=== PATIENT | female | born 1935 | race Caucasian/White ===

== ENCOUNTER → 2016-05-24 | Outpatient (CLI) | payer OTHER ==
[2016-05-24 13:09] LABS: BASO % 0.3 %; BASO ABS # 0.02 K/uL (0-0.2); COMPLETE YES; EOS % 2.8 %; HEMATOCRIT 43.6 % (37-47); IG% 0.1 %; LYMPH % 24.6 %; LYMPH ABS # 1.77 K/uL (1.2-3.4); MEAN CELL VOLUME 89.5 fL (80-100); MEAN CORPUSCULAR HEMOGLOBIN 30.8 pg (25-34); MEAN CORPUSCULAR HGB CONC 34.4 g/dl (32-36); MEAN PLATELET VOLUME 11.6 fL (7.4-10.4); MONO % 8.6 %; NEUT % 63.6 %; PLATELET COUNT 201 K/uL (130-400); RED BLOOD COUNT 4.87 M/uL (4.2-5.4)
[2016-05-24 13:30] LABS: ESTIMATED AVERAGE GLUCOSE 120 mg/dl; HA1C FLAG Normal (Normal)
[2016-05-24 13:46] LABS: ALT/SGPT 21 U/L (12-78); BLOOD UREA NITROGEN 22 mg/dl (7-18); BUN/CREATININE RATIO 18.1 (10-20); CALCIUM 9.8 mg/dl (8.5-10.1); CARBON DIOXIDE 30 mmol/L (21-32); CHLORIDE 102 mmol/L (98-107); CHOLESTEROL 158 mg/dl (0-200); GLUCOSE 117 mg/dl (70-99); POTASSIUM 3.9 mmol/L (3.5-5.1); SODIUM 140 mmol/L (136-145)
[2016-05-24 13:55] LABS: ALKALINE PHOSPHATASE 64 U/L (45-117); AST/SGOT 18 U/L (15-37); HDL CHOLESTEROL 53 mg/dl; LDL CHOLESTEROL CALCULATED 81 mg/dl; TRIGLYCERIDES 119 mg/dl (0-150); VERY LOW DENSITY LIPOPROT CALC 24 mg/dl
--- NOTE | 2016-05-31 08:25 | CODING QUERY MEDICAL NECESSITY ---
SUPPORTING DIAGNOSIS NEEDED A supporting diagnosis is required for the test/procedure performed on this patient in order for us to be reimbursed by the patient's insurance. Please provide a supporting diagnosis for the following test/procedure listed below next to the test name along with your signature. *If there is no additional diagnosis for this patient that would support the following test/procedure please document that below next to the test/procedure. Test(s)/Procedure(s) that require a supporting diagnosis: * VITAMIN B-12 LEVEL DIAGNOSIS: * DOS: 05/24/16 Provider Signature: Date: Thank you Arin Britton Health Information Management Once completed, please kindly fax back to [phone] For questions please call [phone]
== END | disposition home or self-care (01) ==
LOC: C.LAB1850 11:54
PROVIDERS: ATTEND Internal Medicine
DX: I10 Essential (primary) hypertension (principal); R73.9 Hyperglycemia, unspecified; R94.6 Abnormal results of thyroid function studies; E55.9 Vitamin D deficiency, unspecified

== ENCOUNTER → 2017-02-15 | Outpatient (CLI) | payer OTHER ==
--- NOTE | 2017-02-15 14:11 | MAMMOGRAPHY REPORT ---
BILATERAL DIGITAL SCREENING MAMMOGRAM TOMOSYNTHESIS WITH CAD: 02/15/2017 CLINICAL HISTORY: Routine screening. Patient has no complaints. TECHNIQUE: Breast tomosynthesis in addition to standard 2D mammography was performed. Current study was also evaluated with a Computer Aided Detection (CAD) system. COMPARISON: Comparison is made to exams dated: 02/15/2016 mammogram, 02/10/2015 mammogram, 4 mammogram, 01/02/2012 mammogram, 12/31/2010 ultrasound, and 01/02/2013 mammogram - [facility]. BREAST COMPOSITION: The tissue of both breasts is heterogeneously dense, which may obscure small mas ses. FINDINGS: There is a stable benign circumscribed mass in the anterior and medial left breast. Stable punctate microcalcifications in the right lateral breast. No new suspicious mass, architectural dis tortion or cluster of microcalcifications is seen. IMPRESSION: ACR BI-RADS CATEGORY 1: NEGATIVE There is no mammographic evidence of malignancy. A 1 year screening mammogram is recommended. The pa tient will receive written notification of the results. Approximately 10% of breast cancers are not detected with mammography. A negative mammographic report should not delay biopsy if a clinically suggestive mass is present. Margarita Tucker M.D. ay/:02/15/2017 12:35:26 [employer] Tuber Machine Operator: Luz Dee, M, [facility] letter sent: Normal 1/2 BI-RADS Code: ACR BI-RADS Category 1: Negative
== END | disposition home or self-care (01) ==
LOC: C.MAMM 10:20
PROVIDERS: ATTEND Internal Medicine
DX: Z12.31 Encounter for screening mammogram for malignant neoplasm of breast (principal)

== ENCOUNTER 2018-04-05 10:00 | Inpatient (IN) ==
--- NOTE | 2018-03-21 09:14 | Anesthesiology Consultation ---
Date of Service March 21, 2018 Assessment & Plan Chart Review Chart Review: Acceptable Risk for Surgery and Patient NOT seen in Pre Admission Testing Consults Requested none ASA ASA4 Proposed Anesthesia Anesthesia Type: General Anesthesia Line Insertion: Arterial line History Surgery Operation Date: 04/05/18 09:35 Proposed Procedures p Laparoscopic Sigmoidectomy - Josiah Black, Height/Weight Height: 5 ft 4 in Weight: 74.8 kg Allergies Allergy/AdvReac Type Severity Reaction Status Date / Time No Known Allergies Allergy Verified 03/20/18 11:34 Medications Home Medications Medication Instructions Recorded Confirmed Last Taken aspirin [Aspir-81] 81 mg PO HS 02/19/18 03/20/18 03/05/18 atorvastatin 40 mg PO HS 02/19/18 03/20/18 03/05/18 calcium carbonate-vitamin D3 1 tab PO BID 02/19/18 03/20/18 03/05/18 cholecalciferol (vitamin D3) 2,000 unit PO QDL 02/19/18 03/20/18 03/05/18 [Vitamin D3] clonidine HCl 0.1 mg PO DAILY PRN 02/19/18 03/20/18 03/05/18 clonidine HCl 0.1 mg PO HS 02/19/18 03/20/18 03/05/18 diphenhydramine HCl [Benadryl] 25 mg PO HS 02/19/18 03/20/18 03/05/18 lorazepam 2 mg PO HS PRN 02/19/18 03/20/18 03/05/18 metoprolol succinate 50 mg PO QPM 02/19/18 03/20/18 03/05/18 valsartan-hydrochlorothiazide 1 tab PO QAM 02/19/18 03/20/18 03/05/18 Past Medical History Medical History Blood in stool Hyperlipidemia Hypertension Past Surgical History Surgical History History of colonoscopy 03/08/18 [facility] History of bilateral cataract extraction History of myomectomy History of tooth extraction under local Past Anesthesia History No Hx of Anesthesia Complications and No Family Hx of Anesthesia Complications History of PONV No Motion Sickness Screening History of Motion Sickness: No Social History Smoking Status: Never smoker Do You Dip or Chew Tobacco: No Hx Alcohol Use: No Alcohol Intake Frequency Comment: 0 Hx Substance Use: No substance use type: does not use Exercise / Class Metabolic Activity III < 4 Walking/Shop/Light housework Testing Electrocardiogram Date: 05/30/17 sr at 96, ns st t wave abnl anterolateral leads Echocardiogram Date: 08/04/17 EF: 55 LV Function: normal RWMA: + none Other Findings: + atrial enlargement (LA mildly dilated) and + diastolic dysfunction (grade 2) Valvular Disease: + MR (mild - moderate) mild dynamic LVOT obstruction w/o ;mild HOCM?
[~2018-04-05 10:00] MED LIST: CEFAZOLIN 2000MG 2,000 MG/15 ML SYR IV SCH; HEPARIN SOD 5,000 UNIT/0.5 ML VIAL SQ SCH; LR 15ML/HR IV SCH
[2018-04-05] MEDS ORDERED: HYDROmorphone INJ 2 MG/ML SYR/VIAL ONE (12:09)
[2018-04-05] MEDS ORDERED: LIDOCAINE HCL 2% 2 ML VIAL/AMP(20MG/ML) INFIL ONE (12:11)
[2018-04-05] MEDS ORDERED: GLYCOPYRROLATE 0.2 MG/ML VIAL ONE (12:11)
[2018-04-05] MEDS ORDERED: DEXAMETHASONE SOD INJ 4 MG/ML VIAL ONE (12:11)
[2018-04-05] MEDS ORDERED: ROCURONIUM BROMIDE 10 MG/ML 5 ML VIAL ONE (12:11)
[2018-04-05] MEDS ORDERED: ONDANSETRON INJ 2 MG/ML 2 ML VIAL ONE (12:11)
[2018-04-05] MEDS ORDERED: PROPOFOL IV EMULSION 10 MG/ML 20 ML VIAL IV ONE ×3 (12:11→15:18)
[2018-04-05] MEDS ORDERED: NEOSTIGMINE METHYLSULFATE 5 MG/5 ML SYR ONE (12:11)
[2018-04-05] MEDS ORDERED: fentaNYL citrate 100 MCG/2 ML VIAL ONE ×5 (12:12→14:24)
--- NOTE | 2018-04-05 12:14 | History & Physical Bridge Note ---
Date of Service April 05, 2018 History & Physical Bridge Note I have examined the patient, reviewed the History & Physical and in the interval since the performance of the History & Physical I have noted the following changes of clinical significance: no changes noted
[2018-04-05] MEDS ORDERED: ePHEDrine sulfate 50 MG/ML AMP IV PRN (12:28)
[2018-04-05] MEDS ORDERED: fentaNYL citrate 100 MCG/2 ML VIAL IV PRN (12:28)
[2018-04-05] MEDS ORDERED: ATROPINE SULFATE 0.1 MG/ML 10ML SYR IV PRN (12:28)
[2018-04-05] MEDS ORDERED: ONDANSETRON INJ 2 MG/ML 2 ML VIAL IV PRN ×2 (12:28→17:09)
[2018-04-05] MEDS ORDERED: BUPIVACAINE/EPINEPHRINE 0.5% MPF 1:200,000 30 ML VIAL ONE (12:35)
--- NOTE | 2018-04-05 15:58 | Operative Report ---
Post Operative Report Pre & Post Diagnosis Operation Date: 04/05/18 12:15 Pre-Op Diagnosis: Adenocarcinoma, Sigmoid Colon Post-Op Diagnosis: Adenocarcinoma, recto-Sigmoid Colon Procedure Operation Date: 04/05/18 12:15 Actual Procedures p Laparoscopic Low Anterior resection - Josiah Black DO Surgeon Josiah Black DO Dock Grader yissel Magana Estimated Blood Loss 50 Findings Consistent with Post-Op Diagnosis Specimens rectosigmoid colon Description of Procedure After informed consent was obtained the patient was taken to the operating room and placed in supine position. After successful intubation a Mondragon catheter was placed. The patient then had her arms tucked and was placed in a low lithotomy position on yellowfin stirrups. The abdomen and perineum were all sterilely prepped and draped in usual fashion. I began with a periumbilical incision with a 11 blade scalpel and carried this down through the soft tissue using electrocautery. The anterior rectus fascia was opened using electrocautery and 2 #0 Vicryl stay sutures were placed. Peritoneum was entered using blunt finger penetration a finger sweep performed. A 12 mm Mccollum trocar was placed in the abdomen was insufflated to 18 mm of. Laparoscope was inserted and the abdomen was examined in 360 degrees. The tattoo ruel on the sigmoid colon was readily apparent. There was no evidence on any of the peritoneal surfaces of metastatic disease. A right lower quadrant 12 mm trocar was placed under direct vision as well as a right mid abdominal 5 mm trocar and a left lower quadrant 5 mm trocar. The patient was placed in a Trendelenburg position and slightly air planed to the right. I began by inspecting the left colon. There was not much redundancy in the colon and the mesentery was rather thickened and scarred in. This made mobilization quite difficult. I began by using the harmonic scalpel to mobilize the colon along the white line of Toldt. I took this down to the peritoneal reflection as well as up to just distal to the spleen. The lesion was an apple core type lesion and was grossly visible. This was lower than I expected and was actually just proximal to the peritoneal reflection. Because of this I had to mobilize the rectum down past the peritoneal reflection in order to get adequate margins. We did the majority of the dissection either bluntly or with the harmonic scalpel. Eventually I was able to free things up and made a small window at the rectosigmoid region. We used 2 firings of a JONAH purple cartridge stapler to transect the rectum in this region. We then found an area on the left colon as proximal as we could get and marked it for an area of resection. We took as much of the left colon as we could not only to get margins from the cancer but also because of the polyp that had been removed with some adenocarcinoma in it. We had no way of identifying where in the left colon this polyp was. Therefore we took as much of the left colon as we safely could. We took down the mesentery using the harmonic scalpel. Once we had a completely freed up the specimen we extended the left lower quadrant trocar incision site with cautery. We opened the fascia and delivered the colon and exteriorized it. We clamped it and divided it at the previously marked spot. I did eventually open this on the back table to ensure that grossly we had adequate distal margins which we did. Next we used 2-0 silk to make a pursestring stitch. The colon had a very small lumen and a 25 mm sizer was the maximum size that we could safely enter the lumen with. We placed the anvil of a 25 mm stapler into lumen and secured it with the pursestring. This was dunked back into the abdominal cavity. We then changed our gloves. We closed the fascia using 0 PDS in a running fashion. We then reinsufflated the abdomen. I irrigated the pelvis and there was adequate hemostasis. The anvil and left colon were able to come over the pelvic brim without tension. We started with sizers in the rectum followed by the EEA handle. We able to bring the spike out through the rectal stump anterior to the staple line. We secured it to the anvil and fired creating a circular anastomosis. Both donuts were intact and we sent the distal donut for distal margins. I thoroughly irrigated the entire lower part of the abdomen. Again there was adequate hemostasis. We submerged the anastomosis under water, I clamped proximal to the anastomosis and we insufflated with a rigid sigmoidoscope. There was no evidence of any anastomotic leak. We then placed a 10 flat Gonzalo-Bobo drain in the pelvis and brought out through 1 of the trocar sites. It was secured to skin using 2- 0 nylon. All the trochars were removed and the abdomen desufflated. The fascia the camera port was closed using 0 Vicryl [id number] fashion. All the wounds were irrigated. Large incision was closed with 3-0 Vicryl and 4-0 Monocryl the smaller incisions were closed with 4-0 Monocryl. Marcaine was injected around them for postoperative analgesia. Skin glue was used as a dressing. The patient was awaken extubated and transferred recovery in stable condition. My physician automobile mechanic assistant was present for the entire case. He helped prep the patient. Helped with retraction and exposure in running of the camera throughout the entire procedure as well as with the anastomosis and wound closure. I attest to the content of the Intraoperative Record and any orders documented therein. Any exceptions are noted below.
--- NOTE | 2018-04-05 16:27 | Anesthesiology Progress Note ---
Date of Service April 05, 2018 Anesthesia Post Procedure Vital Signs Vital Signs: Temp Pulse Pulse Resp BP Pulse Ox 04/05/18 16:20 69 14 148/73 H 100 04/05/18 16:10 70 14 152/80 H 100 04/05/18 16:00 71 14 149/78 H 100 04/05/18 15:54 36.2 C L 72 12 150/85 H 94 04/05/18 10:39 36.7 C 62 18 180/85 H 94 Notes Mental Status: alert / awake / arousable Patient Amnestic to Procedure: Yes Nausea / Vomiting: adequately controlled Pain: adequately controlled Airway Patency, RR, SpO2: stable & adequate BP & HR: stable & adequate Hydration State: stable & adequate Anesthetic Complications: no major complications apparent
[2018-04-05] MEDS ORDERED: MoRPHine SULFATE 4 MG/ML 1 ML CARP\\VIAL IV PRN ×2 (17:09)
[2018-04-05] MEDS ORDERED: LORazepam 2 MG TAB PO PRN (17:09)
--- NOTE | 2018-04-05 17:30 | Internal Medicine Consult Note ---
Date of Consultation April 05, 2018 Assessment & Plan (1) Hypertension: Patient typically takes outpatient clonidine 0.1 at bedtime, metoprolol 50 every afternoon, and valsartan hydrochlorothiazide daily. Because she is n.p.o. she will be placed on metoprolol IV 5 every 6 and if need be a Catapres patch be applied in the morning at 0.1 she will of backup hydralazine this evening as she is n.p.o. for blood pressure control however currently her blood pressure is in good condition postoperatively we will watch for beta-jim withdrawal and use metoprolol if needed to help with this also History of Present Illness Attending Physician: Josiah Black, OPERATION DATE/TIME 04/05/18 12:15 Anesthesia Type: General p Laparoscopic Low anterior sigmoid resection Surgeon: Josiah Black Allergies Allergy/AdvReac Type Severity Reaction Status Date / Time No Known Allergies Allergy Verified 04/05/18 10:32 Home Medications Home Medications Medication Instructions Recorded Confirmed Type aspirin [Aspir-81] 81 mg PO HS 02/19/18 04/05/18 History atorvastatin 40 mg PO HS 02/19/18 04/05/18 History calcium carbonate-vitamin D3 1 tab PO BID 02/19/18 04/05/18 History cholecalciferol (vitamin D3) 2,000 unit PO QDL 02/19/18 04/05/18 History [Vitamin D3] clonidine HCl 0.1 mg PO DAILY PRN 02/19/18 04/05/18 History clonidine HCl 0.1 mg PO HS 02/19/18 04/05/18 History diphenhydramine HCl [Benadryl] 25 mg PO HS 02/19/18 04/05/18 History lorazepam 2 mg PO HS PRN 02/19/18 04/05/18 History metoprolol succinate 50 mg PO QPM 02/19/18 04/05/18 History valsartan-hydrochlorothiazide 1 tab PO QAM 02/19/18 04/05/18 History Patient History Medical History Blood in stool Hyperlipidemia Hypertension Surgical History History of bilateral cataract extraction History of colonoscopy 03/08/18 [facility] History of myomectomy History of tooth extraction under local Social History Current Living Situation: Alone Other Information That Helps Us Care for You: No Feels Safe at Home: Yes Safety Concerns: Feels Safe At This Time Smoking Status: Never smoker Do You Dip or Chew Tobacco: No Hx Alcohol Use: No Hx Substance Use: No Beliefs That Will Affect Care: None Preferred Language: Tuvaluan Communication Ability: Effective Fly Setter Required: No Physical Exam 2 Vital Signs (Past 24 Hours): Last Vital Signs Temp 36.3 C L 04/05/18 16:40 Pulse 65 04/05/18 16:40 Resp 16 04/05/18 16:40 BP 139/70 04/05/18 16:40 Pulse Ox 94 04/05/18 16:40
--- NOTE | 2018-04-05 18:26 | Consultation ---
Date of Consultation April 05, 2018 Assessment & Plan (1) S/P colectomy: Status post colectomy on 04/05/[address] Black with colostomy formation -Postoperative care as per general surgery MICHELLE drain, Mondragon catheter in place -Pain control, IV fluids running with LR DVT prophylaxis with Lovenox -Follow postoperative CBC, CMP -N.p.o. with sips allowed with p.o. meds for now -Advance diet as tolerated as per surgery when bowel function returns (2) Hypertension: Blood pressure is elevated, she did not take her valsartan/HCT this morning as instructed and we will continue to hold this while here in the immediate postoperative period She is able to take p.o. meds with sips of water -Important to continue her Toprol-XL 50 mg p.o. nightly -Clonidine 0.1 mg p.o. 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 nightly along with Benadryl 25 mg p.o. nightly for many many years -Continue lorazepam scheduled while here -Add Benadryl 25 mg p.o. 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 Black Attending Physician: Josiah Black, DO History of Present Illness This patient is an 82-year-old female with a history of HTN, LVH with mild LVOT , HL, chronic diastolic CHF, mild to moderate MR, mild aortic stenosis, osteoporosis and vitamin D deficiency, left internal carotid artery aneurysm, prediabetes, insomnia, and a recent diagnosis of rectosigmoid invasive, well differentiated adenocarcinoma. She is here status post laparoscopic low anterior resection of the colon with colostomy formation. Currently, the patient is doing very well, has no pain in the abdomen at all. She denies chest pain or shortness of breath, no nausea. She is on the telemetry/PCU and is in a normal sinus rhythm on the monitor. She reports that she does indeed take the Lorazepam and Benadryl every night together and has a long history of insomnia. She reports that she did not take her valsartan/HCTZ this morning, but did take her metoprolol. However her blood pressure is running high and she can take her usual evening dose of metoprolol tonight. She reports she only has to take her clonidine about once per week when her systolic blood pressure is greater than 170. Allergies Allergy/AdvReac Type Severity Reaction Status Date / Time No Known Allergies Allergy Verified 04/05/18 10:32 Home Medications Home Medications Medication Instructions Recorded Confirmed Type aspirin [Aspir-81] 81 mg PO HS 02/19/18 04/05/18 History atorvastatin 40 mg PO HS 02/19/18 04/05/18 History calcium carbonate-vitamin D3 1 tab PO BID 02/19/18 04/05/18 History cholecalciferol (vitamin D3) 2,000 unit PO QDL 02/19/18 04/05/18 History [Vitamin D3] clonidine HCl 0.1 mg PO DAILY PRN 02/19/18 04/05/18 History clonidine HCl 0.1 mg PO HS 02/19/18 04/05/18 History diphenhydramine HCl [Benadryl] 25 mg PO HS 02/19/18 04/05/18 History lorazepam 2 mg PO HS PRN 02/19/18 04/05/18 History metoprolol succinate 50 mg PO QPM 02/19/18 04/05/18 History valsartan-hydrochlorothiazide 1 tab PO QAM 02/19/18 04/05/18 History Patient History Medical History Carotid artery aneurysm Chronic diastolic CHF (congestive heart failure) Colon cancer History of hysterectomy Insomnia Left ventricular outflow tract obstruction Mitral regurgitation Osteoporosis Prediabetes Vitamin D deficiency Blood in stool Hyperlipidemia Hypertension Surgical History History of bilateral cataract extraction History of colonoscopy 03/08/18 [facility] History of myomectomy History of tooth extraction under local Family History Father Stomach cancer Throat cancer Mother Kidney disease Social History Current Living Situation: Alone current occupational status: retired Other Information That Helps Us Care for You: No Feels Safe at Home: Yes Safety Concerns: Feels Safe At This Time Smoking Status: Never smoker Do You Dip or Chew Tobacco: No Hx Alcohol Use: No Hx Substance Use: No Beliefs That Will Affect Care: None Preferred Language: Trinidadian Communication Ability: Effective Roll Cleaner Required: No Review of Systems 14 point review of systems otherwise negative except as per HPI Physical Exam 2 Vital Signs (Past 24 Hours): Last Vital Signs Temp 36.3 C L 04/05/18 16:40 Pulse 65 04/05/18 16:40 Resp 16 04/05/18 16:40 BP 139/70 04/05/18 16:40 Pulse Ox 94 04/05/18 16:40 Constitutional: WD/WN, vitals as above Eyes: PERRL, conjunctivae normal, anicteric sclerae ENMT: external ear and nose normal, oropharynx normal Neck: trachea midline, no thyromegaly Respiratory: normal respiratory effort, lungs clear to auscultation Cardiovascular: RRR, no murmur, no edema Gastrointestinal (Abdomen): Inspection/Auscultation: + hypoactive bowel sounds ; + abdomen abnormal to inspection (Right lower quadrant with dressing in place with scant dried serosanguineous fluid, MICHELLE drain coming out with serosanguineous fluid; umbilical incision with Dermabond in place and no drainage) Percussion/Palpation: + abdomen tender (Minimally tender at incision sites without guarding or rebound tenderness) Musculoskeletal: Extremities: extremities normal to inspection; no cyanosis and no clubbing Skin: no rashes, warm and dry Neurologic: moves all extremities and awake; no focal motor deficits Psychiatric: A+Ox3, euthymic affect Genitourinary: Mondragon catheter in place draining clear yellow urine Results & Data Laboratory Results 04/05/18 04/05/18 Range/Units 16:07 10:38 POC Glucose 163 H (70-99) Blood Type O Positive Antibody Screen NEGATIVE _ (1) Hypertension Hypertension type: essential hypertension Qualified Code(s): I10 - Essential (primary) hypertension (2) Hyperlipidemia Hyperlipidemia type: unspecified Qualified Code(s): E78.5 - Hyperlipidemia, unspecified
[2018-04-05] MEDS ORDERED: METOPROLOL TARTRATE 1 MG/ML VIAL IV SCH (18:30)
[2018-04-05] MEDS ORDERED: cloNIDine HCl 0.1 MG TAB PO PRN (18:54)
[2018-04-05] MEDS ORDERED: GLUCOSE 40% GEL 15 GM TUBE PO PRN (19:18)
[2018-04-05] MEDS ORDERED: GLUCAGON FOR INJ 1 MG VIAL SQ PRN (19:18)
[2018-04-05] MEDS ORDERED: CARBOHYDRATES FOR HYPOGLYCEMIA PO PRN (19:18)
[2018-04-05] MEDS ORDERED: DEXTROSE 50% 50 ML SYRINGE IV PRN (19:18)
[2018-04-05] MEDS ORDERED: GLUCOSE 10 TABS/TUBE PO PRN (19:18)
[2018-04-05] MEDS: LACTATED RINGER'S 1,000 ML IV SCH ×2 (20:03→23:34)
[2018-04-05] MEDS: ACETAMINOPHEN 1,000 MG/100 ML VIAL IV SCH (20:04)
[2018-04-05] MEDS ORDERED: cloNIDine HCl 0.1 MG TAB PO SCH (21:00)
[2018-04-05] MEDS: CEFAZOLIN 1000MG 1,000 MG/7.5 ML SYR IV SCH (21:38)
[2018-04-05] MEDS: LORazepam 2 MG TAB PO SCH (21:39)
[2018-04-05] MEDS: METOPROLOL SUCC 50MG EXT REL TAB PO SCH (21:39)
[2018-04-05] MEDS: ATORVASTATIN 40 MG TAB PO SCH (21:39)
[2018-04-05] MEDS: INSULIN ASPART 100 UNITS/ML 3 ML PEN SC SCH (21:40)
[2018-04-06] MEDS ORDERED: CHECK CLONIDINE PATCH PLACEMENT SCH
[2018-04-06] MEDS: ACETAMINOPHEN 1,000 MG/100 ML VIAL IV SCH ×3 (05:38→21:03)
[2018-04-06] MEDS: CEFAZOLIN 1000MG 1,000 MG/7.5 ML SYR IV SCH ×2 (05:38→13:33)
[2018-04-06 06:42] LABS: Basophils # (auto) 0.01 K/uL (0-0.2); Basophils % (auto) 0.1 %; Hematocrit (blood only) 37.4 % (37-47); Hemoglobin 12.6 g/dL (12.0-16.0); Immature Granulocytes # (auto) 0.02 K/uL (0.00-0.02); Immature Granulocytes % (auto) 0.2 %; Lymphocytes # (auto) 1.05 K/uL (1.2-3.4); Lymphocytes % (auto) 10.3 %; Mean Corpuscular Hgb Conc 33.7 g/dL (32-36); Mean Corpuscular Volume 90.8 fL (80-100); Mean Platelet Volume 10.8 fL (7.4-10.4); Monocytes # (auto) 0.99 K/uL (0.11-0.59); Monocytes % (auto) 9.7 %; Neutrophils % (auto) 79.7 %; Platelet Count 184 K/uL (130-400); RDW Coefficient of Variation 13.7 % (11.5-14.5); RDW Standard Deviation 45.7 fL (36.4-46.3); Red Blood Count 4.12 M/uL (4.2-5.4); White Blood Count 10.17 K/uL (4.8-10.8)
[2018-04-06 07:10] LABS: Estimated Average Glucose 120 mg/dl
[2018-04-06 07:13] LABS: BUN Creatinine Ratio 15.2 (10-20); Calcium 9.5 mg/dl (8.5-10.1); Creatinine Clr Calc Pharmacy 47.2 ml/min; Est GFR (African American) 70.9; Est GFR (Non-African American) 61.2; Potassium 3.8 mmol/L (3.5-5.1)
--- NOTE | 2018-04-06 07:57 | Anesthesiology Progress Note ---
Date of Service April 06, 2018 Anesthesia Post Procedure Vital Signs Vital Signs: Temp Pulse Pulse Pulse Resp BP BP 04/06/18 04:00 36.4 C L 86 17 117/68 04/06/18 00:00 80 04/05/18 23:09 36.5 C 85 17 122/71 04/05/18 20:00 36.9 C 67 16 140/82 04/05/18 17:39 36.9 C 76 14 143/81 H 04/05/18 17:09 36.9 C 75 14 140/80 04/05/18 16:40 36.3 C L 65 16 139/70 04/05/18 16:30 36.3 C L 65 16 137/74 04/05/18 16:20 69 14 148/73 H 04/05/18 16:10 70 14 152/80 H 04/05/18 16:00 71 14 149/78 H 04/05/18 15:54 36.2 C L 72 12 150/85 H 04/05/18 10:39 36.7 C 62 18 180/85 H Pulse Ox 04/06/18 04:00 94 04/06/18 00:00 04/05/18 23:09 93 04/05/18 20:00 94 04/05/18 17:39 92 04/05/18 17:09 92 04/05/18 16:40 94 04/05/18 16:30 94 04/05/18 16:20 100 04/05/18 16:10 100 04/05/18 16:00 100 04/05/18 15:54 94 04/05/18 10:39 94 Notes Mental Status: alert / awake / arousable and participated in evaluation Patient Amnestic to Procedure: Yes Nausea / Vomiting: adequately controlled Pain: adequately controlled Airway Patency, RR, SpO2: stable & adequate BP & HR: stable & adequate Hydration State: stable & adequate Anesthetic Complications: no major complications apparent and Pt Satisfied with anesthetic care
[2018-04-06] MEDS: INSULIN ASPART 100 UNITS/ML 3 ML PEN SC SCH ×4 (08:03→20:41)
[2018-04-06] MEDS: ENOXAPARIN INJ 30 MG/0.3 ML SYR SQ SCH (08:04)
[2018-04-06] MEDS: LACTATED RINGER'S 1,000 ML IV SCH ×2 (08:04→16:52)
--- NOTE | 2018-04-06 08:21 | Surgery Progress Note ---
Date of Service April 06, 2018 Assessment & Plan (1) S/P colectomy: POD 1 lap LAR UOP adequate labs stable leave rice for today maybe clears later Subjective no nausea, minimal pain Physical Exam 2 Vital Signs (Past 24 Hours): Last Vital Signs Temp 36.4 C L 04/06/18 04:00 Pulse 86 04/06/18 04:00 Resp 17 04/06/18 04:00 BP 117/68 04/06/18 04:00 Pulse Ox 94 04/06/18 04:00 Constitutional: WD/WN, vitals as above Gastrointestinal (Abdomen): Inspection/Auscultation: abdomen not distended Percussion/Palpation: abdomen soft MICHELLE 20 cc overnight
[2018-04-06] MEDS ORDERED: cloNIDine HCL 0.1 MG/24 HR TRANSDERM SYS TD SCH (08:30)
--- NOTE | 2018-04-06 12:57 | Surgery Progress Note ---
Date of Service April 06, 2018 Assessment & Plan (1) Colon cancer: POD 1 doing well so far/no acute issues can transfer to med /surg sips clears ok will plan d/c MICHELLE tomorrow increase activity awaiting return of bowel fx Dr. Vargas covering for weekend. Subjective pt doing well. expected pain but controlled. Physical Exam 2 Vital Signs (Past 24 Hours): Last Vital Signs Temp 36.2 C L 04/06/18 12:00 Pulse 63 04/06/18 12:00 Resp 18 04/06/18 12:00 BP 131/69 04/06/18 12:00 Pulse Ox 93 04/06/18 12:00 Physical Exam: alert/oriented. nad abd: soft. expected tenderness. MICHELLE serous.
[2018-04-06] MEDS: CHOLECALCIFEROL 1,000 UNITS TAB PO SCH (13:30)
[2018-04-06] MEDS: OXYCODONE/ACETAMINOPHEN 5mg/325mg TAB PO PRN (17:45)
[2018-04-06] MEDS: LORazepam 2 MG TAB PO SCH (20:37)
[2018-04-06] MEDS: ATORVASTATIN 40 MG TAB PO SCH (20:38)
[2018-04-06] MEDS: METOPROLOL SUCC 50MG EXT REL TAB PO SCH (20:41)
--- NOTE | 2018-04-06 21:23 | Hospitalist Progress Note ---
Date of Service April 06, 2018 Assessment & Plan (1) Colon cancer: POD #1 s/p hemicolectomy by Dr. Black. Defer management to his team. (2) Essential (primary) hypertension: BPs acceptable at this time. Cont home meds. Agree w/ holding the ARB-HCTZ, however, to avoid hypotension/dehydration. (3) Insomnia: cont benadryl with ativan at HS -- she has been taking this regimen for some time at home (4) Chronic kidney disease, stage 3a: Creatinine stable today repeat BMP am (5) LVH (left ventricular hypertrophy): continue beta jim volume status acceptable today (6) Chronic diastolic CHF (congestive heart failure): compensated (7) Hyperlipidemia: cont statin (8) Prediabetes: control acceptable at this time (9) DVT prophylaxis: lovenox daily our team will cont to follow she is doing well medically thus far Subjective patient with mild abdominal pain today worse with deep breathing and movement no dyspnea no chest pain no nausea no flatus Constitutional: no fever dry mouth Respiratory: no cough and no dyspnea Cardiovascular: no chest pain Physical Exam 2 Vital Signs (Past 24 Hours): Last Vital Signs Temp 37.0 C 04/06/18 21:15 Pulse 80 04/06/18 21:15 Resp 18 04/06/18 21:15 BP 160/76 H 04/06/18 21:15 Pulse Ox 92 04/06/18 21:15 Constitutional: well developed and well nourished; no acute distress and not ill appearing ENMT: Mouth: + oropharynx abnormality (oral mucosa dry) Respiratory: normal respiratory effort, lungs clear to auscultation Auscultation: + rales (left base- dry) Cardiovascular: Rate/Rhythm: regular rate and regular rhythm Heart Sounds: normal S1, normal S2 and + murmur (2/6 LSB) Vessels: posterior tibial pulses present and dorsalis pedis pulses present; no JVD Extremities: no edema Gastrointestinal (Abdomen): Inspection/Auscultation: + abdomen distended (mild ) Percussion/Palpation: + abdomen tender (incisional); no guarding, abdomen not rigid and no hepatosplenomegaly MICHELLE drain in place with dressings intact Psychiatric: A+Ox3, euthymic affect Results & Data Laboratory Results Laboratory Results - last 24 hr 04/06/18 04/06/18 04/06/18 00:40 06:04 06:04 WBC 10.17 RBC 4.12 L Hgb 12.6 Hct 37.4 MCV 90.8 MCH 30.6 MCHC 33.7 RDW Std Deviation 45.7 RDW Coeff of Aimee 13.7 Plt Count 184 MPV 10.8 H Immature Gran % (Auto) 0.2 Neut % (Auto) 79.7 Lymph % (Auto) 10.3 [place] % (Auto) 9.7 Eos % (Auto) 0.0 Baso % (Auto) 0.1 Immature Gran # (Auto) 0.02 Neut # (Auto) 8.10 H Lymph # (Auto) 1.05 L [place]ole # (Auto) 0.99 H Eos # (Auto) 0.00 Baso # (Auto) 0.01 Sodium 138 Potassium 3.8 Chloride 105 Carbon Dioxide 27 Anion Gap 6.0 BUN 13 Creatinine 0.87 Est Cr Clr Drug Dosing 47.2 Est GFR ( Amer) 70.9 Est GFR (Non-Af Amer) 61.2 BUN/Creatinine Ratio 15.2 Glucose 120 H POC Glucose 136 H Estimat Average Glucose Hemoglobin A1c Calcium 9.5 04/06/18 04/06/18 04/06/18 06:04 06:17 13:29 WBC RBC Hgb Hct MCV MCH MCHC RDW Std Deviation RDW Coeff of Aimee Plt Count MPV Immature Gran % (Auto) Neut % (Auto) Lymph % (Auto) [place] % (Auto) Eos % (Auto) Baso % (Auto) Immature Gran # (Auto) Neut # (Auto) Lymph # (Auto) [place] # (Auto) Eos # (Auto) Baso # (Auto) Sodium Potassium Chloride Carbon Dioxide Anion Gap BUN Creatinine Est Cr Clr Drug Dosing Est GFR ( Amer) Est GFR (Non-Af Amer) BUN/Creatinine Ratio Glucose POC Glucose 119 H 91 Estimat Average Glucose 120 Hemoglobin A1c 5.8 H Calcium 04/06/18 04/06/18 17:04 20:24 WBC RBC Hgb Hct MCV MCH MCHC RDW Std Deviation RDW Coeff of Aimee Plt Count MPV Immature Gran % (Auto) Neut % (Auto) Lymph % (Auto) [place] % (Auto) Eos % (Auto) Baso % (Auto) Immature Gran # (Auto) Neut # (Auto) Lymph # (Auto) [place] # (Auto) Eos # (Auto) Baso # (Auto) Sodium Potassium Chloride Carbon Dioxide Anion Gap BUN Creatinine Est Cr Clr Drug Dosing Est GFR ( Amer) Est GFR (Non-Af Amer) BUN/Creatinine Ratio Glucose POC Glucose 95 100 H Estimat Average Glucose Hemoglobin A1c Calcium _ (1) Colon cancer Colon location: unspecified part of colon Qualified Code(s): C18.9 - Malignant neoplasm of colon, unspecified (2) Hyperlipidemia Hyperlipidemia type: mixed hyperlipidemia Qualified Code(s): E78.2 - Mixed hyperlipidemia (3) Insomnia Insomnia type: unspecified Qualified Code(s): G47.00 - Insomnia, unspecified
[2018-04-07] MEDS: LACTATED RINGER'S 1,000 ML IV SCH ×2 (01:54→13:09)
[2018-04-07] MEDS: ACETAMINOPHEN 1,000 MG/100 ML VIAL IV SCH (05:21)
[2018-04-07 08:37] LABS: Basophils # (auto) 0.01 K/uL (0-0.2); Basophils % (auto) 0.1 %; Eosinophils # (auto) 0.41 K/uL (0-0.5); Eosinophils % (auto) 3.3 %; Hematocrit (blood only) 42.4 % (37-47); Hemoglobin 14.2 g/dL (12.0-16.0); Immature Granulocytes # (auto) 0.03 K/uL (0.00-0.02); Immature Granulocytes % (auto) 0.2 %; Lymphocytes # (auto) 1.55 K/uL (1.2-3.4); Lymphocytes % (auto) 12.5 %; Mean Corpuscular Hgb Conc 33.5 g/dL (32-36); Mean Corpuscular Volume 92.8 fL (80-100); Mean Platelet Volume 11.2 fL (7.4-10.4); Monocytes # (auto) 0.91 K/uL (0.11-0.59); Monocytes % (auto) 7.4 %; Neutrophils # (auto) 9.45 K/uL (1.4-6.5); Neutrophils % (auto) 76.5 %; Platelet Count 204 K/uL (130-400); RDW Coefficient of Variation 13.8 % (11.5-14.5); RDW Standard Deviation 46.5 fL (36.4-46.3); Red Blood Count 4.57 M/uL (4.2-5.4); White Blood Count 12.36 K/uL (4.8-10.8)
[2018-04-07] MEDS: ENOXAPARIN INJ 30 MG/0.3 ML SYR SQ SCH (08:37)
[2018-04-07] MEDS: HydrALAZINE HCL 20 MG/ML VIAL IV PRN ×2 (08:38→23:08)
[2018-04-07] MEDS: INSULIN ASPART 100 UNITS/ML 3 ML PEN SC SCH ×4 (08:39→21:28)
[2018-04-07 09:07] LABS: BUN Creatinine Ratio 11.3 (10-20); Creatinine Clr Calc Pharmacy 48.8 ml/min; Est GFR (Non-African American) 63.8; Potassium 3.4 mmol/L (3.5-5.1)
[2018-04-07] MEDS: OXYCODONE/ACETAMINOPHEN 5mg/325mg TAB PO PRN (09:24)
[2018-04-07] MEDS ORDERED: ACETAMINOPHEN 1,000 MG/100 ML VIAL IV PRN (12:08)
[2018-04-07] MEDS: CHOLECALCIFEROL 1,000 UNITS TAB PO SCH (12:21)
--- NOTE | 2018-04-07 13:06 | Hospitalist Progress Note ---
Date of Service April 07, 2018 Assessment & Plan (1) Colon cancer: POD #2 s/p hemicolectomy by Dr. Black. Defer management to his team. MICHELLE drain still in place Afebrile Diet at clears and tolerating No ileostomy bag in place yet (2) Essential (primary) hypertension: BPs elevated this AM Cont home med of metoprolol, clonidine prn Agree w/ holding the ARB-HCTZ, however, to avoid hypotension/dehydration. -give IV hydralazine prn-gave a dos this AM decrease IVFs down to 70 mls/hr as is tolerating po liquids (3) Insomnia: cont benadryl with ativan at HS -- she has been taking this regimen for some time at home (4) Chronic kidney disease, stage 3a: Creatinine stable Follow BMP in AM (5) LVH (left ventricular hypertrophy): continue beta jim, BP control volume status acceptable today (6) Chronic diastolic CHF (congestive heart failure): compensated With mild LVOT, followed by Cardiology as outpt -follow daily weights, I/Os (7) Hyperlipidemia: cont statin (8) Prediabetes: control acceptable at this time -continue SSI as needed (9) Renal mass: 8 mm left renal mass noted on CT acns from prior to admission= indeterminate -follow with imaging as outpt (10) DVT prophylaxis: lovenox daily Dispo-remain hospitalized, Hospitalist service will continue to follow Subjective Feeling well, pain is present but controlled with pain meds. Denies any chest pain, no SOB No nausea, is tolerating small amounts of clear liquids BPs quite high this AM Review of Systems All systems reviewed & are unremarkable except as noted in HPI & below Physical Exam 2 Vital Signs (Past 24 Hours): Last Vital Signs Temp 36.7 C 04/07/18 11:38 Pulse 74 04/07/18 11:38 Resp 20 04/07/18 11:38 BP 158/92 H 04/07/18 11:38 Pulse Ox 94 04/07/18 11:38 Constitutional: WD/WN, vitals as above Eyes: PERRL, conjunctivae normal, anicteric sclerae Neck: trachea midline, no thyromegaly Respiratory: normal respiratory effort, lungs clear to auscultation Cardiovascular: RRR, no murmur, no edema Gastrointestinal (Abdomen): Inspection/Auscultation: normal bowel sounds; + abdomen abnormal to inspection (Right lower quadrant with dressing in place with scant dried serosanguineous fluid, MICHELLE drain coming out with serosanguineous fluid; umbilical incision with Dermabond in place and no drainage) Percussion/Palpation: + abdomen tender (minimal TTP over surgical site w/o guarding or rebound) and abdomen soft Musculoskeletal: Extremities: extremities normal to inspection; no cyanosis and no clubbing Skin: no rashes, warm and dry Neurologic: moves all extremities and awake; no focal motor deficits Psychiatric: A+Ox3, euthymic affect Results & Data Laboratory Results 04/07/18 04/07/18 04/07/18 Range/Units 12:15 08:11 08:11 WBC 12.36 H (4.8-10.8) K/uL RBC 4.57 (4.2-5.4) M/uL Hgb 14.2 (12.0-16.0) g/dL Hct 42.4 (37-47) % MCV 92.8 (80-100) fL MCH 31.1 (25-34) pg MCHC 33.5 (32-36) g/dL RDW Std Deviation 46.5 H (36.4-46.3) fL RDW Coeff of Aimee 13.8 (11.5-14.5) % Plt Count 204 (130-400) K/uL MPV 11.2 H (7.4-10.4) fL Immature Gran % (Auto) 0.2 % Neut % (Auto) 76.5 % Lymph % (Auto) 12.5 % [place] % (Auto) 7.4 % Eos % (Auto) 3.3 % Baso % (Auto) 0.1 % Immature Gran # (Auto) 0.03 H (0.00-0.02) K/uL Neut # (Auto) 9.45 H (1.4-6.5) K/uL Lymph # (Auto) 1.55 (1.2-3.4) K/uL [place] # (Auto) 0.91 H (0.11-0.59) K/uL Eos # (Auto) 0.41 (0-0.5) K/uL Baso # (Auto) 0.01 (0-0.2) K/uL Sodium 140 (136-145) mmol/L Potassium 3.4 L (3.5-5.1) mmol/L Chloride 104 (98-107) mmol/L Carbon Dioxide 33 H (21-32) mmol/L Anion Gap 3.0 (3-11) BUN 10 (7-18) mg/dl Creatinine 0.84 (0.6-1.2) mg/dl Est Cr Clr Drug Dosing 48.8 ml/min Est GFR ( Amer) 74.0 Est GFR (Non-Af Amer) 63.8 BUN/Creatinine Ratio 11.3 (10-20) Glucose 99 (70-99) mg/dl POC Glucose 116 H (70-99) Calcium 10.0 (8.5-10.1) mg/dl 04/07/18 04/06/18 04/06/18 Range/Units 08:10 20:24 17:04 WBC (4.8-10.8) K/uL RBC (4.2-5.4) M/uL Hgb (12.0-16.0) g/dL Hct (37-47) % MCV (80-100) fL MCH (25-34) pg MCHC (32-36) g/dL RDW Std Deviation (36.4-46.3) fL RDW Coeff of Aimee (11.5-14.5) % Plt Count (130-400) K/uL MPV (7.4-10.4) fL Immature Gran % (Auto) % Neut % (Auto) % Lymph % (Auto) % [place] % (Auto) % Eos % (Auto) % Baso % (Auto) % Immature Gran # (Auto) (0.00-0.02) K/uL Neut # (Auto) (1.4-6.5) K/uL Lymph # (Auto) (1.2-3.4) K/uL [place] # (Auto) (0.11-0.59) K/uL Eos # (Auto) (0-0.5) K/uL Baso # (Auto) (0-0.2) K/uL Sodium (136-145) mmol/L Potassium (3.5-5.1) mmol/L Chloride (98-107) mmol/L Carbon Dioxide (21-32) mmol/L Anion Gap (3-11) BUN (7-18) mg/dl Creatinine (0.6-1.2) mg/dl Est Cr Clr Drug Dosing ml/min Est GFR ( Amer) Est GFR (Non-Af Amer) BUN/Creatinine Ratio (10-20) Glucose (70-99) mg/dl POC Glucose 87 100 H 95 (70-99) Calcium (8.5-10.1) mg/dl 04/06/18 Range/Units 13:29 WBC (4.8-10.8) K/uL RBC (4.2-5.4) M/uL Hgb (12.0-16.0) g/dL Hct (37-47) % MCV (80-100) fL MCH (25-34) pg MCHC (32-36) g/dL RDW Std Deviation (36.4-46.3) fL RDW Coeff of Aimee (11.5-14.5) % Plt Count (130-400) K/uL MPV (7.4-10.4) fL Immature Gran % (Auto) % Neut % (Auto) % Lymph % (Auto) % [place] % (Auto) % Eos % (Auto) % Baso % (Auto) % Immature Gran # (Auto) (0.00-0.02) K/uL Neut # (Auto) (1.4-6.5) K/uL Lymph # (Auto) (1.2-3.4) K/uL [place] # (Auto) (0.11-0.59) K/uL Eos # (Auto) (0-0.5) K/uL Baso # (Auto) (0-0.2) K/uL Sodium (136-145) mmol/L Potassium (3.5-5.1) mmol/L Chloride (98-107) mmol/L Carbon Dioxide (21-32) mmol/L Anion Gap (3-11) BUN (7-18) mg/dl Creatinine (0.6-1.2) mg/dl Est Cr Clr Drug Dosing ml/min Est GFR ( Amer) Est GFR (Non-Af Amer) BUN/Creatinine Ratio (10-20) Glucose (70-99) mg/dl POC Glucose 91 (70-99) Calcium (8.5-10.1) mg/dl _ (1) Insomnia Insomnia type: unspecified Qualified Code(s): G47.00 - Insomnia, unspecified (2) Colon cancer Colon location: unspecified part of colon Qualified Code(s): C18.9 - Malignant neoplasm of colon, unspecified (3) Hyperlipidemia Hyperlipidemia type: mixed hyperlipidemia Qualified Code(s): E78.2 - Mixed hyperlipidemia
--- NOTE | 2018-04-07 13:44 | Surgery Progress Note ---
Date of Service April 07, 2018 Assessment & Plan (1) Colon cancer: POD # 2 s/p laparoscopic Low anterior resection with primary anastomosis -vitals stable other than some HTN, afebrile - mild leukocytosis of 12.36K (10.7K yesterday) - Abdomen soft, tender at incisions, nondistended + bowel sounds - no return of bowel function yet Plan: Continue clear liquids Continue IV Tylenol and PO Percocet prn pain Continue IV fluids at 70 cc/hr repeat am labs OOB to chair as tolerated Continue Lovenox and SCDs for DVT prophylaxis Dr. Vargas has seen and examined pt, agrees with above Subjective feeling well today able to get up and sit in chair tolerated clear liquids okay, no nausea, vomiting no flatus or bowel movement yet but feels things "moving around in there" Physical Exam 2 Vital Signs (Past 24 Hours): Last Vital Signs Temp 36.7 C 04/07/18 11:38 Pulse 74 04/07/18 11:38 Resp 20 04/07/18 11:38 BP 158/92 H 04/07/18 11:38 Pulse Ox 94 04/07/18 11:38 Constitutional: WD/WN, vitals as above no acute distress Respiratory: normal respiratory effort, lungs clear to auscultation Cardiovascular: RRR, no murmur, no edema Gastrointestinal (Abdomen): Inspection/Auscultation: abdomen normal to inspection and normal bowel sounds; abdomen not distended Percussion/ Palpation: + abdomen tender (at incision sites) and abdomen soft; no guarding and abdomen not rigid Skin: no rashes, warm and dry + incision (clean,dry, intact) Psychiatric: A+Ox3, euthymic affect Results & Data Laboratory Results 04/07/18 04/07/18 04/07/18 Range/Units 12:15 08:11 08:11 WBC 12.36 H (4.8-10.8) K/uL RBC 4.57 (4.2-5.4) M/uL Hgb 14.2 (12.0-16.0) g/dL Hct 42.4 (37-47) % MCV 92.8 (80-100) fL MCH 31.1 (25-34) pg MCHC 33.5 (32-36) g/dL RDW Std Deviation 46.5 H (36.4-46.3) fL RDW Coeff of Aimee 13.8 (11.5-14.5) % Plt Count 204 (130-400) K/uL MPV 11.2 H (7.4-10.4) fL Immature Gran % (Auto) 0.2 % Neut % (Auto) 76.5 % Lymph % (Auto) 12.5 % [place] % (Auto) 7.4 % Eos % (Auto) 3.3 % Baso % (Auto) 0.1 % Immature Gran # (Auto) 0.03 H (0.00-0.02) K/uL Neut # (Auto) 9.45 H (1.4-6.5) K/uL Lymph # (Auto) 1.55 (1.2-3.4) K/uL [place] # (Auto) 0.91 H (0.11-0.59) K/uL Eos # (Auto) 0.41 (0-0.5) K/uL Baso # (Auto) 0.01 (0-0.2) K/uL Sodium 140 (136-145) mmol/L Potassium 3.4 L (3.5-5.1) mmol/L Chloride 104 (98-107) mmol/L Carbon Dioxide 33 H (21-32) mmol/L Anion Gap 3.0 (3-11) BUN 10 (7-18) mg/dl Creatinine 0.84 (0.6-1.2) mg/dl Est Cr Clr Drug Dosing 48.8 ml/min Est GFR ( Amer) 74.0 Est GFR (Non-Af Amer) 63.8 BUN/Creatinine Ratio 11.3 (10-20) Glucose 99 (70-99) mg/dl POC Glucose 116 H (70-99) Calcium 10.0 (8.5-10.1) mg/dl 04/07/18 04/06/18 04/06/18 Range/Units 08:10 20:24 17:04 WBC (4.8-10.8) K/uL RBC (4.2-5.4) M/uL Hgb (12.0-16.0) g/dL Hct (37-47) % MCV (80-100) fL MCH (25-34) pg MCHC (32-36) g/dL RDW Std Deviation (36.4-46.3) fL RDW Coeff of Aimee (11.5-14.5) % Plt Count (130-400) K/uL MPV (7.4-10.4) fL Immature Gran % (Auto) % Neut % (Auto) % Lymph % (Auto) % [place] % (Auto) % Eos % (Auto) % Baso % (Auto) % Immature Gran # (Auto) (0.00-0.02) K/uL Neut # (Auto) (1.4-6.5) K/uL Lymph # (Auto) (1.2-3.4) K/uL [place] # (Auto) (0.11-0.59) K/uL Eos # (Auto) (0-0.5) K/uL Baso # (Auto) (0-0.2) K/uL Sodium (136-145) mmol/L Potassium (3.5-5.1) mmol/L Chloride (98-107) mmol/L Carbon Dioxide (21-32) mmol/L Anion Gap (3-11) BUN (7-18) mg/dl Creatinine (0.6-1.2) mg/dl Est Cr Clr Drug Dosing ml/min Est GFR ( Amer) Est GFR (Non-Af Amer) BUN/Creatinine Ratio (10-20) Glucose (70-99) mg/dl POC Glucose 87 100 H 95 (70-99) Calcium (8.5-10.1) mg/dl _ (1) Colon cancer Colon location: unspecified part of colon Qualified Code(s): C18.9 - Malignant neoplasm of colon, unspecified
[2018-04-07] MEDS: LORazepam 2 MG TAB PO SCH (21:30)
[2018-04-07] MEDS: ATORVASTATIN 40 MG TAB PO SCH (21:30)
[2018-04-07] MEDS: METOPROLOL SUCC 50MG EXT REL TAB PO SCH (21:30)
[2018-04-08] MEDS: LACTATED RINGER'S 1,000 ML IV SCH ×2 (01:37→13:41)
[2018-04-08 06:27] LABS: Basophils # (auto) 0.01 K/uL (0-0.2); Basophils % (auto) 0.1 %; Eosinophils # (auto) 0.28 K/uL (0-0.5); Hematocrit (blood only) 40.5 % (37-47); Hemoglobin 13.7 g/dL (12.0-16.0); Immature Granulocytes # (auto) 0.02 K/uL (0.00-0.02); Immature Granulocytes % (auto) 0.2 %; Lymphocytes # (auto) 1.26 K/uL (1.2-3.4); Lymphocytes % (auto) 13.6 %; Mean Corpuscular Hgb Conc 33.8 g/dL (32-36); Mean Corpuscular Volume 90.8 fL (80-100); Mean Platelet Volume 10.6 fL (7.4-10.4); Monocytes % (auto) 8.6 %; Neutrophils # (auto) 6.88 K/uL (1.4-6.5); Neutrophils % (auto) 74.5 %; Platelet Count 193 K/uL (130-400); RDW Coefficient of Variation 13.7 % (11.5-14.5); RDW Standard Deviation 45.6 fL (36.4-46.3); Red Blood Count 4.46 M/uL (4.2-5.4); White Blood Count 9.25 K/uL (4.8-10.8)
[2018-04-08 06:57] LABS: BUN Creatinine Ratio 10.4 (10-20); Creatinine Clr Calc Pharmacy 54.7 ml/min; Est GFR (African American) 84.8; Est GFR (Non-African American) 73.2; Potassium 3.2 mmol/L (3.5-5.1)
[2018-04-08] MEDS ORDERED: POTASSIUM CHLORIDE 20 MEQ TABCR PO STA (08:31)
[2018-04-08] MEDS: INSULIN ASPART 100 UNITS/ML 3 ML PEN SC SCH ×4 (08:53→20:56)
[2018-04-08] MEDS: ENOXAPARIN INJ 30 MG/0.3 ML SYR SQ SCH (08:54)
[2018-04-08] MEDS: VALSARTAN 80 MG TAB PO SCH (08:55)
--- NOTE | 2018-04-08 09:44 | Surgery Progress Note ---
Date of Service April 08, 2018 Assessment & Plan (1) S/P colectomy: Subjectively improved Peristalsis has returned Tolerating clear liquid diet so we will advance to full liquid diet Explained to her about maintaining her IV fluid at that minimal rate to prevent dehydration WBC is now normal Present on Admission?: Yes Subjective Postoperative day #3 Tolerating clear liquids without nausea or vomiting Passing flatus although in small amounts Was concerned about receiving IV fluids and that she is urinating frequently but the IV rate is only at 70 cc/h Pain has decreased in intensity Left MICHELLE was 95 cc and right MICHELLE with 130 cc all serosanguineous Physical Exam 2 Vital Signs (Past 24 Hours): Last Vital Signs Temp 36.9 C 04/08/18 07:45 Pulse 71 04/08/18 07:45 Resp 18 04/08/18 07:45 BP 150/82 H 04/08/18 07:45 Pulse Ox 95 04/08/18 07:45 Gastrointestinal (Abdomen): Inspection/Auscultation: normal bowel sounds; abdomen not distended Percussion/Palpation: + abdomen tender (Mild incisional only) and abdomen soft
--- NOTE | 2018-04-08 11:53 | Hospitalist Progress Note ---
Date of Service April 08, 2018 Assessment & Plan (1) Colon cancer: POD #3 s/p left hemicolectomy by Dr. Black. Defer management to his team. MICHELLE drain still in place Afebrile Passing flatus, pain controlled, tolerating clears Hgb excellent at 13.7 Adv diet to fulls today -dc IVFs this evening if tolerating fulls -replace lytes as needed (2) Essential (primary) hypertension: BPs severely elevated last night to 200 systolic and given IV hydralazine. Cont home med of metoprolol, clonidine prn -restart home valsartan 160mg po qAM -continue to hold HCTZ until ensure taking in enough by mouth with liquids diet today- and can stop IVFs later -follow BPs -continue prn IV hydralazine or po clonidine (3) Insomnia: cont benadryl with ativan at HS -- she has been taking this regimen for some time at home (4) Chronic kidney disease, stage 3a: Creatinine stable Follow BMP in AM (5) LVH (left ventricular hypertrophy): continue beta jim, BP control volume status acceptable today (6) Chronic diastolic CHF (congestive heart failure): compensated With mild LVOT, followed by Cardiology as outpt -follow daily weights, I/Os (7) Hyperlipidemia: cont statin (8) Prediabetes: control acceptable at this time, glucose no higher than 120s typically HgbA1C here 5.8% -continue SSI as needed (9) Renal mass: 8 mm left renal mass noted on CT acns from prior to admission= indeterminate -follow with imaging as outpt (10) Hypokalemia: replace with KCl 40 meq x 1 today, restarting Diovan -follow BMP in AM (11) DVT prophylaxis: lovenox daily Dispo-remain hospitalized, Hospitalist service will continue to follow Subjective Pt feeling very well today. Has minimal abd pain, is osvaldo clears and has been advanced to fulls for the next meal by Surgery. She is passing a small amount of flatus. No nausea. No CP or SOB. BPs were quite high last night and she received IV hydralazine She requests her IVFs be stopped as she did not get much sleep due to frequent urination through the night I discussed her case with General Surgery Dr. Vargas Review of Systems All systems reviewed & are unremarkable except as noted in HPI & below Physical Exam 2 Vital Signs (Past 24 Hours): Last Vital Signs Temp 36.9 C 04/08/18 07:45 Pulse 71 04/08/18 07:45 Resp 18 04/08/18 07:45 BP 150/82 H 04/08/18 07:45 Pulse Ox 95 04/08/18 07:45 Constitutional: WD/WN, vitals as above Eyes: PERRL, conjunctivae normal, anicteric sclerae ENMT: external ear and nose normal, oropharynx normal Neck: trachea midline, no thyromegaly Respiratory: normal respiratory effort, lungs clear to auscultation Cardiovascular: RRR, no murmur, no edema Gastrointestinal (Abdomen): Inspection/Auscultation: normal bowel sounds; + abdomen abnormal to inspection (Right lower quadrant with dressing in place, MICHELLE drain coming out with serosanguineous fluid; umbilical incision with Dermabond in place and no drainage) Percussion/Palpation: + abdomen tender (minimal TTP over surgical site and in LLQ w/o guarding or rebound) and abdomen soft Musculoskeletal: Extremities: extremities normal to inspection; no cyanosis and no clubbing Skin: no rashes, warm and dry Neurologic: moves all extremities and awake; no focal motor deficits Psychiatric: A+Ox3, euthymic affect Results & Data Laboratory Results 04/08/18 04/08/18 04/08/18 Range/Units 07:58 06:04 06:04 WBC 9.25 (4.8-10.8) K/uL RBC 4.46 (4.2-5.4) M/uL Hgb 13.7 (12.0-16.0) g/dL Hct 40.5 (37-47) % MCV 90.8 (80-100) fL MCH 30.7 (25-34) pg MCHC 33.8 (32-36) g/dL RDW Std Deviation 45.6 (36.4-46.3) fL RDW Coeff of Aimee 13.7 (11.5-14.5) % Plt Count 193 (130-400) K/uL MPV 10.6 H (7.4-10.4) fL Immature Gran % (Auto) 0.2 % Neut % (Auto) 74.5 % Lymph % (Auto) 13.6 % [place] % (Auto) 8.6 % Eos % (Auto) 3.0 % Baso % (Auto) 0.1 % Immature Gran # (Auto) 0.02 (0.00-0.02) K/uL Neut # (Auto) 6.88 H (1.4-6.5) K/uL Lymph # (Auto) 1.26 (1.2-3.4) K/uL [place] # (Auto) 0.80 H (0.11-0.59) K/uL Eos # (Auto) 0.28 (0-0.5) K/uL Baso # (Auto) 0.01 (0-0.2) K/uL Sodium 138 (136-145) mmol/L Potassium 3.2 L (3.5-5.1) mmol/L Chloride 105 (98-107) mmol/L Carbon Dioxide 28 (21-32) mmol/L Anion Gap 5.0 (3-11) BUN 8 (7-18) mg/dl Creatinine 0.75 (0.6-1.2) mg/dl Est Cr Clr Drug Dosing 54.7 ml/min Est GFR ( Amer) 84.8 Est GFR (Non-Af Amer) 73.2 BUN/Creatinine Ratio 10.4 (10-20) Glucose 138 H (70-99) mg/dl POC Glucose 124 H (70-99) Calcium 10.0 (8.5-10.1) mg/dl 04/07/18 04/07/18 04/07/18 Range/Units 20:26 17:04 12:15 WBC (4.8-10.8) K/uL RBC (4.2-5.4) M/uL Hgb (12.0-16.0) g/dL Hct (37-47) % MCV (80-100) fL MCH (25-34) pg MCHC (32-36) g/dL RDW Std Deviation (36.4-46.3) fL RDW Coeff of Aimee (11.5-14.5) % Plt Count (130-400) K/uL MPV (7.4-10.4) fL Immature Gran % (Auto) % Neut % (Auto) % Lymph % (Auto) % [place] % (Auto) % Eos % (Auto) % Baso % (Auto) % Immature Gran # (Auto) (0.00-0.02) K/uL Neut # (Auto) (1.4-6.5) K/uL Lymph # (Auto) (1.2-3.4) K/uL [place] # (Auto) (0.11-0.59) K/uL Eos # (Auto) (0-0.5) K/uL Baso # (Auto) (0-0.2) K/uL Sodium (136-145) mmol/L Potassium (3.5-5.1) mmol/L Chloride (98-107) mmol/L Carbon Dioxide (21-32) mmol/L Anion Gap (3-11) BUN (7-18) mg/dl Creatinine (0.6-1.2) mg/dl Est Cr Clr Drug Dosing ml/min Est GFR ( Amer) Est GFR (Non-Af Amer) BUN/Creatinine Ratio (10-20) Glucose (70-99) mg/dl POC Glucose 125 H 90 116 H (70-99) Calcium (8.5-10.1) mg/dl _ (1) Colon cancer Colon location: unspecified part of colon Qualified Code(s): C18.9 - Malignant neoplasm of colon, unspecified (2) Insomnia Insomnia type: unspecified Qualified Code(s): G47.00 - Insomnia, unspecified (3) Hyperlipidemia Hyperlipidemia type: mixed hyperlipidemia Qualified Code(s): E78.2 - Mixed hyperlipidemia
[2018-04-08] MEDS: CHOLECALCIFEROL 1,000 UNITS TAB PO SCH (12:37)
[2018-04-08] MEDS: HydrALAZINE HCL 20 MG/ML VIAL IV PRN (15:32)
[2018-04-08] MEDS ORDERED: Nursing to Pharmacy Communication ONE (17:37)
[2018-04-08] MEDS: ATORVASTATIN 40 MG TAB PO SCH (20:24)
[2018-04-08] MEDS: METOPROLOL SUCC 50MG EXT REL TAB PO SCH (20:25)
[2018-04-08] MEDS: LORazepam 2 MG TAB PO SCH (22:08)
[2018-04-08] MEDS: cloNIDine HCl 0.1 MG TAB PO PRN (22:09)
[2018-04-09 06:58] LABS: BUN Creatinine Ratio 12.8 (10-20); Calcium 9.9 mg/dl (8.5-10.1); Creatinine Clr Calc Pharmacy 58.6 ml/min; Est GFR (African American) 92.2; Est GFR (Non-African American) 79.6; Magnesium 1.5 mg/dl (1.8-2.4); Phosphorus 1.8 mg/dl (2.5-4.9); Potassium 3.4 mmol/L (3.5-5.1)
[2018-04-09] MEDS: ENOXAPARIN INJ 30 MG/0.3 ML SYR SQ SCH (08:26)
[2018-04-09] MEDS: VALSARTAN 80 MG TAB PO SCH (08:27)
[2018-04-09] MEDS: INSULIN ASPART 100 UNITS/ML 3 ML PEN SC SCH ×4 (08:33→21:26)
[2018-04-09] MEDS ORDERED: POTASSIUM CHLORIDE 10 MEQ TABCR PO STA (08:39)
[2018-04-09] MEDS: MAGNESIUM SULFATE / D5W 1 GM/100 ML BAG IV SCH ×2 (09:43→10:44)
--- NOTE | 2018-04-09 10:02 | Surgery Progress Note ---
Date of Service April 09, 2018 Assessment & Plan (1) Colon cancer: POD 4 lap LAR keep on full liquids until bowels moving 20 meq K+ given this AM BP improved Subjective passing flatus, no BM, tolerating full liquids, minimal pain Physical Exam 2 Vital Signs (Past 24 Hours): Last Vital Signs Temp 36.8 C 04/09/18 07:56 Pulse 80 04/09/18 07:56 Resp 12 04/09/18 07:56 BP 126/84 04/09/18 07:56 Pulse Ox 94 04/09/18 07:56 Gastrointestinal (Abdomen): Inspection/Auscultation: abdomen not distended Percussion/Palpation: abdomen soft _ (1) Colon cancer Colon location: unspecified part of colon Qualified Code(s): C18.9 - Malignant neoplasm of colon, unspecified
--- NOTE | 2018-04-09 12:33 | Surgery Progress Note ---
Date of Service April 09, 2018 Assessment & Plan (1) Colon cancer: POD 4 doing well awaiting bowel fx path pending. increase activity Subjective doing well. pain control adequate. +flatus. no bm. denies n/v. Physical Exam 2 Vital Signs (Past 24 Hours): Last Vital Signs Temp 37.1 C 04/09/18 11:45 Pulse 58 L 04/09/18 11:45 Resp 12 04/09/18 11:45 BP 128/78 04/09/18 11:45 Pulse Ox 94 04/09/18 11:45 Physical Exam: alert. nad abd: soft. wounds look good. MICHELLE serous. _ (1) Colon cancer Colon location: unspecified part of colon Qualified Code(s): C18.9 - Malignant neoplasm of colon, unspecified
[2018-04-09] MEDS: CHOLECALCIFEROL 1,000 UNITS TAB PO SCH (12:38)
[2018-04-09] MEDS: CLOTRIMAZOLE 10 MG TROCHE BUCCAL SCH ×4 (12:38→22:02)
[2018-04-09] MEDS: LORazepam 2 MG TAB PO SCH (21:21)
[2018-04-09] MEDS: METOPROLOL SUCC 50MG EXT REL TAB PO SCH (21:22)
[2018-04-09] MEDS: ATORVASTATIN 40 MG TAB PO SCH (21:22)
[2018-04-09] MEDS: cloNIDine HCl 0.1 MG TAB PO PRN (22:01)
--- NOTE | 2018-04-10 04:57 | Hospitalist Progress Note ---
Date of Service April 09, 2018 Assessment & Plan (1) Colon cancer: POD #4 s/p left hemicolectomy by Dr. Black. Defer management to his team. Passing flatus, on full liquids and tolerating. Replace low K and mag; repeat levels in am. Present on Admission?: Yes (2) Essential (primary) hypertension: Labile, possibly due to pain and/or anxiety. Remains on valsartan and metoprolol xl. Would restart HCTZ tomorrow if lytes are stable and BPs continue to be consistently high. Try to avoid PRNs to avoid large swings and/or hypotension. (3) Insomnia: cont benadryl with ativan at HS. takes this chronically at home. (4) Chronic kidney disease, stage 3a: Creatinine stable BMP am (5) LVH (left ventricular hypertrophy): continue beta jim (6) Chronic diastolic CHF (congestive heart failure): compensated cont BB, ARB (7) Hyperlipidemia: cont statin (8) Prediabetes: control acceptable (9) Renal mass: 8 mm left renal mass noted on CT scans from prior to admission needs outpatient f/u with urology for such (10) Hypokalemia: replace low K and low mag repeat levels am (11) DVT prophylaxis: lovenox daily (12) Hypomagnesemia: replace w/ 2 grams mag sulfate repeat level AM Subjective pt "feeling good" today but yesterday "was not a good day" she attributes yesterday's "poor day" to her labile BP she is passing flatus but no stool tolerating diet walking in the hallway just incisional pain today Constitutional: no fever Respiratory: no dyspnea and no dyspnea on exertion Cardiovascular: no chest pain Gastrointestinal: no nausea and no vomiting Physical Exam 2 Vital Signs (Past 24 Hours): Last Vital Signs Temp 36.4 C L 04/09/18 23:32 Pulse 56 L 04/09/18 23:32 Resp 17 04/09/18 23:32 BP 116/75 04/09/18 23:32 Pulse Ox 94 04/09/18 23:32 Constitutional: WD/WN, vitals as above ENMT: mild thrush - tongue; MMM otherwise Respiratory: normal respiratory effort, lungs clear to auscultation Cardiovascular: Rate/Rhythm: regular rate and regular rhythm Heart Sounds: normal S1 and normal S2; no murmur Vessels: posterior tibial pulses present and dorsalis pedis pulses present Extremities: + edema (1+ b/l) Gastrointestinal (Abdomen): Inspection/Auscultation: + abdomen distended ( modest) and normal bowel sounds Percussion/Palpation: + abdomen tender ( incisions only) and abdomen soft; no guarding, abdomen not rigid and no hepatosplenomegaly Psychiatric: A+Ox3, euthymic affect Results & Data Laboratory Results Laboratory Results - last 24 hr 04/09/18 04/09/18 04/09/18 06:10 07:56 12:33 Sodium 140 Potassium 3.4 L Chloride 108 H Carbon Dioxide 30 Anion Gap 2.0 L BUN 9 Creatinine 0.70 Est Cr Clr Drug Dosing 58.6 Est GFR ( Amer) 92.2 Est GFR (Non-Af Amer) 79.6 BUN/Creatinine Ratio 12.8 Glucose 123 H POC Glucose 117 H 113 H Calcium 9.9 Phosphorus 1.8 L Magnesium 1.5 L 04/09/18 04/09/18 16:59 20:43 Sodium Potassium Chloride Carbon Dioxide Anion Gap BUN Creatinine Est Cr Clr Drug Dosing Est GFR ( Amer) Est GFR (Non-Af Amer) BUN/Creatinine Ratio Glucose POC Glucose 86 106 H Calcium Phosphorus Magnesium _ (1) Colon cancer Colon location: unspecified part of colon Qualified Code(s): C18.9 - Malignant neoplasm of colon, unspecified (2) Insomnia Insomnia type: unspecified Qualified Code(s): G47.00 - Insomnia, unspecified (3) Hyperlipidemia Hyperlipidemia type: mixed hyperlipidemia Qualified Code(s): E78.2 - Mixed hyperlipidemia
[2018-04-10] MEDS: CLOTRIMAZOLE 10 MG TROCHE BUCCAL SCH ×5 (05:59→22:34)
[2018-04-10 07:10] LABS: BUN Creatinine Ratio 12.4 (10-20); Calcium 9.7 mg/dl (8.5-10.1); Creatinine Clr Calc Pharmacy 54.7 ml/min; Est GFR (African American) 84.8; Est GFR (Non-African American) 73.2; Magnesium 1.9 mg/dl (1.8-2.4); Potassium 3.5 mmol/L (3.5-5.1)
[2018-04-10] MEDS: INSULIN ASPART 100 UNITS/ML 3 ML PEN SC SCH ×4 (08:00→21:29)
--- NOTE | 2018-04-10 09:47 | Surgery Progress Note ---
Date of Service April 10, 2018 Assessment & Plan (1) Colon cancer: POD 5 awaiting bowel fx path pending seen with Dr. Black as above. doing well/awaiting bowel fx. drain serous. +flatus Subjective ambulating, tolerating full liquids, no BM Physical Exam 2 Vital Signs (Past 24 Hours): Last Vital Signs Temp 36.5 C 04/10/18 07:11 Pulse 59 L 04/10/18 07:11 Resp 18 04/10/18 07:11 BP 163/86 H 04/10/18 07:11 Pulse Ox 94 04/10/18 07:11 Gastrointestinal (Abdomen): Inspection/Auscultation: abdomen not distended Percussion/Palpation: abdomen soft _ (1) Colon cancer Colon location: unspecified part of colon Qualified Code(s): C18.9 - Malignant neoplasm of colon, unspecified
[2018-04-10] MEDS: VALSARTAN 80 MG TAB PO SCH (10:01)
[2018-04-10] MEDS: MAGNESIUM OXIDE 400 MG TAB PO SCH (10:04)
[2018-04-10] MEDS: ENOXAPARIN INJ 30 MG/0.3 ML SYR SQ SCH (10:04)
[2018-04-10] MEDS: POTASSIUM CHLORIDE 10 MEQ TABCR PO SCH (10:04)
[2018-04-10] MEDS: hydroCHLOROthiazide 25 MG TAB PO SCH (10:05)
[2018-04-10] MEDS: CHOLECALCIFEROL 1,000 UNITS TAB PO SCH (12:26)
--- NOTE | 2018-04-10 20:35 | Hospitalist Progress Note ---
Date of Service April 10, 2018 Assessment & Plan (1) Colon cancer: POD #5 s/p left hemicolectomy by Dr. Black. Defer management to his team. Passing flatus, on full liquids and tolerating. Awaiting return of bowel function and bowel movement. Overall doing well from surgical standpoint. (2) Essential (primary) hypertension: Continue valsartan and metoprolol xl. Restart HCTZ today. Follow. (3) Insomnia: cont benadryl with ativan at HS. takes this chronically at home. (4) Chronic kidney disease, stage 3a: Creatinine stable BMP today stable (5) LVH (left ventricular hypertrophy): continue beta jim (6) Chronic diastolic CHF (congestive heart failure): compensated cont BB, ARB (7) Hyperlipidemia: cont statin (8) Prediabetes: control acceptable (9) Renal mass: 8 mm left renal mass noted on CT scans from prior to admission needs outpatient f/u with urology for such (10) Hypokalemia: repleted and resolved (11) Hypomagnesemia: repleted and resolved (12) DVT prophylaxis: lovenox daily from medical standpoint is doing well awaiting bowel movement once bowel movement occurs can likely d/c home son updated at bedside Subjective no complaints today passing flatus but no stool yet no dyspnea no cp walking w/o difficulty eating/drinking w/o difficulty Constitutional: no fever Respiratory: no cough and no dyspnea Cardiovascular: no chest pain Physical Exam 2 Vital Signs (Past 24 Hours): Last Vital Signs Temp 36.5 C 04/10/18 16:03 Pulse 58 L 04/10/18 16:03 Resp 18 04/10/18 16:03 BP 146/87 H 04/10/18 16:03 Pulse Ox 95 04/10/18 16:03 Constitutional: WD/WN, vitals as above well developed and well nourished; no acute distress and not ill appearing ENMT: resolving thrush Respiratory: normal respiratory effort, lungs clear to auscultation Cardiovascular: Rate/Rhythm: regular rate and regular rhythm Heart Sounds: normal S1 and normal S2; no murmur Vessels: posterior tibial pulses present and dorsalis pedis pulses present; no JVD Extremities: + edema (trace b/l) Gastrointestinal (Abdomen): Inspection/Auscultation: + abdomen distended ( minimal ) and normal bowel sounds Percussion/Palpation: abdomen soft; abdomen nontender, no guarding, abdomen not rigid and no hepatosplenomegaly Psychiatric: A+Ox3, euthymic affect Results & Data Laboratory Results Laboratory Results - last 24 hr 04/10/18 04/10/18 04/10/18 06:24 07:59 12:11 Sodium 141 Potassium 3.5 Chloride 108 H Carbon Dioxide 30 Anion Gap 3.0 BUN 9 Creatinine 0.75 Est Cr Clr Drug Dosing 54.7 Est GFR ( Amer) 84.8 Est GFR (Non-Af Amer) 73.2 BUN/Creatinine Ratio 12.4 Glucose 101 H POC Glucose 95 97 Calcium 9.7 Magnesium 1.9 04/10/18 04/10/18 17:30 20:38 Sodium Potassium Chloride Carbon Dioxide Anion Gap BUN Creatinine Est Cr Clr Drug Dosing Est GFR ( Amer) Est GFR (Non-Af Amer) BUN/Creatinine Ratio Glucose POC Glucose 91 110 H Calcium Magnesium _ (1) Insomnia Insomnia type: unspecified Qualified Code(s): G47.00 - Insomnia, unspecified (2) Colon cancer Colon location: unspecified part of colon Qualified Code(s): C18.9 - Malignant neoplasm of colon, unspecified (3) Hyperlipidemia Hyperlipidemia type: mixed hyperlipidemia Qualified Code(s): E78.2 - Mixed hyperlipidemia
[2018-04-10] MEDS: METOPROLOL SUCC 50MG EXT REL TAB PO SCH (21:12)
[2018-04-10] MEDS: ATORVASTATIN 40 MG TAB PO SCH (21:12)
[2018-04-10] MEDS: LORazepam 2 MG TAB PO SCH (21:12)
[2018-04-11] MEDS: CLOTRIMAZOLE 10 MG TROCHE BUCCAL SCH ×5 (06:08→22:04)
[2018-04-11] MEDS: INSULIN ASPART 100 UNITS/ML 3 ML PEN SC SCH ×4 (08:43→22:15)
[2018-04-11] MEDS: POTASSIUM CHLORIDE 10 MEQ TABCR PO SCH (08:48)
[2018-04-11] MEDS: VALSARTAN 80 MG TAB PO SCH (08:48)
[2018-04-11] MEDS: hydroCHLOROthiazide 25 MG TAB PO SCH (08:48)
[2018-04-11] MEDS: MAGNESIUM OXIDE 400 MG TAB PO SCH (08:49)
[2018-04-11] MEDS: ENOXAPARIN INJ 30 MG/0.3 ML SYR SQ SCH (08:49)
--- NOTE | 2018-04-11 10:05 | Surgery Progress Note ---
Date of Service April 11, 2018 Assessment & Plan (1) Colon cancer: doing well. still awaiting bowel fx will let her try light diet increase activity. d/c planning as soon as bowel fx returns. Subjective pt doing well. no bm yet but increased flatus. no complaints. Physical Exam 2 Vital Signs (Past 24 Hours): Last Vital Signs Temp 36.9 C 04/11/18 07:28 Pulse 65 04/11/18 08:44 Resp 19 04/11/18 07:28 BP 100/66 04/11/18 08:44 Pulse Ox 92 04/11/18 07:28 Physical Exam: alert. NAD abdomen: soft. wounds look good. Ivan serous. _ (1) Colon cancer Colon location: unspecified part of colon Qualified Code(s): C18.9 - Malignant neoplasm of colon, unspecified
[2018-04-11] MEDS: CHOLECALCIFEROL 1,000 UNITS TAB PO SCH (11:54)
--- NOTE | 2018-04-11 14:16 | Hospitalist Progress Note ---
Date of Service April 11, 2018 Assessment & Plan (1) Colon cancer: POD #6 s/p left hemicolectomy by Dr. Black. Defer management to his team. Passing flatus,adv to regular diet and tolerating. Still awaiting return of bowel function and bowel movement. Overall doing well from surgical standpoint. MICHELLE drain remains in place (2) Essential (primary) hypertension: BPs with excellent control now Continue valsartan, HCTZ, and metoprolol xl. (3) Insomnia: cont benadryl with ativan at HS. takes this chronically at home. (4) Chronic kidney disease, stage 3a: Creatinine stable -avoid nephrotoxins -renally dose meds as needed (5) LVH (left ventricular hypertrophy): continue beta jim (6) Chronic diastolic CHF (congestive heart failure): compensated cont BB, ARB (7) Hyperlipidemia: cont statin (8) Prediabetes: control acceptable (9) Renal mass: 8 mm left renal mass noted on CT scans from prior to admission needs outpatient f/u with urology for such (10) Hypokalemia: repleted and resolved (11) Hypomagnesemia: repleted and resolved (12) Oral candidiasis: continue Clotrimazole trouches-ordered for on discharge (13) DVT prophylaxis: lovenox daily from medical standpoint is doing well awaiting bowel movement once bowel movement occurs can likely d/c home Hospitalist Service will sign off today-please call or re-consult if questions or acute issues arise Subjective Pt feeling well, has minimal pain. No nausea, is passing flatus but no BM yet. She denies headache, chest pain, SOB, lightheadedness. SHe has been ambulating without difficulty. Review of Systems All systems reviewed & are unremarkable except as noted in HPI & below Physical Exam 2 Vital Signs (Past 24 Hours): Last Vital Signs Temp 36.9 C 04/11/18 07:28 Pulse 65 04/11/18 08:44 Resp 19 04/11/18 07:28 BP 100/66 04/11/18 08:44 Pulse Ox 92 04/11/18 07:28 Constitutional: WD/WN, vitals as above Eyes: PERRL, conjunctivae normal, anicteric sclerae ENMT: external ear and nose normal, oropharynx normal Neck: trachea midline, no thyromegaly Respiratory: normal respiratory effort, lungs clear to auscultation Cardiovascular: RRR, no murmur, no edema Gastrointestinal (Abdomen): Inspection/Auscultation: normal bowel sounds; + abdomen abnormal to inspection (Right lower quadrant with dressing in place, MICHELLE drain coming out with serosanguineous fluid; umbilical incision with Dermabond in place and no drainage) Percussion/Palpation: + abdomen tender (minimal TTP over surgical site and in LLQ w/o guarding or rebound) and abdomen soft Musculoskeletal: Extremities: extremities normal to inspection; no cyanosis and no clubbing Skin: no rashes, warm and dry Neurologic: moves all extremities and awake; no focal motor deficits Psychiatric: A+Ox3, euthymic affect Results & Data Laboratory Results 04/11/18 04/11/18 04/10/18 Range/Units 11:45 07:46 20:38 POC Glucose 115 H 108 H 110 H (70-99) 04/10/18 Range/Units 17:30 POC Glucose 91 (70-99) _ (1) Colon cancer Colon location: unspecified part of colon Qualified Code(s): C18.9 - Malignant neoplasm of colon, unspecified (2) Insomnia Insomnia type: unspecified Qualified Code(s): G47.00 - Insomnia, unspecified (3) Hyperlipidemia Hyperlipidemia type: mixed hyperlipidemia Qualified Code(s): E78.2 - Mixed hyperlipidemia
[2018-04-11] MEDS: LORazepam 2 MG TAB PO SCH (22:02)
[2018-04-11] MEDS: METOPROLOL SUCC 50MG EXT REL TAB PO SCH (22:03)
[2018-04-11] MEDS: ATORVASTATIN 40 MG TAB PO SCH (22:03)
[2018-04-11] MEDS: ACETAMINOPHEN 325 MG TAB PO PRN (22:09)
[2018-04-12] MEDS: CLOTRIMAZOLE 10 MG TROCHE BUCCAL SCH ×5 (05:57→22:33)
--- NOTE | 2018-04-12 08:17 | Surgery Progress Note ---
Date of Service April 12, 2018 Assessment & Plan (1) Colon cancer: d/c planning as soon as bowel fx returns. as above. doing well. will give mild laxative. d/c after bm Subjective tolerating diet, no BM Physical Exam 2 Vital Signs (Past 24 Hours): Last Vital Signs Temp 36.6 C 04/12/18 07:05 Pulse 56 L 04/12/18 07:05 Resp 18 04/12/18 07:05 BP 160/84 H 04/12/18 07:05 Pulse Ox 94 04/12/18 07:05 Gastrointestinal (Abdomen): Inspection/Auscultation: abdomen not distended Percussion/Palpation: abdomen soft _ (1) Colon cancer Colon location: unspecified part of colon Qualified Code(s): C18.9 - Malignant neoplasm of colon, unspecified
[2018-04-12] MEDS: INSULIN ASPART 100 UNITS/ML 3 ML PEN SC SCH ×4 (08:55→22:01)
[2018-04-12] MEDS: MAGNESIUM OXIDE 400 MG TAB PO SCH (08:57)
[2018-04-12] MEDS: ENOXAPARIN INJ 30 MG/0.3 ML SYR SQ SCH (08:57)
[2018-04-12] MEDS: POTASSIUM CHLORIDE 10 MEQ TABCR PO SCH (08:58)
[2018-04-12] MEDS: hydroCHLOROthiazide 25 MG TAB PO SCH (08:58)
[2018-04-12] MEDS: VALSARTAN 80 MG TAB PO SCH (08:58)
[2018-04-12] MEDS: DOCUSATE SODIUM 100 MG CAP PO SCH ×2 (11:04→21:30)
[2018-04-12] MEDS: CHOLECALCIFEROL 1,000 UNITS TAB PO SCH (11:05)
[2018-04-12] MEDS: METOPROLOL SUCC 50MG EXT REL TAB PO SCH (21:29)
[2018-04-12] MEDS: ATORVASTATIN 40 MG TAB PO SCH (21:29)
[2018-04-12] MEDS: LORazepam 2 MG TAB PO SCH (21:29)
[2018-04-13] MEDS: CLOTRIMAZOLE 10 MG TROCHE BUCCAL SCH ×4 (06:25→21:54)
[2018-04-13] MEDS: MAGNESIUM OXIDE 400 MG TAB PO SCH (08:06)
[2018-04-13] MEDS: hydroCHLOROthiazide 25 MG TAB PO SCH (08:06)
[2018-04-13] MEDS: VALSARTAN 80 MG TAB PO SCH (08:06)
[2018-04-13] MEDS: DOCUSATE SODIUM 100 MG CAP PO SCH ×2 (08:07→21:55)
[2018-04-13] MEDS: POTASSIUM CHLORIDE 10 MEQ TABCR PO SCH (08:07)
[2018-04-13] MEDS: ENOXAPARIN INJ 30 MG/0.3 ML SYR SQ SCH (08:08)
--- NOTE | 2018-04-13 08:57 | Surgery Progress Note ---
Date of Service April 13, 2018 Assessment & Plan (1) Colon cancer: started colace yesterday awaiting BM before d/c as above. feeling well. states she needs magnesium laxatives at home to move bowels. will replace colace with mag laxative Dr. Catalan covering for weekend but can d/c home after bowel movement. Subjective no BM, tolerating diet Physical Exam 2 Vital Signs (Past 24 Hours): Last Vital Signs Temp 37.0 C 04/13/18 07:05 Pulse 70 04/13/18 07:05 Resp 16 04/13/18 07:05 BP 138/82 04/13/18 07:05 Pulse Ox 91 04/13/18 07:05 Gastrointestinal (Abdomen): Inspection/Auscultation: + abdominal surgical incision (mild tenderness); abdomen not distended Percussion/Palpation: abdomen soft _ (1) Colon cancer Colon location: unspecified part of colon Qualified Code(s): C18.9 - Malignant neoplasm of colon, unspecified
[2018-04-13] MEDS: INSULIN ASPART 100 UNITS/ML 3 ML PEN SC SCH ×4 (09:20→22:41)
[2018-04-13] MEDS: ACETAMINOPHEN 325 MG TAB PO PRN ×2 (10:28→22:06)
[2018-04-13] MEDS: CHOLECALCIFEROL 1,000 UNITS TAB PO SCH (12:37)
[2018-04-13] MEDS: MAGNESIUM HYDROXIDE SUSP 30 ML UDC PO SCH ×2 (14:29→21:54)
[2018-04-13] MEDS: ATORVASTATIN 40 MG TAB PO SCH (21:55)
[2018-04-13] MEDS: METOPROLOL SUCC 50MG EXT REL TAB PO SCH (21:56)
[2018-04-13] MEDS: LORazepam 2 MG TAB PO SCH (21:58)
[2018-04-14] MEDS: CLOTRIMAZOLE 10 MG TROCHE BUCCAL SCH ×6 (00:32→22:37)
[2018-04-14] MEDS: MAGNESIUM HYDROXIDE SUSP 30 ML UDC PO SCH ×3 (06:26→22:11)
[2018-04-14] MEDS: DOCUSATE SODIUM 100 MG CAP PO SCH ×2 (08:34→22:11)
[2018-04-14] MEDS: POTASSIUM CHLORIDE 10 MEQ TABCR PO SCH (08:34)
[2018-04-14] MEDS: ENOXAPARIN INJ 30 MG/0.3 ML SYR SQ SCH (08:34)
[2018-04-14] MEDS: VALSARTAN 80 MG TAB PO SCH (08:34)
[2018-04-14] MEDS: hydroCHLOROthiazide 25 MG TAB PO SCH (08:34)
[2018-04-14] MEDS: MAGNESIUM OXIDE 400 MG TAB PO SCH (08:35)
[2018-04-14] MEDS: INSULIN ASPART 100 UNITS/ML 3 ML PEN SC SCH ×4 (09:21→21:01)
--- NOTE | 2018-04-14 10:15 | Surgery Progress Note ---
Date of Service April 14, 2018 Assessment & Plan (1) Colon cancer: 04/14/2018 Patient seen and examined with Dr. Catalan Patient doing well- has started moving her bowels. Tolerating diet. Surgical dressing removed from LLQ and drainage noted- incision expressed and wound culture completed. 1/4 inch packing placed with safety pin tagged on the end. Clean gauze dressing placed. Dressing changes as needed. Unasyn started. Possible D/C tomorow. Please call with questions or concerns. 04/13/2018 started colace yesterday awaiting BM before d/c as above. feeling well. states she needs magnesium laxatives at home to move bowels. will replace colace with mag laxative Dr. Catalan covering for weekend but can d/c home after bowel movement. Subjective Patient doing well- +BM early this AM Pain controlled Reports that LLQ abdominal incision has starting draining and nursing has had to change the dressing x 2. Physical Exam 2 Vital Signs (Past 24 Hours): Last Vital Signs Temp 36.5 C 04/14/18 07:25 Pulse 61 04/14/18 07:25 Resp 14 04/14/18 07:25 BP 131/78 04/14/18 07:25 Pulse Ox 92 04/14/18 07:25 Gastrointestinal (Abdomen): Inspection/Auscultation: + abdominal surgical incision (LLQ abdominal incision- dressing removed and purulent drainage noted. ) Percussion/Palpation: + abdomen tender (with palpation) and abdomen soft; no guarding and abdomen not rigid _ (1) Colon cancer Colon location: unspecified part of colon Qualified Code(s): C18.9 - Malignant neoplasm of colon, unspecified
[2018-04-14] MEDS: CHOLECALCIFEROL 1,000 UNITS TAB PO SCH (12:16)
[2018-04-14] MEDS: AMPICILLIN/SULBACTAM SOD 1,500 MG in 0.9 % SODIUM CHLORIDE 100 ML IV SCH ×3 (12:16→22:37)
[2018-04-14 12:39] LABS: Basophils # (auto) 0.01 K/uL (0-0.2); Basophils % (auto) 0.1 %; Eosinophils # (auto) 0.14 K/uL (0-0.5); Eosinophils % (auto) 1.2 %; Hematocrit (blood only) 38.7 % (37-47); Immature Granulocytes # (auto) 0.03 K/uL (0.00-0.02); Immature Granulocytes % (auto) 0.3 %; Lymphocytes # (auto) 1.31 K/uL (1.2-3.4); Lymphocytes % (auto) 11.6 %; Mean Corpuscular Hgb Conc 33.6 g/dL (32-36); Mean Corpuscular Volume 92.1 fL (80-100); Mean Platelet Volume 10.8 fL (7.4-10.4); Monocytes # (auto) 1.41 K/uL (0.11-0.59); Monocytes % (auto) 12.5 %; Neutrophils # (auto) 8.42 K/uL (1.4-6.5); Neutrophils % (auto) 74.3 %; Platelet Count 244 K/uL (130-400); RDW Standard Deviation 46.5 fL (36.4-46.3); White Blood Count 11.32 K/uL (4.8-10.8)
[2018-04-14 13:10] LABS: BUN Creatinine Ratio 30.8 (10-20); Calcium 10.3 mg/dl (8.5-10.1); Creatinine Clr Calc Pharmacy 44.6 ml/min; Est GFR (African American) 66.3; Est GFR (Non-African American) 57.2; Potassium 4.5 mmol/L (3.5-5.1)
[2018-04-14] MEDS: METOPROLOL SUCC 50MG EXT REL TAB PO SCH (22:11)
[2018-04-14] MEDS: LORazepam 2 MG TAB PO SCH (22:12)
[2018-04-14] MEDS: ATORVASTATIN 40 MG TAB PO SCH (22:12)
[2018-04-14] MEDS: ACETAMINOPHEN 325 MG TAB PO PRN (22:12)
[2018-04-15] MEDS: AMPICILLIN/SULBACTAM SOD 1,500 MG in 0.9 % SODIUM CHLORIDE 100 ML IV SCH ×4 (06:04→22:40)
[2018-04-15] MEDS: MAGNESIUM HYDROXIDE SUSP 30 ML UDC PO SCH ×2 (06:04→12:53)
[2018-04-15] MEDS: CLOTRIMAZOLE 10 MG TROCHE BUCCAL SCH ×5 (06:08→22:40)
[2018-04-15] MEDS: MAGNESIUM OXIDE 400 MG TAB PO SCH (09:49)
[2018-04-15] MEDS: POTASSIUM CHLORIDE 10 MEQ TABCR PO SCH (09:50)
[2018-04-15] MEDS: hydroCHLOROthiazide 25 MG TAB PO SCH (09:50)
[2018-04-15] MEDS: VALSARTAN 80 MG TAB PO SCH (09:51)
[2018-04-15] MEDS: ENOXAPARIN INJ 30 MG/0.3 ML SYR SQ SCH (09:52)
[2018-04-15] MEDS: INSULIN ASPART 100 UNITS/ML 3 ML PEN SC SCH ×4 (09:54→20:34)
[2018-04-15] MEDS: DOCUSATE SODIUM 100 MG CAP PO SCH ×2 (09:56→20:33)
--- NOTE | 2018-04-15 09:58 | Surgery Progress Note ---
Date of Service April 15, 2018 Assessment & Plan (1) Colon cancer: 04/15/2018 Patient seen and examined with Dr. Catalan Pain controlled, tolerating regular diet. Wants to go home. Surgical dressing removed from LLQ- packing removed, moderate amount of drainage expressed. New 1/4 inch packing placed, safety pin tagged on end and clean gauze dressing applied. Continue IV Unasyn- wound culture results pending. Patient not ready for discharge today. Will wait for Dr. Black to see patient tomorrow and may remove drain prior to discharge. Please call with questions or concerns. 04/14/2018 Patient seen and examined with Dr. Catalan Patient doing well- has started moving her bowels. Tolerating diet. Surgical dressing removed from LLQ and drainage noted- incision expressed and wound culture completed. 1/4 inch packing placed with safety pin tagged on the end. Clean gauze dressing placed. Dressing changes as needed. Unasyn started. Possible D/C tomorow. Please call with questions or concerns. 04/13/2018 started colace yesterday awaiting BM before d/c as above. feeling well. states she needs magnesium laxatives at home to move bowels. will replace colace with mag laxative Dr. Catalan covering for weekend but can d/c home after bowel movement. Subjective Patient resting in bed- family member at bedside. Patient reports pain is controlled. +passing flatus, had BM early yesterday morning. Tolerating regular diet. Physical Exam 2 Vital Signs (Past 24 Hours): Last Vital Signs Temp 36.7 C 04/15/18 07:20 Pulse 61 04/15/18 07:20 Resp 16 04/15/18 07:20 BP 129/78 04/15/18 07:20 Pulse Ox 93 04/15/18 07:20 Gastrointestinal (Abdomen): Inspection/Auscultation: + abdominal surgical incision (LLQ abdominal incision- dressing removed, packing removed, moderate amount of drainage expressed. New packing placed, clean dressing applied. ) and + abdominal surgical drain present (drain present in right abdomen. ) Percussion/Palpation: + abdomen tender (with palpation) and abdomen soft; no guarding and abdomen not rigid _ (1) Colon cancer Colon location: unspecified part of colon Qualified Code(s): C18.9 - Malignant neoplasm of colon, unspecified
[2018-04-15] MEDS: CHOLECALCIFEROL 1,000 UNITS TAB PO SCH (12:55)
[2018-04-15] MEDS: LORazepam 2 MG TAB PO SCH (20:33)
[2018-04-15] MEDS: ATORVASTATIN 40 MG TAB PO SCH (20:33)
[2018-04-15] MEDS: METOPROLOL SUCC 50MG EXT REL TAB PO SCH (20:33)
[2018-04-15] MEDS: ACETAMINOPHEN 325 MG TAB PO PRN (20:38)
[2018-04-16] MEDS: AMPICILLIN/SULBACTAM SOD 1,500 MG in 0.9 % SODIUM CHLORIDE 100 ML IV SCH ×2 (05:48→11:21)
[2018-04-16] MEDS: CLOTRIMAZOLE 10 MG TROCHE BUCCAL SCH ×2 (05:48→12:31)
[2018-04-16] MEDS: ENOXAPARIN INJ 30 MG/0.3 ML SYR SQ SCH (09:10)
[2018-04-16] MEDS: POTASSIUM CHLORIDE 10 MEQ TABCR PO SCH (09:11)
[2018-04-16] MEDS: MAGNESIUM OXIDE 400 MG TAB PO SCH (09:11)
[2018-04-16] MEDS: VALSARTAN 80 MG TAB PO SCH (09:11)
[2018-04-16] MEDS: hydroCHLOROthiazide 25 MG TAB PO SCH (09:11)
[2018-04-16] MEDS: DOCUSATE SODIUM 100 MG CAP PO SCH (09:12)
[2018-04-16] MEDS: INSULIN ASPART 100 UNITS/ML 3 ML PEN SC SCH (09:27)
--- NOTE | 2018-04-16 09:33 | Surgery Progress Note ---
Date of Service April 16, 2018 Assessment & Plan (1) Colon cancer: ok for d/c. instructions given will d/c [facility]. pull packing. taught son home wound care. home with antibiotics f/u with me in 1 week. Subjective feeling well. wants to go home. +BM monday Physical Exam 2 Vital Signs (Past 24 Hours): Last Vital Signs Temp 37.0 C 04/16/18 08:05 Pulse 58 L 04/16/18 08:05 Resp 18 04/16/18 08:05 BP 130/80 04/16/18 08:05 Pulse Ox 94 04/16/18 08:05 Physical Exam: alert. nad wounds look good. LLQ wound without erythema/warmth. no drainage. _ (1) Colon cancer Colon location: unspecified part of colon Qualified Code(s): C18.9 - Malignant neoplasm of colon, unspecified
[2018-04-16 09:52] LABS: BUN Creatinine Ratio 42.2 (10-20); Calcium 10.2 mg/dl (8.5-10.1); Creatinine Clr Calc Pharmacy 47.1 ml/min; Est GFR (African American) 70.9; Est GFR (Non-African American) 61.2; Magnesium 2.2 mg/dl (1.8-2.4); Potassium 3.9 mmol/L (3.5-5.1)
[2018-04-16] MEDS: CHOLECALCIFEROL 1,000 UNITS TAB PO SCH (12:31)
--- NOTE | 2018-04-16 17:33 | Hospitalist Progress Note ---
Date of Service April 16, 2018 Assessment & Plan (1) Colon cancer: s/p hemicolectomy. doing well from surgical standpoint. d/c home today. defer d/c management to surgery. (2) Hyperlipidemia: statin at d/c. (3) Essential (primary) hypertension: controlled with current meds. continue same meds at d/c. (4) Chronic kidney disease, stage 3a: creatinine stable on BMP today. (5) Chronic diastolic CHF (congestive heart failure): compensated on examination today. (6) Prediabetes: controlled. (7) Hypokalemia: send home with K supplementation (10meq/day) given the chronic HCTZ use. (8) Hypomagnesemia: resolved. (9) Oral candidiasis: resolved. (10) Renal mass: will need dedicated outpatient renal u/s or renal CT. (11) Hypercalcemia: very mild. likely due to HCTZ. simply repeat BMP in 1 week to ensure stability. ok from medical standpoint to d/c home. Subjective Patient feeling well; d/c to home today. Eating w/o difficulty. Denies abd pain, nausea, emesis. No dyspnea. Constitutional: no fever Respiratory: no chest congestion and no dyspnea on exertion Cardiovascular: no chest pain Gastrointestinal: no abdominal pain and no constipation Physical Exam 2 Vital Signs (Past 24 Hours): Last Vital Signs Temp 37.0 C 04/16/18 11:28 Pulse 59 L 04/16/18 11:28 Resp 18 04/16/18 11:28 BP 130/80 04/16/18 11:28 Pulse Ox 94 04/16/18 11:28 Constitutional: well developed and well nourished; no acute distress ENMT: external ear and nose normal, oropharynx normal Respiratory: normal respiratory effort, lungs clear to auscultation Cardiovascular: Rate/Rhythm: regular rate and regular rhythm Heart Sounds: normal S1, normal S2 and + murmur (1/6 SOC[place] LSB) Vessels: posterior tibial pulses present and dorsalis pedis pulses present; no JVD Gastrointestinal (Abdomen): normal bowel sounds, soft, nontender, no hepatosplenomegaly Psychiatric: A+Ox3, euthymic affect Results & Data Laboratory Results Laboratory Results - last 24 hr 04/15/18 04/16/18 04/16/18 20:22 08:00 08:54 Sodium 139 Potassium 3.9 Chloride 105 Carbon Dioxide 30 Anion Gap 5.0 BUN 37 H Creatinine 0.87 Est Cr Clr Drug Dosing 47.1 Est GFR ( Amer) 70.9 Est GFR (Non-Af Amer) 61.2 BUN/Creatinine Ratio 42.2 H Glucose 174 H POC Glucose 185 H 101 H Calcium 10.2 H Magnesium 2.2 04/16/18 12:05 Sodium Potassium Chloride Carbon Dioxide Anion Gap BUN Creatinine Est Cr Clr Drug Dosing Est GFR ( Amer) Est GFR (Non-Af Amer) BUN/Creatinine Ratio Glucose POC Glucose 109 H Calcium Magnesium _ (1) Colon cancer Colon location: unspecified part of colon Qualified Code(s): C18.9 - Malignant neoplasm of colon, unspecified (2) Hyperlipidemia Hyperlipidemia type: mixed hyperlipidemia Qualified Code(s): E78.2 - Mixed hyperlipidemia
--- NOTE | 2018-04-20 16:01 | Discharge Summary ---
PRIMARY DISCHARGE DIAGNOSIS: Rectosigmoid carcinoma. SECONDARY DISCHARGE DIAGNOSES: 1. Hypertension. 2. Prediabetes. 3. Chronic CHF. PROCEDURE PERFORMED: Laparoscopic low anterior resection with primary anastomosis. CONSULTATIONS: [facility] Clark hospitalist to assist with medical management. HOSPITAL COURSE: The patient is an 82-year-old female with recent colonoscopy and sigmoid colon mass. Intraoperatively identified this actually in the rectosigmoid colon. Low anterior was carried out. The procedure was well tolerated. She was transferred to PCU routinely given her age and medical problems. The hospitalist was consulted routinely. Perioperative antibiotics were continued for 24 hours. Lovenox was used for DVT prophylaxis. She was transferred to the regular surgical floor on postoperative day 1. She was started on clear liquid diet. By day 3 she was passing flatus, was able to advance to full liquids. She continued to do well over the next few days, but was several days before bowels began moving. She was tolerating full liquids during that time. She was increasing activity, was ambulating in the hallways. On day 6 she was started on a soft diet. She began moving her bowels on postoperative day 8. She had some redness at the incision in the left lower quadrant. This was opened, cultured and packed. Cultures grew an E. coli. She had been started on IV Unasyn. There was decreasing drainage over the next 2 days. On postoperative day 10, she was tolerating a diet, was having multiple bowel movements, and was stable for discharge. DISCHARGE INSTRUCTIONS: Discharge home. She will have family assistance. Follow up with Dr. Black in 1 week. Continue daily dressing changes left lower quadrant wound. No further packing is needed. DISCHARGE MEDICATIONS: Augmentin 1 tablet p.o. b.i.d., Percocet 1 tablet every 4 hours as needed, potassium chloride 10 mEq daily. Continue home medications: Aspirin 81 mg daily, atorvastatin 40 mg daily, vitamin D3 supplement, clonidine 0.1 mg at bedtime, clonidine 0.1 mg daily, Benadryl 25 mg as needed, lorazepam 2 mg at bedtime, metoprolol 50 mg daily, valsartan hydrochlorothiazide 1 tablet daily. Hold her home calcium carbonate supplement. She is to follow up with Dr. Mcdaniel to recheck her calcium in 1 week. PATHOLOGY: Rectosigmoid colon showed a 4.5 x 3.5 x 2 moderately differentiated adenocarcinoma. The tumor invades through the bowel wall and focally involves the visceral peritoneum. 11 pericolic lymph nodes were negative for carcinoma. Distal margin was negative at 2.5 cm.
== END 2018-04-16 13:47 | disposition home or self-care (01) | DRG 330 ==
LOC: ASU 10:00 → 2S 16:00 → 3W 04-06 13:03

== ENCOUNTER 2022-04-28 14:06 | Inpatient (IN) ==
--- NOTE | 2022-04-28 14:58 | Emergency Department Note ---
History of Present Illness General Chief complaint: Confusion Time Seen by Provider: 04/28/22 14:21 History of Present Illness Provider complaint: Weakness 86-year-old female with history of colon cancer presents to the emergency department for weakness. Patient reports that she has been feeling weak for the last 2 days. She denies any falls. No chest pain. Home Medications Medication Instructions Recorded Confirmed Type aspirin 81 mg tablet,delayed 81 mg PO DAILY #30 tabs 11/13/18 04/28/22 History release metoprolol succinate 25 mg 25 mg PO DAILY #90 tabs 07/19/21 04/28/22 Rx tablet,extended release 24 hr atorvastatin 40 mg tablet 40 mg PO QPM #90 tabs 02/02/22 04/28/22 Rx valsartan 160 1 tab PO DAILY 03/03/22 04/28/22 History mg-hydrochlorothiazide 25 mg tablet (Diovan HCT) clonidine HCl 0.1 mg tablet 0.1 mg PO BID PRN Hypertension 04/05/22 04/28/22 Rx #180 tabs cholecalciferol (vitamin D3) 50 50 mcg PO DAILY #90 caps 04/19/22 04/28/22 Rx mcg (2,000 unit) capsule ondansetron HCl 8 mg tablet 8 mg PO Q8H PRN nausea and 04/22/22 04/28/22 Rx vomiting #30 tabs Allergies Allergy/AdvReac Type Severity Reaction Status Date / Time cinacalcet AdvReac Intermediate SE- Verified 04/28/22 16:00 Urinary frequency, Chills Past Med/Surg History Medical History 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 - conservative mgmt, plan to re-evaluate if double vision recurs per records- follows with cardio Carotid atherosclerosis Chronic diastolic CHF (congestive heart failure) Chronic diastolic CHF (congestive heart failure) Colon cancer Diagnosed 02/2018--s/p colectomy 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 Contact with and (suspected) exposure to other viral communicable diseases COVID-19 Dermatitis History of hyperparathyroidism Sx 10/2019 Hyperlipidemia Hypertension Hypokalemia Insomnia Left ventricular outflow obstruction Mild per 2018 ECHO (peak velocity 1.5m/s)- no evidence of aortic stenosis Mild mitral regurgitation Mild to moderate per 2018 ECHO Pleural effusion, right Surgical History History of bilateral cataract extraction History of colonoscopy (02/2018) History of hysterectomy History of tooth extraction under local S/P parathyroidectomy 10/30/2019 Status post laparoscopic colectomy (10/2018) lap lower anterior resection: 04/05/18: Grade view 1 with Glidescope#3, ETT [address] [facility] Family History Father Throat cancer Stomach cancer Myocardial infarction Mother Kidney disease Other No family history of adverse response to anesthesia Social History Smoking Status: Never smoker Second Hand Exposure: No; Hx Alcohol Use: No Hx Substance Use: No Preferred Language: Arabic Communication Ability: Effective Visual Impairment: No Limitations Permastone Mechanic Required: No Beliefs That Will Affect Care: None Current Living Situation: Alone current occupational status: retired Feels Safe at Home: Yes Safety Concerns: Feels Safe At This Time Seatbelt Use: always Assistive Devices: Glasses Physical Exam Vital Signs Vital Signs - 24 hr 04/28/22 14:15 04/28/22 14:22 04/28/22 14:18 Temperature 36.5 C Temperature Source Oral Pulse Rate 63 64 Pulse Rate [Right Finger] Pulse Rhythm Regular Pulse Strength Normal Respiratory Rate 16 14 Respiratory Effort / Characteristics Non-Labored Non-Labored Respiratory Depth Normal Normal Respiratory Pattern Regular Regular Blood Pressure 95/62 L Blood Pressure [Right Arm] 95/62 L Blood Pressure Mean 73 Blood Pressure Mean [Right Arm] 73 Pulse Oximetry 94 94 Oxygen Delivery Method Room Air Room Air Sepsis Recent Fever Within 48 Hours No Sepsis New/Unexplained Change in Mental Status Yes Sepsis Action Taken by Nursing No Action Required 04/28/22 16:13 04/28/22 16:15 04/28/22 17:17 Temperature Temperature Source Pulse Rate Pulse Rate [Right Finger] 76 Pulse Rhythm Pulse Strength Respiratory Rate 20 16 Respiratory Effort / Characteristics Non-Labored Non-Labored Non-Labored Respiratory Depth Normal Normal Normal Respiratory Pattern Regular Regular Blood Pressure Blood Pressure [Right Arm] 110/66 Blood Pressure Mean Blood Pressure Mean [Right Arm] 80 Pulse Oximetry 94 95 Oxygen Delivery Method Room Air Room Air Sepsis Recent Fever Within 48 Hours Sepsis New/Unexplained Change in Mental Status Sepsis Action Taken by Nursing 04/28/22 18:14 Temperature Temperature Source Pulse Rate 72 Pulse Rate [Right Finger] Pulse Rhythm Pulse Strength Respiratory Rate Respiratory Effort / Characteristics Respiratory Depth Respiratory Pattern Blood Pressure Blood Pressure [Right Arm] Blood Pressure Mean Blood Pressure Mean [Right Arm] Pulse Oximetry Oxygen Delivery Method Sepsis Recent Fever Within 48 Hours Sepsis New/Unexplained Change in Mental Status Sepsis Action Taken by Nursing Physical Exam GENERAL: Ill-appearing frail female HENT: Exam performed. -Head: Normocephalic and atraumatic. NECK: Normal range of motion. Neck supple. No JVD present. CV: Normal rate, regular rhythm, normal heart sounds and intact distal pulses. There is no peripheral edema. Palpable radial pulses bue. PULM/CHEST: Effort normal and breath sounds normal. No respiratory distress. No stridor. She has no wheezes. She has no rales. -Chest Wall: Right-sided chest port present. ABD: The abdomen is soft. She has no distension. There is no tenderness. There is no rebound, no guarding, NEURO: She has normal strength. No cranial nerve deficit or sensory deficit. Coordination normal. Patient does have some dysarthria however it does not seem to bother the patient and she has no aphasia. Course Course 1421: The patient was evaluated in room B11A. A complete history and physical exam was performed Administered Medications Atorvastatin Calcium (Atorvastatin 40 Mg Tab) 40 mg PO QPM SALVADOR Stop: 05/28/22 20:59 Last Admin: 04/28/22 21:33 Dose: 40 mg Documented By: KVNG Enoxaparin Sodium (Enoxaparin Inj 30 Mg/0.3 Ml Syr) 30 mg SQ Q24H SALVADOR Stop: 05/28/22 20:59 Last Admin: 04/28/22 21:32 Dose: 30 mg Documented By: KVNG Potassium Chloride (Potassium Chloride Crtab 20 Meq Tabcr) 20 meq PO TID [place]VADOR Stop: 04/29/22 14:01 Last Admin: 04/28/22 21:32 Dose: 20 meq Documented By: KVNG Discontinued Medications Sodium Chloride (Nss 1000ml) 1,000 mls @ 125 mls/hr IV .Q8H SALVADOR Stop: 05/28/22 17:44 Last Infusion: 04/28/22 20:46 Dose: 0 mls/hr Documented By: Admin: 04/28/22 18:07 Dose: 125 mls/hr Documented By: CGK Potassium Chloride (K Servando / Wtr) 10 meq in 100 mls @ 100 mls/hr IV ONE ONE Stop: 04/28/22 21:37 Last Admin: 04/28/22 21:31 Dose: 100 mls/hr Documented By: KVNG Miscellaneous (Patient's Height &/Or Weight Needed) 1 each N/A Q2H SALV[place] Stop: 05/28/22 20:44 Last Admin: 04/28/22 21:59 Dose: 1 each Documented By: KVNG Medical Decision Making Laboratory Data Attestation: I reviewed the patient's lab results. 04/28/22 14:30 04/28/22 14:30 Lab Results 04/28/22 04/28/22 04/28/22 Range/Units 14:30 14:30 14:30 WBC 2.65 L (4.8-10.8) K/ul RBC 3.80 L (4.20-5.40) M/uL Hgb 12.5 (12.0-16.0) g/dl Hct 34.9 L (37.0-47.0) % MCV 91.8 (80.0-100.0) fL MCH 32.9 (25.0-34.0) pg MCHC 35.8 (32.0-36.0) g/dL RDW Std Deviation 43.8 (36.4-46.3) fL RDW Coeff of Aimee 13.4 (11.5-14.5) % Plt Count 180 (130-400) K/uL MPV 10.1 (9.4-12.4) fL Immature Gran % (Auto) 0.4 % Neut % (Auto) 56.5 % Lymph % (Auto) 21.1 % Forest % (Auto) 20.8 % Eos % (Auto) 0.8 % Baso % (Auto) 0.4 % Neut # (Auto) 1.50 (1.40-6.50) K/uL Lymph # (Auto) 0.56 L (1.2-3.4) K/uL Forest # (Auto) 0.55 (0.11-0.59) K/uL Eos # (Auto) 0.02 (0-0.50) K/uL Baso # (Auto) 0.01 (0-0.2) K/uL Immature Gran # (Auto) 0.01 (0.01-0.20) K/uL Sodium 138 (136-145) mmol/L Potassium 2.8 L (3.5-5.1) mmol/L Chloride 105 (98-107) mmol/L Carbon Dioxide 30 (21-32) mmol/L Anion Gap 3 (3-11) BUN 31 H (6-23) mg/dl Creatinine 0.93 D (0.6-1.2) mg/dl Est Cr Clr Drug Dosing Not Reportable Est GFR ( Amer) 63.6 ml/min Est GFR (Non-Af Amer) 54.9 ml/min BUN/Creatinine Ratio 33.3 H (10-20) Glucose 103 H (70-99(Fasting)) mg/dl Lactate 0.9 (0.4-2.0) mmol/L Calcium 8.2 L (8.5-10.1) mg/dl Magnesium 1.7 (1.7-2.4) mg/dl Total Bilirubin 0.6 (0.2-1.0) mg/dl Direct Bilirubin 0.2 (0-0.2) mg/dl AST 23 (13-39) U/L ALT 12 (7-52) U/L Alkaline Phosphatase 51 (34-104) U/L Troponin I High Sens 99.9 H* (0-14) pg/ml Total Protein 4.7 L (6.0-8.3) gm/dl Albumin 2.7 L (3.4-5.0) gm/dl Procalcitonin (0-0.5) ng/ml Urine Color Urine Appearance (Clear) Urine pH (4.5-7.5) Ur Specific [place] (1.000-1.030) Urine Protein (Negative) Urine Glucose (UA) (Negative) Urine Ketones (Negative) Urine Blood (Negative) Urine Nitrite (Negative) Urine Bilirubin (Negative) Urine Urobilinogen (Negative) Ur Leukocyte Esterase (Negative) Urine WBC (Auto) (0-5) /hpf Urine RBC (Auto) (0-4) /hpf U Hyaline Cast (Auto) (0-5) /lpf U Epithel Cells (Auto) (0-5) /lpf Urine Bacteria (Auto) (Negative) SARS-CoV-2 (PCR) (Negative) Influenza Type A (PCR) (Neg) Influenza Type B (PCR) (Neg) RSV (RT-PCR) (Neg) 04/28/22 04/28/22 04/28/22 Range/Units 14:30 16:12 16:30 WBC (4.8-10.8) K/ul RBC (4.20-5.40) M/uL Hgb (12.0-16.0) g/dl Hct (37.0-47.0) % MCV (80.0-100.0) fL MCH (25.0-34.0) pg MCHC (32.0-36.0) g/dL RDW Std Deviation (36.4-46.3) fL RDW Coeff of Aimee (11.5-14.5) % Plt Count (130-400) K/uL MPV (9.4-12.4) fL Immature Gran % (Auto) % Neut % (Auto) % Lymph % (Auto) % [place] % (Auto) % Eos % (Auto) % Baso % (Auto) % Neut # (Auto) (1.40-6.50) K/uL Lymph # (Auto) (1.2-3.4) K/uL [place] # (Auto) (0.11-0.59) K/uL Eos # (Auto) (0-0.50) K/uL Baso # (Auto) (0-0.2) K/uL Immature Gran # (Auto) (0.01-0.20) K/uL Sodium (136-145) mmol/L Potassium (3.5-5.1) mmol/L Chloride (98-107) mmol/L Carbon Dioxide (21-32) mmol/L Anion Gap (3-11) BUN (6-23) mg/dl Creatinine (0.6-1.2) mg/dl Est Cr Clr Drug Dosing Est GFR ( Amer) ml/min Est GFR (Non-Af Amer) ml/min BUN/Creatinine Ratio (10-20) Glucose (70-99(Fasting)) mg/dl Lactate (0.4-2.0) mmol/L Calcium (8.5-10.1) mg/dl Magnesium (1.7-2.4) mg/dl Total Bilirubin (0.2-1.0) mg/dl Direct Bilirubin (0-0.2) mg/dl AST (13-39) U/L ALT (7-52) U/L Alkaline Phosphatase (34-104) U/L Troponin I High Sens (0-14) pg/ml Total Protein (6.0-8.3) gm/dl Albumin (3.4-5.0) gm/dl Procalcitonin 0.05 (0-0.5) ng/ml Urine Color Yellow Urine Appearance Clear (Clear) Urine pH 5.0 (4.5-7.5) Ur Specific [place] 1.024 (1.000-1.030) Urine Protein Trace H (Negative) Urine Glucose (UA) Negative (Negative) Urine Ketones Trace H (Negative) Urine Blood Negative (Negative) Urine Nitrite Negative (Negative) Urine Bilirubin Negative (Negative) Urine Urobilinogen Negative (Negative) Ur Leukocyte Esterase Negative (Negative) Urine WBC (Auto) 1-5 (0-5) /hpf Urine RBC (Auto) 0-4 (0-4) /hpf U Hyaline Cast (Auto) 5-10 H (0-5) /lpf U Epithel Cells (Auto) 10-20 H (0-5) /lpf Urine Bacteria (Auto) Negative (Negative) SARS-CoV-2 (PCR) NEGATIVE (Negative) Influenza Type A (PCR) Negative (Neg) Influenza Type B (PCR) Negative (Neg) RSV (RT-PCR) Negative (Neg) Imaging Data Attestation: I personally reviewed and interpreted this imaging study as foll ows: My Impression: Chest x-ray negative. Airway clear. No pneumothorax. No consolidation. No cardiomegaly or cephalization.. No free air under the diaphragm. No fractures of the skeletal structures. Radiologist's Impression: Chest X-Ray 04/28/22 14:28 XR chest 1V portable CLINICAL HISTORY: Sepsis TECHNIQUE: Single frontal radiograph of the chest was obtained. Comparison: Comparison is made to chest radiograph 02/01/2022 FINDINGS: A port catheter is seen. Cardiomegaly is noted. Prominence and cephalization of the vasculature is seen. Small bilateral pleural effusions. IMPRESSION: Cardiomegaly and mild pulmonary edema. Small bilateral pleural effusions are seen. No definite pneumonia. ACT 112: Negative or not required by law. Electronically signed by: Ramón Ortez M.D. 04/28/2022 3:[address] 04/28/22 14:28 CT head/brain wo con CLINICAL HISTORY: 86 years-old Female with weakness dysarthria. Acute strokelike symptoms TECHNIQUE: Multiple axial CT images of the head were obtained without contrast. A dose lowering technique was utilized adhering to the principles of ALARA. CT DOSE: 614.27 mGy.cm COMPARISON: Brain MRI 04/20/2022 and also 10/27/2014 FINDINGS: No acute intracranial hemorrhage, midline shift, intra-axial mass, hydrocephalus, territorial ischemia or abnormal extra-axial collection. 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 A subcentimeter probable meningioma adjacent to the superior right frontal lobe is better seen on the comparison brain MRI. Involutional changes with chronic microvascular ischemic disease. The calvarium is intact. Hyperostosis frontalis interna. Mild polypoid mucosal thickening of the right maxillary sinus. Mastoid air cells are clear. Prior bilateral lens repair. IMPRESSION: 1. No acute intracranial abnormality. 2. 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 3. Unchanged meningioma of the right middle cranial fossa. ACT 112: Negative or not required by law. The above report was generated using voice recognition software. It may contain grammatical, syntax or spelling errors. Electronically signed by: Jaspal Victor M.D. 04/28/2022 3:21 PM ECG Data Attestation: I personally reviewed and interpreted this ECG as follows: Indication: + weakness Rate (beats per minute): 63 Rhythm: + normal sinus ECG Intervals/blocks: + Normal QRS, + Normal AK and + Normal QT-c ECG ST segments: + Normal ST segments ECG Findings: + LVH MDM Narrative Cardiac monitoring: An order was placed for continuous cardiac monitoring. The monitor shows a rate of 60 with sinus rhythm interpreted by me External medical records were reviewed. The patient was seen in the emergency department yesterday for weakness and hypotension. Patient was found to have a low potassium and had her potassium replaced. She was given IV fluids which improved her blood pressure. The patient was offered inpatient stay in the hospital but declined. Patient has some dysarthria and there was concern that the patient might be having a cerebral ischemic events. I did discuss with the provider who took the patient in the emergency department yesterday and he states that the patient's dysarthria is at her baseline and that it is most likely due to her Eastern accent. He states that the patient is able to have a full conversation in her [place] tongue and has no expressive aphasia or dysarthria when she was speaking with members of her family yesterday via telephone. Vital signs stable. White blood cell count 2.65. Hemoglobin 12.5. Potassium is again 2.8 despite repletion in the emergency department yesterday. Patient's troponin 99.9. Procalcitonin negative. CT head shows no acute intracranial abnormality. Chest x-ray reviewed by me negative. [facility]. I did call the patient's son Lake [phone] and he asked that he be called to make any decisions regarding the patient's health care. The patient's PCP Dr. Mcdaniel and I informed her that the patient will be admitted and she agrees with the plan also. Impression & Plan Weakness, Elevated troponin Discharge Plan Visit Data Chief Complaint: Confusion ED Provider: Gus Garsia Discharge Problem: Weakness, Elevated troponin Patient Disposition: Admitted As Inpatient Discharge Instructions Interventions: ED Discharge Assessment Last Done: 04/28/22 19:53
--- NOTE | 2022-04-28 15:20 | XRay Report ---
XR chest 1V portable CLINICAL HISTORY: Sepsis TECHNIQUE: Single frontal radiograph of the chest was obtained. Comparison: Comparison is made to chest radiograph 02/01/2022 FINDINGS: A port catheter is seen. Cardiomegaly is noted. Prominence and cephalization of the vasculature is se en. Small bilateral pleural effusions. IMPRESSION: Cardiomegaly and mild pulmonary edema. Small bilateral pleural effusions are seen. No definite pneumo david. ACT 112: Negative or not required by law. Electronically signed by: Ramón Ortez M.D. 04/28/2022 3:19 PM
--- NOTE | 2022-04-28 15:22 | CT Scan Report ---
CT head/brain wo con CLINICAL HISTORY: 86 years-old Female with weakness dysarthria. Acute strokelike symptoms TECHNIQUE: Multiple axial CT images of the head were obtained without contrast. A dose lowering tech nique was utilized adhering to the principles of ALARA. CT DOSE: 614.27 mGy.cm COMPARISON: Brain MRI 04/20/2022 and also 10/27/2014 FINDINGS: No acute intracranial hemorrhage, midline shift, intra-axial mass, hydrocephalus, territorial ischemi a or abnormal extra-axial collection. 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 A subcentimete r probable meningioma adjacent to the superior right frontal lobe is better seen on the comparison br ain MRI. Involutional changes with chronic microvascular ischemic disease. The calvarium is intact. Hyperostosis frontalis interna. Mild polypoid mucosal thickening of the righ t maxillary sinus. Mastoid air cells are clear. Prior bilateral lens repair. IMPRESSION: 1. No acute intracranial abnormality. 2. 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 3. Unchanged meningioma of the right middle cranial fossa. ACT 112: Negative or not required by law. The above report was generated using voice recognition software. It may contain grammatical, syntax o r spelling errors. Electronically signed by: Jaspal Victor M.D. 04/28/2022 3:21 PM
[2022-04-28 16:43] LABS: Appearance Urine Clear (Clear); Bacteria Urine Automated Negative (Negative); Bilirubin Urine Negative (Negative); Blood Urine Negative (Negative); Color Urine Yellow; Glucose Urine UA Negative (Negative); Ketones Urine Trace (Negative); Leukocyte Esterase Urine Negative (Negative); Nitrite Urine Negative (Negative); Protein Urine Trace (Negative); RBC Urine Automated 0-4 /hpf (0-4); Specific Gravity Urine 1.024 (1.000-1.030); Urobilinogen Urine Negative (Negative)
[2022-04-28 16:57] LABS: Basophils # (auto) 0.01 K/uL (0-0.2); Basophils % (auto) 0.4 %; Eosinophils # (auto) 0.02 K/uL (0-0.50); Eosinophils % (auto) 0.8 %; Hematocrit (blood only) 34.9 % (37.0-47.0); Hemoglobin 12.5 g/dl (12.0-16.0); Immature Granulocytes # (auto) 0.01 K/uL (0.01-0.20); Immature Granulocytes % (auto) 0.4 %; Lymphocytes # (auto) 0.56 K/uL (1.2-3.4); Lymphocytes % (auto) 21.1 %; Mean Corpuscular Hemoglobin 32.9 pg (25.0-34.0); Mean Corpuscular Hgb Conc 35.8 g/dL (32.0-36.0); Mean Corpuscular Volume 91.8 fL (80.0-100.0); Mean Platelet Volume 10.1 fL (9.4-12.4); Monocytes # (auto) 0.55 K/uL (0.11-0.59); Monocytes % (auto) 20.8 %; Neutrophils % (auto) 56.5 %; Platelet Count 180 K/uL (130-400); RDW Coefficient of Variation 13.4 % (11.5-14.5); RDW Standard Deviation 43.8 fL (36.4-46.3); White Blood Count 2.65 K/ul (4.8-10.8)
[2022-04-28 17:22] LABS: Influenza A virus by PCR Negative (Neg); Influenza B virus by PCR Negative (Neg); RSV by PCR Negative (Neg); SARS CoV2 RNA(COVID-19) Ceph NEGATIVE (Negative)
[2022-04-28 17:27] LABS: Alanine Aminotransferase 12 U/L (7-52); Albumin Level 2.7 gm/dl (3.4-5.0); Alkaline Phosphatase 51 U/L (34-104); Anion Gap 3 (3-11); Aspartate Aminotransferase 23 U/L (13-39); BUN Creatinine Ratio 33.3 (10-20); Bilirubin Direct 0.2 mg/dl (0-0.2); Bilirubin,Total 0.6 mg/dl (0.2-1.0); Blood Urea Nitrogen 31 mg/dl (6-23); Calcium 8.2 mg/dl (8.5-10.1); Carbon Dioxide 30 mmol/L (21-32); Chloride 105 mmol/L (98-107); Est GFR (African American) 63.6 ml/min; Est GFR (Non-African American) 54.9 ml/min; Glucose 103 mg/dl (70-99(Fasting)); Magnesium 1.7 mg/dl (1.7-2.4); Potassium 2.8 mmol/L (3.5-5.1); Sodium 138 mmol/L (136-145); Total Protein 4.7 gm/dl (6.0-8.3); Troponin I High Sensitivity 99.9 pg/ml (0-14)
[2022-04-28] MEDS ORDERED: SODIUM CHLORIDE 0.9% 1000ML 1,000 ML IV SCH (17:45)
--- NOTE | 2022-04-28 18:36 | History & Physical Report ---
Date of Service April 28, 2022 Assessment & Plan (1) Weakness: Plan: 86-year-old female with diffuse global weakness without focal weakness and hypokalemia. Somewhat restricted p.o. intake, no diarrhea. Elevated troponin without territorial ST elevation/depression, no clinical chest pain or evidence of heart failure on exam. Global weakness With clinical volume depletion and hypokalemia Potassium repleted IV FM at maintenance Cardiac eval as noted PT/OT Hypokalemia 2.8 on admission, repleted and trended. Magnesium within normal limits Elevated troponin No clinical chest pain, no territorial ST segment changes on EKG ? In the setting of volume depletion/hypokalemia reflective of demand Fluids/potassium relation as above Trended Echo pending Hypertension Borderline hypertension admission Resume clonidine/Diovan tomorrow if normotensive or high otherwise may hold for 1 day Continue metoprolol Hyperlipidemia Continue atorvastatin DVT prophylaxis: Lovenox Diet: Heart healthy Disposition: Med telemetry while on cardiac eval and for hypokalemia CODE STATUS: Full code, patient reports she will talk about this further with her friend/family and if she would like to update the status will discuss with nurse or provider (2) Hypotension: (3) Acute hypokalemia: (4) Generalized weakness: (5) Hyperlipidemia: (6) LVH (left ventricular hypertrophy): History of Present Illness Primary Care Provider: Cassi Zavala MD Patient is an 86-year-old female primarily Guyanese-speaking but who is fluent in Tristanian who presents for weakness and fatigue. She is find to have hypokalemia on admission. High sensitive troponin is elevated at 99. She denies any chest pain or shortness of breath. Reports she has felt weak all over, but has no focal weakness. Past concern was expressed for possible dysarthria, patient has a heavy Eastern accent and is primarily fluent in Guyanese however is speaking fluently with no speech change per patient and family. No extremity weakness, and CThead does not show any stroke pathology. Patient denies any nausea/vomiting, reports that she does not eat very much. No fever, chills, sweats, lightheadedness, dizziness. Does not drink alcohol or use tobacco products. Medical history, medications, allergies reviewed. Will admit for treatment of hypokalemia, cardiac eval, and PT/OT. Allergies Allergy/AdvReac Type Severity Reaction Status Date / Time cinacalcet AdvReac Intermediate SE- Verified 04/28/22 16:00 Urinary frequency, Chills Home Medications Medication Instructions Recorded Confirmed Type aspirin 81 mg tablet,delayed 81 mg PO DAILY #30 tabs 11/13/18 04/28/22 History release metoprolol succinate 25 mg 25 mg PO DAILY #90 tabs 07/19/21 04/28/22 Rx tablet,extended release 24 hr atorvastatin 40 mg tablet 40 mg PO QPM #90 tabs 02/02/22 04/28/22 Rx valsartan 160 1 tab PO DAILY 03/03/22 04/28/22 History mg-hydrochlorothiazide 25 mg tablet (Diovan HCT) clonidine HCl 0.1 mg tablet 0.1 mg PO BID PRN Hypertension 04/05/22 04/28/22 Rx #180 tabs cholecalciferol (vitamin D3) 50 50 mcg PO DAILY #90 caps 04/19/22 04/28/22 Rx mcg (2,000 unit) capsule ondansetron HCl 8 mg tablet 8 mg PO Q8H PRN nausea and 04/22/22 04/28/22 Rx vomiting #30 tabs Past Med/Surg History Medical History 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 - conservative mgmt, plan to re-evaluate if double vision recurs per records- follows with cardio Carotid atherosclerosis Chronic diastolic CHF (congestive heart failure) Chronic diastolic CHF (congestive heart failure) Colon cancer Diagnosed 02/2018--s/p colectomy 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 Contact with and (suspected) exposure to other viral communicable diseases COVID-19 Dermatitis History of hyperparathyroidism Sx 10/2019 Hyperlipidemia Hypertension Hypokalemia Insomnia Left ventricular outflow obstruction Mild per 2018 ECHO (peak velocity 1.5m/s)- no evidence of aortic stenosis Mild mitral regurgitation Mild to moderate per 2018 ECHO Pleural effusion, right Surgical History History of bilateral cataract extraction History of colonoscopy (02/2018) History of hysterectomy History of tooth extraction under local S/P parathyroidectomy 10/30/2019 Status post laparoscopic colectomy (10/2018) lap lower anterior resection: 04/05/18: Grade view 1 with Glidescope#3, ETT 7.0 at [facility] Family History Father Throat cancer Stomach cancer Myocardial infarction Mother Kidney disease Other No family history of adverse response to anesthesia Social History Smoking Status: Never smoker Second Hand Exposure: No; Hx Alcohol Use: No Hx Substance Use: No Preferred Language: Tristanian Communication Ability: Effective Visual Impairment: No Limitations Security Clerk Required: No Beliefs That Will Affect Care: None Current Living Situation: Alone current occupational status: retired Feels Safe at Home: Yes Seatbelt Use: always Assistive Devices: Glasses Review of Systems Review of Systems: All systems reviewed & are unremarkable except as noted in HPI & below Physical Exam Physical Exam: General: A&Ox3. NAD. Cooperative. HEENT: Atraumatic, normocephalic. PERLAA Pulm: CTAB A&P. -wheezes, -rales, -rhonchi. Symmetrical chest rise. No increased work of breathing. No respiratory distress. Cardiac: RRR, -mrg. Radial pulses intact and symmetrical. Abdominal: Nontender, nondistended, soft. BS present. Extremities: Warm and dry. Distal extremity strength 5/5 and symmetrical. No edema Results & Data Results & Data ([facility]) Vital Signs (Past 12 Hours) Vital Signs Temp Pulse Pulse Resp BP BP Pulse Ox 04/28/22 18:14 72 04/28/22 17:17 76 16 110/66 95 04/28/22 16:13 20 94 04/28/22 14:18 64 04/28/22 14:22 14 95/62 L 94 04/28/22 14:15 36.5 C 63 16 95/62 L 94 O2 Del Method 04/28/22 18:14 04/28/22 17:17 Room Air 04/28/22 16:13 Room Air 04/28/22 14:18 04/28/22 14:22 Room Air 04/28/22 14:15 Room Air PG Care Time/CCT Total # of Minutes Spent Total Time Spent with Patient: Total time spent is greater than 50% in coordination of care (as documented) at patient's floor/unit and/or counseling patient: Coding Level of Care Code 72978 INT INP/OBS CARE MIN Diagnoses Weakness R53.1 Hypotension I95.9 Hypotension type: unspecified hypotension type Acute hypokalemia E87.6 Generalized weakness R53.1 Hyperlipidemia E78.2 Hyperlipidemia type: mixed hyperlipidemia LVH (left ventricular hypertrophy) I51.7 (2) Hypotension Hypotension type: unspecified hypotension type Qualified Code(s): I95.9 - Hypotension, unspecified (5) Hyperlipidemia Hyperlipidemia type: mixed hyperlipidemia Qualified Code(s): E78.2 - Mixed hyperlipidemia
[2022-04-28] MEDS ORDERED: ACETAMINOPHEN 325 MG TAB PO PRN (20:38)
[2022-04-28] MEDS ORDERED: POTASSIUM CHLORIDE / WTR 10 MEQ/100 ML PLCT IV ONE (20:38)
[2022-04-28] MEDS ORDERED: cloNIDine HCL 0.1 MG TAB PO PRN (20:38)
[2022-04-28] MEDS ORDERED: Patient's HEIGHT &/or WEIGHT Needed SCH (20:45)
[2022-04-28] MEDS: ENOXAPARIN INJ 30 MG/0.3 ML SYR SQ SCH (21:32)
[2022-04-28] MEDS: POTASSIUM CHLORIDE CRTAB 20 MEQ TABCR PO SCH (21:32)
[2022-04-28] MEDS: ATORVASTATIN 40 MG TAB PO SCH (21:33)
[2022-04-28 22:05] LABS: Calcium 7.8 mg/dl (8.5-10.1); Creatinine Clr Calc Pharmacy 36.4 ml/min; Est GFR (African American) 58.3 ml/min; Est GFR (Non-African American) 50.3 ml/min; Potassium 2.8 mmol/L (3.5-5.1)
[2022-04-29 02:50] LABS: Basophils # (auto) 0.01 K/uL (0-0.2); Basophils % (auto) 0.3 %; Eosinophils # (auto) 0.02 K/uL (0-0.50); Eosinophils % (auto) 0.6 %; Hematocrit (blood only) 37.9 % (37.0-47.0); Hemoglobin 13.4 g/dl (12.0-16.0); Immature Granulocytes # (auto) 0.02 K/uL (0.01-0.20); Immature Granulocytes % (auto) 0.6 %; Lymphocytes # (auto) 0.72 K/uL (1.2-3.4); Lymphocytes % (auto) 22.2 %; Mean Corpuscular Hgb Conc 35.4 g/dL (32.0-36.0); Mean Corpuscular Volume 93.3 fL (80.0-100.0); Mean Platelet Volume 10.3 fL (9.4-12.4); Monocytes # (auto) 0.72 K/uL (0.11-0.59); Monocytes % (auto) 22.2 %; Neutrophils # (auto) 1.76 K/uL (1.40-6.50); Neutrophils % (auto) 54.1 %; Platelet Count 200 K/uL (130-400); RDW Coefficient of Variation 13.5 % (11.5-14.5); RDW Standard Deviation 45.3 fL (36.4-46.3); Red Blood Count 4.06 M/uL (4.20-5.40); White Blood Count 3.25 K/ul (4.8-10.8)
[2022-04-29 03:02] LABS: Calcium 8.1 mg/dl (8.5-10.1); Est GFR (African American) 55.6 ml/min; Est GFR (Non-African American) 47.9 ml/min; Potassium 3.1 mmol/L (3.5-5.1)
--- NOTE | 2022-04-29 05:39 | Electrocardiogram Report ---
Test Reason : Blood Pressure : / mmHG Vent. Rate : 063 BPM Atrial Rate : 063 BPM P-R Int : 176 ms QRS Dur : 096 ms QT Int : 428 ms P-R-T Axes : 044 -18 169 degrees QTc Int : 437 ms Normal sinus rhythm Left ventricular hypertrophy with repolarization abnormality Possible Septal infarct , age undetermined Abnormal ECG When compared with ECG of 27-APR-2022 12:34, Minimal criteria for Septal infarct are now Present Confirmed by Rich Moore ([id number]) on 04/29/2022 5:38:47 AM Referred By: REFERRED SELF Confirmed By:Rich Moore
--- NOTE | 2022-04-29 07:37 | Hospitalist Progress Note ---
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 Family endorses poor p.o. intake. Elevated troponin without territorial ST elevation/depression, no clinical chest pain or evidence of heart failure on exam. acute Global weakness, moderate risk, CT with no acute changes, saccular aneurysm on ICA without rupture, meningioma With clinical volume depletion and hypokalemia -Certainly cannot rule out role that malignancy and treatment of malignancy may play in both situational depression and generalized weakness. Electrolytes repleted we will initiate Remeron therapy to hopefully help treat depression and improve appetite Still pending urine culture to rule out metabolic encephalopathy from urinary tract infection present on admission PT/OT/speech therapy evaluations be undertaken Elevated troponin acute self-limited moderate risk No clinical chest pain, no territorial ST segment changes on EKG In the setting of volume depletion/hypokalemia reflective of demand ischemia Echo shows preserved ejection fraction no regional wall motion abnormalities. Previous left ventricular outflow tract obstruction is not appreciated on this study Hypertension chronic and stable BP is low normal will hold antihypertensives, family states patient was not taking antihypertensives at home in the week prior to being presented the family restarted these subsequently restarting that may have initiated lower blood pressure and worsened her overall weakened state. Hyperlipidemia Continue atorvastatin DVT prophylaxis: Lovenox to prophylactic treatment Diet: Heart healthy dietary supplementation and nutritional consultation CODE STATUS: Full code, patient reports she will talk about this further with her friend/family and if she would like to update the status will discuss with nurse or provider (2) Hypotension: (3) Acute hypokalemia: (4) Generalized weakness: (5) Hyperlipidemia: (6) LVH (left ventricular hypertrophy): Admission and Anticipated Discharge Date Admission Date: April 28, 2022 Subjective Patient is an awake and alert and pleasant. She tends to minimize her symptoms that she is fine and she is optimistic. Patient is concurrently being treated for metastatic adenocarcinoma of the colon with mets to omentum and pulmonary Comes in because of increased weakness and some weight loss with decreased appetite. Initial evaluation for metabolic encephalopathy has not proven any significant substantial changes or treatable causes Physical Exam Physical Exam: Patient is very thin her BMI is 21 she appears to be underweight She is able to converse with me she is oriented x2 but does know some time questions Cardiac exam is regular without murmurs her lungs are clear abdomen NABS I feel no masses her extremities are without edema Results & Data Results & Data ([facility]) Vital Signs (Past 12 Hours) Vital Signs Temp Pulse Pulse Pulse Resp BP Pulse Ox 04/29/22 07:06 73 04/29/22 04:00 97.9 F 87 18 109/60 97 04/28/22 23:54 98.2 F 78 18 124/83 93 04/28/22 23:09 65 04/28/22 21:16 79 04/28/22 21:16 98.2 F 83 16 110/75 94 04/28/22 19:44 75 16 103/64 94 O2 Del Method 04/29/22 07:06 04/29/22 04:00 Room Air 04/28/22 23:54 Room Air 04/28/22 23:09 04/28/22 21:16 04/28/22 21:16 Room Air 04/28/22 19:44 Room Air Laboratory Results Reviewed CBC Reviewed PRP Diagnostic Findings Reviewed findings of echocardiogram PG Care Time/CCT Total # of Minutes Spent Total Time Spent with Patient: Total time spent is greater than 50% in coordination of care (as documented) at patient's floor/unit and/or counseling patient: Coding Level of Care Code 74284 SUB INP/OBS CARE 2/35MIN Diagnoses Weakness R53.1 Hypotension I95.9 Hypotension type: unspecified hypotension type Acute hypokalemia E87.6 Generalized weakness R53.1 Hyperlipidemia E78.2 Hyperlipidemia type: mixed hyperlipidemia LVH (left ventricular hypertrophy) I51.7 (2) Hypotension Hypotension type: unspecified hypotension type Qualified Code(s): I95.9 - Hypotension, unspecified (5) Hyperlipidemia Hyperlipidemia type: mixed hyperlipidemia Qualified Code(s): E78.2 - Mixed hyperlipidemia
[2022-04-29] MEDS ORDERED: PERFLUTREN LIPID MICROSPHERE (DEFINITY) IV ONE (07:41)
[2022-04-29] MEDS ORDERED: VALSARTAN 80 MG TAB PO SCH (09:00)
[2022-04-29] MEDS ORDERED: METOPROLOL SUCC 25MG EXT REL TAB PO SCH ×2 (09:00)
[2022-04-29] MEDS ORDERED: hydroCHLOROthiazide 25 MG TAB PO SCH (09:00)
[2022-04-29] MEDS: ASPIRIN 81 MG ECTAB PO SCH (09:25)
[2022-04-29] MEDS: POTASSIUM CHLORIDE CRTAB 20 MEQ TABCR PO SCH ×2 (09:25→14:47)
--- NOTE | 2022-04-29 10:34 | XCELERA ---
[id number]
[2022-04-29] MEDS ORDERED: MAGNESIUM SULFATE / D5W 1 GM/100 ML BAG IV ONE (11:08)
[2022-04-29] MEDS: ENOXAPARIN INJ 30 MG/0.3 ML SYR SQ SCH (20:06)
[2022-04-29] MEDS: ATORVASTATIN 40 MG TAB PO SCH (20:06)
[2022-04-29] MEDS: MIRTAZAPINE TAB 15 MG TAB PO SCH (20:07)
[2022-04-30 06:12] LABS: Hematocrit (blood only) 39.4 % (37.0-47.0); Hemoglobin 14.1 g/dl (12.0-16.0); Mean Corpuscular Hemoglobin 32.6 pg (25.0-34.0); Mean Corpuscular Hgb Conc 35.8 g/dL (32.0-36.0); Mean Corpuscular Volume 91.2 fL (80.0-100.0); Mean Platelet Volume 10.9 fL (9.4-12.4); Platelet Count 226 K/uL (130-400); RDW Coefficient of Variation 13.1 % (11.5-14.5); RDW Standard Deviation 42.7 fL (36.4-46.3); Red Blood Count 4.32 M/uL (4.20-5.40); White Blood Count 4.51 K/ul (4.8-10.8)
--- NOTE | 2022-04-30 07:44 | Hospitalist Progress Note ---
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 Family endorses poor p.o. intake. Elevated troponin without territorial ST elevation/depression, no clinical chest pain or evidence of heart failure on exam. 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 Electrolytes repleted we did initiate Remeron therapy to hopefully help treat depression and improve appetite Still pending urine culture to rule out metabolic encephalopathy from urinary tract infection present on admission blood cultures are negative to date Patient therapy evaluation feels patient has no loss of function pending physical therapy evaluation Elevated troponin acute self-limited moderate risk no further cardiac symptoms No clinical chest pain, no territorial ST segment changes on EKG In the setting of volume depletion/hypokalemia reflective of demand ischemia Echo shows preserved ejection fraction no regional wall motion abnormalities. Previous left ventricular outflow tract obstruction is not appreciated on this study, patient has aortic sclerosis with heard murmur on examination Hypertension chronic and unstable blood pressures have been low likely from reinstitution of antihypertensive medications BP is low hold antihypertensives, family states patient was not taking antihypertensives at home in the week prior to being presented the family restarted these subsequently restarting that may have initiated lower blood pressure and worsened her overall weakened state. Hyperlipidemia Continue atorvastatin DVT prophylaxis: Lovenox to prophylactic treatment Diet: Heart healthy dietary supplementation and nutritional consultation CODE STATUS: Full code, patient reports she will talk about this further with her friend/family and if she would like to update the status will discuss with nurse or provider Added boost and nutritional evaluation, albumin and protein are low given her moderate protein calorie malnutrition (2) Hypotension: (3) Acute hypokalemia: (4) Generalized weakness: (5) Hyperlipidemia: (6) LVH (left ventricular hypertrophy): Admission and Anticipated Discharge Date Admission Date: April 28, 2022 Subjective Patient is an awake and alert and pleasant. She tends to minimize her symptoms that she is fine and she is optimistic. Patient is concurrently being treated for metastatic adenocarcinoma of the colon with mets to omentum and pulmonary Comes in because of increased weakness and some weight loss with decreased appetite. Initial evaluation for metabolic encephalopathy has not proven any significant substantial changes or treatable causes Physical Exam Physical Exam: Patient is very thin her BMI is 21 she appears to be underweight She is able to converse with me she is oriented x2 but does know some time q uestions Cardiac exam is regular with shrill right upper border systolic murmur, her lungs are clear abdomen NABS I feel no masses her extremities are without edema Results & Data Results & Data ([facility]) Vital Signs (Past 12 Hours) Vital Signs Temp Pulse Pulse Pulse Resp BP Pulse Ox 04/30/22 06:02 79 04/30/22 04:18 94 04/30/22 03:32 97.3 F L 87 16 91/63 L 91 04/30/22 00:31 74 04/29/22 23:04 97.5 F L 82 16 94/68 L 94 04/29/22 19:44 97.9 F 73 18 130/78 92 O2 Del Method 04/30/22 06:02 04/30/22 04:18 Room Air 04/30/22 03:32 Room Air 04/30/22 00:31 04/29/22 23:04 Room Air 04/29/22 19:44 Room Air PG Care Time/CCT Total # of Minutes Spent Total Time Spent with Patient: Total time spent is greater than 50% in coordination of care (as documented) at patient's floor/unit and/or counseling patient: Coding Level of Care Code 93777 SUB INP/OBS CARE 2/35MIN Diagnoses Weakness R53.1 Hypotension I95.9 Hypotension type: unspecified hypotension type Acute hypokalemia E87.6 Generalized weakness R53.1 Hyperlipidemia E78.2 Hyperlipidemia type: mixed hyperlipidemia LVH (left ventricular hypertrophy) I51.7 (2) Hypotension Hypotension type: unspecified hypotension type Qualified Code(s): I95.9 - Hypotension, unspecified (5) Hyperlipidemia Hyperlipidemia type: mixed hyperlipidemia Qualified Code(s): E78.2 - Mixed hyperlipidemia
[2022-04-30] MEDS: ASPIRIN 81 MG ECTAB PO SCH (08:18)
[2022-04-30 08:43] LABS: BUN Creatinine Ratio 30.3 (10-20); Calcium 8.2 mg/dl (8.5-10.1); Creatinine Clr Calc Pharmacy 36.8 ml/min; Est GFR (Non-African American) 50.9 ml/min; Magnesium 1.9 mg/dl (1.7-2.4); Potassium 3.6 mmol/L (3.5-5.1)
[2022-04-30] MEDS: ENOXAPARIN INJ 30 MG/0.3 ML SYR SQ SCH (19:52)
[2022-04-30] MEDS: ATORVASTATIN 40 MG TAB PO SCH (19:52)
[2022-04-30] MEDS: ONDANSETRON INJ 2 MG/ML 2 ML VIAL IV PRN (19:52)
[2022-04-30] MEDS: MIRTAZAPINE TAB 15 MG TAB PO SCH (19:52)
[2022-04-30] MEDS: PANTOprazole 40 MG in SYRINGE 0 ML IV SCH (20:24)
[2022-04-30] MEDS ORDERED: HEPARIN 100 UNIT/ML 5ML FLUSH FLUSH PRN (21:27)
[2022-05-01 06:12] LABS: Hematocrit (blood only) 39.6 % (37.0-47.0); Mean Corpuscular Hemoglobin 32.9 pg (25.0-34.0); Mean Corpuscular Hgb Conc 35.4 g/dL (32.0-36.0); Mean Corpuscular Volume 93.2 fL (80.0-100.0); Mean Platelet Volume 10.8 fL (9.4-12.4); Platelet Count 223 K/uL (130-400); RDW Coefficient of Variation 13.8 % (11.5-14.5); RDW Standard Deviation 45.5 fL (36.4-46.3); Red Blood Count 4.25 M/uL (4.20-5.40); White Blood Count 7.33 K/ul (4.8-10.8)
[2022-05-01 06:25] LABS: BUN Creatinine Ratio 31.8 (10-20); Calcium 8.2 mg/dl (8.5-10.1); Creatinine Clr Calc Pharmacy 33.1 ml/min; Est GFR (African American) 51.9 ml/min; Est GFR (Non-African American) 44.8 ml/min; Magnesium 1.8 mg/dl (1.7-2.4); Potassium 3.7 mmol/L (3.5-5.1)
[2022-05-01] MEDS: ASPIRIN 81 MG ECTAB PO SCH (07:58)
[2022-05-01] MEDS: ONDANSETRON INJ 2 MG/ML 2 ML VIAL IV PRN (07:59)
[2022-05-01] MEDS: PANTOprazole 40 MG in SYRINGE 0 ML IV SCH ×2 (07:59→20:54)
--- NOTE | 2022-05-01 14:11 | Hospitalist Progress Note ---
Date of Service May 01, 2022 Assessment & Plan (1) Weakness: Plan: 86-year-old female with metastatic adenocarcinoma of the colon with omental possibly ovarian and pulmonary mets presents with diffuse global weakness without focal weakness and hypokalemia. Family endorses poor p.o. intake. Elevated troponin without territorial ST elevation/depression, no clinical chest pain or evidence of heart failure on exam. 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 Electrolytes repleted initiated Remeron therapy to hopefully help treat depression and improve appetite urine culture did not show infection subsequently we have ruled out metabolic encephalopathy infection present on admission as blood cultures are negative to date Nausea and vomiting with history of adenocarcinoma. Patient will have CT scan abdomen pelvis on 05/01 to evaluate for progression of disease. Patient is on proton pump inhibitor as as needed antiemetics available moderate risk the patient Elevated troponin acute self-limited moderate risk no further cardiac symptoms No clinical chest pain, no territorial ST segment changes on EKG In the setting of volume depletion/hypokalemia reflective of demand ischemia Echo shows preserved ejection fraction no regional wall motion abnormalities. Previous left ventricular outflow tract obstruction is not appreciated on this study, patient has aortic sclerosis with heard murmur on examination Hypertension chronic and unstable blood pressures have been low likely from reinstitution of antihypertensive medications BP is low hold antihypertensives, family states patient was not taking antihypertensives at home in the week prior to being presented the family restarted these subsequently restarting that may have initiated lower blood pressure and worsened her overall weakened state. Hyperlipidemia Continue atorvastatin DVT prophylaxis: Lovenox to prophylactic treatment Diet: Heart healthy dietary supplementation and nutritional consultation CODE STATUS: Full code, patient reports she will talk about this further with her friend/family and if she would like to update the status will discuss with nurse or provider Added boost and nutritional evaluation, albumin and protein are low given her moderate protein calorie malnutrition (2) Hypotension: (3) Acute hypokalemia: (4) Generalized weakness: (5) Hyperlipidemia: (6) LVH (left ventricular hypertrophy): Admission and Anticipated Discharge Date Admission Date: April 28, 2022 Subjective Patient typically is pleasant on exam as she is today. Patient had 2 episodes of vomitus notified by nursing on 04/30. Patient denies having these initially then admits to 1 episode of vomitus. The vomitus on 04/30 to nurses described as dark in color but not coffee-ground's. Patient denies this. To this end we asked the patient to drink oral contrast perform CT scan of her abdomen due to her history of metastatic adenocarcinoma initially she refused but is slowly drinking and hopefully to get a CT scan on 05/01 Physical Exam Physical Exam: Patient appears chronically ill she is underweight with a BMI of 21 she is in no distress her cardiac exam is regular with a shrill murmur at the right upper sternal border her lungs are clear her abdomen is with NABS I cannot palpate masses that were previously described on imaging Results & Data Results & Data ([facility]) Vital Signs (Past 12 Hours) Vital Signs Temp Pulse Pulse Pulse Resp BP Pulse Ox 05/01/22 12:35 98.4 F 95 H 14 100/70 91 05/01/22 07:35 99.5 F 93 H 15 100/68 91 05/01/22 07:10 05/01/22 06:00 85 05/01/22 04:26 87 103/69 93 05/01/22 03:45 97.7 F 95 H 20 96/60 L 92 O2 Del Method 05/01/22 12:35 Room Air 05/01/22 07:35 Room Air 05/01/22 07:10 Room Air 05/01/22 06:00 05/01/22 04:26 Room Air 05/01/22 03:45 Room Air PG Care Time/CCT Total # of Minutes Spent Total Time Spent with Patient: Total time spent is greater than 50% in coordination of care (as documented) at patient's floor/unit and/or counseling patient: Coding Level of Care Code 35706 SUB INP/OBS CARE 3/50MIN Diagnoses Weakness R53.1 Hypotension I95.9 Hypotension type: unspecified hypotension type Acute hypokalemia E87.6 Generalized weakness R53.1 Hyperlipidemia E78.2 Hyperlipidemia type: mixed hyperlipidemia LVH (left ventricular hypertrophy) I51.7 (2) Hypotension Hypotension type: unspecified hypotension type Qualified Code(s): I95.9 - Hyp otension, unspecified (5) Hyperlipidemia Hyperlipidemia type: mixed hyperlipidemia Qualified Code(s): E78.2 - Mixed hyperlipidemia
[2022-05-01] MEDS ORDERED: OPTIRAY 350 100ml IV ONE (15:03)
--- NOTE | 2022-05-01 17:17 | CT Scan Report ---
ABDOMEN AND PELVIS CT WITH IV AND ORAL CONTRAST CT DOSE: 312.59 mGy.cm HISTORY: Acute generalized abdominal pain in patient with history of colorectal carcinoma eval for p rogression of metastatic disease TECHNIQUE: Multiaxial CT images of the abdomen and pelvis were performed following the IV administrat ion of 86 cc of Optiray and oral contrast. A dose lowering technique was utilized adhering to the pr inciples of MALGORZATA. COMPARISON STUDY: PET CT 02/10/2022 FINDINGS: Small moderate layering pleural effusions have increased in size from the prior study. Mild dependent bibasilar atelectasis. Small pericardial effusion. Moderate generalized body wall edema wi th small volume of abdominal pelvic ascites. Unremarkable spleen, mildly atrophic pancreas and adrenal glands. Unremarkable gallbladder and liver. Patency of the hepatic and portal veins. Indeterminate ill-defined mild the hypodense 1.4 cm lesion within the superior pole left kidney. A few subcentimeter ill-defined hypodensities kidneys are too s mall to characterize. No hydronephrosis. Urinary bladder wall thickening with partial distention. Inc reased size of the complex cystic mass of the pelvis now measuring 10.1 x 11.1 cm, previously 6.9 x 6 .5 cm. Atherosclerosis of the aorta without aneurysm. Hiatal hernia. Postoperative changes of the rec tosigmoid junction again noted. Moderate colonic fecal retention. Stable indeterminate lesion within the left lower quadrant abdominal wall measuring approximately 4 cm on image 228 series 3. Degenerative changes of the shoulders and spine. Healing subacute appearing right-sided rib fractures . IMPRESSION: 1. No acute intra-abdominal or intrapelvic abnormality. 2. Volume overload with small pericardial and small to moderate pleural effusions. Body wall edema wi th small volume of abdominopelvic ascites. 3. Increased size of the septated cystic pelvic mass now measuring 11 cm, again suggestive of neoplas m. 4. 4 cm soft tissue attenuating nodule also suggestive of neoplasm within the left lower quadrant abd ominal wall is stable in size. 5. Indeterminate 1.4 cm lesion of the superior pole left kidney appears similar to prior. This lesion could be correlated with a nonemergent follow-up ultrasound. 6. Additional findings as above ACT 112: Negative or not required by law. The above report was generated using voice recognition software. It may contain grammatical, syntax o r spelling errors. Electronically signed by: Jaspal Victor M.D. 05/01/2022 5:15 PM
[2022-05-01] MEDS: ENOXAPARIN INJ 30 MG/0.3 ML SYR SQ SCH (20:54)
[2022-05-01] MEDS: MIRTAZAPINE TAB 15 MG TAB PO SCH (20:54)
[2022-05-01] MEDS: ATORVASTATIN 40 MG TAB PO SCH (20:54)
[2022-05-02 07:10] LABS: Hematocrit (blood only) 36.9 % (37.0-47.0); Hemoglobin 13.2 g/dl (12.0-16.0); Mean Corpuscular Hemoglobin 32.9 pg (25.0-34.0); Mean Corpuscular Hgb Conc 35.8 g/dL (32.0-36.0); Mean Platelet Volume 10.9 fL (9.4-12.4); Platelet Count 197 K/uL (130-400); RDW Coefficient of Variation 13.7 % (11.5-14.5); RDW Standard Deviation 45.1 fL (36.4-46.3); Red Blood Count 4.01 M/uL (4.20-5.40); White Blood Count 7.13 K/ul (4.8-10.8)
--- NOTE | 2022-05-02 07:10 | Hospitalist Progress Note ---
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 Family endorses poor p.o. intake. Elevated troponin without territorial ST elevation/depression, no clinical chest pain or evidence of heart failure on exam. 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, meningioma CT scan abdomen pelvis performed 05/01/2022 shows increase in size of septated cystic pelvic mass now measuring 11 cm suggestive of neoplasm, 4 cm soft tissue attenuating nodule suggestive of neoplasm within the left lower quadrant abdominal wall which is stable in size, indeterminate 1.4 cm lesion in the superior pole left kidney similar to previous volume overload small pericardial effusion and small to moderate pleural effusions body wall edema and small volume abdominal pelvic ascites With description of body wall edema anasarca from poor protein and oral intake is likely the culprit. Patient has mild to moderate protein malnutrition -Certainly cannot rule out role that malignancy and treatment of malignancy may play in both situational depression and generalized weakness. initiated Remeron therapy to hopefully help treat depression and improve appetite urine culture did not show infection subsequently we have ruled out metabolic encephalopathy infection present on admission as blood cultures are negative to date Nausea and vomiting with history of adenocarcinoma. Initiated on proton pump inhibitor changed tpo pepcid 05/02/22 as as needed antiemetics available no recurrence moderate risk the patient Elevated troponin acute self-limited moderate risk no further cardiac symptoms No clinical chest pain, no territorial ST segment changes on EKG In the setting of volume depletion/hypokalemia reflective of demand ischemia Echo shows preserved ejection fraction no regional wall motion abnormalities. Previous left ventricular outflow tract obstruction is not appreciated on this study, patient has aortic sclerosis with heard murmur on examination Hypertension chronic and unstable blood pressures have remained low but medications have been discontinued Hyperlipidemia given appetite reduction will reduce med passes by reducing the statin medication at this time DVT prophylaxis: Lovenox to prophylactic treatment Diet: Heart healthy dietary supplementation and nutritional consultation CODE STATUS: Full code, patient reports she will talk about this further with her friend/family and if she would like to update the status will discuss with nurse or provider Added boost and nutritional evaluation, albumin and protein are low given her moderate protein calorie malnutrition (2) Hypotension: (3) Acute hypokalemia: (4) Generalized weakness: (5) Hyperlipidemia: (6) LVH (left ventricular hypertrophy): Admission and Anticipated Discharge Date Admission Date: April 28, 2022 Subjective Patient typically is pleasant on exam as she is today. No further evidence of vomitus. CT scan abdomen pelvis shows increase in size of her pelvic mass but no direct obstruction of her viscus or impingement of her stomach by [place] metastatic disease Son and family present at the bedside they seem to be disconnected from the advancement of her disease and her advancing age. Request for psychological consultation will likely be achieved as an outpatient perhaps discussion with palliative care for goals of care could be met. I will request to fill out forms for a waiver form for home health will be undertaken by myself Physical Exam Physical Exam: Patient is pleasant she is in no distress she has minor abdominal discomfort to examination her heart is regular lungs are clear Results & Data Results & Data ([facility]) Vital Signs (Past 12 Hours) Vital Signs Temp Pulse Pulse Resp BP Pulse Ox O2 Del Method 05/02/22 07:02 86 05/02/22 05:00 97.7 F 90 18 100/70 95 Room Air 05/02/22 00:10 97.3 F L 91 H 20 92/64 L 92 Room Air 05/01/22 23:49 85 05/01/22 19:42 98.2 F 92 H 20 97/57 L 92 Room Air Laboratory Results Reviewed CBC Reviewed chemistry Reviewed magnesium Discussed results of CT scan with son and family PG Care Time/CCT Total # of Minutes Spent Total Time Spent with Patient: Total time spent is greater than 50% in coordination of care (as documented) at patient's floor/unit and/or counseling patient: Coding Level of Care Code 74258 SUB INP/OBS CARE 3/50MIN Diagnoses Weakness R53.1 Hypotension I95.9 Hypotension type: unspecified hypotension type Acute hypokalemia E87.6 Generalized weakness R53.1 Hyperlipidemia E78.2 Hyperlipidemia type: mixed hyperlipidemia LVH (left ventricular hypertrophy) I51.7 (2) Hypotension Hypotension type: unspecified hypotension type Qualified Code(s): I95.9 - Hypotension, unspecified (5) Hyperlipidemia Hyperlipidemia type: mixed hyperlipidemia Qualified Code(s): E78.2 - Mixed hyperlipidemia
[2022-05-02 07:33] LABS: BUN Creatinine Ratio 29.7 (10-20); Calcium 8.4 mg/dl (8.5-10.1); Creatinine Clr Calc Pharmacy 34.3 ml/min; Est GFR (African American) 43.2 ml/min; Est GFR (Non-African American) 37.3 ml/min; Magnesium 1.8 mg/dl (1.7-2.4); Potassium 3.8 mmol/L (3.5-5.1)
[2022-05-02] MEDS: ASPIRIN 81 MG ECTAB PO SCH ×2 (08:20→14:35)
[2022-05-02] MEDS: ONDANSETRON INJ 2 MG/ML 2 ML VIAL IV PRN ×2 (08:21→19:06)
[2022-05-02] MEDS: PANTOprazole 40 MG in SYRINGE 0 ML IV SCH (08:21)
[2022-05-02] MEDS: FAMOTIDINE 20 MG TAB PO SCH (19:06)
[2022-05-02] MEDS: MIRTAZAPINE TAB 15 MG TAB PO SCH (19:06)
[2022-05-02] MEDS: ENOXAPARIN INJ 30 MG/0.3 ML SYR SQ SCH (19:06)
[2022-05-03 07:03] LABS: Hematocrit (blood only) 39.3 % (37.0-47.0); Hemoglobin 13.8 g/dl (12.0-16.0); Mean Corpuscular Hemoglobin 32.9 pg (25.0-34.0); Mean Corpuscular Hgb Conc 35.1 g/dL (32.0-36.0); Mean Corpuscular Volume 93.6 fL (80.0-100.0); Platelet Count 199 K/uL (130-400); RDW Coefficient of Variation 13.9 % (11.5-14.5); RDW Standard Deviation 46.5 fL (36.4-46.3); White Blood Count 7.11 K/ul (4.8-10.8)
[2022-05-03 07:16] LABS: BUN Creatinine Ratio 30.5 (10-20); Calcium 8.4 mg/dl (8.5-10.1); Creatinine Clr Calc Pharmacy 34.3 ml/min; Est GFR (African American) 43.2 ml/min; Est GFR (Non-African American) 37.3 ml/min; Potassium 3.7 mmol/L (3.5-5.1)
[2022-05-03] MEDS: ASPIRIN 81 MG ECTAB PO SCH (08:33)
[2022-05-03] MEDS: FAMOTIDINE 20 MG TAB PO SCH ×2 (08:33→19:08)
--- NOTE | 2022-05-03 17:44 | Hospitalist Progress Note ---
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 Family endorses poor p.o. intake. Elevated troponin without territorial ST elevation/depression, no clinical chest pain or evidence of heart failure on exam. 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, meningioma CT scan abdomen pelvis performed 05/01/2022 shows increase in size of septated cystic pelvic mass now measuring 11 cm suggestive of neoplasm, 4 cm soft tissue attenuating nodule suggestive of neoplasm within the left lower quadrant abdominal wall which is stable in size, indeterminate 1.4 cm lesion in the superior pole left kidney similar to previous volume overload small pericardial effusion and small to moderate pleural effusions body wall edema and small volume abdominal pelvic ascites With description of body wall edema anasarca from poor protein and oral intake is likely the culprit. Patient has mild to moderate protein malnutrition patient was eating better nutrition prior to going home -Certainly cannot rule out role that malignancy and treatment of malignancy may play in both situational depression and generalized weakness. initiated Remeron therapy to hopefully help treat depression and improve appetite urine culture did not show infection subsequently we have ruled out metabolic encephalopathy infection present on admission as blood cultures are negative to date Nausea and vomiting with history of adenocarcinoma. Initiated on proton pump inhibitor changed tpo pepcid 05/02/22 as as needed antiemetics available no recurrence moderate risk the patient Elevated troponin acute self-limited moderate risk no further cardiac symptoms No clinical chest pain, no territorial ST segment changes on EKG In the setting of volume depletion/hypokalemia reflective of demand ischemia Echo shows preserved ejection fraction no regional wall motion abnormalities. Previous left ventricular outflow tract obstruction is not appreciated on this study, patient has aortic sclerosis with heard murmur on examination Hypertension chronic and unstable blood pressures have remained low but medications have been discontinued Hyperlipidemia given appetite reduction will reduce med passes by reducing the statin medication at this time DVT prophylaxis: Lovenox to prophylactic treatment Diet: Heart healthy dietary supplementation and nutritional consultation CODE STATUS: Full code, patient reports she will talk about this further with her friend/family and if she would like to update the status will discuss with nurse or provider Added boost and nutritional evaluation, albumin and protein are low given her moderate protein calorie malnutrition (2) Hypotension: (3) Acute hypokalemia: (4) Generalized weakness: (5) Hyperlipidemia: (6) LVH (left ventricular hypertrophy): Admission and Anticipated Discharge Date Admission Date: April 28, 2022 Subjective Patient typically is pleasant on exam as she is today. No further evidence of vomitus. Seen in the presence of her stone and extended family CT scan abdomen pelvis shows increase in size of her pelvic mass but no direct obstruction of her viscus or impingement of her stomach by [place] metastatic disease Patient endorses ongoing about her willing to take laxative Physical Exam Physical Exam: Patient is pleasant she is in no distress she has minor abdominal discomfort to examination her heart is regular lungs are clear Results & Data Results & Data ([facility]) Vital Signs (Past 12 Hours) Vital Signs Temp Pulse Pulse Pulse Resp BP Pulse Ox 05/03/22 16:00 100 H 05/03/22 15:20 97.9 F 97 H 97 H 16 101/71 91 05/03/22 10:50 98.1 F 109 H 16 108/73 91 05/03/22 06:00 97.5 F L 105 H 16 105/57 L 91 05/03/22 07:29 100 H O2 Del Method 05/03/22 16:00 05/03/22 15:20 Room Air 05/03/22 10:50 Room Air 05/03/22 06:00 Room Air 05/03/22 07:29 PG Care Time/CCT Total # of Minutes Spent Total Time Spent with Patient: Total time spent is greater than 50% in coordination of care (as documented) at patient's floor/unit and/or counseling patient: Coding Level of Care Code 20844 SUB INP/OBS CARE 2/35MIN Diagnoses Weakness R53.1 Hypotension I95.9 Hypotension type: unspecified hypotension type Acute hypokalemia E87.6 Generalized weakness R53.1 Hyperlipidemia E78.2 Hyperlipidemia type: mixed hyperlipidemia LVH (left ventricular hypertrophy) I51.7 (2) Hypotension Hypotension type: unspecified hypotension type Qualified Code(s): I95.9 - Hypotension, unspecified (5) Hyperlipidemia Hyperlipidemia type: mixed hyperlipidemia Qualified Code(s): E78.2 - Mixed hyperlipidemia
[2022-05-03] MEDS ORDERED: SENNA 8.6 MG TAB PO ONE (17:45)
[2022-05-03] MEDS: ENOXAPARIN INJ 30 MG/0.3 ML SYR SQ SCH (19:08)
[2022-05-03] MEDS: MIRTAZAPINE TAB 15 MG TAB PO SCH (19:08)
[2022-05-04] MEDS: ASPIRIN 81 MG ECTAB PO SCH (08:19)
[2022-05-04] MEDS: FAMOTIDINE 20 MG TAB PO SCH (08:19)
--- NOTE | 2022-05-04 16:41 | Discharge Summary ---
Date of Service May 04, 2022 Admission HPI Per Admitting Provider Patient is an 86-year-old female primarily Estonian-speaking but who is fluent in [place] who presents for weakness and fatigue. She is find to have hypokalemia on admission. High sensitive troponin is elevated at 99. She denies any chest pain or shortness of breath. Reports she has felt weak all over, but has no focal weakness. Past concern was expressed for possible dysarthria, patient has a heavy Eastern accent and is primarily fluent in [place]ian however is speaking fluently with no speech change per patient and family. No extremity weakness, and CThead does not show any stroke pathology. Patient denies any nausea/vomiting, reports that she does not eat very much. No fever, chills, sweats, lightheadedness, dizziness. Does not drink alcohol or use tobacco products. Medical history, medications, allergies reviewed. Will admit for treatment of hypokalemia, cardiac eval, and PT/OT. 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 Family endorses poor p.o. intake. Elevated troponin without territorial ST elevation/depression, no clinical chest pain or evidence of heart failure on exam. 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, meningioma CT scan abdomen pelvis performed 05/01/2022 shows increase in size of septated cystic pelvic mass now measuring 11 cm suggestive of neoplasm, 4 cm soft tissue attenuating nodule suggestive of neoplasm within the left lower quadrant abdominal wall which is stable in size, indeterminate 1.4 cm lesion in the superior pole left kidney similar to previous volume overload small pericardial effusion and small to moderate pleural effusions body wall edema and small volume abdominal pelvic ascites With description of body wall edema anasarca from poor protein and oral intake is likely the culprit. Patient has mild to moderate protein malnutrition patient was eating better nutrition prior to going home -Certainly cannot rule out role that malignancy and treatment of malignancy may play in both situational depression and generalized weakness. initiated Remeron therapy to hopefully help treat depression and improve appetite urine culture did not show infection subsequently we have ruled out metabolic encephalopathy infection present on admission as blood cultures are negative to date Nausea and vomiting with history of adenocarcinoma. Initiated on proton pump inhibitor changed to pepcid 05/02/22 as as needed antiemetics available no recurrence moderate risk the patient Elevated troponin acute self-limited moderate risk no further cardiac symptoms No clinical chest pain, no territorial ST segment changes on EKG In the setting of volume depletion/hypokalemia reflective of demand ischemia Echo shows preserved ejection fraction no regional wall motion abnormalities. Previous left ventricular outflow tract obstruction is not appreciated on this study, patient has aortic sclerosis with heard murmur on examination Hypertension chronic and unstable blood pressures have remained low but medications have been discontinued Hyperlipidemia given appetite reduction will reduce med passes discontinue statin at time of discharge CODE STATUS: Full code, patient reports she will talk about this further with her friend/family and if she would like to update the status will discuss with nurse or provider Added boost and nutritional evaluation, albumin and protein are low given her moderate protein calorie malnutrition (2) Hypotension: (3) Acute hypokalemia: (4) Generalized weakness: (5) Hyperlipidemia: (6) LVH (left ventricular hypertrophy): Total Time Total Time Spent Total Time Spent (In Minutes): It required less than 30 minutes to prepare this patient for discharge Discharge Plan Discharge Items Patient Disposition: Home - Home Health Services Reason For Visit: WEAKNESS Discharge Diagnosis: Encephalopathy from metastatic adenocarcinoma Constipation Moderate protein calorie malnutrition Activity: Resume your previous activity Activity Comment: Continue to encourage activity Non-emergency contact: Primary Care Provider Call non-emergency contact if: your symptoms worsen Follow-up/Referrals: Cassi Zavala MD [Primary Care Provider] - 05/12/22 10:30 am Diet: Regular Addtl Attending Provider Instructions: Is important you continue intake of food and nutritional supplementation. Continue to assure daily bowel movements with the need of laxatives such as clear laxative Metamucil or even senna products Continue to follow-up with your oncological services treatment Do not take any of your blood pressure medications as your blood pressures remain low during your entire hospital stay Pending Studies at Discharge: No Stand-Alone Forms: [facility], Smoking Cessation Medications and DC Order Prescriptions: New mirtazapine 15 mg Tablet 15 mg PO HS Qty: 30 2RF famotidine 20 mg Tablet 20 mg PO BID Qty: 60 2RF Continued ondansetron HCl 8 mg tablet 8 mg PO Q8H PRN (Reason: nausea and vomiting) Qty: 30 0RF cholecalciferol (vitamin D3) 50 mcg (2,000 unit) capsule 50 mcg PO DAILY Qty: 90 3RF Rx Instructions: with heaviest meal of the day aspirin 81 mg tablet,delayed release (DR/EC) 81 mg PO DAILY Qty: 30 Discontinued metoprolol succinate 25 mg tablet extended release 24 hr 25 mg PO DAILY Qty: 90 3RF atorvastatin 40 mg tablet 40 mg PO QPM Qty: 90 1RF clonidine HCl 0.1 mg tablet 0.1 mg PO BID PRN (Reason: Hypertension) Qty: 180 3RF valsartan-hydrochlorothiazide [Diovan HCT] 160-25 mg tablet 1 tab PO DAILY Discharge Orders: Discharge Order (Routine); Ordered 05/04/22 Ordered By: Fasial Rai Admission Data Admit Date/Time: 04/28/22 18:40 Attending Provider: Faisal Rai Admit Provider: Hiren Billings Primary Care Provider: Cassi Zavala V. Other Providers: Gianni Johnson,Home Health Other Interventions: Discharge Summary Assessment (RN) Last Done: 05/04/22 08:50 Coding Level of Care Code 19557 IN/OBS DISCH 30 MIN/LESS Diagnoses Weakness R53.1 Hypotension I95.9 Hypotension type: unspecified hypotension type Acute hypokalemia E87.6 Generalized weakness R53.1 Hyperlipidemia E78.2 Hyperlipidemia type: mixed hyperlipidemia LVH (left ventricular hypertrophy) I51.7
== END 2022-05-04 09:30 | disposition home health service (06) | DRG 641 ==
LOC: ED 14:06 → SUATTDRO 18:40 → 2N 18:40

== ENCOUNTER 2022-06-07 12:22 | Inpatient (IN) ==
[2022-06-07] MEDS ORDERED: CEFEPIME 2,000 MG/20 ML VIAL IV STA (13:12)
[2022-06-07] MEDS ORDERED: SODIUM CHLORIDE 0.9% 1000ML 500 ML IV SCH (13:15)
[2022-06-07 13:26] LABS: Base Excess VBG 0.8 mEq/L; HCO3 VBG 26 mmol/L; Oxygen Saturation VBG < 60.0 %; PCO2 VBG 43 mmHg (38-50); PO2 VBG 23 mmHg; pH VBG 7.39 (7.36-7.41)
[2022-06-07 13:35] LABS: iSTAT Creatinine 1.3 mg/dl (0.6-1.3); iSTAT Hemoglobin 13.3 g/dl (12.0-16.0); iSTAT Ionized Calcium 1.07 mmol/l (1.12-1.32)
[2022-06-07] MEDS ORDERED: OPTIRAY 320 500ml IV ONE (14:06)
--- NOTE | 2022-06-07 14:24 | CT Scan Report ---
CT SCAN OF THE ABDOMEN AND PELVIS WITH IV CONTRAST CLINICAL HISTORY: Lower extremity edema. Metastatic disease. COMPARISON STUDY: Abdominal CT dated 05/01/2022. TECHNIQUE: Following the IV administration of 115 cc of Optiray 320, CT scan of the abdomen and pelv is is performed from the lung bases to the proximal femora. Images are reviewed in the axial, sagitta l, and coronal planes. IV contrast was administered without complication. A dose lowering technique w as utilized adhering to the principles of ALARA. The examination is compromised by motion artifact, a s well as by streak artifact from the arms which could not be elevated above the abdomen. CT DOSE: 858.75 mGy.cm FINDINGS: Lung bases: The heart is normal in size noting a small pericardial effusion. There are moderate pleur al effusions with dependent consolidation. A 3 mm right middle lobe pulmonary nodule on image #22 is unchanged. There is a moderate hiatal hernia. Esophageal varices are noted. Liver: The contrast-enhanced liver is normal in size, contour, and attenuation. There is no intrahepa tic biliary ductal dilatation. The hepatic veins and portal veins are patent. Gallbladder: Gallbladder wall thickening is nonspecific and likely are due to adjacent ascites. There is no CT evidence of acute cholecystitis. Spleen: Normal in size and attenuation. Pancreas: Moderately atrophic and grossly unremarkable. Adrenal glands: Thickening of the adrenal glands is unchanged. Kidneys: The contrast enhanced kidneys demonstrate cortical atrophy and are without hydronephrosis. T he kidneys enhance symmetrically. A 1.3 cm indeterminate left upper pole renal lesion seen on image # 107 is unchanged. Additional scattered subcentimeter cortical hypodensities likely represent cysts bu t are too small for definitive characterization. Abdominal vasculature: The abdominal aorta is normal in course and caliber noting moderate atheroscle rotic calcification. Bowel: There is postoperative change from sigmoid colon resection with colocolonic anastomosis. No byron wel obstruction is seen. The appendix is not visualized. Peritoneum: There is a moderate to large volume of abdominopelvic ascites. No intraperitoneal free ai r is seen. An approximately 4 cm soft tissue lesion in the left lower quadrant abdominal wall on imag e #21 has not significant changed. Lymphadenopathy: None. Pelvic viscera: The bladder is decompressed and not well evaluated. The uterus is surgically absent. A large solid and cystic mass lesion in the pelvis is similar to previous. This measures approximatel y 12 x 10 cm in dimension. Skeletal structures: The skeletal structures are osteopenic. There is moderate lumbosacral spondylosi s. No lytic or blastic lesions are seen. There are subacute appearing bilateral anterior rib fracture s. There is a mild chronic superior end plate compression deformity of L2. Soft tissues: There is body wall edema. IMPRESSION: 1. A large solid and cystic mass lesion in the pelvis is similar in appearance to the 05/01/2022 examin ation. 2. There is evidence of volume overload, with moderate pleural effusions, body wall edema, and a mode rate to large volume of abdominopelvic ascites. This has increased as compared to 05/01/2022. 3. An approximately 4 cm soft tissue lesion within the left lower quadrant abdominal wall is also unc hanged and suspicious for neoplasm. 4. A 1.3 cm indeterminate left upper pole renal lesion is also unchanged. 5. Additional findings as above. ACT 112: Negative or not required by law. Electronically signed by: Zeeshan Reid M.D. 06/07/2022 2:22 PM
--- NOTE | 2022-06-07 14:26 | CT Scan Report ---
CT angio chest PE protocol CLINICAL HISTORY: tachycardia, metastatic cancer, r/o PE TECHNIQUE: Multidetector row helical CT of the chest was performed with angiographic protocol. Gill l and sagittal reformations were obtained. Coronal and sagittal MIPS were obtained from the axial chapito a set and were submitted for review. Automated dose lowering techniques and/or adjustment according to patient size were utilized for this exam. Comparison: Comparison is made to CT chest 01/28/2022 FINDINGS: Lungs and pleura: Large bilateral pleural effusions are seen. Heart and pericardium: There is cardiomegaly without evidence of pericardial effusion. Vessels: Nonocclusive subsegmental emboli are seen bilaterally. Mediastinum and drew: Unremarkable. Chest wall and lower neck: Unremarkable. Abdomen: Unremarkable. Bones: Degenerative changes of the thoracic spine. Old healed rib fractures are seen. IMPRESSION: 1. Subsegmental pulmonary emboli are seen bilaterally. 2. Large bilateral pleural effusions with associated atelectasis. These are significantly enlarged f rom prior exam. Previously noted pulmonary nodules cannot be correlated. ACT 112: Negative or not required by law. Electronically signed by: Ramón Ortez M.D. 06/07/2022 2:25 PM
[2022-06-07] MEDS ORDERED: Heparin IV Adult Wt-Based Standard WITH Bolus Protocol IV STA (14:49)
[2022-06-07] MEDS ORDERED: cefTRIAXone SODIUM 2,000 MG/70 ML BAG IV STA (14:54)
[2022-06-07] MEDS ORDERED: HEPARIN SOD (PORCINE) 1000 UNIT/ML IV ONE (15:08)
[2022-06-07 15:09] LABS: Appearance Urine Clear (Clear); Bacteria Urine Automated Negative (Negative); Bilirubin Urine Negative (Negative); Blood Urine Negative (Negative); Color Urine Dark Yellow; Epithelial Cell Urine Auto 20-30 /lpf (0-5); Glucose Urine UA Trace (Negative); Ketones Urine Negative (Negative); Leukocyte Esterase Urine Negative (Negative); Nitrite Urine Negative (Negative); Protein Urine 1+ (Negative); Specific Gravity Urine 1.034 (1.000-1.030); Urobilinogen Urine Negative (Negative); pH Urine 5.5 (4.5-7.5)
--- NOTE | 2022-06-07 15:10 | XRay Report ---
SINGLE VIEW CHEST CLINICAL HISTORY: Sepsis. FINDINGS: An AP, portable, upright chest radiograph is compared to study dated 04/28/2022 and correlate d with chest CT performed the same day 06/07/2022. The heart is enlarged. There is pulmonary vascular congestion. There are layering pleural effusions with dependent consolidation. No pneumothorax is see n. The skeletal structures are osteopenic. There is deformity in the right-sided ribs. IMPRESSION: 1. Cardiomegaly with pulmonary vascular congestion. 2. Layering pleural effusions with dependent consolidation. ACT 112: Negative or not required by law. Electronically signed by: Zeeshan Reid M.D. 06/07/2022 3:09 PM
[2022-06-07 15:20] LABS: Hematocrit (blood only) 39.3 % (37.0-47.0); Mean Corpuscular Hemoglobin 33.1 pg (25.0-34.0); Mean Corpuscular Hgb Conc 33.1 g/dL (32.0-36.0); Mean Platelet Volume 11.4 fL (9.4-12.4); Nucleated RBC # (auto) 0.03 K/uL (0-0.12); Nucleated RBC % (auto) 0.9 %; Platelet Count 250 K/uL (130-400); RDW Standard Deviation 58.9 fL (36.4-46.3); Red Blood Count 3.93 M/uL (4.20-5.40); White Blood Count 3.19 K/ul (4.8-10.8)
[2022-06-07 15:32] LABS: Albumin Level 2.9 gm/dl (3.4-5.0); Bilirubin Direct 0.1 mg/dl (0-0.2); Bilirubin,Total 0.8 mg/dl (0.2-1.0); Calcium 8.1 mg/dl (8.6-10.3); Creatinine Clr Calc Pharmacy 23.5 ml/min; Est GFR (African American) 40.5 ml/min; Magnesium 1.7 mg/dl (1.7-2.4); Potassium 3.5 mmol/L (3.5-5.1); Total Protein 5.1 gm/dl (6.0-8.3)
[2022-06-07] MEDS: HEPARIN SODIUM/DEXTROSE 25,000 UNITS/500 ML BAG IV SCH (15:42)
[2022-06-07 15:50] LABS: Troponin I High Sensitivity 272.3 pg/ml (0-14)
[2022-06-07 16:06] LABS: Basophils # (auto) 0.02 K/uL (0-0.2); Basophils % (auto) 0.6 %; Immature Granulocytes # (auto) 0.03 K/uL (0.01-0.20); Immature Granulocytes % (auto) 0.9 %; Lymphocytes # (auto) 0.53 K/uL (1.2-3.4); Lymphocytes % (auto) 16.6 %; Monocytes # (auto) 0.29 K/uL (0.11-0.59); Monocytes % (auto) 9.1 %; Neutrophils # (auto) 2.32 K/uL (1.40-6.50); Neutrophils % (auto) 72.8 %
[2022-06-07 16:22] LABS: INR 1.2 (0.9-1.1); Partial Thromboplastin Time 26.7 Seconds (21.0-31.0); Prothrombin Time 12.8 Seconds (9.0-12.0)
--- NOTE | 2022-06-07 17:08 | History & Physical Report ---
Date of Service June 07, 2022 Assessment & Plan (1) Goals of care, counseling/discussion: Plan: Patient unable to participate in goals of care discussion, as unable to come to a decision, just asking me for water. Presumed full resuscitation from discussion with ER provider and prior admission. Unfortunately I have been unable to get a hold of her son at this time. As such discussed with Dr Frias and will admitted to the ICU for ongoing care as likely to need phenylephrine with the need for diuresis. (2) STEMI (ST elevation myocardial infarction): Plan: Wall motion abnormality of apex on bedside echo. Worsening ST elevation in anteroseptal leads on repeat echo despite improved tachycardia. 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 At that time she also had an echocardiogram on 04/29 with no regional wall motion abnormalities She received 1L NSS that admission but not excessive fluids. Suspect a component of cardiogenic edema but entire fluid status is not suspected to be cardiogenic Will need diuresis but will need to go to the ICU as likely will need phenylephrine with this (4) Cardiogenic shock: Plan: Discussed with ICU CONCRETER and attending physician and will defer management of this to them once she is in the ICU. (5) Bilateral pleural effusion: Plan: Presumably malignant vs. third spacing +/- cardiogenic - surprisingly currently maintaining saturation on room air (6) Pulmonary embolism: Plan: Heparin IV drip and bolus Suspect not contributing as much as pathology above given size (7) Cellulitis: Plan: RLE. Possible diagnosis - monitor erythema. Continue cefepime. Follow up blood cultures. MRSA nasal swab to determine need to cover for this - no known prior history. (8) Colon cancer metastasized to multiple sites: Plan: Discussed with Dr Carvalho. Chemotherapy regimen dictated by [facility] out of [place]. Currently on FOLFORI chemotherapy regimen shich she last had on May 25. CEA repeated to aid in decision making. (9) Generalized weakness: (10) Osteoporosis: Plan VTE Prophyalxis - IV heparin Diet - NPO except ice chips and sips Disposition - admit to ICU (initial order placed to PCU prior to assessment of EKG and bedside echo and subseuqnetly transferred) Admission and Anticipated Discharge Date Admission Date: June 07, 2022 History of Present Illness Chief Complaint: Increased leg swelling Primary Care Provider: Cassi Zavala MD Hayley Valdes is an 86 year old female with metastatic colorectal cancer who presents to the ER with increased leg swelling, generalized weakness and concern for cellulitis from home physical therapy. She has a significant history of metastatic colorectal cancer diagnosis since January 2020 currently on chemotherapy (FOLFORI last received on May 25). She reports she feels similar to her presentation on April 28 with generalized weakness. No one sided weakness, change in speech, vision or hearing. She is mainly concerned about getting some water. EKG concerning for ST elevation myocardial infarction however she denies any chest pain or shortness of breath. Despite large bilateral pleural effusions she surprisingly reports no shortness of breath or orthopnea. No cough, fever, chills, nasal congestion or sinus pain. She cannot tell me anything about the erythema on her leg but per hand over this is new and one of the things her physical therapist was concerned about. Tried calling son at time of admission but goes through to [employer] multiple times. Reportedly he is on his way from [place]. In the ER she was tachycardic and hypotensive therefore given a 500ml NSS bolus which improved her lactate, heart rate and blood pressure. Allergies Allergy/AdvReac Type Severity Reaction Status Date / Time cinacalcet AdvReac Intermediate SE- Verified 06/07/22 13:17 Urinary frequency, Chills Home Medications Medication Instructions Recorded Confirmed Type aspirin 81 mg tablet,delayed 81 mg PO DAILY #30 tabs 11/13/18 06/07/22 History release cholecalciferol (vitamin D3) 50 50 mcg PO DAILY #90 caps 04/19/22 06/07/22 Rx mcg (2,000 unit) capsule ondansetron HCl 8 mg tablet 8 mg PO Q8H PRN nausea and 04/22/22 06/07/22 Rx vomiting #30 tabs famotidine 20 mg tablet 20 mg PO BID #60 tabs 05/03/22 06/07/22 Rx mirtazapine 15 mg tablet 15 mg PO HS #30 tabs 05/03/22 06/07/22 Rx omeprazole 20 mg capsule,delayed 20 mg PO DAILY #90 caps 05/27/22 06/07/22 Rx release acetaminophen 325 mg tablet 325 mg PO TID PRN pain or fever 06/07/22 06/07/22 Rx (Tylenol) #30 tabs latanoprost 0.005 % eye drops 1 drp OPL HS 06/07/22 06/07/22 History valsartan 160 1 tab PO DAILY 06/07/22 06/07/22 History mg-hydrochlorothiazide 25 mg tablet Past Med/Surg History Medical History 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 - conservative mgmt, plan to re-evaluate if double vision recurs per records- follows with cardio Carotid atherosclerosis Chronic diastolic CHF (congestive heart failure) Chronic diastolic CHF (congestive heart failure) Colon cancer Diagnosed 02/2018--s/p colectomy 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 Contact with and (suspected) exposure to other viral communicable diseases COVID-19 Dermatitis Elevated troponin History of hyperparathyroidism Sx 10/2019 Hyperlipidemia Hypertension Hypokalemia Insomnia Left ventricular outflow obstruction Mild per 2018 ECHO (peak velocity 1.5m/s)- no evidence of aortic stenosis Mild mitral regurgitation Mild to moderate per 2018 ECHO Pleural effusion, right Vision problems Weakness Surgical History History of bilateral cataract extraction History of colonoscopy (02/2018) History of hysterectomy History of tooth extraction under local S/P parathyroidectomy 10/30/2019 Status post laparoscopic colectomy (10/2018) lap lower anterior resection: 04/05/18: Grade view 1 with Glidescope#3, ETT 7.0 at [facility] Family History Father Throat cancer Stomach cancer Myocardial infarction Mother Kidney disease Other No family history of adverse response to anesthesia Social History Smoking Status: Never smoker Second Hand Exposure: No; Hx Alcohol Use: No Hx Substance Use: No Preferred Language: Wallisian Communication Ability: Effective Visual Impairment: No Limitations Inhalation Therapy Teacher Required: No Beliefs That Will Affect Care: None Current Living Situation: Alone current occupational status: retired Feels Safe at Home: Yes Safety Concerns: Feels Safe At This Time Seatbelt Use: always Assistive Devices: None Review of Systems Review of Systems: All systems reviewed & are unremarkable except as noted in HPI & below Physical Exam Constitutional: well developed and + frail appearing; + not well nourished and no acute distress Eyes: PERRL, conjunctivae normal, anicteric sclerae ENMT: Mouth: + dry oral mucous membranes Respiratory: normal respiratory effort; no respiratory distress Auscultation: + breath sounds absent (bibasal); no crackles and no wheezes Cardiovascular: Rate/Rhythm: regular rhythm and + tachycardic Heart Sounds: no murmur Extremities: normal capillary refill and + pedal edema (2+ b/l equal); no calf tenderness Gastrointestinal (Abdomen): normal bowel sounds, soft, nontender, no hepatosplenomegaly Musculoskeletal: no cyanosis or clubbing, extremities motor strength 5/5 Skin: erythema, swelling and warmth from mid melgar to foot on right lower extremity surrounding contusion area Neurologic: moves all extremities and awake; no focal motor deficits and not confused Motor/Sensory: no tremor and no pronator drift Cranial Nerves: PERRL, EOM intact bilaterally, able to elevate shoulders bilaterally and symmetric palate elevation; + abnormal facial strength Coordination: normal [id number] test Psychiatric: Orientation: alert, oriented to person and oriented to place; + not oriented to time Results & Data Results & Data Vital Signs (Past 12 Hours) Vital Signs Temp Pulse Pulse Resp BP BP Pulse Ox 06/07/22 16:30 114 H 16 97 06/07/22 16:21 98/31 L 06/07/22 16:21 112 H 18 95 06/07/22 16:15 114 H 20 95 06/07/22 16:00 112 H 18 97 06/07/22 16:00 93/62 L 06/07/22 15:45 114 H 18 96 06/07/22 15:33 118 H 19 97 06/07/22 15:33 86/64 L 06/07/22 15:32 80/58 L 06/07/22 15:32 115 H 22 95 06/07/22 15:30 114 H 17 91 06/07/22 15:30 79/53 L 06/07/22 15:15 117 H 21 95 06/07/22 15:01 125 H 16 96 06/07/22 15:01 89/63 L 06/07/22 15:00 127 H 16 96 06/07/22 15:00 16 79/59 L 06/07/22 14:45 122 H 16 06/07/22 14:33 102/70 06/07/22 14:33 121 H 15 06/07/22 14:30 121 H 15 06/07/22 14:17 117 H 06/07/22 14:06 115 H 14 06/07/22 14:06 125/64 06/07/22 13:30 123 H 18 90 06/07/22 13:30 116/97 06/07/22 13:16 123 H 16 88 L 06/07/22 13:16 114/85 06/07/22 13:15 125 H 15 87 L 06/07/22 13:01 15 125/98 06/07/22 13:01 128 H 15 06/07/22 13:00 127 H 15 06/07/22 14:35 15 06/07/22 13:18 130 H 16 114/85 92 06/07/22 13:16 124 H 91 06/07/22 13:01 127 H 06/07/22 12:55 126 H 18 106/75 96 06/07/22 12:32 36.8 C 180 H 20 94/67 L O2 Del Method 06/07/22 16:30 06/07/22 16:21 06/07/22 16:21 06/07/22 16:15 06/07/22 16:00 06/07/22 16:00 06/07/22 15:45 06/07/22 15:33 06/07/22 15:33 06/07/22 15:32 06/07/22 15:32 06/07/22 15:30 06/07/22 15:30 06/07/22 15:15 06/07/22 15:01 06/07/22 15:01 06/07/22 15:00 06/07/22 15:00 06/07/22 14:45 06/07/22 14:33 06/07/22 14:33 06/07/22 14:30 06/07/22 14:17 06/07/22 14:06 06/07/22 14:06 06/07/22 13:30 06/07/22 13:30 06/07/22 13:16 06/07/22 13:16 06/07/22 13:15 06/07/22 13:01 06/07/22 13:01 06/07/22 13:00 06/07/22 14:35 06/07/22 13:18 Room Air 06/07/22 13:16 Room Air 06/07/22 13:01 06/07/22 12:55 Room Air 06/07/22 12:32 Room Air Diagnostic Findings SINGLE VIEW CHEST CLINICAL HISTORY: Sepsis. FINDINGS: An AP, portable, upright chest radiograph is compared to study dated 04/28/2022 and correlated with chest CT performed the same day 06/07/2022. The heart is enlarged. There is pulmonary vascular congestion. There are layering pleural effusions with dependent consolidation. No pneumothorax is seen. The skeletal structures are osteopenic. There is deformity in the right-sided ribs. IMPRESSION: 1. Cardiomegaly with pulmonary vascular congestion. 2. Layering pleural effusions with dependent consolidation. CT angio chest PE protocol CLINICAL HISTORY: tachycardia, metastatic cancer, r/o PE TECHNIQUE: Multidetector row helical CT of the chest was performed with angiographic protocol. Coronal and sagittal reformations were obtained. Coronal and sagittal MIPS were obtained from the axial data set and were submitted for review. Automated dose lowering techniques and/or adjustment according to patient size were utilized for this exam. Comparison: Comparison is made to CT chest 01/28/2022 FINDINGS: Lungs and pleura: Large bilateral pleural effusions are seen. Heart and pericardium: There is cardiomegaly without evidence of pericardial effusion. Vessels: Nonocclusive subsegmental emboli are seen bilaterally. Mediastinum and drew: Unremarkable. Chest wall and lower neck: Unremarkable. Abdomen: Unremarkable. Bones: Degenerative changes of the thoracic spine. Old healed rib fractures are seen. IMPRESSION: 1. Subsegmental pulmonary emboli are seen bilaterally. 2. Large bilateral pleural effusions with associated atelectasis. These are significantly enlarged from prior exam. Previously noted pulmonary nodules cannot be correlated. CT SCAN OF THE ABDOMEN AND PELVIS WITH IV CONTRAST CLINICAL HISTORY: Lower extremity edema. Metastatic disease. COMPARISON STUDY: Abdominal CT dated 05/01/2022. TECHNIQUE: Following the IV administration of 115 cc of Optiray 320, CT scan of the abdomen and pelvis is performed from the lung bases to the proximal femora. Images are reviewed in the axial, sagittal, and coronal planes. IV contrast was administered without complication. A dose lowering technique was utilized adhering to the principles of ALARA. The examination is compromised by motion artifact, as well as by streak artifact from the arms which could not be elevated above the abdomen. CT DOSE: 858.75 mGy.cm FINDINGS: Lung bases: The heart is normal in size noting a small pericardial effusion. There are moderate pleural effusions with dependent consolidation. A 3 mm right middle lobe pulmonary nodule on image #22 is unchanged. There is a moderate hiatal hernia. Esophageal varices are noted. Liver: The contrast-enhanced liver is normal in size, contour, and attenuation. There is no intrahepatic biliary ductal dilatation. The hepatic veins and portal veins are patent. Gallbladder: Gallbladder wall thickening is nonspecific and likely are due to adjacent ascites. There is no CT evidence of acute cholecystitis. Spleen: Normal in size and attenuation. Pancreas: Moderately atrophic and grossly unremarkable. Adrenal glands: Thickening of the adrenal glands is unchanged. Kidneys: The contrast enhanced kidneys demonstrate cortical atrophy and are without hydronephrosis. The kidneys enhance symmetrically. A 1.3 cm indeterminate left upper pole renal lesion seen on image #107 is unchanged. Additional scattered subcentimeter cortical hypodensities likely represent cysts but are too small for definitive characterization. Abdominal vasculature: The abdominal aorta is normal in course and caliber noting moderate atherosclerotic calcification. Bowel: There is postoperative change from sigmoid colon resection with colocolonic anastomosis. No bowel obstruction is seen. The appendix is not visualized. Peritoneum: There is a moderate to large volume of abdominopelvic ascites. No intraperitoneal free air is seen. An approximately 4 cm soft tissue lesion in the left lower quadrant abdominal wall on image #21 has not significant changed. Lymphadenopathy: None. Pelvic viscera: The bladder is decompressed and not well evaluated. The uterus is surgically absent. A large solid and cystic mass lesion in the pelvis is sim ilar to previous. This measures approximately 12 x 10 cm in dimension. Skeletal structures: The skeletal structures are osteopenic. There is moderate lumbosacral spondylosis. No lytic or blastic lesions are seen. There are subacute appearing bilateral anterior rib fractures. There is a mild chronic superior end plate compression deformity of L2. Soft tissues: There is body wall edema. IMPRESSION: 1. A large solid and cystic mass lesion in the pelvis is similar in appearance to the 05/01/2022 examination. 2. There is evidence of volume overload, with moderate pleural effusions, body wall edema, and a moderate to large volume of abdominopelvic ascites. This has increased as compared to 05/01/2022. 3. An approximately 4 cm soft tissue lesion within the left lower quadrant abdominal wall is also unchanged and suspicious for neoplasm. 4. A 1.3 cm indeterminate left upper pole renal lesion is also unchanged. 5. Additional findings as above. Medications Administered ER Medications Given: NSS 500ml bolus Cefepime 2g IV Heparin standard with bolus Ceftriaxone 2g IV ECG Rate (beats per minute): 126 Rhythm: sinus tachycardia Findings: + ST elevation (Anterior) Comparison ECG Date: from (April 28, 2022) Change: the following changes noted (ST elevation is new) Code Status & VTE Plan Code Status Full VTE Prophylaxis Plan VTE Prophylaxis will be ordered: Yes Critical Care Time Critical Care Time: Yes Total Critical Care Time: 50 PG Care Time/CCT Total # of Minutes Spent Total Time Spent with Patient: Total time spent is greater than 50% in coordination of care (as documented) at patient's floor/unit and/or counseling patient: Critical Care Time: Yes Total Critical Care Time: 50 Coding Level of Care Code 80279 INT INP/OBS CARE 3/75MIN Diagnoses Goals of care, counseling/discussion Z71.89 STEMI (ST elevation myocardial infarction) I21.3 Hypervolemia E87.70 Cardiogenic shock R57.0 Bilateral pleural effusion J90 Pulmonary embolism I26.99 Cellulitis L03.90 Colon cancer metastasized to multiple sites C18.9 Generalized weakness R53.1 Osteoporosis M81.0 Additional Codes Critical Care Time - Critical Care Time: Yes ([id number])
[2022-06-07] MEDS ORDERED: ASPIRIN 81 MG CHEW PO STA (17:16)
--- NOTE | 2022-06-07 17:43 | Cardiology Consultation ---
Date of Consultation June 07, 2022 Assessment & Plan (1) ST elevation on ECG: Plan 2. New LV dysfunction 3. Metastatic cancer with large pelvic mass 4. Anasarca/moderate pleural effusions 5. Subsegmental PEs 6. WILMER 7. 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 She has remained completely chest pain-free. She is currently hemodynamically and electrically stable. She is grossly edematous but intravascularly appears dry. Timing of cardiac event unclear and with patient's comorbidities feel that it is unlikely that cardiac catheterization/PCI would significantly change prognosis. Recommend supportive care from a cardiac standpoint. Trend troponins, formal echo in the a.m. Continue heparin infusion, aspirin. Gentle IV fluids as needed. If refractory hypotension suggest starting with norepinephrine. Per review of bedside echo images some question of dynamic LVOT. If does not respond to norepinephrine would consider transition to phenylephrine. Discussed cardiac situation with patient's son. Further discussion regarding goals of care when he arrives. We will follow History of Present Illness Attending Physician: Gianni Bartlett MD History of Present Illness Ms. Valdes is an 86-year-old woman with metastatic colon cancer and large adnexal mass (metastases versus ovarian origin) seen urgently in the setting of new anterior ST elevations and elevated HS TropI. Patient hospitalized 1 month ago in the setting of weakness and fatigue thought in part secondary to poor oral intake/nutrition in the setting of malignancy and ongoing therapy. During hospitalization HS TropI elevated and flat around 100. ECG showed LVH with repolarization abnormality. Echo showed hyperdynamic function with moderate LVH and no wall motion abnormalities. During hospitalization CT of abdomen pelvis noted 11 cm complex cystic mass of pelvis (previously 6.9 01/2022). Gross volume overload also noted with small pericardial effusion small to moderate pleural effusions, small ascites and body wall edema. Patient transferred back to ED today after home PT noted increased bilateral lower extremity swelling, right lower extremity redness and worsening shortness of breath. On presentation hypoxic, reportedly tachycardic to the 180s. Received IV fluids, broad-spectrum antibiotics for possible cellulitis. Chest CTA showed subsegmental PE and increased moderate pleural effusions. CT of abdomen pelvis showed stable pelvic mass again with body wall edema/ascites. Initial ECG at 12: 57 showed sinus tachycardia with new Q waves in V1 through V3 and anterior ST elevations. HS TropI 270, now up to 500. Repeat ECG 16:29 again showed anterior Q waves/ST elevations in V1 through V3. Bedside echo showed new LAD distribution wall motion abnormality with moderate to severe LV dysfunction. IVC normal. Patient denies any chest pain. Unsure why she was sent to hospital. Allergies Allergy/AdvReac Type Severity Reaction Status Date / Time cinacalcet AdvReac Intermediate SE- Verified 06/07/22 13:17 Urinary frequency, Chills Home Medications Medication Instructions Recorded Confirmed Type aspirin 81 mg tablet,delayed 81 mg PO DAILY #30 tabs 11/13/18 06/07/22 History release cholecalciferol (vitamin D3) 50 50 mcg PO DAILY #90 caps 04/19/22 06/07/22 Rx mcg (2,000 unit) capsule ondansetron HCl 8 mg tablet 8 mg PO Q8H PRN nausea and 04/22/22 06/07/22 Rx vomiting #30 tabs famotidine 20 mg tablet 20 mg PO BID #60 tabs 05/03/22 06/07/22 Rx mirtazapine 15 mg tablet 15 mg PO HS #30 tabs 05/03/22 06/07/22 Rx omeprazole 20 mg capsule,delayed 20 mg PO DAILY #90 caps 05/27/22 06/07/22 Rx release acetaminophen 325 mg tablet 325 mg PO TID PRN pain or fever 06/07/22 06/07/22 Rx (Tylenol) #30 tabs latanoprost 0.005 % eye drops 1 drp OPL HS 06/07/22 06/07/22 History valsartan 160 1 tab PO DAILY 06/07/22 06/07/22 History mg-hydrochlorothiazide 25 mg tablet Patient History Medical History (Updated 06/07/22 @ 19:06 by Kody Ferraro MD) 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 - conservative mgmt, plan to re-evaluate if double vision recurs per records- follows with cardio Carotid atherosclerosis Chronic diastolic CHF (congestive heart failure) Chronic diastolic CHF (congestive heart failure) Colon cancer Diagnosed 02/2018--s/p colectomy 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 Contact with and (suspected) exposure to other viral communicable diseases COVID-19 Dermatitis Elevated troponin History of hyperparathyroidism Sx 10/2019 Hyperlipidemia Hypertension Hypokalemia Insomnia Left ventricular outflow obstruction Mild per 2018 ECHO (peak velocity 1.5m/s)- no evidence of aortic stenosis Mild mitral regurgitation Mild to moderate per 2018 ECHO Pleural effusion, right Vision problems Weakness Surgical History History of bilateral cataract extraction History of colonoscopy (02/2018) History of hysterectomy History of tooth extraction under local S/P parathyroidectomy 10/30/2019 Status post laparoscopic colectomy (10/2018) lap lower anterior resection: 04/05/18: Grade view 1 with Glidescope#3, ETT 7.0 at [facility] Family History Father Throat cancer Stomach cancer Myocardial infarction Mother Kidney disease Other No family history of adverse response to anesthesia Social History Smoking Status: Never smoker Second Hand Exposure: No; Hx Alcohol Use: No Hx Substance Use: No Preferred Language: Niuean Communication Ability: Effective Visual Impairment: No Limitations [employer] Safety Professor Required: No Beliefs That Will Affect Care: None Current Living Situation: Alone current occupational status: retired Feels Safe at Home: Yes Safety Concerns: Feels Safe At This Time Seatbelt Use: always Assistive Devices: None Review of Systems Review of Systems: All systems reviewed & are unremarkable except as noted in HPI & below Physical Exam Physical Exam: General: Comfortable HEENT: Sclerae anicteric Lungs: Decreased breath sounds at bases bilaterally, clear anteriorly Cardiac: Tachycardic, regular, no murmurs Abdomen: Soft, nontender Extremities: Distal extremities warm, legs mottled, 3+ edema extending to thighs Psych: Alert oriented, pleasant Results & Data Vital Signs (Past 12 Hours) Vital Signs Temp Pulse Pulse Resp BP BP Pulse Ox 06/07/22 17:29 97 06/07/22 17:21 97.9 F 120 H 20 95/67 L 06/07/22 16:30 114 H 16 97 06/07/22 16:21 98/31 L 06/07/22 16:21 112 H 18 95 06/07/22 16:15 114 H 20 95 06/07/22 16:00 112 H 18 97 06/07/22 16:00 93/62 L 06/07/22 15:45 114 H 18 96 06/07/22 15:33 118 H 19 97 06/07/22 15:33 86/64 L 06/07/22 15:32 80/58 L 06/07/22 15:32 115 H 22 95 06/07/22 15:30 114 H 17 91 06/07/22 15:30 79/53 L 06/07/22 15:15 117 H 21 95 06/07/22 15:01 125 H 16 96 06/07/22 15:01 89/63 L 06/07/22 15:00 127 H 16 96 06/07/22 15:00 16 79/59 L 06/07/22 14:45 122 H 16 06/07/22 14:33 102/70 06/07/22 14:33 121 H 15 06/07/22 14:30 121 H 15 06/07/22 14:17 117 H 06/07/22 14:06 115 H 14 06/07/22 14:06 125/64 06/07/22 13:30 123 H 18 90 06/07/22 13:30 116/97 06/07/22 13:16 123 H 16 88 L 06/07/22 13:16 114/85 06/07/22 13:15 125 H 15 87 L 06/07/22 13:01 15 125/98 06/07/22 13:01 128 H 15 06/07/22 13:00 127 H 15 06/07/22 14:35 15 06/07/22 13:18 130 H 16 114/85 92 06/07/22 13:16 124 H 91 06/07/22 13:01 127 H 06/07/22 12:55 126 H 18 106/75 96 06/07/22 12:32 98.2 F 180 H 20 94/67 L O2 Del Method 06/07/22 17:29 Room Air 06/07/22 17:21 Room Air 06/07/22 16:30 06/07/22 16:21 06/07/22 16:21 06/07/22 16:15 06/07/22 16:00 06/07/22 16:00 06/07/22 15:45 06/07/22 15:33 06/07/22 15:33 06/07/22 15:32 06/07/22 15:32 06/07/22 15:30 06/07/22 15:30 06/07/22 15:15 06/07/22 15:01 06/07/22 15:01 06/07/22 15:00 06/07/22 15:00 06/07/22 14:45 06/07/22 14:33 06/07/22 14:33 06/07/22 14:30 06/07/22 14:17 06/07/22 14:06 06/07/22 14:06 06/07/22 13:30 06/07/22 13:30 06/07/22 13:16 06/07/22 13:16 06/07/22 13:15 06/07/22 13:01 06/07/22 13:01 06/07/22 13:00 06/07/22 14:35 06/07/22 13:18 Room Air 06/07/22 13:16 Room Air 06/07/22 13:01 06/07/22 12:55 Room Air 06/07/22 12:32 Room Air PG Care Time/CCT Total # of Minutes Spent Total Time Spent with Patient: Total time spent is greater than 50% in coordination of care (as documented) at patient's floor/unit and/or counseling patient: Coding Level of Care Code 64832 INT INP/OBS CARE 3/75MIN Diagnoses ST elevation on ECG R94.31
[2022-06-07] MEDS ORDERED: MAGNESIUM SULFATE / D5W 1 GM/100 ML BAG IV ONE (18:15)
[2022-06-07] MEDS ORDERED: POTASSIUM CHLORIDE CRTAB 20 MEQ TABCR PO STA (18:18)
--- NOTE | 2022-06-07 18:48 | Emergency Department Note ---
Impression & Plan Pulmonary embolism, Cellulitis, LV dysfunction, Metastatic cancer, Elevated troponin, ST elevation on ECG ED Provider Note NAME: DANA SALAZAR AGE: 86 SEX: F ARRIVES VIA: Ambulance INFORMANT: Patient ED PROVIDER(S): Kody Ferraro MD CHIEF COMPLAINT: Weakness, Cellulitis. PLAN: Disposition: Admit MEDICAL DECISION MAKING: The patient is a pleasant 86-year-old woman with a past medical history of metastatic colon cancer undergoing chemotherapy, history of rheumatic heart disease, diastolic heart failure, history of dynamic LV outflow obstruction, hypertension, hyperlipidemia, hypercalcemia who presents to emergency department via EMS after home physical therapy was concerned due to the patient's generalized weakness with increased edema of her lower extremities with concern for cellulitis and noting her heart rate to be fast. The patient is a poor historian and denies any particular complaints and reports that she was surprised that she was referred to the emergency department. The patient was recently admitted to this facility from 04/28-05/04 for generalized weakness. Echocardiogram at that time demonstrated hyperdynamic LV with no regional wall motion abnormalities moderate concentric LVH is seen. EF was > 70%. On arrival to the emergency department the patient is fatigued appearing but no acute distress, afebrile with heart rate initially in the 180s in triage but subsequently down to the 130s upon arrival to the critical care bay. Blood pressure initially soft in the 90s/60s. She has diminished breath sounds of the posterior lower lung mckee. She has 3+ bilateral lower extremity edema with mild erythema warmth and tenderness of a 15 cm region of the medial aspect of the right lower leg. Otherwise she does exhibit mottling of her extremities. She exhibits dry mucous membranes. Given the patient's presentation sepsis protocols were initiated. She was treated with IV fluid hydration cautiously given her history of CHF and was given 500 cc of normal saline x2 with improvement in her heart rate to the 110s. EKG demonstrates sinus tachycardia with anterior ST elevations however with deep preceding Q waves, new from prior. Chest x-ray demonstrates vascular congestion with bilateral pleural effusions and dependent atelectasis. Patient upon repeat evaluation denies chest pain or complaints otherwise. I-STAT creatinine was at baseline. No acute abnormalities on her i-STAT BMP. However her lactic acid did initially result at 4. Unfortunately while the patient's initial blood work was obtained on arrival there was delay in processing but eventually did result. WBC 3.1K similar to prior values. H/H and platelets within normal limits. VBG unremarkable with pH of 7.39. Serum chemistry with creatinine of 1.35 similar to recent values though increased from prior baseline. Electrolytes without significant abnormality. Albumin continues to be low at 2.9. LFTs unremarkable. Procalcitonin was not elevated. Repeat lactic acid following IV fluid hydration improved to 2.9. High-sensitivity troponin 270 up from 90-100 on last admission. UA with contamination and no convincing evidence of infection. COVID-19 RNA, PAMELLA test was negative. CTA of the chest and abdomen pelvis were performed. Findings demonstrate subsegmental bilateral pulmonary embolism and large bilateral pleural effusions increased from last month. Patient was treated empirically for cellulitis with IV ceftriaxone. I did review the patient's presentation with her son over the phone who lives in [place] and was in route to the hospital. He did confirm that on the patient's recent hospitalization she had been full code. However he does acknowledge that they need to address/discuss her CODE STATUS/goals of care specifically and alludes to the idea that this may change however for now the patient will remain full code. IV heparin ordered for treatment of pulmonary embolism. Case was d/w Dr. Bartlett, [facility] hospitalist who will evaluate the patient for admission. I was then notified by nursing that the patient's blood pressure was declining down to 70s/50s though no change in the patient's mentation. She was subsequently provided with thigh-high compression stockings and third 500 cc normal saline bolus which did result in improvement in her blood pressure to the 90s/60s. I did subsequently perform a limited bedside echo which demonstrated what appeared to be new apical wall motion abnormality when compared to previous echo which had no wall motion abnormality. Repeat EKG with improved heart rate to the 110s and with persistence of previous ST elevation and deep Q waves. Thus, concern for ACS versus possible Takotsubo's cardiomyopathy in the context of the patient's presentation. Case was discussed with Dr. Gomez, [place] interventional cardiology appreciate consultation and recommendations following evaluation at the bedside. We agree that given the patient's numerous comorbidities it is reasonable to defer acute intervention at this time as unlikely to improve prognosis. Plan to continue supportive care. Further management per admitting team who is aware. Triage Nursing notes reviewed and agree them. Prior/outside medical records reviewed Vital Signs: reviewed Differential diagnosis: Cardiac ischemia, aortic dissection, pulmonary embolism, pneumothorax, pneumonia, pericarditis, myocarditis, esophageal rupture, GERD, cholecystitis, pancreatitis, musculoskeletal, as well as other pathologies. ER treatment provided: See below. Diagnostics interpreted by me: ECG 1257: Sinus tachycardia, 126 bpm, no ectopy, anterior ST elevations with deep preceding Q wave, ST changes new from 04/28/2022. ECG 1629: Sinus tachycardia, 114 bpm, no ectopy, anterior ST elevations with deep preceding Q wave. Cardiac Monitoring: An order for continuous cardiac monitoring was placed and demonstrated sinus tachycardia, 126 bpm, no ectopy. Laboratory studies: See below Imaging studies: See below Consultation(s): Dr. Bartlett, [facility] hospitalist. Dr. Gomez, [place] interventional cardiology. HPI: The patient is a pleasant 86-year-old woman with a past medical history of metastatic colon cancer undergoing chemotherapy, history of rheumatic heart disease, diastolic heart failure, history of dynamic LV outflow obstruction, hypertension, hyperlipidemia, hypercalcemia who presents to emergency department via EMS after home physical therapy was concerned due to the patient's generalized weakness with increased edema of her lower extremities with concern for cellulitis and noting her heart rate to be fast. The patient is a poor historian and denies any particular complaints and reports that she was surprised that she was referred to the emergency department. The patient was recently admitted to this facility from 04/28-05/04 for generalized weakness. Echocardiogram at that time demonstrated hyperdynamic LV with no regional wall motion abnormalities moderate concentric LVH is seen. EF was > 70%. ROS: See above HPI for pertinent positives & negatives. A total of 10 systems reviewed and were otherwise negative. VITALS:See Below PHYSICAL EXAMINATION: GENERAL: Awake, alert, fatigued-appearing, in no distress HENT: Normocephalic, atraumatic. Oropharynx with dry mucous membranes and otherwise unremarkable. EYES: Normal conjunctiva. Sclera non-icteric. NECK: Supple. No nuchal rigidity. FROM. No JVD. RESPIRATORY: Diminished breath sounds of the posterior lower lung mckee. CARDIAC: Tachycawrdic rate, normal rhythm. Extremities warm and well perfused. Pulses equal. ABDOMEN: Soft, non-distended. No tenderness to palpation. No rebound or guarding. No masses. RECTAL: Deferred. MUSCULOSKELETAL: Chest examination reveals no tenderness. The back is symmetrical on inspection without obvious abnormality. There is no CVA tenderness to palpation. No joint edema. LOWER EXTREMITIES: 3+ bilateral lower extremity edema with mild erythema warmth and tenderness of a 15 cm region of the medial aspect of the right lower leg. NEURO: Normal sensorium. No sensory or motor deficits noted. SKIN: Mottling of extremities. No rash or jaundice noted. ED COURSE: Critical Care: I have personally spent greater than 125 minutes of critical care time in the direct management of this patient. This includes bedside care, interpretation of diagnostic studies, and testing, discussion with consultants, patient, and family members, and other required patient management activities. This 125 minutes is in excess of all separately billable procedures. 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 - conservative mgmt, plan to re-evaluate if double vision recurs per records- follows with cardio Carotid atherosclerosis Chronic diastolic CHF (congestive heart failure) Chronic diastolic CHF (congestive heart failure) Colon cancer Diagnosed 02/2018--s/p colectomy 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 Contact with and (suspected) exposure to other viral communicable diseases COVID-19 Dermatitis Elevated troponin History of hyperparathyroidism Sx 10/2019 Hyperlipidemia Hypertension Hypokalemia Insomnia Left ventricular outflow obstruction Mild per 2018 ECHO (peak velocity 1.5m/s)- no evidence of aortic stenosis Mild mitral regurgitation Mild to moderate per 2018 ECHO Pleural effusion, right Vision problems Weakness Surgical History History of bilateral cataract extraction History of colonoscopy (02/2018) History of hysterectomy History of tooth extraction under local S/P parathyroidectomy 10/30/2019 Status post laparoscopic colectomy (10/2018) lap lower anterior resection: 04/05/18: Grade view 1 with Glidescope#3, ETT 7.0 at [facility] Family History Father Throat cancer Stomach cancer Myocardial infarction Mother Kidney disease Other No family history of adverse response to anesthesia Social History Smoking Status: Never smoker Second Hand Exposure: No; Hx Alcohol Use: No Hx Substance Use: No Preferred Language: Yemeni Communication Ability: Effective Visual Impairment: No Limitations Court Crier Required: No Beliefs That Will Affect Care: None Current Living Situation: Alone current occupational status: retired Feels Safe at Home: Yes Safety Concerns: Feels Safe At This Time Seatbelt Use: always Assistive Devices: None Allergies Allergies Allergy/AdvReac Type Severity Reaction Status Date / Time cinacalcet AdvReac Intermediate SE- Verified 06/07/22 13:17 Urinary frequency, Chills Home Meds Home Medications Medication Instructions Recorded Confirmed aspirin 81 mg tablet,delayed 81 mg PO DAILY #30 tabs 11/13/18 06/07/22 release latanoprost 0.005 % eye drops 1 drp OPL HS 06/07/22 06/07/22 valsartan 160 1 tab PO DAILY 06/07/22 06/07/22 mg-hydrochlorothiazide 25 mg tablet Previous Rx's Medication Instructions Recorded cholecalciferol (vitamin D3) 50 50 mcg PO DAILY #90 caps 04/19/22 mcg (2,000 unit) capsule ondansetron HCl 8 mg tablet 8 mg PO Q8H PRN nausea and 04/22/22 vomiting #30 tabs famotidine 20 mg tablet 20 mg PO BID #60 tabs 05/03/22 mirtazapine 15 mg tablet 15 mg PO HS #30 tabs 05/03/22 omeprazole 20 mg capsule,delayed 20 mg PO DAILY #90 caps 05/27/22 release acetaminophen 325 mg tablet 325 mg PO TID PRN pain or fever 06/07/22 (Tylenol) #30 tabs Results & Data (ED) Vital Signs Vital Signs - 24 hr 06/07/22 12:32 06/07/22 12:55 06/07/22 13:01 Temperature 36.8 C Temperature Source Temporal Artery Scan Pulse Rate 180 H 127 H Pulse Rate [Apical] 126 H Pulse Rate from SpO2 Sensor Respiratory Rate 20 18 Respiratory Depth Normal Blood Pressure 94/67 L Blood Pressure [Left Arm] 106/75 Blood Pressure Mean 76 Blood Pressure Mean [Left Arm] 85 Pulse Oximetry 96 Oxygen Delivery Method Room Air Room Air Sepsis Recent Fever Within 48 Hours No Sepsis New/Unexplained Change in Mental Status No Sepsis Action Taken by Nursing No Action Required 06/07/22 13:16 06/07/22 13:18 06/07/22 14:35 Temperature Temperature Source Pulse Rate 124 H Pulse Rate [Apical] 130 H Pulse Rate from SpO2 Sensor Respiratory Rate 16 15 Respiratory Depth Blood Pressure Blood Pressure [Left Arm] 114/85 Blood Pressure Mean Blood Pressure Mean [Left Arm] 94 Pulse Oximetry 91 92 Oxygen Delivery Method Room Air Room Air Sepsis Recent Fever Within 48 Hours Sepsis New/Unexplained Change in Mental Status Sepsis Action Taken by Nursing 06/07/22 13:00 06/07/22 13:01 06/07/22 13:01 Temperature Temperature Source Pulse Rate 127 H 128 H Pulse Rate [Apical] Pulse Rate from SpO2 Sensor Respiratory Rate 15 15 15 Respiratory Depth Blood Pressure 125/98 Blood Pressure [Left Arm] Blood Pressure Mean 107 Blood Pressure Mean [Left Arm] Pulse Oximetry Oxygen Delivery Method Sepsis Recent Fever Within 48 Hours Sepsis New/Unexplained Change in Mental Status Sepsis Action Taken by Nursing 06/07/22 13:15 06/07/22 13:16 06/07/22 13:16 Temperature Temperature Source Pulse Rate 125 H 123 H Pulse Rate [Apical] Pulse Rate from SpO2 Sensor 165 H 121 H Respiratory Rate 15 16 Respiratory Depth Blood Pressure 114/85 Blood Pressure [Left Arm] Blood Pressure Mean 94 Blood Pressure Mean [Left Arm] Pulse Oximetry 87 L 88 L Oxygen Delivery Method Sepsis Recent Fever Within 48 Hours Sepsis New/Unexplained Change in Mental Status Sepsis Action Taken by Nursing 06/07/22 13:30 06/07/22 13:30 06/07/22 14:06 Temperature Temperature Source Pulse Rate 123 H Pulse Rate [Apical] Pulse Rate from SpO2 Sensor 139 H Respiratory Rate 18 Respiratory Depth Blood Pressure 116/97 125/64 Blood Pressure [Left Arm] Blood Pressure Mean 103 84 Blood Pressure Mean [Left Arm] Pulse Oximetry 90 Oxygen Delivery Method Sepsis Recent Fever Within 48 Hours Sepsis New/Unexplained Change in Mental Status Sepsis Action Taken by Nursing 06/07/22 14:06 06/07/22 14:17 06/07/22 14:30 Temperature Temperature Source Pulse Rate 115 H 117 H 121 H Pulse Rate [Apical] Pulse Rate from SpO2 Sensor Respiratory Rate 14 15 Respiratory Depth Blood Pressure Blood Pressure [Left Arm] Blood Pressure Mean Blood Pressure Mean [Left Arm] Pulse Oximetry Oxygen Delivery Method Sepsis Recent Fever Within 48 Hours Sepsis New/Unexplained Change in Mental Status Sepsis Action Taken by Nursing 06/07/22 14:33 06/07/22 14:33 06/07/22 14:45 Temperature Temperature Source Pulse Rate 121 H 122 H Pulse Rate [Apical] Pulse Rate from SpO2 Sensor Respiratory Rate 15 16 Respiratory Depth Blood Pressure 102/70 Blood Pressure [Left Arm] Blood Pressure Mean 80 Blood Pressure Mean [Left Arm] Pulse Oximetry Oxygen Delivery Method Sepsis Recent Fever Within 48 Hours Sepsis New/Unexplained Change in Mental Status Sepsis Action Taken by Nursing 06/07/22 15:00 06/07/22 15:00 06/07/22 15:01 Temperature Temperature Source Pulse Rate 127 H Pulse Rate [Apical] Pulse Rate from SpO2 Sensor 126 H Respiratory Rate 16 16 Respiratory Depth Blood Pressure 79/59 L 89/63 L Blood Pressure [Left Arm] Blood Pressure Mean 65 71 Blood Pressure Mean [Left Arm] Pulse Oximetry 96 Oxygen Delivery Method Sepsis Recent Fever Within 48 Hours Sepsis New/Unexplained Change in Mental Status Sepsis Action Taken by Nursing 06/07/22 15:01 06/07/22 15:15 06/07/22 15:30 Temperature Temperature Source Pulse Rate 125 H 117 H Pulse Rate [Apical] Pulse Rate from SpO2 Sensor 123 H 118 H Respiratory Rate 16 21 Respiratory Depth Blood Pressure 79/53 L Blood Pressure [Left Arm] Blood Pressure Mean 61 Blood Pressure Mean [Left Arm] Pulse Oximetry 96 95 Oxygen Delivery Method Sepsis Recent Fever Within 48 Hours Sepsis New/Unexplained Change in Mental Status Sepsis Action Taken by Nursing 06/07/22 15:30 06/07/22 15:32 06/07/22 15:32 Temperature Temperature Source Pulse Rate 114 H 115 H Pulse Rate [Apical] Pulse Rate from SpO2 Sensor 115 H 116 H Respiratory Rate 17 22 Respiratory Depth Blood Pressure 80/58 L Blood Pressure [Left Arm] Blood Pressure Mean 65 Blood Pressure Mean [Left Arm] Pulse Oximetry 91 95 Oxygen Delivery Method Sepsis Recent Fever Within 48 Hours Sepsis New/Unexplained Change in Mental Status Sepsis Action Taken by Nursing 06/07/22 15:33 06/07/22 15:33 06/07/22 15:45 Temperature Temperature Source Pulse Rate 118 H 114 H Pulse Rate [Apical] Pulse Rate from SpO2 Sensor 118 H 114 H Respiratory Rate 19 18 Respiratory Depth Blood Pressure 86/64 L Blood Pressure [Left Arm] Blood Pressure Mean 71 Blood Pressure Mean [Left Arm] Pulse Oximetry 97 96 Oxygen Delivery Method Sepsis Recent Fever Within 48 Hours Sepsis New/Unexplained Change in Mental Status Sepsis Action Taken by Nursing Laboratory Data 06/07/22 12:55 06/07/22 12:55 Lab Results 06/07/22 06/07/22 06/07/22 Range/Units 12:55 12:55 12:55 WBC 3.19 L (4.8-10.8) K/ul RBC 3.93 L (4.20-5.40) M/uL Hgb 13.0 (12.0-16.0) g/dl POC Hgb (12.0-16.0) g/dl Hct 39.3 (37.0-47.0) % POC Hct (37-47) % MCV 100.0 (80.0-100.0) fL MCH 33.1 (25.0-34.0) pg MCHC 33.1 (32.0-36.0) g/dL RDW Std Deviation 58.9 H (36.4-46.3) fL RDW Coeff of Aimee 16.0 H (11.5-14.5) % Plt Count 250 (130-400) K/uL MPV 11.4 (9.4-12.4) fL Immature Gran % (Auto) 0.9 % Neut % (Auto) 72.8 % Lymph % (Auto) 16.6 % Edgar % (Auto) 9.1 % Eos % (Auto) 0.0 % Baso % (Auto) 0.6 % Neut # (Auto) 2.32 (1.40-6.50) K/uL Lymph # (Auto) 0.53 L (1.2-3.4) K/uL Edgar # (Auto) 0.29 (0.11-0.59) K/uL Eos # (Auto) 0.00 (0-0.50) K/uL Baso # (Auto) 0.02 (0-0.2) K/uL Immature Gran # (Auto) 0.03 (0.01-0.20) K/uL Absolute Nucleated RBC 0.03 (0-0.12) K/uL Nucleated RBC % (auto) 0.9 % PT 12.8 H (9.0-12.0) Seconds INR 1.2 H (0.9-1.1) APTT 26.7 (21.0-31.0) Seconds PTT Ratio 1.0 VBG pH (7.36-7.41) VBG pCO2 (38-50) mmHg VBG pO2 mmHg VBG HCO3 mmol/L VBG O2 Saturation % VBG Base Excess mEq/L POC Sodium (135-144) mmol/L Sodium 139 (136-145) mmol/L POC Potassium (3.3-5.0) mmol/L Potassium 3.5 (3.5-5.1) mmol/L POC Chloride (101-112) mmol/L Chloride 104 (98-107) mmol/L Carbon Dioxide 27 (21-32) mmol/L POC Total CO2 (24-31) mmol/L Anion Gap 8 (3-11) POC Anion Gap (16-25) mmol/L POC BUN (7-18) mg/dl BUN 27 H (6-23) mg/dl Creatinine 1.35 H (0.6-1.2) mg/dl POC Creatinine (0.6-1.3) mg/dl Est Cr Clr Drug Dosing 23.5 ml/min Est GFR ( Amer) 40.5 ml/min Est GFR (Non-Af Amer) 35.0 ml/min BUN/Creatinine Ratio 20.0 (10-20) Glucose 174 H (70-99(Fasting)) mg/dl POC Glucose (other) (70-99) mg/dl Lactate (0.4-2.0) mmol/L Calcium 8.1 L (8.6-10.3) mg/dl POC Ioniz Calcium Amador (1.12-1.32) mmol/l Magnesium 1.7 (1.7-2.4) mg/dl Total Bilirubin 0.8 (0.2-1.0) mg/dl Direct Bilirubin 0.1 (0-0.2) mg/dl AST 19 (13-39) U/L ALT 13 (7-52) U/L Alkaline Phosphatase 70 (34-104) U/L Troponin I High Sens 272.3 H* (0-14) pg/ml Total Protein 5.1 L (6.0-8.3) gm/dl Albumin 2.9 L (3.4-5.0) gm/dl Procalcitonin (0-0.5) ng/ml SARS-CoV-2, RNA, NAAT (NEGATIVE) 06/07/22 06/07/22 06/07/22 Range/Units 12:55 12:55 12:55 WBC (4.8-10.8) K/ul RBC (4.20-5.40) M/uL Hgb (12.0-16.0) g/dl POC Hgb (12.0-16.0) g/dl Hct (37.0-47.0) % POC Hct (37-47) % MCV (80.0-100.0) fL MCH (25.0-34.0) pg MCHC (32.0-36.0) g/dL RDW Std Deviation (36.4-46.3) fL RDW Coeff of Aimee (11.5-14.5) % Plt Count (130-400) K/uL MPV (9.4-12.4) fL Immature Gran % (Auto) % Neut % (Auto) % Lymph % (Auto) % Edgar % (Auto) % Eos % (Auto) % Baso % (Auto) % Neut # (Auto) (1.40-6.50) K/uL Lymph # (Auto) (1.2-3.4) K/uL Edgar # (Auto) (0.11-0.59) K/uL Eos # (Auto) (0-0.50) K/uL Baso # (Auto) (0-0.2) K/uL Immature Gran # (Auto) (0.01-0.20) K/uL Absolute Nucleated RBC (0-0.12) K/uL Nucleated RBC % (auto) % PT (9.0-12.0) Seconds INR (0.9-1.1) APTT Cancelled (21.0-31.0) Seconds PTT Ratio Cancelled VBG pH (7.36-7.41) VBG pCO2 (38-50) mmHg VBG pO2 mmHg VBG HCO3 mmol/L VBG O2 Saturation % VBG Base Excess mEq/L POC Sodium (135-144) mmol/L Sodium (136-145) mmol/L POC Potassium (3.3-5.0) mmol/L Potassium (3.5-5.1) mmol/L POC Chloride (101-112) mmol/L Chloride (98-107) mmol/L Carbon Dioxide (21-32) mmol/L POC Total CO2 (24-31) mmol/L Anion Gap (3-11) POC Anion Gap (16-25) mmol/L POC BUN (7-18) mg/dl BUN (6-23) mg/dl Creatinine (0.6-1.2) mg/dl POC Creatinine (0.6-1.3) mg/dl Est Cr Clr Drug Dosing ml/min Est GFR ( Amer) ml/min Est GFR (Non-Af Amer) ml/min BUN/Creatinine Ratio (10-20) Glucose (70-99(Fasting)) mg/dl POC Glucose (other) (70-99) mg/dl Lactate 4.0 H* (0.4-2.0) mmol/L Calcium (8.6-10.3) mg/dl POC Ioniz Calcium Amador (1.12-1.32) mmol/l Magnesium (1.7-2.4) mg/dl Total Bilirubin (0.2-1.0) mg/dl Direct Bilirubin (0-0.2) mg/dl AST (13-39) U/L ALT (7-52) U/L Alkaline Phosphatase (34-104) U/L Troponin I High Sens (0-14) pg/ml Total Protein (6.0-8.3) gm/dl Albumin (3.4-5.0) gm/dl Procalcitonin 0.35 (0-0.5) ng/ml SARS-CoV-2, RNA, NAAT (NEGATIVE) 06/07/22 06/07/22 06/07/22 Range/Units 13:14 13:24 14:25 WBC (4.8-10.8) K/ul RBC (4.20-5.40) M/uL Hgb (12.0-16.0) g/dl POC Hgb 13.3 (12.0-16.0) g/dl Hct (37.0-47.0) % POC Hct 39 (37-47) % MCV (80.0-100.0) fL MCH (25.0-34.0) pg MCHC (32.0-36.0) g/dL RDW Std Deviation (36.4-46.3) fL RDW Coeff of Aimee (11.5-14.5) % Plt Count (130-400) K/uL MPV (9.4-12.4) fL Immature Gran % (Auto) % Neut % (Auto) % Lymph % (Auto) % Edgar % (Auto) % Eos % (Auto) % Baso % (Auto) % Neut # (Auto) (1.40-6.50) K/uL Lymph # (Auto) (1.2-3.4) K/uL Edgar # (Auto) (0.11-0.59) K/uL Eos # (Auto) (0-0.50) K/uL Baso # (Auto) (0-0.2) K/uL Immature Gran # (Auto) (0.01-0.20) K/uL Absolute Nucleated RBC (0-0.12) K/uL Nucleated RBC % (auto) % PT (9.0-12.0) Seconds INR (0.9-1.1) APTT (21.0-31.0) Seconds PTT Ratio VBG pH 7.39 (7.36-7.41) VBG pCO2 43 (38-50) mmHg VBG pO2 23 mmHg VBG HCO3 26 mmol/L VBG O2 Saturation < 60.0 % VBG Base Excess 0.8 mEq/L POC Sodium 136 (135-144) mmol/L Sodium (136-145) mmol/L POC Potassium 5.0 (3.3-5.0) mmol/L Potassium (3.5-5.1) mmol/L POC Chloride 102 (101-112) mmol/L Chloride (98-107) mmol/L Carbon Dioxide (21-32) mmol/L POC Total CO2 25 (24-31) mmol/L Anion Gap (3-11) POC Anion Gap 15.0 L (16-25) mmol/L POC BUN 39 H (7-18) mg/dl BUN (6-23) mg/dl Creatinine (0.6-1.2) mg/dl POC Creatinine 1.3 (0.6-1.3) mg/dl Est Cr Clr Drug Dosing ml/min Est GFR ( Amer) ml/min Est GFR (Non-Af Amer) ml/min BUN/Creatinine Ratio (10-20) Glucose (70-99(Fasting)) mg/dl POC Glucose (other) 170 H (70-99) mg/dl Lactate (0.4-2.0) mmol/L Calcium (8.6-10.3) mg/dl POC Ioniz Calcium Amador 1.07 L (1.12-1.32) mmol/l Magnesium (1.7-2.4) mg/dl Total Bilirubin (0.2-1.0) mg/dl Direct Bilirubin (0-0.2) mg/dl AST (13-39) U/L ALT (7-52) U/L Alkaline Phosphatase (34-104) U/L Troponin I High Sens (0-14) pg/ml Total Protein (6.0-8.3) gm/dl Albumin (3.4-5.0) gm/dl Procalcitonin (0-0.5) ng/ml SARS-CoV-2, RNA, NAAT NEGATIVE (NEGATIVE) 06/07/22 Range/Units 15:48 WBC (4.8-10.8) K/ul RBC (4.20-5.40) M/uL Hgb (12.0-16.0) g/dl POC Hgb (12.0-16.0) g/dl Hct (37.0-47.0) % POC Hct (37-47) % MCV (80.0-100.0) fL MCH (25.0-34.0) pg MCHC (32.0-36.0) g/dL RDW Std Deviation (36.4-46.3) fL RDW Coeff of Aimee (11.5-14.5) % Plt Count (130-400) K/uL MPV (9.4-12.4) fL Immature Gran % (Auto) % Neut % (Auto) % Lymph % (Auto) % Edgar % (Auto) % Eos % (Auto) % Baso % (Auto) % Neut # (Auto) (1.40-6.50) K/uL Lymph # (Auto) (1.2-3.4) K/uL Edgar # (Auto) (0.11-0.59) K/uL Eos # (Auto) (0-0.50) K/uL Baso # (Auto) (0-0.2) K/uL Immature Gran # (Auto) (0.01-0.20) K/uL Absolute Nucleated RBC (0-0.12) K/uL Nucleated RBC % (auto) % PT (9.0-12.0) Seconds INR (0.9-1.1) APTT (21.0-31.0) Seconds PTT Ratio VBG pH (7.36-7.41) VBG pCO2 (38-50) mmHg VBG pO2 mmHg VBG HCO3 mmol/L VBG O2 Saturation % VBG Base Excess mEq/L POC Sodium (135-144) mmol/L Sodium (136-145) mmol/L POC Potassium (3.3-5.0) mmol/L Potassium (3.5-5.1) mmol/L POC Chloride (101-112) mmol/L Chloride (98-107) mmol/L Carbon Dioxide (21-32) mmol/L POC Total CO2 (24-31) mmol/L Anion Gap (3-11) POC Anion Gap (16-25) mmol/L POC BUN (7-18) mg/dl BUN (6-23) mg/dl Creatinine (0.6-1.2) mg/dl POC Creatinine (0.6-1.3) mg/dl Est Cr Clr Drug Dosing ml/min Est GFR ( Amer) ml/min Est GFR (Non-Af Amer) ml/min BUN/Creatinine Ratio (10-20) Glucose (70-99(Fasting)) mg/dl POC Glucose (other) (70-99) mg/dl Lactate 2.9 H* (0.4-2.0) mmol/L Calcium (8.6-10.3) mg/dl POC Ioniz Calcium Amador (1.12-1.32) mmol/l Magnesium (1.7-2.4) mg/dl Total Bilirubin (0.2-1.0) mg/dl Direct Bilirubin (0-0.2) mg/dl AST (13-39) U/L ALT (7-52) U/L Alkaline Phosphatase (34-104) U/L Troponin I High Sens (0-14) pg/ml Total Protein (6.0-8.3) gm/dl Albumin (3.4-5.0) gm/dl Procalcitonin (0-0.5) ng/ml SARS-CoV-2, RNA, NAAT (NEGATIVE) Administered Medications Heparin Sodium/Dextrose (Heparin Sodium/Dextrose) 25,000 units in 500 mls @ 19 mls/hr IV .Q24H [facility]; Protocol Stop: 07/07/22 15:14 Last Admin: 06/07/22 15:42 Dose: 950 units/hr, 19 mls/hr Documented By: DANIELLE Co-signed By: ROSANNE Magnesium Sulfate/Dextrose (Magnesium Sulfate / D5w) 1 gm in 100 mls @ 50 mls/hr IV ONE ONE Stop: 06/07/22 20:14 Last Admin: 06/07/22 18:06 Dose: 50 mls/hr Documented By: JOEY Discontinued Medications Aspirin (Aspirin 81 Mg Chew) 324 mg PO ONE STA Stop: 06/07/22 17:17 Last Admin: 06/07/22 17:55 Dose: 324 mg Documented By: JOEY Heparin Sodium (Porcine) (Heparin Sod (Porcine) 1000 Unit/Ml) 1 units IV NOW ONE Stop: 06/07/22 15:09 Last Admin: 06/07/22 15:35 Dose: 4,000 units Documented By: DANIELLE Co-signed By: MYRIAM Heparin Sodium/Dextrose (Heparin Iv Adult Wt-Based Standard With Bolus Protocol) 1 each IV NOW STA; Protocol Stop: 06/07/22 14:50 Last Admin: 06/07/22 15:54 Dose: Not Given Documented By: DANIELLE Sodium Chloride (Nss 1000ml) 500 mls @ 999 mls/hr IV .Q31M [facility] Stop: 06/07/22 13:45 Last Infusion: 06/07/22 14:34 Dose: 0 mls/hr Documented By: Admin: 06/07/22 13:34 Dose: 999 mls/hr Documented By: KORY Cefepime HCl (Maxipime) 2,000 mg in 20 mls @ 5 mls/min IV NOW STA; Protocol Stop: 06/07/22 13:15 Last Admin: 06/07/22 13:34 Dose: 5 mls/min Documented By: KORY Ceftriaxone Sodium (Rocephin) 2,000 mg in 70 mls @ 140 mls/hr IV NOW STA Stop: 06/07/22 15:23 Last Infusion: 06/07/22 15:41 Dose: 0 mls/hr Documented By: Admin: 06/07/22 15:04 Dose: 140 mls/hr Documented By: DANIELLE Ioversol (Optiray 320 500ml) 115 ml IV ONCE ONE Stop: 06/07/22 14:07 Last Admin: 06/07/22 14:07 Dose: 115 ml Documented By: IRINEO Imaging Data Radiologist's Impression: Chest X-Ray 06/07/22 13:03 SINGLE VIEW CHEST CLINICAL HISTORY: Sepsis. FINDINGS: An AP, portable, upright chest radiograph is compared to study dated 04/28/2022 and correlated with chest CT performed the same day 06/07/2022. The heart is enlarged. There is pulmonary vascular congestion. There are layering pleural effusions with dependent consolidation. No pneumothorax is seen. The skeletal structures are osteopenic. There is deformity in the right-sided ribs. IMPRESSION: 1. Cardiomegaly with pulmonary vascular congestion. 2. Layering pleural effusions with dependent consolidation. ACT 112: Negative or not required by law. Electronically signed by: Zeeshan Reid M.D. 06/07/2022 3:09 PM Abdomen/Pelvis CT 06/07/22 13:10 CT SCAN OF THE ABDOMEN AND PELVIS WITH IV CONTRAST CLINICAL HISTORY: Lower extremity edema. Metastatic disease. COMPARISON STUDY: Abdominal CT dated 05/01/2022. TECHNIQUE: Following the IV administration of 115 cc of Optiray 320, CT scan of the abdomen and pelvis is performed from the lung bases to the proximal femora. Images are reviewed in the axial, sagittal, and coronal planes. IV contrast was administered without complication. A dose lowering technique was utilized adhering to the principles of ALARA. The examination is compromised by motion artifact, as well as by streak artifact from the arms which could not be elevated above the abdomen. CT DOSE: 858.75 mGy.cm FINDINGS: Lung bases: The heart is normal in size noting a small pericardial effusion. There are moderate pleural effusions with dependent consolidation. A 3 mm right middle lobe pulmonary nodule on image #22 is unchanged. There is a moderate hiatal hernia. Esophageal varices are noted. Liver: The contrast-enhanced liver is normal in size, contour, and attenuation. There is no intrahepatic biliary ductal dilatation. The hepatic veins and portal veins are patent. Gallbladder: Gallbladder wall thickening is nonspecific and likely are due to adjacent ascites. There is no CT evidence of acute cholecystitis. Spleen: Normal in size and attenuation. Pancreas: Moderately atrophic and grossly unremarkable. Adrenal glands: Thickening of the adrenal glands is unchanged. Kidneys: The contrast enhanced kidneys demonstrate cortical atrophy and are without hydronephrosis. The kidneys enhance symmetrically. A 1.3 cm indeterminate left upper pole renal lesion seen on image #107 is unchanged. Additional scattered subcentimeter cortical hypodensities likely represent cysts but are too small for definitive characterization. Abdominal vasculature: The abdominal aorta is normal in course and caliber noting moderate atherosclerotic calcification. Bowel: There is postoperative change from sigmoid colon resection with colocolonic anastomosis. No bowel obstruction is seen. The appendix is not visualized. Peritoneum: There is a moderate to large volume of abdominopelvic ascites. No intraperitoneal free air is seen. An approximately 4 cm soft tissue lesion in the left lower quadrant abdominal wall on image #21 has not significant changed. Lymphadenopathy: None. Pelvic viscera: The bladder is decompressed and not well evaluated. The uterus is surgically absent. A large solid and cystic mass lesion in the pelvis is similar to previous. This measures approximately 12 x 10 cm in dimension. Skeletal structures: The skeletal structures are osteopenic. There is moderate lumbosacral spondylosis. No lytic or blastic lesions are seen. There are subacute appearing bilateral anterior rib fractures. There is a mild chronic superior end plate compression deformity of L2. Soft tissues: There is body wall edema. IMPRESSION: 1. A large solid and cystic mass lesion in the pelvis is similar in appearance to the 05/01/2022 examination. 2. There is evidence of volume overload, with moderate pleural effusions, body wall edema, and a moderate to large volume of abdominopelvic ascites. This has increased as compared to 05/01/2022. 3. An approximately 4 cm soft tissue lesion within the left lower quadrant abdominal wall is also unchanged and suspicious for neoplasm. 4. A 1.3 cm indeterminate left upper pole renal lesion is also unchanged. 5. Additional findings as above. ACT 112: Negative or not required by law. Electronically signed by: Zeeshan Reid M.D. 06/07/2022 2:22 PM Chest CTA 06/07/22 13:10 CT angio chest PE protocol CLINICAL HISTORY: tachycardia, metastatic cancer, r/o PE TECHNIQUE: Multidetector row helical CT of the chest was performed with angiographic protocol. Coronal and sagittal reformations were obtained. Coronal and sagittal MIPS were obtained from the axial data set and were submitted for review. Automated dose lowering techniques and/or adjustment according to pat ient size were utilized for this exam. Comparison: Comparison is made to CT chest 01/28/2022 FINDINGS: Lungs and pleura: Large bilateral pleural effusions are seen. Heart and pericardium: There is cardiomegaly without evidence of pericardial effusion. Vessels: Nonocclusive subsegmental emboli are seen bilaterally. Mediastinum and drew: Unremarkable. Chest wall and lower neck: Unremarkable. Abdomen: Unremarkable. Bones: Degenerative changes of the thoracic spine. Old healed rib fractures are seen. IMPRESSION: 1. Subsegmental pulmonary emboli are seen bilaterally. 2. Large bilateral pleural effusions with associated atelectasis. These are significantly enlarged from prior exam. Previously noted pulmonary nodules cannot be correlated. ACT 112: Negative or not required by law. Electronically signed by: Ramón Ortez M.D. 06/07/2022 2:25 PM Discharge Plan Visit Data Chief Complaint: Swelling/Edema to Extremity Stated Complaint: LEG EDEMA, CELLULITIS ED Provider: Kody Ferraro Discharge Problem: Pulmonary embolism, Cellulitis, LV dysfunction, Metastatic cancer, Elevated troponin, ST elevation on ECG Patient Disposition: Admitted As Inpatient Discharge Instructions Interventions: ED Discharge Assessment Last Done: 06/07/22 17:30
[2022-06-07] MEDS ORDERED: PHENYLEPHRINE HCL 25 MG/250 ML NSS IV ONE (19:47)
[2022-06-07] MEDS ORDERED: STAT IV Infusion **Titration per Protocol STA ×2 (19:47→21:31)
[2022-06-07] MEDS ORDERED: FUROSEMIDE 40 MG/4 ML VIAL IV ONE (19:47)
--- NOTE | 2022-06-07 19:53 | Critical Care Consultation ---
Date of Consultation June 07, 2022 Assessment & Plan (1) Cardiogenic shock: Reason Critically Ill: 86-year-old female with metastatic colon cancer (undergoing palliative chemo), presents to the ICU following STEMI and cardiogenic shock, currently undergoing medical management and starting on vasopressor support. Patient also volume overloaded with large pleural effusions bilaterally and ascites and undergoing diuresis as well. Neuro - Anxiety disordercontinue home meds Cardiac - Cardiogenic shock EKG revealing ST elevation and anterior septal leads. Bedside echo per cardiology shows new LV dysfunction and patient does have history of left ventricular obstructive flow outlet. Troponin continues to elevate and patient Has developed hypotension and now on vasopressors with phenylephrine. Per interventional cardiology evaluation, patient would be poor candidate for emergent PCI and continuing with medical management with heparin drip. - We will follow-up official echo - We will attempt to diurese as patient is significantly volume overloaded. - Central port access for administration of vasopressors. Maintain MAP greater than 65. - Trend troponin for peak. - Continuous monitoring on telemetry - Follow-up daily EKG. - Continuing management in ICU HTNhold home meds, Due to hypotension HLDcontinue statin Respiratory - Pulmonary embolismpatient currently only complains of shortness of breath and no respiratory distress. Bilateral subsegmental pulmonary embolism seen on CTA chest. No evidence of cor pulmonale. Continue with heparin drip. Continuous monitoring pulse ox. Pleural effusionslarge bilateral pleural effusions seen on CTA chest, worse since last exam.Patient not quite requiring supplemental oxygen and no respiratory distress. Only complains of mild dyspnea. We will proceed with diuresis but careful given blood pressure. GI - PPI Metastatic colorectal cancerfirst diagnosed in 2019 and undergoing treatment with single agent Xeloda. No significant change in mass size from early April. Patient goals of care with chemo appear to be palliative. RENAL/LYTES - Creatinine 1.3 currently at baseline. Currently diuresing considering volume overload. We will maintain maps greater than 65 to ensure renal perfusion. Careful with IV fluids as patient is volume overload status. Monitor routine BMPs and replete electrolytes as indicated. - Foleystrict I's and O's ENDO - No history of diabetes, ICU hyperglycemic protocol HEME - H&H stable, monitor routine CBC. Transfuse if indicated. ID - Cellulitispatient appears to have area of cellulitis at the right lower extremity which is warm to touch. Started on cefepime and blood cultures pending. Lactate elevated but unsure that the patient is septic as there is no leukocytosis, fevers, and Pro-Elijah within normal limits. - Continue empiric cefepime for now. LINES/IV ACCESS - Peripheral IVs, central port DVT PROPHYLAXIS - SCDs, heparin drip Goals of carediscussed with patient's family and they are going to discuss her CODE STATUS and wishes. Currently she is critically ill but remains a full code. She is undergoing palliative chemo for metastatic Colorectal cancer as well. I have personally spent 65 minutes of critical care time in the direct management of this patient. This is a life/limb threatening event. This includes time spent evaluating patient, direct bedside care, chart review, placing orders, interpretation of diagnostic studies, discussion with consultants, patient, and family members, as well as other required patient management activities. This time is exclusive of all separately billable procedures, and teaching time and separate from and in addition to any other critical care service time. Thank you for allowing us to participate in the care of this patient. Please refer to my attending physician's documentation for any further recommendations. (2) STEMI (ST elevation myocardial infarction): (3) Pulmonary embolism: (4) Cellulitis: (5) LV dysfunction: (6) Metastatic cancer: (7) Elevated troponin: (8) Goals of care, counseling/discussion: (9) Hypervolemia: (10) Bilateral pleural effusion: (11) Generalized weakness: (12) Hyperlipidemia: (13) Hypertension: (14) Benzodiazepine dependence: (15) Anxiety: History of Present Illness Attending Physician: Gianni Bartlett MD History of Present Illness Mrs. Valdes is an 86-year-old female with past medical history of Metastatic adenocarcinoma of the colon (Undergoing chemotherapy), Diastolic heart failure, HLD, HTN,Left ventricular outflow obstruction. He presented to the emergency department via EMS after she was noted by home PT to have generalized weakness with increased edema in the lower extremities and cellulitis of the right ankle.She was recently admitted to the hospital from 04/28 to 05/04 for generalized weakness, and echocardiogram had determined hyperdynamic LV with EF greater than 70%. She was started on broad-spectrum antibiotics and sepsis protocol was initiated in the ER and she was given IV fluids. Initial lactate was elevated at 4 and she was mildly hypotensive. Patient underwent CTA chest which revealed subsegmental pulmonary emboli bilaterally, and large bilateral pleural effusions associated with atelectasis. CT abdomen pelvis showed large solid and cystic mass lesion in the pelvis unchanged from previous exam, abdominopelvic ascites, 4 cm soft tissue lesion within the left lower quadrant abdominal wall also unchanged and suspicious for neoplasm, and 1.3 cm left upper pole renal lesion. EKG revealed anterior septal ST elevation and heart alert was initiated. Patient was evaluated by interventional cardiology and determined to be poor candidate for PCI, and medical management was recommended. Per cardiology documentation, bedside echo showed new LAD distribution wall motion abnormality with moderate to severe LV dysfunction. Patient was initially admitted to PCU, however she became hypotensive and was transferred to ICU for further management. She is now starting on vasopressors with phenylephrine considering LVOT and will proceed with diuresis. I did briefly discuss CODE STATUS with the patient's son at the bedside and the patient, and they are going to have a further discussion regarding her wishes. Of note, patient does have a port that she is using for chemotherapy and will access via IV team to run vasopressors. Further management in ICU at this time. Allergies Allergy/AdvReac Type Severity Reaction Status Date / Time cinacalcet AdvReac Intermediate SE- Verified 06/07/22 13:17 Urinary frequency, Chills Home Medications Medication Instructions Recorded Confirmed Type aspirin 81 mg tablet,delayed 81 mg PO DAILY #30 tabs 11/13/18 06/07/22 History release cholecalciferol (vitamin D3) 50 50 mcg PO DAILY #90 caps 04/19/22 06/07/22 Rx mcg (2,000 unit) capsule ondansetron HCl 8 mg tablet 8 mg PO Q8H PRN nausea and 04/22/22 06/07/22 Rx vomiting #30 tabs famotidine 20 mg tablet 20 mg PO BID #60 tabs 05/03/22 06/07/22 Rx mirtazapine 15 mg tablet 15 mg PO HS #30 tabs 05/03/22 06/07/22 Rx omeprazole 20 mg capsule,delayed 20 mg PO DAILY #90 caps 05/27/22 06/07/22 Rx release acetaminophen 325 mg tablet 325 mg PO TID PRN pain or fever 06/07/22 06/07/22 Rx (Tylenol) #30 tabs latanoprost 0.005 % eye drops 1 drp OPL HS 06/07/22 06/07/22 History valsartan 160 1 tab PO DAILY 06/07/22 06/07/22 History mg-hydrochlorothiazide 25 mg tablet Patient History Medical History 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 - conservative mgmt, plan to re-evaluate if double vision recurs per records- follows with cardio Carotid atherosclerosis Chronic diastolic CHF (congestive heart failure) Chronic diastolic CHF (congestive heart failure) Colon cancer Diagnosed 02/2018--s/p colectomy 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 Contact with and (suspected) exposure to other viral communicable diseases COVID-19 Dermatitis Elevated troponin History of hyperparathyroidism Sx 10/2019 Hyperlipidemia Hypertension Hypokalemia Insomnia Left ventricular outflow obstruction Mild per 2018 ECHO (peak velocity 1.5m/s)- no evidence of aortic stenosis Mild mitral regurgitation Mild to moderate per 2018 ECHO Pleural effusion, right Vision problems Weakness Surgical History History of bilateral cataract extraction History of colonoscopy (02/2018) History of hysterectomy History of tooth extraction under local S/P parathyroidectomy 10/30/2019 Status post laparoscopic colectomy (10/2018) lap lower anterior resection: 04/05/18: Grade view 1 with Glidescope#3, ETT 7.0 at [facility] Family History Father Throat cancer Stomach cancer Myocardial infarction Mother Kidney disease Other No family history of adverse response to anesthesia Social History Smoking Status: Never smoker Second Hand Exposure: No; Hx Alcohol Use: No Hx Substance Use: No Preferred Language: [place] Communication Ability: Effective Visual Impairment: No Limitations Phonograph Needle Tip Maker Required: No Beliefs That Will Affect Care: None Current Living Situation: Alone current occupational status: retired Feels Safe at Home: Yes Safety Concerns: Feels Safe At This Time Seatbelt Use: always Assistive Devices: None Review of Systems Review of Systems: Patient denies headache, dizziness, syncopal episodes, fevers or recent illness, sore throat, cough, congestion, wheezing, chest pain or palpitations, abdominal pain, nausea vomiting or diarrhea. Patient states that swelling in her lower extremities started about 2 days ago and she has tenderness to the right ankle at the site of erythema. She has also had shortness of breath for the past couple of days and generalized weakness. Physical Exam Constitutional: cooperative, comfortable and + malnourished; no acute distress Eyes: PERRL, conjunctivae normal, anicteric sclerae ENMT: external ear and nose normal, oropharynx normal Neck: trachea midline, no thyromegaly Respiratory: normal respiratory effort, lungs clear to auscultation Cardiovascular: Rate/Rhythm: regular rate and regular rhythm Heart Sounds: + murmur Palpation: no thrill Vessels: no JVD Extremities: + edema (Bilateral lower extremity) Gastrointestinal (Abdomen): Abdomen soft, nontender, slightly distended. Bowel sounds auscultated all 4 quadrants Musculoskeletal: no cyanosis or clubbing, extremities motor strength 5/5 Skin: Erythema to the right ankle which is warm to touch , Skin appears thin but warm and dry Neurologic: PERRL, EOMI, accommodation nl, no face palsy, no dysarthria Psychiatric: A+Ox3, euthymic affect Genitourinary: Dwelling Mondrgaon catheter present Results & Data Results & Data Vital Signs (Past 12 Hours) Vital Signs Temp Pulse Pulse Resp BP BP Pulse Ox 06/07/22 17:49 119 H 06/07/22 17:29 97 06/07/22 17:21 36.6 C 120 H 20 95/67 L 06/07/22 16:30 114 H 16 97 06/07/22 16:21 98/31 L 06/07/22 16:21 112 H 18 95 06/07/22 16:15 114 H 20 95 06/07/22 16:00 112 H 18 97 06/07/22 16:00 93/62 L 06/07/22 15:45 114 H 18 96 06/07/22 15:33 118 H 19 97 06/07/22 15:33 86/64 L 06/07/22 15:32 80/58 L 06/07/22 15:32 115 H 22 95 06/07/22 15:30 114 H 17 91 06/07/22 15:30 79/53 L 06/07/22 15:15 117 H 21 95 06/07/22 15:01 125 H 16 96 04/11/23 15:01 89/63 L 06/07/22 15:00 127 H 16 96 06/07/22 15:00 16 79/59 L 06/07/22 14:45 122 H 16 06/07/22 14:33 102/70 06/07/22 14:33 121 H 15 06/07/22 14:30 121 H 15 06/07/22 14:17 117 H 06/07/22 14:06 115 H 14 06/07/22 14:06 125/64 06/07/22 13:30 123 H 18 90 06/07/22 13:30 116/97 06/07/22 13:16 123 H 16 88 L 06/07/22 13:16 114/85 06/07/22 13:15 125 H 15 87 L 06/07/22 13:01 15 125/98 06/07/22 13:01 128 H 15 06/07/22 13:00 127 H 15 06/07/22 14:35 15 06/07/22 13:18 130 H 16 114/85 92 06/07/22 13:16 124 H 91 06/07/22 13:01 127 H 06/07/22 12:55 126 H 18 106/75 96 06/07/22 12:32 36.8 C 180 H 20 94/67 L O2 Del Method 06/07/22 17:49 06/07/22 17:29 Room Air 06/07/22 17:21 Room Air 06/07/22 16:30 06/07/22 16:21 06/07/22 16:21 06/07/22 16:15 06/07/22 16:00 06/07/22 16:00 06/07/22 15:45 06/07/22 15:33 06/07/22 15:33 06/07/22 15:32 06/07/22 15:32 06/07/22 15:30 06/07/22 15:30 06/07/22 15:15 06/07/22 15:01 06/07/22 15:01 06/07/22 15:00 06/07/22 15:00 06/07/22 14:45 06/07/22 14:33 06/07/22 14:33 06/07/22 14:30 06/07/22 14:17 06/07/22 14:06 06/07/22 14:06 06/07/22 13:30 06/07/22 13:30 06/07/22 13:16 06/07/22 13:16 06/07/22 13:15 06/07/22 13:01 06/07/22 13:01 06/07/22 13:00 06/07/22 14:35 06/07/22 13:18 Room Air 06/07/22 13:16 Room Air 06/07/22 13:01 06/07/22 12:55 Room Air 06/07/22 12:32 Room Air Diagnostic Findings CT angio chest PE protocol CLINICAL HISTORY: tachycardia, metastatic cancer, r/o PE TECHNIQUE: Multidetector row helical CT of the chest was performed with angiographic protocol. Coronal and sagittal reformations were obtained. Coronal and sagittal MIPS were obtained from the axial data set and were submitted for review. Automated dose lowering techniques and/or adjustment according to patient size were utilized for this exam. Comparison: Comparison is made to CT chest 01/28/2022 FINDINGS: Lungs and pleura: Large bilateral pleural effusions are seen. Heart and pericardium: There is cardiomegaly without evidence of pericardial effusion. Vessels: Nonocclusive subsegmental emboli are seen bilaterally. Mediastinum and drew: Unremarkable. Chest wall and lower neck: Unremarkable. Abdomen: Unremarkable. Bones: Degenerative changes of the thoracic spine. Old healed rib fractures are seen. IMPRESSION: 1. Subsegmental pulmonary emboli are seen bilaterally. 2. Large bilateral pleural effusions with associated atelectasis. These are significantly enlarged from prior exam. Previously noted pulmonary nodules cannot be correlated. CT SCAN OF THE ABDOMEN AND PELVIS WITH IV CONTRAST CLINICAL HISTORY: Lower extremity edema. Metastatic disease. COMPARISON STUDY: Abdominal CT dated 05/01/2022. TECHNIQUE: Following the IV administration of 115 cc of Optiray 320, CT scan of the abdomen and pelvis is performed from the lung bases to the proximal femora. Images are reviewed in the axial, sagittal, and coronal planes. IV contrast was administered without complication. A dose lowering technique was utilized adhering to the principles of ALARA. The examination is compromised by motion artifact, as well as by streak artifact from the arms which could not be elevated above the abdomen. CT DOSE: 858.75 mGy.cm FINDINGS: Lung bases: The heart is normal in size noting a small pericardial effusion. There are moderate pleural effusions with dependent consolidation. A 3 mm right middle lobe pulmonary nodule on image #22 is unchanged. There is a moderate hiatal hernia. Esophageal varices are noted. Liver: The contrast-enhanced liver is normal in size, contour, and attenuation. There is no intrahepatic biliary ductal dilatation. The hepatic veins and portal veins are patent. Gallbladder: Gallbladder wall thickening is nonspecific and likely are due to adjacent ascites. There is no CT evidence of acute cholecystitis. Spleen: Normal in size and attenuation. Pancreas: Moderately atrophic and grossly unremarkable. Adrenal glands: Thickening of the adrenal glands is unchanged. Kidneys: The contrast enhanced kidneys demonstrate cortical atrophy and are without hydronephrosis. The kidneys enhance symmetrically. A 1.3 cm indeterminate left upper pole renal lesion seen on image #107 is unchanged. Additional scattered subcentimeter cortical hypodensities likely represent cysts but are too small for definitive characterization. Abdominal vasculature: The abdominal aorta is normal in course and caliber noting moderate atherosclerotic calcification. Bowel: There is postoperative change from sigmoid colon resection with colocolonic anastomosis. No bowel obstruction is seen. The appendix is not visualized. Peritoneum: There is a moderate to large volume of abdominopelvic ascites. No intraperitoneal free air is seen. An approximately 4 cm soft tissue lesion in the left lower quadrant abdominal wall on image #21 has not significant changed. Lymphadenopathy: None. Pelvic viscera: The bladder is decompressed and not well evaluated. The uterus is surgically absent. A large solid and cystic mass lesion in the pelvis is similar to previous. This measures approximately 12 x 10 cm in dimension. Skeletal structures: The skeletal structures are osteopenic. There is moderate lumbosacral spondylosis. No lytic or blastic lesions are seen. There are subacute appearing bilateral anterior rib fractures. There is a mild chronic superior end plate compression deformity of L2. Soft tissues: There is body wall edema. IMPRESSION: 1. A large solid and cystic mass lesion in the pelvis is similar in appearance to the 05/01/2022 examination. 2. There is evidence of volume overload, with moderate pleural effusions, body wall edema, and a moderate to large volume of abdominopelvic ascites. This has increased as compared to 05/01/2022. 3. An approximately 4 cm soft tissue lesion within the left lower quadrant abdominal wall is also unchanged and suspicious for neoplasm. 4. A 1.3 cm indeterminate left upper pole renal lesion is also unchanged. 5. Additional findings as above. SINGLE VIEW CHEST CLINICAL HISTORY: Sepsis. FINDINGS: An AP, portable, upright chest radiograph is compared to study dated 04/28/2022 and correlated with chest CT performed the same day 06/07/2022. The heart is enlarged. There is pulmonary vascular congestion. There are layering pleural effusions with dependent consolidation. No pneumothorax is seen. The skeletal structures are osteopenic. There is deformity in the right-sided ribs. IMPRESSION: 1. Cardiomegaly with pulmonary vascular congestion. 2. Layering pleural effusions with dependent consolidation. Coding Level of Care Code 71212 CRITICAL CARE 1ST 30-74M Diagnoses Cardiogenic shock R57.0 STEMI (ST elevation myocardial infarction) I21.3 Pulmonary embolism I26.99 Cellulitis L03.90 LV dysfunction I51.9 Metastatic cancer C79.9 Elevated troponin R77.8 Goals of care, counseling/discussion Z71.89 Hypervolemia E87.70 Bilateral pleural effusion J90 Generalized weakness R53.1 Hyperlipidemia E78.2 Hyperlipidemia type: mixed hyperlipidemia Hypertension I10 Benzodiazepine dependence F13.20 Anxiety F41.9 (12) Hyperlipidemia Hyperlipidemia type: mixed hyperlipidemia Qualified Code(s): E78.2 - Mixed hyperlipidemia
[2022-06-07] MEDS ORDERED: PHENYLEPHRINE/NSS 25 MG/250 ML BAG IV SCH (20:00)
[2022-06-07 20:37] LABS: Albumin Globulin Ratio 1.2 (0.9-2); Albumin Level 2.1 gm/dl (3.4-5.0); BUN Creatinine Ratio 21.8 (10-20); Bilirubin,Total 0.6 mg/dl (0.2-1.0); Calcium 7.2 mg/dl (8.6-10.3); Creatinine Clr Calc Pharmacy 25.5 ml/min; Est GFR (African American) 44.9 ml/min; Est GFR (Non-African American) 38.8 ml/min; Globulin 1.8 gm/dl (2.5-4.0); Potassium 3.3 mmol/L (3.5-5.1); Total Protein 3.9 gm/dl (6.0-8.3)
[2022-06-07 20:44] LABS: Troponin I High Sensitivity 549.5 pg/ml (0-14)
[2022-06-07] MEDS ORDERED: FAMOTIDINE 20 MG TAB PO SCH (21:00)
[2022-06-07] MEDS ORDERED: MIRTAZAPINE TAB 15 MG TAB PO SCH (21:00)
[2022-06-07] MEDS: ICU Protocol for HYPERglycemia SCH (21:10)
[2022-06-07] MEDS: LATANOPROST 0.005% OP SOLN 2.5 ML BTL OPL SCH (21:14)
--- NOTE | 2022-06-07 21:18 | Communication Note ---
Date of Service: June 07, 2022 I spoke with the patient and son at the bedside regarding CODE STATUS. We discussed in depth her recent medical history and current clinical status. Angela fernandez's son states that she has not have much quality of life recently. They understand that the patient's metastatic cancer is being treated palliatively. He does not think that she would want aggressive measures as an CPR, however he did not seem ready to make that decision regarding changing her CODE STATUS. He would like to speak with palliative care, who is now being consulted. Patient would also like to speak with oncology regarding recommendations for future treatment, who have also been consulted. Patient will remain full code for the time being, however if her clinical status continues to decompensate, I informed him that We will need to have additional conversation. She remains on vasopressor support. She appears to be comfortable and is not in any pain. That being said, likelihood of meaningful recovery in an 86-year-old with multiple comorbidities including metastatic colonic cancer who is currently in cardiogenic shock, would be unlikely. We will need additional conversation regarding goals of care. CRITICAL CARE TIME - I have personally spent 20 minutes of critical care time in the direct management of this patient. This is a life/limb threatening event. This includes time spent evaluating patient, direct bedside care, chart review, placing orders, interpretation of diagnostic studies, discussion with consultants, patient, and family members, as well as other required patient management activities. This time is exclusive of all separately billable procedures, and teaching time and separate from and in addition to any other critical care service time. Coding Level of Care Code 72013 CRITICAL CARE EA ADD 30M
[2022-06-07] MEDS ORDERED: PLASMA-LYTE A 500 ML IV ONE (21:33)
[2022-06-07] MEDS ORDERED: ALBUMIN 25% 100 mL 25 GM/100 ML VIAL IV ONE (21:33)
[2022-06-07] MEDS ORDERED: NOREPINEPHRINE/D5W 4 MG/250 ML PLCT IV SCH (21:45)
[2022-06-07] MEDS ORDERED: STAT IV STA (22:34)
[2022-06-07] MEDS ORDERED: CALCIUM GLUCONATE 10% 1,000 MG in DEXTROSE 5% 50 ML IV ONE (22:34)
[2022-06-07] MEDS: POTASSIUM CHLORIDE / WTR 20 MEQ/100 ML PLCT IV SCH (23:16)
[2022-06-08] MEDS: POTASSIUM CHLORIDE / WTR 20 MEQ/100 ML PLCT IV SCH (00:58)
[2022-06-08 01:02] LABS: Partial Thromboplastin Ratio > 5.1
[2022-06-08 01:04] LABS: Partial Thromboplastin Time > 139.0 Seconds (21.0-31.0)
[2022-06-08] MEDS ORDERED: CEFEPIME 1,000 MG in SYRINGE 0 ML IV SCH (02:00)
[2022-06-08 04:32] LABS: Albumin Level 2.8 gm/dl (3.4-5.0); BUN Creatinine Ratio 19.1 (10-20); Bilirubin Direct 0.2 mg/dl (0-0.2); Bilirubin,Total 0.8 mg/dl (0.2-1.0); Calcium 7.5 mg/dl (8.6-10.3); Creatinine Clr Calc Pharmacy 23.3 ml/min; Est GFR (African American) 40.2 ml/min; Est GFR (Non-African American) 34.7 ml/min; Magnesium 1.8 mg/dl (1.7-2.4); Phosphorus 3.1 mg/dl (2.5-4.9); Potassium 3.9 mmol/L (3.5-5.1); Total Protein 4.3 gm/dl (6.0-8.3)
[2022-06-08 04:56] LABS: Partial Thromboplastin Ratio > 5.1
[2022-06-08 05:04] LABS: Partial Thromboplastin Time > 139.0 Seconds (21.0-31.0)
[2022-06-08 05:06] LABS: A calco-baum cmplx NotReported Not Detected (NotDetected); Bact fragilis Not Reported Not Detected (NotDetected); C auris Not Reported Not Detected (NotDetected); Calbicans Not Reported Not Detected (NotDetected); Candida glabrata Not Reported Not Detected (NotDetected); Candida krusei Not Reported Not Detected (NotDetected); Cneoformans/gatti Not Reported Not Detected (NotDetected); Cparapsilosis Not Reported Not Detected (NotDetected); Ctropicalis Not Reported Not Detected (NotDetected); E cloacae compx Not Reported Not Detected (NotDetected); Efaecalis Not Reported Not Detected (NotDetected); Efaecium Not Reported Not Detected (NotDetected); Enterobacterales Not Reported Not Detected (NotDetected); Escherichia coli Not Reported Not Detected (NotDetected); H influenzae Not Reported Not Detected (NotDetected); K aerogenes Not Reported Not Detected (NotDetected); Koxytoca Not Reported Not Detected (NotDetected); Kpneumoniae grp Not Reported Not Detected (NotDetected); Lmonocyt Not Reported Not Detected (NotDetected); N meningitidis Not Reported Not Detected (NotDetected); P aeruginosa Not Reported Not Detected (NotDetected); Proteus spp Not Reported Not Detected (NotDetected); Salmonella spp Not Reported Not Detected (NotDetected); Smarcescens Not Reported Not Detected (NotDetected); Staph lugdunensis Not Reported Not Detected (NotDetected); Staph spp. Not Reported Not Detected (NotDetected); Staphaureus Not Reported Not Detected (NotDetected); Staphepi Not Reported Not Detected (NotDetected); Stenmaltophilia Not Reported Not Detected (NotDetected); Strep agal(GrpB) Not Reported Not Detected (NotDetected); Strep pneum Not Reported Not Detected (NotDetected); Strep pyog (GrpA) Not Reported DETECTED (NotDetected); Strep spp Not Reported DETECTED (NotDetected); Streptococcus spp DETECTED (NotDetected)
[2022-06-08 05:13] LABS: Hematocrit (blood only) 30.6 % (37.0-47.0); Hemoglobin 10.3 g/dl (12.0-16.0); Mean Corpuscular Hemoglobin 32.8 pg (25.0-34.0); Mean Corpuscular Hgb Conc 33.7 g/dL (32.0-36.0); Mean Corpuscular Volume 97.5 fL (80.0-100.0); Platelet Count 182 K/uL (130-400); RDW Standard Deviation 55.9 fL (36.4-46.3); Red Blood Count 3.14 M/uL (4.20-5.40); White Blood Count 4.84 K/ul (4.8-10.8)
[2022-06-08 05:15] LABS: Acanthocytes 1+; Basophils # (auto) 0.04 K/uL (0-0.2); Basophils % (auto) 0.8 %; Echinocytes 1+; Immature Granulocytes # (auto) 0.03 K/uL (0.01-0.20); Immature Granulocytes % (auto) 0.6 %; Lymphocytes # (auto) 0.72 K/uL (1.2-3.4); Lymphocytes % (auto) 14.9 %; Monocytes # (auto) 0.46 K/uL (0.11-0.59); Monocytes % (auto) 9.5 %; Neutrophils # (auto) 3.59 K/uL (1.40-6.50); Neutrophils % (auto) 74.2 %; Polychromasia 1+
[2022-06-08 05:18] LABS: Streptococcus pyogenes (GrpA) DETECTED (NotDetected)
[2022-06-08] MEDS ORDERED: POTASSIUM CHLORIDE / WTR 10 MEQ/100 ML PLCT IV ONE (06:01)
[2022-06-08] MEDS ORDERED: STAT IV STA (06:01)
[2022-06-08] MEDS ORDERED: CALCIUM GLUCONATE 10% 1,000 MG in DEXTROSE 5% 50 ML IV ONE (06:01)
[2022-06-08] MEDS: MAGNESIUM SULFATE / D5W 1 GM/100 ML BAG IV SCH ×2 (06:13→08:21)
[2022-06-08 06:28] LABS: Partial Thromboplastin Ratio > 5.1
[2022-06-08 06:32] LABS: Partial Thromboplastin Time > 139.0 Seconds (21.0-31.0)
--- NOTE | 2022-06-08 06:52 | Critical Care Progress Note ---
Date of Service June 08, 2022 Assessment & Plan (1) Cardiogenic shock: (2) Pulmonary embolism: (3) Cellulitis: (4) LV dysfunction: (5) Metastatic cancer: (6) ST elevation on ECG: (7) STEMI (ST elevation myocardial infarction): (8) Bilateral pleural effusion: (9) Renal mass: (10) LVH (left ventricular hypertrophy): (11) Colon cancer metastasized to multiple sites: (12) Anxiety: Plan Reason Critically Ill: 86-year-old female with metastatic colon cancer (undergoing palliative chemo), presents to the ICU following STEMI and cardiogenic shock, currently undergoing medical management and starting on vasopressor support. Patient also volume overloaded with large pleural effusions bilaterally and ascites and undergoing diuresis as well. Neuro - Anxiety disordercontinue home meds Cardiac - -- Shock Multifactorial Does have right lower extremity cellulitis with bacteremia Left ventricular wall motion abnormalities along with LVOT obstruction Troponins have peaked and trending down. Per interventional cardiology, patient would be poor candidate for emergent PCI and continuing with medical management with heparin drip. --HTN hold home meds --HLD continue statin Respiratory - -- Pulmonary embolism Bilateral subsegmental pulmonary embolism seen on CTA chest. No evidence of right heart strain, Saturating 98% on room air Hypotension is likely from sepsis and cardiogenic in etiology Continue with heparin drip. -- Pleural effusions large bilateral pleural effusions seen on CTA chest GI - PPI Metastatic colorectal cancer first diagnosed in 2018 and undergoing treatment with single agent Xeloda. No significant change in mass size from early April. Patient goals of care with chemo appear to be palliative. RENAL/LYTES - -- CKD Creatinine 1.3 at baseline. Avoid nephrotoxic medication Diuresis as feasible - Foleystrict I's and O's ENDO - Continue with ICU hypoglycemia protocol HEME - H&H stable, monitor routine CBC ID - -- Cellulitis with strep pyogenous bacteremia -Procalcitonin within normal limit -Cefepime changed to Ancef on 06/08/2022 --Prophylaxis VTE: Heparin drip GI: Pepcid Lines: Left-sided port, peripheral, Mondragon Diet: Cardiac clear liquid Plan: In/out: +1 L, urine output 950 mL Patient blood cultures growing gram-positive cocci in chains in 1 out of 4 bottles, strep vaginosis as per the bio fire. Will change cefepime to Ancef. Calcium, magnesium being replaced. Doppler bilateral lower extremity was not adequate as we were not able to visualize blood vessel secondary to edema Patient hemoglobin dropped compared to before. Monitor hemoglobin. Patient PTT was since midnight. We will repeat PTT now We will plan to do paracentesis as well as thoracentesis later today. Overall prognosis of the patient is guarded. I did speak with patient as well as patient's son Lake at bedside and explained the current condition and prognosis. He would like to speak with Dr. Caballero and then decide Palliative care also has been consulted I personally spoke with Dr. Mancuso who is well regarding her elevated PTT. I have personally spent 55 minutes of critical care time in the direct management of this patient. This is a life/limb threatening event. This includes time spent evaluating patient, direct bedside care, chart review, placing orders, interpretation of diagnostic studies, discussion with consultants, patient, and family members, as well as other required patient management activities. This time is exclusive of all separately billable procedures, and teaching time and separate from and in addition to any other critical care service time. Please note the above document was generated using voice recognition software. It may contain grammatical, syntax or spelling errors. Admission and Anticipated Discharge Date Admission Date: June 07, 2022 Subjective Patient seen and examined at bedside. No acute distress, no adverse events overnight She was on 0.03 of Levophed at the time of examination with MAP in the low 70s Denies any chest pain, no headache, no nausea, no vomiting Has been afebrile. She was saturating 96-97% on room air at the time of examination. Review of Systems Review of Systems: All systems reviewed & are unremarkable except as noted in Subjective Physical Exam Physical Exam: Constitutional: No acute distress, frail-appearing HEENT: EOMI, PERRLA Respiratory system: Decreased air entry bilaterally, no wheeze, no rhonchi, po sitive crackles bilateral lower lobes CVS: S1-S2 positive, no murmurs or gallops Abdomen: Soft, nontender, nondistended, positive bowel sounds x4 Extremities: +2 pulses bilaterally radialis/ dorsalis pedis, no cyanosis, +3 pitting edema bilateral lower extremity, left medial melgar and ankle redness, positive calor Neuro: Awake alert oriented x3 Psych: Normal mood and affect G/U: Positive Mondragon Skin: no rashes, warm and dry Lymphatic: no cervical or axillary lymphadenopathy Results & Data Results & Data Vital Signs (Past 12 Hours) Vital Signs Temp Pulse Resp BP Pulse Ox O2 Del Method 06/08/22 06:30 89 13 88/51 L 98 Room Air 06/08/22 06:00 92 H 13 105/71 97 Room Air 06/08/22 05:30 93 H 21 90/54 L 97 Room Air 06/08/22 05:00 96 H 19 115/67 100 Room Air 06/08/22 04:30 96 H 19 103/59 L 95 Room Air 06/08/22 04:00 36.6 C 88 17 110/58 L 98 Room Air 06/08/22 03:30 90 19 108/70 96 06/08/22 03:00 88 13 90/64 L 96 Room Air 06/08/22 02:30 91 H 15 105/60 99 Room Air 06/08/22 02:00 88 14 89/62 L 93 Room Air 06/08/22 01:30 91 H 16 98/67 L 98 Room Air 06/08/22 01:00 95 H 18 107/62 96 Room Air 06/08/22 00:30 87 15 96/63 L 97 Room Air 06/08/22 00:00 36.4 C L 91 H 20 89/58 L 99 Room Air 06/07/22 23:30 93 H 16 111/67 97 Room Air 06/07/22 23:00 95 H 16 106/68 97 Room Air 06/07/22 22:30 97 H 17 87/56 L 100 Room Air 06/07/22 22:00 98 H 17 97/57 L 98 Room Air 06/07/22 21:30 100 H 20 97/43 L 98 Room Air 06/07/22 21:15 101 H 22 80/61 L 98 Room Air 06/07/22 21:00 102 H 18 78/52 L 98 Room Air 06/07/22 20:30 104 H 17 94/67 L 97 Room Air 06/07/22 20:17 103 H 21 91/64 L 97 Room Air 06/07/22 20:11 103 H 21 90/63 L 94 Room Air 06/07/22 20:05 103 H 18 77/55 L 97 Room Air 06/07/22 20:03 102 H 19 66/52 L 95 Room Air 06/07/22 20:00 103 H 19 61/44 L 98 Room Air 06/07/22 19:45 104 H 22 98 Room Air 06/07/22 19:36 105 H 20 68/48 L 97 Room Air 06/07/22 19:30 105 H 24 65/47 L 97 Room Air 06/07/22 19:15 36.8 C 108 H 22 83/49 L 96 Room Air 06/07/22 20:00 Room Air Laboratory Results 06/08/22 03:30 06/08/22 03:30 Coding Level of Care Code 59310 CRITICAL CARE 1ST 30-74M Diagnoses Cardiogenic shock R57.0 Pulmonary embolism I26.99 Cellulitis L03.90 LV dysfunction I51.[address] elevation on ECG R94.31 STEMI (ST elevation myocardial infarction) I21.3 Bilateral pleural effusion J90 Renal mass N28.89 LVH (left ventricular hypertrophy) I51.7 Colon cancer metastasized to multiple sites C18.9 Anxiety F41.9 Time Spent (min) 55
[2022-06-08] MEDS: ICU Protocol for HYPERglycemia SCH ×4 (08:06→20:20)
[2022-06-08] MEDS: ASPIRIN 81 MG ECTAB PO SCH (08:21)
[2022-06-08] MEDS ORDERED: CHOLECALCIFEROL 1,000 UNITS 25 MCG TAB PO SCH (09:00)
[2022-06-08] MEDS ORDERED: PANTOprazole 40 MG TAB PO SCH (09:00)
--- NOTE | 2022-06-08 09:00 | Ultrasound Report ---
US venous doppler LE BI CLINICAL HISTORY: DVT TECHNIQUE: Left lower extremity real-time compression venous ultrasound with Color Doppler imaging. U tilizing real-time ultrasonic imaging multiple real time high-resolution ultrasonic images with compr ession and noncompression maneuvers of the deep venous system in addition to color doppler imaging we re performed from the common femoral vein through the proximal calf veins. COMPARISON: None available at the time of this dictation. FINDINGS/IMPRESSION: The peroneal veins appear thrombosed, no definite blood flow is seen. Evaluation of the remaining stephen f veins is limited due to soft tissue edema. ACT 112: Negative or not required by law. Electronically signed by: Ramón Ortez M.D. 06/08/2022 8:58 AM
[2022-06-08] MEDS ORDERED: PERFLUTREN LIPID MICROSPHERE (DEFINITY) IV ONE (09:47)
[2022-06-08 10:53] LABS: Partial Thromboplastin Ratio 2.1
[2022-06-08 10:57] LABS: Partial Thromboplastin Time 56.9 Seconds (21.0-31.0)
--- NOTE | 2022-06-08 11:53 | Cardiology Progress Note ---
Date of Service June 08, 2022 Assessment & Plan (1) ST elevation on ECG: Plan 2. New LV dysfunction -- EF 45-50%. anteroseptal, apical septal wall motion. 3. Metastatic cancer with large pelvic mass 4. Hypoalbuminemia/Anasarca/moderate pleural effusions 5. Subsegmental PEs 6. WILMER 7. Cellulitis 8. Anemia Patient remains chest pain free. Electrically stable. Troponin peaked. Minimal elevation. Echo shows new wall motion abnormality but overall function only mildly reduced. Based on troponin/symptoms low suspicion trop elevation represents high risk ACS. May all be stress-induced. Limited potential benefit from cardiac cath. Patient has impressive LVOT gradient obstruction on Echo and filling pressures appear low, IVC flat. Recommend additional volume and stopping inotropes. If needs pressors would start phenylepherine. -- Continue ASA/Heparin -- Additional volume, wean norepi -- Low dose beta-jim at some point if BP allows -- No plans for cardiac catheterization. Will follow Admission and Anticipated Discharge Date Admission Date: June 07, 2022 Subjective Denies chest pain or shortness of breath this morning. Telemetry reviewed -- no events. Remains on minimal norepinephrine this AM. Trop peaked at 590. Echo this AM - EF ~50% with new mid anteroseptal, apical septal hypokinesis. Severe LVOT obstruction Peak gradient > 130. IVC flat. Review of Systems Review of Systems: All systems reviewed & are unremarkable except as noted in HPI & below Physical Exam Physical Exam: General: Comfortable HEENT: Sclerae anicteric Lungs: Decreased breath sounds at bases bilaterally, clear anteriorly Cardiac: Regular 2/6 SOCORRO Abdomen: Soft, nontender Extremities: Distal extremities warm, 3+ edema extending to thighs, erythema al kenneth posterior/medial lower leg Psych: Alert oriented, pleasant Results & Data Vital Signs (Past 12 Hours) Vital Signs Temp Pulse Resp BP Pulse Ox O2 Del Method 06/08/22 06:30 89 13 88/51 L 98 Room Air 06/08/22 06:00 92 H 13 105/71 97 Room Air 06/08/22 05:30 93 H 21 90/54 L 97 Room Air 06/08/22 05:00 96 H 19 115/67 100 Room Air 06/08/22 04:30 96 H 19 103/59 L 95 Room Air 06/08/22 04:00 97.9 F 88 17 110/58 L 98 Room Air 06/08/22 03:30 90 19 108/70 96 06/08/22 03:00 88 13 90/64 L 96 Room Air 06/08/22 02:30 91 H 15 105/60 99 Room Air 06/08/22 02:00 88 14 89/62 L 93 Room Air 06/08/22 01:30 91 H 16 98/67 L 98 Room Air 06/08/22 01:00 95 H 18 107/62 96 Room Air 06/08/22 00:30 87 15 96/63 L 97 Room Air 06/08/22 00:00 97.5 F L 91 H 20 89/58 L 99 Room Air PG Care Time/CCT Total # of Minutes Spent Total Time Spent with Patient: Total time spent is greater than 50% in coordination of care (as documented) at patient's floor/unit and/or counseling patient: Coding Level of Care Code 47558 SUB INP/OBS CARE 3/50MIN Diagnoses ST elevation on ECG R94.31
--- NOTE | 2022-06-08 13:08 | Palliative Care Consultation ---
Date of Consultation June 08, 2022 Assessment & Plan (1) Palliative care by specialist: Met with pt/family. Provided overview of Palliative Medicine, a subspecialty that provides specialized medical care for people living with a serious illness by offering a focus on quality of life. Palliative Medicine is often conflated with hospice: I advised patient/family that Palliative and hospice can be partners but we are not the same. It is important to understand the difference so that we may be informed, and not afraid. Palliative Medicine works to improve QOL through reduction of symptom burden/more control over their illness, for both the patient and family. Palliative medicine clinicians are board certified, specially-trained and another member of the patient's medical care team. We often provide an extra layer of support because our care is based on the needs of the patient, not the prognosis; as such, it's appropriate at any age/advancing stage of a serious illness and can be provided along with curative treatment. Palliative Medicine clinicians are also trained in advanced communication methodologies, to facilitate complex discussions about advanced illness planning, which are needed to help assure that the treatment choices match the patient's goals, aka delivering Goal Concordant care. Finally, we discussed that hospice is a visiting nurse service that focuses on care delivered at the very end of life for patients with terminal illness, with life expectancy less than 6 month. (2) Advanced care planning/counseling discussion: I met with pt and son [id number] at bedside for 45 minutes.. Her memory is very poor, she was not a reliable historian. Son fixated on getting fluid removed --> await cytology --> await oncology input to see if another chemo can be given etc. I attempted to discuss CODE STATUS which son fairly quickly dismissed. I reviewed CPR survival: Only about 10% of patients who have [id number] sudden cardiac arrest survive to hospital discharge, with many survivors having neurologic impairment. This rate is even lower among patients with serious coexisting conditions, ie chance of survival to hospital discharge for in- hospital CPR in older people is low to moderate (15%) and decreases with age, comorbidities, performance status and frailty: for pts > 70 yo, more than half of the patients who initially survived resuscitation in the hospital before hospital discharge. The pooled survival to discharge after in-hospital CPR was 18% for patients between 70 and 79 years old, 15% for patients between 80 and 89 years old and 11% for patients of 90 years and older. (Joe RILEYY, Pratik LJ, Lupis F, et al. Trends in short- and long-term survival among [id number]-[id number] cardiac arrest patients alive at hospital arrival. Circulation 2014;130:1883- 1890. AND Rivas Brewer, Jammie T, Alexandru Escobar, et al. Performance of clinical risk scores to predict mortality and neurological outcome in cardiac arrest patients. Resuscitation 2019;136:21-29.) Son advised me that he understands and appreciates the information provided. 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 She tells me some of her patented work included the creation of a synthetic lung. Her son is a retired physicist he was segued from there are to [employer] related work. Son shares that since patient's COVID infection last December, her memory has been failing and her recall has steadily declined. She has needed more help at home. They have been working with the [facility] to get her approved through the waiver program for additional caregiver hours. He states that he was recently told she would be approved for more hours and he is anticipating getting 24 hours of caregiver support however he has not been advised at this point the [facility] nor has he received any confirmation of same. I have asked CM to look into this for him. Son asked me what my opinion was on the current situation and I replied I feel the changes we are seeing is from worsening cancer and it may be time to shift focus to comfort and QOL with addition of hospice. I also recommended no code and advised I do not believe she would v from CPR/MV at current baseline if at all she survived the event. He expressed appreciation for the transparency of our discussion today and stated he will be speaking further with his family. (3) Cardiogenic shock: (4) Metastatic cancer: (5) Generalized weakness: (6) Pleural effusion, right: (7) Colon cancer metastasized to multiple sites: Plan Patient is awake and alert, however her recall is very poor and she is not a reliable historian. She is not able to follow a very detailed conversation and will become tangential or revert to a story of her life in [place]. At this time she is not decisional. Her son is her surrogate decision-maker. He is not ready to make a decision about changing her CODE STATUS and for now insists that she remains a full code. Patient herself did on several occasions tell me that she is 86, has had a good life, she is old, and these are things that happen as the body ages and gets weaker. She also noted "you cannot live forever." Son's expectation for 24hr ATC caregiver thru waiver may be unrealistic given the staffing issues waiver programs have had and general lack of caregiving staff. I advised him of this but he remained steadfast that he was told by waiver program they would approve her for more hours. he lives in [facility], brother lives in [place]. They have both repeatedly asked patient to relocate closer to one of their homes I have offered her significant assistance with same. They have looked into options including town homes, assisted living or personal care. Patient refused all offers of help and remained adamant on wanting to stay in her home. This has been somewhat frustrating for her son who is here today as she feels the weight of the responsibility for making sure she has the care and support she needs but knowing that it is difficult to be as watchful as perhaps he would like when he is not here all the time and she is still. Is very clear from my discussion with patient and her son today that her son is very invested in the outcome of the cytology of fluid as well as further input from oncology. He is not willing to make any changes to her CODE STATUS though it is interesting to note she herself is indicating some awareness of the limitations of time and aging. He tells me that he will try to discuss CODE STATUS with her further today in hopes that by breaking it up into smaller conversations he may be able to get a more definitive answer from her. Thank you for allowing us to participate in the ongoing care of this patient. Please don't hesitate to call or page with any additional concerns. Dr. Catherine Guillermo DNP Director, Palliative Care History of Present Illness Reason for Consultation: Metastatic colon CA, Stemi, cardiogenic shock Attending Physician: Vasquez Dyer DO History of Present Illness The patient is a pleasant 86-year-old woman with a past medical history of metastatic colon cancer undergoing chemotherapy, history of rheumatic heart disease, diastolic heart failure, history of dynamic LV outflow obstruction, hypertension, hyperlipidemia, hypercalcemia who presents to emergency department via EMS after home physical therapy was concerned due to the patient's generalized weakness with increased edema of her lower extremities with concern for cellulitis and noting her heart rate to be fast. The patient is a poor historian and denies any particular complaints and reports that she was surprised that she was referred to the emergency department. The patient was recently admitted to this facility from 04/28-05/04 for generalized weakness. Echocardiogram at that time demonstrated hyperdynamic LV with no regional wall motion abnormalities moderate concentric LVH is seen. EF was > 70%. On arrival to the emergency department the patient is fatigued appearing but no acute distress, afebrile with heart rate initially in the 180s in triage but subsequently down to the 130s upon arrival to the critical care bay. Blood pressure initially soft in the 90s/60s. She has diminished breath sounds of the posterior lower lung mckee. She has 3+ bilateral lower extremity edema with mild erythema warmth and tenderness of a 15 cm region of the medial aspect of the right lower leg. Otherwise she does exhibit mottling of her extremities. She exhibits dry mucous membranes. Given the patient's presentation sepsis protocols were initiated. She was treated with IV fluid hydration cautiously given her history of CHF and was given 500 cc of normal saline x2 with improvement in her heart rate to the 110s. EKG demonstrates sinus tachycardia with anterior ST elevations however with deep preceding Q waves, new from prior. Chest x-ray demonstrates vascular congestion with bilateral pleural effusions and dependent atelectasis. Patient upon repeat evaluation denies chest pain or complaints otherwise. I-STAT creatinine was at baseline. No acute abnormalities on her i-STAT BMP. However her lactic acid did initially result at 4. Unfortunately while the patient's initial blood work was obtained on arrival there was delay in processi ng but eventually did result. WBC 3.1K similar to prior values. H/H and platelets within normal limits. VBG unremarkable with pH of 7.39. Serum chemistry with creatinine of 1.35 similar to recent values though increased from prior baseline. Electrolytes without significant abnormality. Albumin continues to be low at 2.9. LFTs unremarkable. Procalcitonin was not elevated. Repeat lactic acid following IV fluid hydration improved to 2.9. High-sensitivity troponin 270 up from 90-100 on last admission. UA with contamination and no convincing evidence of infection. COVID-19 RNA, PAMELLA test was negative. CTA of the chest and abdomen pelvis were performed. Findings demonstrate subsegmental bilateral pulmonary embolism and large bilateral pleural effusions increased from last month. Patient was treated empirically for cellulitis with IV ceftriaxone. I did review the patient's presentation with her son over the phone who lives in [place] and was in route to the hospital. He did confirm that on the patient's recent hospitalization she had been full code. However he does acknowledge that they need to address/discuss her CODE STATUS/goals of care specifically and alludes to the idea that this may change however for now the patient will remain full code. IV heparin ordered for treatment of pulmonary embolism. Case was d/w Dr. Bartlett, [facility] hospitalist who will evaluate the patient for admission. I was then notified by nursing that the patient's blood pressure was declining down to 70s/50s though no change in the patient's mentation. She was subsequently provided with thigh-high compression stockings and third 500 cc normal saline bolus which did result in improvement in her blood pressure to the 90s/60s. I did subsequently perform a limited bedside echo which demonstrated what appeared to be new apical wall motion abnormality when compared to previous echo which had no wall motion abnormality. Repeat EKG with improved heart rate to the 110s and with persistence of previous ST elevation and deep Q waves. Thus, concern for ACS versus possible Takotsubo's cardiomyopathy in the context of the patient's presentation. Case was discussed with Dr. Gomez [place] int erventional cardiology appreciate consultation and recommendations following evaluation at the bedside. We agree that given the patient's numerous comorbidities it is reasonable to defer acute intervention at this time as unlikely to improve prognosis. Plan to continue supportive care. Further management per admitting team who is aware. Allergies Allergy/AdvReac Type Severity Reaction Status Date / Time cinacalcet AdvReac Intermediate SE- Verified 06/07/22 13:17 Urinary frequency, Chills Home Medications Medication Instructions Recorded Confirmed Type aspirin 81 mg tablet,delayed 81 mg PO DAILY #30 tabs 11/13/18 06/07/22 History release cholecalciferol (vitamin D3) 50 50 mcg PO DAILY #90 caps 04/19/22 06/07/22 Rx mcg (2,000 unit) capsule ondansetron HCl 8 mg tablet 8 mg PO Q8H PRN nausea and 04/22/22 06/07/22 Rx vomiting #30 tabs famotidine 20 mg tablet 20 mg PO BID #60 tabs 05/03/22 06/07/22 Rx mirtazapine 15 mg tablet 15 mg PO HS #30 tabs 05/03/22 06/07/22 Rx omeprazole 20 mg capsule,delayed 20 mg PO DAILY #90 caps 05/27/22 06/07/22 Rx release acetaminophen 325 mg tablet 325 mg PO TID PRN pain or fever 06/07/22 06/07/22 Rx (Tylenol) #30 tabs latanoprost 0.005 % eye drops 1 drp OPL HS 06/07/22 06/07/22 History valsartan 160 1 tab PO DAILY 06/07/22 06/07/22 History mg-hydrochlorothiazide 25 mg tablet Patient History Medical History (Updated 06/08/22 @ 16:44 by Catherine Guillermo DNP) Advanced care planning/counseling discussion 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 - conservative mgmt, plan to re-evaluate if double vision recurs per records- follows with cardio Carotid atherosclerosis Chronic diastolic CHF (congestive heart failure) Chronic diastolic CHF (congestive heart failure) Colon cancer Diagnosed 02/2018--s/p colectomy 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 Contact with and (suspected) exposure to other viral communicable diseases COVID-19 Dermatitis Elevated troponin History of hyperparathyroidism Sx 10/2019 Hyperlipidemia Hypertension Hypokalemia Insomnia Left ventricular outflow obstruction Mild per 2018 ECHO (peak velocity 1.5m/s)- no evidence of aortic stenosis Mild mitral regurgitation Mild to moderate per 2018 ECHO Palliative care by specialist Pleural effusion, right Vision problems Weakness Surgical History History of bilateral cataract extraction History of colonoscopy (02/2018) History of hysterectomy History of tooth extraction under local S/P parathyroidectomy 10/30/2019 Status post laparoscopic colectomy (10/2018) lap lower anterior resection: 04/05/18: Grade view 1 with Glidescope#3, ETT 7.0 at [facility] Family History Father Throat cancer Stomach cancer Myocardial infarction Mother Kidney disease Other No family history of adverse response to anesthesia Social History Smoking Status: Never smoker Second Hand Exposure: No; Hx Alcohol Use: No Hx Substance Use: No Preferred Language: Israeli Communication Ability: Effective Visual Impairment: No Limitations Section [employer] Required: No Beliefs That Will Affect Care: None Current Living Situation: Alone current occupational status: retired Feels Safe at Home: Yes Seatbelt Use: always Assistive Devices: None Review of Systems Review of Systems: All systems reviewed & are unremarkable except as noted in Subjective and Unobtainable due to cognitive status Physical Exam Constitutional: + frail appearing and + malnourished Eyes: PERRL, conjunctivae normal, anicteric sclerae ENMT: Mouth: + dry oral mucous membranes, + dentition abnormality and + poor dentition Neck: trachea midline, no thyromegaly Respiratory: + uses accessory muscles, + cough and symmetric chest movement Auscultation: + diminished lung sounds and + crackles Cardiovascular: Heart Sounds: + murmur (loudest at sternal border with +radiates to RUSB, III-IV/) Gastrointestinal (Abdomen): Inspection/Auscultation: + abdomen distended and + high-pitched sounds Percussion/Palpation: + guarding, + abdomen rigid, + ascites, + tympanic to percussion and + fluid wave Musculoskeletal: generalized weakness Skin: + turgor decreased, + skin atrophy, + pallor and + patchy alopecia Neurologic: awake alert to self, place, year. cannot recall details of admission, repeatedly states "I am fine, nothing is wrong me just a littlemage." Lymphatic: + lymphedema (+2-3 pitting BLE edema, +1-2 edema BUE) Results & Data Vital Signs (Past 12 Hours) Vital Signs Temp Pulse Resp BP Pulse Ox O2 Del Method 06/08/22 08:00 Room Air 06/08/22 06:30 89 13 88/51 L 98 Room Air 06/08/22 06:00 92 H 13 105/71 97 Room Air 06/08/22 05:30 93 H 21 90/54 L 97 Room Air 06/08/22 05:00 96 H 19 115/67 100 Room Air 06/08/22 04:30 96 H 19 103/59 L 95 Room Air 06/08/22 04:00 36.6 C 88 17 110/58 L 98 Room Air 06/08/22 03:30 90 19 108/70 96 04//23 03:00 88 13 90/64 L 96 Room Air 06/08/22 02:30 91 H 15 105/60 99 Room Air 06/08/22 02:00 88 14 89/62 L 93 Room Air 06/08/22 01:30 91 H 16 98/67 L 98 Room Air PG Care Time/CCT Total # of Minutes Spent Total Time Spent: 100 Total Time Spent with Patient: Total time spent is greater than 50% in coordination of care (as documented) at patient's floor/unit and/or counseling patient: I spent 100 minutes overall addressing this case: 15 in medical data review/discussion with referring provider(s) and/or preparation for the visit 20 in direct interaction with the patient 45 Advance Care Planning/Goals of Care discussions as detailed above in note (must be >16min) 10 in subsequent review and synthesis of assessment and plan 10 in communicating with other providers regarding the patient's case: nursing, care mgt, primary team Prolonged Care Time Prolonged Care Time: Yes Advanced Care Planning 58395 Advanced Care Planning 30 Min 12362 Advanced Care Planning Additional 30 [place] [address] IN/OBS CONSULT LVL 5,80M Patient Type New Medical Decision Making High Complexity Diagnoses Palliative care by specialist Z51.5 Advanced care planning/counseling discussion Z71.89 Cardiogenic shock R57.0 Metastatic cancer C79.9 Generalized weakness R53.1 Pleural effusion, right J90 Colon cancer metastasized to multiple sites C18.9 Additional Codes Prolonged Care Time - Prolonged Care Time: Yes ([id number]) Advanced Care Planning - 13136 Advanced Care Planning 30 Min: 35667 Advanced Care Planning 30 Min ([id number]) Advanced Care Planning - 70819 Advanced Care Planning Additional 30 Min: 04204 Advanced Care Planning Additional 30 Min ([id number])
[2022-06-08] MEDS: ceFAZolin 1000MG 1,000 MG/7.5 ML SYR IV SCH (13:48)
[2022-06-08] MEDS ORDERED: STAT IV Infusion **Titration per Protocol STA (14:10)
[2022-06-08 14:18] LABS: Partial Thromboplastin Ratio 1.8
[2022-06-08 14:22] LABS: Partial Thromboplastin Time 48.2 Seconds (21.0-31.0)
[2022-06-08] MEDS: FAMOTIDINE 20 MG TAB PO SCH (15:11)
--- NOTE | 2022-06-08 16:21 | Hospitalist Progress Note ---
Date of Service June 08, 2022 Assessment & Plan (1) Goals of care, counseling/discussion: Plan: Patient unable to participate in goals of care discussion, palliative has been consulted, appreciate recs Given cardiogenic shock, possible stemi, and current comorbidities, prognosis is poor. Presumed full resuscitation from discussion with ER provider and prior admission for now unless changed by palliative. As such discussed with Dr Frias and will admitted to the ICU for ongoing care as likely to need phenylephrine with the need for diuresis. (2) STEMI (ST elevation myocardial infarction): Plan: Wall motion abnormality of apex on bedside echo. Worsening ST elevation in anteroseptal leads on repeat echo despite improved tachycardia. Troponins mathew peaked and are currently downtrending, no longer trending lab TTE Stat consult Dr Gomez - discussed and not planning on laboratory analyst, continue med management per cardiology recs ASA 324mg PO now, then continue on 81mg PO daily (3) Hypervolemia: Plan: She was third spacing prior to her suspected STEMI today on last admission with small pericardial and small/moderate pleural effusions, small ascites and body wall edema on CT 05/01. At that time she also had an echocardiogram on 04/29 with no regional wall motion abnormalities She received 1L NSS that admission but not excessive fluids. Suspect a component of cardiogenic edema but entire fluid status is not suspected to be cardiogenic (4) Cardiogenic shock: Plan: Discussed with ICU SWIMMING POOL INSTALLER and attending physician and will defer management of this to them once she is in the ICU. Wean pressors as able (5) Bilateral pleural effusion: Plan: Presumably malignant vs. third spacing +/- cardiogenic - surprisingly currently maintaining saturation on room air (6) Pulmonary embolism: Plan: Heparin IV drip and bolus Suspect not contributing as much as pathology above given size (7) Cellulitis: Plan: RLE. Possible diagnosis - monitor erythema. Continue cefepime. Follow up blood cultures. --> positive for strep pyogenes MRSA Nares negative (8) Colon cancer metastasized to multiple sites: Plan: Discussed with Dr Carvalho. Chemotherapy regimen dictated by [facility] [place]. Currently on FOLFORI chemotherapy regimen shich she last had on May 25. CEA repeated to aid in decision making. (9) Generalized weakness: (10) Osteoporosis: Plan VTE Prophyalxis - IV heparin Diet - NPO except ice chips and sips Disposition - admit to ICU (initial order placed to PCU prior to assessment of EKG and bedside echo and subseuqnetly transferred) Admission and Anticipated Discharge Date Admission Date: June 07, 2022 Supervising Physician Co-Signing Physician Notes I personally examined the patient and verified all chase points of history and exam, discussed case, and agree with decision making with Dr Carrol Freitas when I see her. Vitals noted. No distress when I see her. Shockper ICU. Appreciate palliative care input in assisting patient/family through goals of care/decision-making. Otherwise as above. Review of Systems Review of Systems: All systems reviewed & are unremarkable except as noted in HPI & below Results & Data Results & Data Vital Signs (Past 12 Hours) Vital Signs Pulse Resp BP Pulse Ox O2 Del Method 06/08/22 15:20 97 H 13 96 06/08/22 15:20 107/75 06/08/22 15:00 90 20 95 06/08/22 15:00 93/64 L 06/08/22 14:30 90 14 96 06/08/22 14:30 103/63 06/08/22 14:00 94 H 17 97 06/08/22 14:00 108/68 06/08/22 13:30 92 H 19 98 06/08/22 13:30 101/66 06/08/22 13:00 94 H 19 97 06/08/22 13:00 90/65 L 06/08/22 12:31 100 H 16 97 06/08/22 12:31 113/62 06/08/22 12:30 96 H 16 97 06/08/22 12:00 88 17 92 06/08/22 12:00 101/59 L 06/08/22 11:30 89 15 96 06/08/22 11:30 109/68 06/08/22 11:00 88 18 96 06/08/22 11:00 103/65 06/08/22 10:30 85 14 93 06/08/22 10:30 106/63 06/08/22 10:00 86 17 97 06/08/22 10:00 93/60 L 06/08/22 09:30 87 17 95 06/08/22 09:30 101/59 L 06/08/22 09:00 88 25 H 97 06/08/22 09:00 88/62 L 06/08/22 08:30 85 16 96 06/08/22 08:30 102/64 06/08/22 08:00 91 H 19 98 06/08/22 08:00 77/65 L 06/08/22 07:30 92 H 21 98 06/08/22 07:30 110/66 06/08/22 07:00 91 H 15 98 06/08/22 07:00 112/64 06/08/22 08:00 Room Air 06/08/22 06:30 89 13 88/51 L 98 Room Air 06/08/22 06:00 92 H 13 105/71 97 Room Air 06/08/22 05:30 93 H 21 90/54 L 97 Room Air 06/08/22 05:00 96 H 19 115/67 100 Room Air 06/08/22 04:30 96 H 19 103/59 L 95 Room Air
[2022-06-08 16:49] LABS: Partial Thromboplastin Ratio 1.8
[2022-06-08 16:51] LABS: Partial Thromboplastin Time 48.6 Seconds (21.0-31.0)
[2022-06-08] MEDS ORDERED: Nursing to Pharmacy Communication SCH (17:30)
--- NOTE | 2022-06-08 18:08 | XCELERA ---
[id number]
[2022-06-08] MEDS: HEPARIN SODIUM/DEXTROSE 25,000 UNITS/500 ML BAG IV SCH (18:39)
--- NOTE | 2022-06-08 18:56 | Billing Data ---
Date of Service June 08, 2022 Coding Level of Care Code 89111 SUB INP/OBS CARE
[2022-06-08] MEDS: LATANOPROST 0.005% OP SOLN 2.5 ML BTL OPL SCH (20:20)
[2022-06-09] MEDS ORDERED: ALBUMIN 25% 100 mL 25 GM/100 ML VIAL IV ONE (00:07)
[2022-06-09 00:25] LABS: Partial Thromboplastin Ratio 2.9
[2022-06-09 00:36] LABS: Partial Thromboplastin Time 80.2 Seconds (21.0-31.0)
[2022-06-09] MEDS: ceFAZolin 1000MG 1,000 MG/7.5 ML SYR IV SCH ×2 (01:55→14:47)
[2022-06-09 05:05] LABS: BUN Creatinine Ratio 20.1 (10-20); Calcium 7.9 mg/dl (8.6-10.3); Est GFR (African American) 33.3 ml/min; Est GFR (Non-African American) 28.7 ml/min; Magnesium 2.1 mg/dl (1.7-2.4); Phosphorus 3.1 mg/dl (2.5-4.9); Potassium 3.8 mmol/L (3.5-5.1)
--- NOTE | 2022-06-09 05:14 | Electrocardiogram Report ---
Test Reason : Blood Pressure : / mmHG Vent. Rate : 126 BPM Atrial Rate : 126 BPM P-R Int : 150 ms QRS Dur : 076 ms QT Int : 312 ms P-R-T Axes : 046 -13 055 degrees QTc Int : 451 ms Sinus tachycardia Anteroseptal infarct (cited on or before 28-APR-2022) ST elevation, consider anterior injury Nonspecific T wave abnormality Abnormal ECG When compared with ECG of 28-APR-2022 14:50, Vent. rate has increased BY 63 BPM Questionable change in initial forces of Anterior leads ST elevation now present in Anterior leads T wave inversion no longer evident in Anterolateral leads Confirmed by Rich Moore ([id number]) on 06/09/2022 5:14:18 AM Referred By: Confirmed By:Rich Moore
--- NOTE | 2022-06-09 05:27 | Electrocardiogram Report ---
Test Reason : Blood Pressure : / mmHG Vent. Rate : 114 BPM Atrial Rate : 114 BPM P-R Int : 160 ms QRS Dur : 078 ms QT Int : 312 ms P-R-T Axes : 076 012 031 degrees QTc Int : 430 ms Sinus tachycardia Anteroseptal infarct (cited on or before 28-APR-2022) ST elevation, consider anterior injury pattern Abnormal ECG When compared with ECG of 07-JUN-2022 12:57, No significant change was found Confirmed by Rich Moore ([id number]) on 06/09/2022 5:27:17 AM Referred By: REFERRED SELF Confirmed By:Rich Moore
[2022-06-09 05:31] LABS: Partial Thromboplastin Ratio 2.3
[2022-06-09 05:36] LABS: Partial Thromboplastin Time 64.5 Seconds (21.0-31.0)
[2022-06-09] MEDS ORDERED: PLASMA-LYTE A 500 ML IV ONE (05:47)
[2022-06-09 06:02] LABS: Basophils # (auto) 0.03 K/uL (0-0.2); Basophils % (auto) 0.6 %; Hematocrit (blood only) 28.4 % (37.0-47.0); Hemoglobin 9.5 g/dl (12.0-16.0); Immature Granulocytes # (auto) 0.02 K/uL (0.01-0.20); Immature Granulocytes % (auto) 0.4 %; Lymphocytes # (auto) 0.51 K/uL (1.2-3.4); Lymphocytes % (auto) 10.8 %; Mean Corpuscular Hemoglobin 32.3 pg (25.0-34.0); Mean Corpuscular Hgb Conc 33.5 g/dL (32.0-36.0); Mean Corpuscular Volume 96.6 fL (80.0-100.0); Mean Platelet Volume 11.4 fL (9.4-12.4); Monocytes % (auto) 8.5 %; Neutrophils # (auto) 3.76 K/uL (1.40-6.50); Neutrophils % (auto) 79.7 %; Platelet Count 154 K/uL (130-400); RDW Coefficient of Variation 15.9 % (11.5-14.5); RDW Standard Deviation 55.5 fL (36.4-46.3); Red Blood Count 2.94 M/uL (4.20-5.40); White Blood Count 4.72 K/ul (4.8-10.8)
--- NOTE | 2022-06-09 07:27 | Critical Care Progress Note ---
Date of Service June 09, 2022 Assessment & Plan (1) Cardiogenic shock: (2) Pulmonary embolism: (3) Cellulitis: (4) LV dysfunction: (5) Metastatic cancer: (6) ST elevation on ECG: (7) STEMI (ST elevation myocardial infarction): (8) Bilateral pleural effusion: (9) Renal mass: (10) LVH (left ventricular hypertrophy): (11) Colon cancer metastasized to multiple sites: (12) Anxiety: Plan Reason Critically Ill: 86-year-old female with metastatic colon cancer (undergoing palliative chemo), presents to the ICU following STEMI and cardiogenic shock, currently undergoing medical management and starting on vasopressor support. Patient also volume overloaded with large pleural effusions bilaterally and ascites and undergoing diuresis as well. Neuro - Anxiety disordercontinue home meds Cardiac - -- Shock --> resolved Multifactorial Does have right lower extremity cellulitis with bacteremia Left ventricular wall motion abnormalities along with LVOT obstruction Troponins have peaked and trending down. Per interventional cardiology, patient would be poor candidate for emergent PCI and continuing with medical management with heparin drip. --HTN hold home meds --HLD continue statin Respiratory - -- Pulmonary embolism Bilateral subsegmental pulmonary embolism seen on CTA chest. No evidence of right heart strain, Saturating 98% on room air Hypotension is likely from sepsis and cardiogenic in etiology Continue with heparin drip. -- Pleural effusions large bilateral pleural effusions seen on CTA chest GI - PPI Metastatic colorectal cancer first diagnosed in 2018 and undergoing treatment with single agent Xeloda. No significant change in mass size from early April. Patient goals of care with chemo appear to be palliative. RENAL/LYTES - -- CKD --> Worsening Creatinine 1.3 at baseline. Avoid nephrotoxic medication Diuresis as feasible - Foleystrict I's and O's ENDO - Continue with ICU hypoglycemia protocol HEME - -- Issues with anticoagulation with heparin Working with pharmacy and anticoagulation clinic H&H stable, monitor routine CBC ID - -- Cellulitis with strep pyogenous bacteremia -Procalcitonin within normal limit -Cefepime changed to Ancef on 06/08/2022 --Prophylaxis VTE: Heparin drip GI: Pepcid Lines: Left-sided port, peripheral, Mondragon Diet: Cardiac clear liquid Plan: In/out: +958, urine output 382 Continue with antibiotics. Heparin drip again has been on hold. We will repeat PTT around 11 AM and if it is less than double the normal limit we will perform a paracentesis as well as thoracentesis Given the elevated creatinine, I will give the patient albumin which will help decrease the third space and get intravascular volume up. This will also help with the paracentesis and thoracentesis that we able to perform today. Potassium being replaced Case was discussed with patient's son, [place] at bedside I have personally spent 44 minutes of critical care time in the direct management of this patient. This is a life/limb threatening event. This includes time spent evaluating patient, direct bedside care, chart review, placing orders, interpretation of diagnostic studies, discussion with consultants, patient, and family members, as well as other required patient management activities. This time is exclusive of all separately billable procedures, and teaching time and separate from and in addition to any other critical care service time. Please note the above document was generated using voice recognition software. It may contain grammatical, syntax or spelling errors. Admission and Anticipated Discharge Date Admission Date: June 07, 2022 Subjective Patient seen and examined at bedside. No acute distress, no adverse events overnight Patient was little upset today and was asking to go home She was off of vasopressors since last night. MAP is in the high 60s. Denies any nausea vomiting No shortness of breath Has been afebrile. Urine output has gone down in the last 12 hours. Review of Systems Review of Systems: All systems reviewed & are unremarkable except as noted in Subjective Physical Exam Physical Exam: Constitutional: No acute distress, frail-appearing HEENT: EOMI, PERRLA Respiratory system: Decreased air entry bilaterally, no wheeze, no rhonchi, positive crackles bilateral lower lobes CVS: S1-S2 positive, positive 3 out of 6 systolic murmur appreciated best at the apex Abdomen: Soft, nontender, distended, positive bowel sounds x4 Extremities: +2 pulses bilaterally radialis/ dorsalis pedis, no cyanosis, +3 pitting edema bilateral lower extremity, left medial melgar and ankle redness, positive calor Neuro: Awake alert oriented x3 Psych: Normal mood and affect G/U: Positive Mondragon Skin: no rashes, warm and dry Lymphatic: no cervical or axillary lymphadenopathy Results & Data Results & Data Vital Signs (Past 12 Hours) Vital Signs Temp Pulse Resp BP Pulse Ox O2 Del Method O2 Flow Rate 06/09/22 06:00 90 16 110/67 96 Nasal Cannula 2 06/09/22 05:00 87 16 99/61 L 91 Room Air 06/09/22 04:00 36.5 C 95 H 13 94/61 L 92 Room Air 06/09/22 03:00 93 H 16 86/51 L 93 Room Air 06/09/22 02:00 96 H 16 105/58 L 95 Room Air 06/09/22 01:00 98 H 20 98/65 L 96 Room Air 06/09/22 00:00 36.5 C 99 H 14 93/64 L 95 Room Air 06/08/22 23:00 100 H 16 103/66 94 Room Air 06/08/22 22:00 95 H 18 93/65 L 99 Room Air 06/08/22 21:00 104 H 15 96/67 L 97 Room Air 06/08/22 20:00 36.4 C L 99 H 16 102/73 97 Room Air 06/08/22 20:00 Room Air Laboratory Results 06/09/22 04:26 06/09/22 04:26 Coding Level of Care Code 72225 CRITICAL CARE 1ST 30-74M Diagnoses Cardiogenic shock R57.0 Pulmonary embolism I26.99 Cellulitis L03.90 LV dysfunction I51.[address] elevation on ECG R94.31 STEMI (ST elevation myocardial infarction) I21.3 Bilateral pleural effusion J90 Renal mass N28.89 LVH (left ventricular hypertrophy) I51.7 Colon cancer metastasized to multiple sites C18.9 Anxiety F41.9 Time Spent (min) 44
[2022-06-09] MEDS: ICU Protocol for HYPERglycemia SCH ×3 (08:12→16:05)
[2022-06-09] MEDS: FAMOTIDINE 20 MG TAB PO SCH (08:13)
[2022-06-09] MEDS: PHENYLEPHRINE/NSS 25 MG/250 ML BAG IV SCH ×3 (08:14→14:50)
[2022-06-09] MEDS: ALBUMIN 25% 100 mL 25 GM/100 ML VIAL IV SCH ×2 (09:15→10:44)
[2022-06-09] MEDS: ASPIRIN 81 MG ECTAB PO SCH (10:01)
[2022-06-09] MEDS ORDERED: ALBUMIN 5% 500 ML IV ONE ×2 (10:30→17:23)
[2022-06-09] MEDS: ALBUMIN 5% 250 ML IV SCH ×2 (10:45→12:27)
[2022-06-09] MEDS ORDERED: POTASSIUM CHLORIDE / WTR 20 MEQ/100 ML PLCT IV ONE (10:55)
--- NOTE | 2022-06-09 11:45 | Cardiology Progress Note ---
Date of Service June 09, 2022 Assessment & Plan (1) ST elevation on ECG: Plan 2. New LV dysfunction -- EF 45-50%. anteroseptal, apical septal wall motion. 3. Metastatic cancer with large pelvic mass 4. Hypoalbuminemia/Anasarca/large pleural effusions 5. Subsegmental PEs 6. WILMER 7. Cellulitis 8. Anemia 9. Severe LVOT obstruction Remains chest pain-free. Hemodynamically, electrically stable off pressors. Remains grossly edematous, renal function decline, limited urine output Continued supportive care from a cardiac standpoint Agree with additional albumin Low-dose beta-jim when BP allows Admission and Anticipated Discharge Date Admission Date: June 07, 2022 Subjective Patient denies pain today. She states she just does not want to be here and is begging to go home. Telemetry reviewedbrief episode of SVT otherwise no events Review of Systems Review of Systems: All systems reviewed & are unremarkable except as noted in HPI & below Physical Exam Physical Exam: General: Sleeping HEENT: Sclerae anicteric Lungs: Decreased breath sounds at bases bilaterally, clear anteriorly Cardiac: Regular distant heart sounds, 2/6 SOCORRO Abdomen: Soft, nontender Extremities: Distal extremities warm, 3+ edema extending to thighs, erythema along right posterior/medial lower leg Psych: Alert oriented Results & Data Vital Signs (Past 12 Hours) Vital Signs Temp Pulse Resp BP Pulse Ox O2 Del Method O2 Flow Rate 06/09/22 09:00 87 15 98 Nasal Cannula 06/09/22 09:00 104/66 06/09/22 08:00 93 H 24 97 Nasal Cannula 06/09/22 08:00 95/68 L 06/09/22 07:00 88 14 96 Nasal Cannula 06/09/22 07:00 96/65 L 06/09/22 06:00 90 16 110/67 96 Nasal Cannula 2 06/09/22 05:00 87 16 99/61 L 91 Room Air 06/09/22 04:00 97.7 F 95 H 13 94/61 L 92 Room Air 06/09/22 03:00 93 H 16 86/51 L 93 Room Air 06/09/22 02:00 96 H 16 105/58 L 95 Room Air 06/09/22 01:00 98 H 20 98/65 L 96 Room Air 06/09/22 00:00 97.7 F 99 H 14 93/64 L 95 Room Air PG Care Time/CCT Total # of Minutes Spent Total Time Spent with Patient: Total time spent is greater than 50% in coordination of care (as documented) at patient's floor/unit and/or counseling patient: Coding Level of Care Code 15961 SUB INP/OBS CARE 3/50MIN Diagnoses ST elevation on ECG R94.31
[2022-06-09 12:55] LABS: INR 1.4 (0.9-1.1); Prothrombin Time 14.3 Seconds (9.0-12.0)
--- NOTE | 2022-06-09 12:58 | Communication Note ---
Date of Service: June 09, 2022 Palliative Medicine Brief Note Case reviewed with med onc this morning, Dr Caballero spoke with son at length last night. Son would like to wait for results of cytology and understands that if ++ for malignancy this would be a indicator of overall of higher mortality/poor outcomes and that if further cancer directed therapy is desired then she will need to first complete rehab and optimize PS and strength before chemo would be reconsidered. Dr. Caballero notes that goals for chemo would remain palliative, not curative , and that its toxicities may hasten her mortality vs a more palliative approach which may allow a longer survival without the risks of toxicity associated complications. Patient's son does not want a Palliative medicine driven plan of care at this time nor does he wish to change code status. Patient remains without decisional capacity. For now, I will sign off and remain available for re engagement if needed. TS 22min Thank you for allowing us to participate in the ongoing care of this patient. Please don't hesitate to call or page with any additional concerns. Dr. Catherine Guillermo DNP Director, Palliative Care
[2022-06-09 13:30] LABS: Partial Thromboplastin Time 56.2 Seconds (21.0-31.0)
[2022-06-09] MEDS ORDERED: PHYTONADIONE 5 MG in DEXTROSE 5% 50 ML IV ONE (14:18)
[2022-06-09] MEDS ORDERED: ALBUMIN 5% 250 ML IV ONE ×2 (17:17→18:15)
--- NOTE | 2022-06-09 17:21 | Procedure Note ---
Procedure Note Date of Service June 09, 2022 Note Procedure: Diagnostic therapeutic ultrasound-guided catheter paracentesis Solution Consultant: Dr. Scott Frias Indication: Ascites Consent: Signed by patient and verified with timeout prior to procedure Anesthesia: 1% lidocaine without epinephrine local. Procedure: Consent was verified and timeout performed. Appropriate imaging studies were reviewed prior to the procedure. Patient was placed in a supine position and limited abdominal ultrasound was performed. See separate imaging. Appropriate site for paracentesis was selected. The skin was prepped and draped in normal sterile fashion. Lidocaine was used for local analgesia. Fluid was aspirated via the finder needle. A small skin kobe was made with the scalpel and the catheter over the needle apparatus was advanced via Z technique. Using the syringe one-way valve system, a total of 2750 mL's of serous fluid was removed. Procedure was terminated due to no fluid. The catheter was removed and observed to be intact. A sterile dressing was applied. Fluid was sent for labs, culture and cytology. The patient tolerated the procedure without obvious complication Blood loss: Less than 1 cc Coding CPT Codes Pulmonary/Thoracic - Pulmonary and Thoracic: 93502 US, Chest, real time with imaging documentation ([id number]) Abdomen - Abdominal: 45473 Abdominal Paracentesis (diagnostic or therapeutic); W/O imaging ([id number]) [facility] [place] Procedure Codes (Charges) Abdomen Abdominal: 07988 Abdominal Paracentesis (diagnostic or therapeutic); W/O imaging Pulmonary/Thoracic Procedure 1: Pulmonary and Thoracic: 57375 US, Chest, real time with imaging documentation
--- NOTE | 2022-06-09 17:22 | Procedure Note ---
Procedure Note Date of Service June 09, 2022 Note Procedure: Diagnostic therapeutic ultrasound-guided catheter thoracentesis Cyber Security Analyst: Dr. Scott Frias Indication: Left Pleural effusion Consent: Signed by patient and verified with timeout prior to procedure Anesthesia: 1% lidocaine without epinephrine local. Procedure: Consent was verified and timeout performed. Appropriate imaging studies were reviewed prior to the procedure. Patient was placed in a seated position and limited thoracic ultrasound was performed of the left chest. See separate imaging. Appropriate site above the diaphragm for thoracentesis was selected. The skin was prepped and draped in normal sterile fashion. Lidocaine was used for local analgesia. Fluid was aspirated via the finder needle. A small skin kobe was made with the scalpel and the catheter over the needle apparatus was advanced over the rib into the pleural space. Using the syringe one-way valve system, a total of 1100 mL's of serous fluid was removed. Procedure was terminated due to discomfort. The catheter was removed and observed to be intact. A sterile dressing was applied. Post procedure chest x-ray was ordered. Good lung sliding was appreciated on the ultrasound postprocedure Fluid was sent for labs, culture and cytology. Complications: None Blood loss: Less than 1 cc Coding CPT Codes Pulmonary/Thoracic - Pulmonary and Thoracic: 83826 Thoracentesis w imaging ([id number]) [facility] [place]Charges) Pulmonary/Thoracic Procedure 1: Pulmonary and Thoracic: 06768 Thoracentesis w imaging
--- NOTE | 2022-06-09 17:40 | XRay Report ---
XR chest 1V portable CLINICAL HISTORY: S/P Thoracentesis COMPARISON STUDY: Chest CT and chest radiograph June 07, 2022. FINDINGS: There is no pneumothorax following left thoracentesis. Left pleural effusion has significan tly decreased in size. Right pleural effusion is again noted with right basilar opacity. A left subcl nish Cbserq-[id number] is in place. Cardiomediastinal silhouette is stable. Mild pulmonary edema is unch anged. IMPRESSION: 1. No pneumothorax following left thoracentesis. 2. Persistent mild pulmonary edema with a right pleural effusion. ACT 112: Negative or not required by law. Electronically signed by: Darryl Villanueva M.D. 06/09/2022 5:39 PM
--- NOTE | 2022-06-09 18:08 | Hospitalist Progress Note ---
Date of Service June 09, 2022 Assessment & Plan (1) Goals of care, counseling/discussion: Plan: -After discussing with palliative care and oncology, patient to determine next course of action in regards to goals of care based off of thoracentesis results. -If thoracentesis shows pleural effusion is secondary to malignant etiology, shows poor prognosis and patient will likely go a palliative/comfort route. -If nonmalignant etiology would need rehab and reconditioning prior to receiving next round of chemotherapy per oncology. -Appreciate recommendations (2) ST elevation on ECG: Plan: -Cardiology feels ST elevation is not likely to be STEMI but could be stress- induced. -Not much benefit to going to [employer] as much better be medically managed, agree with cardiology recs (3) Cardiogenic shock: Plan: -Currently in ICU and was initially on Levophed followed by phenylephrine -Management per ICU, appreciate recommendation (4) Bilateral pleural effusion: Plan: -Presumably malignant vs. third spacing +/- cardiogenic -Thoracentesis done by pulmonology today, sending for analysis (5) Pulmonary embolism: Plan: -Heparin IV drip and bolus -Suspect not contributing as much as pathology above given size (6) Cellulitis: Plan: -RLE. Possible diagnosis - monitor erythema. Continue cefepime. Follow up blood cultures. --> positive for strep pyogenes -MRSA Nares negative (7) Colon cancer metastasized to multiple sites: Plan: -Discussed with Dr Carvalho. Chemotherapy regimen dictated by [facility] out of [place]. Currently on FOLFORI chemotherapy regimen shich she last had on May 25. -Oncology discussion as above (8) Generalized weakness: (9) Osteoporosis: Plan VTE Prophyalxis - IV heparin Diet - Heart Healthy, minced and moist Disposition - ICU, awaiting thoracentesis results Admission and Anticipated Discharge Date Admission Date: June 07, 2022 Supervising Physician Co-Signing Physician Notes Chart reviewed, case discussed with Dr. Branham. Critical care and palliative care are handling all of patient's needs, I will continue to follow peripherally, happy to assist if I can be of value. Subjective Patient seen at bedside this morning. No acute events reported overnight. Patient is resting at the time of my arrival and seems to be comfortable. No new or meaningful HPI gathered this morning. Review of Systems Review of Systems: Unobtainable due to cognitive status Physical Exam Constitutional: + cachectic, + frail appearing, comfortable and + malnourished Eyes: + anicteric sclerae Neck: normal visual inspection Respiratory: no respiratory distress Auscultation: + diminished lung sounds (at the bases b/l) Cardiovascular: Rate/Rhythm: regular rate and regular rhythm Heart Sounds: + murmur Gastrointestinal (Abdomen): Percussion/Palpation: abdomen soft Musculoskeletal: Head/Neck/Chest: normocephalic and head atraumatic Results & Data Results & Data Vital Signs (Past 12 Hours) Vital Signs Pulse Resp BP Pulse Ox O2 Del Method O2 Flow Rate 06/09/22 15:06 88 06/09/22 12:00 91 H 21 99 06/09/22 12:00 92/55 L 06/09/22 11:00 85 23 100 06/09/22 11:00 96/57 L 06/09/22 10:00 88 18 95 06/09/22 10:00 101/65 06/09/22 12:15 Nasal Cannula 2 06/09/22 12:13 96 H 06/09/22 09:00 87 15 98 Nasal Cannula 06/09/22 09:00 104/66 06/09/22 08:00 93 H 24 97 Nasal Cannula 06/09/22 08:00 95/68 L 06/09/22 07:00 88 14 96 Nasal Cannula 06/09/22 07:00 96/65 L
[2022-06-09] MEDS ORDERED: Heparin IV Adult Wt-Based Low-Dose *NO* Bolus Protocol IV STA (18:12)
[2022-06-09 18:24] LABS: Albumin Level 3.2 gm/dl (3.4-5.0); Bilirubin,Total 0.4 mg/dl (0.2-1.0)
[2022-06-09 18:30] LABS: Total Protein 4.5 gm/dl (6.0-8.3)
[2022-06-09 18:40] LABS: Amylase Pleural Fluid < 10 U/L
[2022-06-09 18:46] LABS: Glucose Pleural Fluid 150 mg/dl; LDH Pleural Fluid 143 U/L; Total Protein Pleural Fluid < 3.0 gm/dl
[2022-06-09 18:48] LABS: Albumin Peritoneal Fluid 1.6 gm/dl
[2022-06-09 18:54] LABS: Total Protein Peritoneal Fluid < 3.0 gm/dl
[2022-06-09] MEDS: HEPARIN SODIUM/DEXTROSE 25,000 UNITS/500 ML BAG IV SCH (19:36)
[2022-06-09] MEDS: LATANOPROST 0.005% OP SOLN 2.5 ML BTL OPL SCH (19:37)
[2022-06-09 19:56] LABS: Appearance Pleural Fluid Clear; Color Pleural Fluid Straw; Lymphocytes, Fluid 70 %; Mono,Macrophage,Mesothelial 9 %; Neutrophils, Fluid 21 %; RBC Pleural Fluid Auto < 2000 /uL; Source Pleural Fluid Right Lung; WBC Pleural Fluid Auto 61 /uL
[2022-06-09 19:59] LABS: Appearance Peritoneal Fluid Clear; Color Peritoneal Fluid Straw; Lymphocytes, Fluid 49 %; Mono,Macrophage,Mesothelial 23 %; Neutrophils, Fluid 28 %; RBC Peritoneal Fluid Auto < 2000 /uL; WBC Peritoneal Fluid Auto 47 /ul (0-300)
--- NOTE | 2022-06-09 23:40 | Electrocardiogram Report ---
Test Reason : Blood Pressure : / mmHG Vent. Rate : 092 BPM Atrial Rate : 092 BPM P-R Int : 156 ms QRS Dur : 086 ms QT Int : 402 ms P-R-T Axes : 044 -11 046 degrees QTc Int : 497 ms Normal sinus rhythm Anteroseptal infarct (cited on or before 28-APR-2022) ST elevation, consider anterior injury Prolonged QT Abnormal ECG When compared with ECG of 07-JUN-2022 16:29, QT has lengthened Confirmed by Rich Moore ([id number]) on 06/09/2022 11:40:32 PM Referred By: REFERRED SELF Confirmed By:Rich Moore
[2022-06-10 02:49] LABS: Partial Thromboplastin Ratio > 5.1
[2022-06-10] MEDS: ceFAZolin 1000MG 1,000 MG/7.5 ML SYR IV SCH ×2 (03:03→15:01)
[2022-06-10 03:22] LABS: Partial Thromboplastin Time > 139.0 Seconds (21.0-31.0)
[2022-06-10] MEDS: PHENYLEPHRINE/NSS 25 MG/250 ML BAG IV SCH (03:42)
[2022-06-10 05:41] LABS: Partial Thromboplastin Ratio 2.9
[2022-06-10 06:17] LABS: Partial Thromboplastin Time 79.4 Seconds (21.0-31.0)
[2022-06-10 07:28] LABS: Albumin Globulin Ratio 2.4 (0.9-2); Albumin Level 2.9 gm/dl (3.4-5.0); BUN Creatinine Ratio 22.8 (10-20); Bilirubin,Total 0.4 mg/dl (0.2-1.0); Calcium 7.7 mg/dl (8.6-10.3); Creatinine Clr Calc Pharmacy 29.9 ml/min; Est GFR (African American) 43.6 ml/min; Est GFR (Non-African American) 37.6 ml/min; Globulin 1.2 gm/dl (2.5-4.0); Magnesium 2.1 mg/dl (1.7-2.4); Phosphorus 2.1 mg/dl (2.5-4.9); Potassium 3.2 mmol/L (3.5-5.1); Total Protein 4.1 gm/dl (6.0-8.3)
[2022-06-10] MEDS ORDERED: MAGNESIUM SULFATE / D5W 1 GM/100 ML BAG IV ONE (07:29)
[2022-06-10] MEDS ORDERED: POTASSIUM PHOS 3 MMOL/1 ML INFUSION IV STA (07:29)
[2022-06-10] MEDS ORDERED: POTASSIUM PHOSPHATE 24 MMOL in SODIUM CHLORIDE 0.9% 500 ML IV ONE (07:45)
[2022-06-10 08:01] LABS: Partial Thromboplastin Ratio 2.2
[2022-06-10 08:03] LABS: Partial Thromboplastin Time 61.5 Seconds (21.0-31.0)
[2022-06-10] MEDS: POTASSIUM CHLORIDE / WTR 20 MEQ/100 ML PLCT IV SCH ×2 (08:20→10:08)
[2022-06-10] MEDS: FAMOTIDINE 20 MG TAB PO SCH (08:26)
[2022-06-10] MEDS: ASPIRIN 81 MG ECTAB PO SCH ×2 (08:26→08:36)
--- NOTE | 2022-06-10 09:32 | Critical Care Progress Note ---
Date of Service June 10, 2022 Assessment & Plan (1) Cardiogenic shock: (2) Pulmonary embolism: (3) Cellulitis: (4) LV dysfunction: (5) Metastatic cancer: (6) ST elevation on ECG: (7) STEMI (ST elevation myocardial infarction): (8) Bilateral pleural effusion: (9) Renal mass: (10) LVH (left ventricular hypertrophy): (11) Colon cancer metastasized to multiple sites: (12) Anxiety: Plan Reason Critically Ill: 86-year-old female with metastatic colon cancer (undergoing palliative chemo), presents to the ICU following STEMI and cardiogenic shock, currently undergoing medical management and starting on vasopressor support. Patient also volume overloaded with large pleural effusions bilaterally and ascites and undergoing diuresis as well. Neuro - Anxiety disordercontinue home meds Cardiac - -- Shock --> resolved Multifactorial Does have right lower extremity cellulitis with bacteremia Left ventricular wall motion abnormalities along with LVOT obstruction Troponins have peaked and trending down. Per interventional cardiology, patient would be poor candidate for emergent PCI and continuing with medical management with heparin drip. --HTN hold home meds --HLD continue statin Respiratory - -- Pulmonary embolism Bilateral subsegmental pulmonary embolism seen on CTA chest. No evidence of right heart strain, Saturating 98% on room air Hypotension is likely from sepsis and cardiogenic in etiology Continue with heparin drip. -- Pleural effusions large bilateral pleural effusions seen on CTA chest Statusleft-sided thoracentesis 06/10/2022, 1100 mL serous fluid removed, follow- up cytology GI - PPI Metastatic colorectal cancer first diagnosed in 2019 and undergoing treatment with single agent Xeloda. No significant change in mass size from early April. Patient goals of care with chemo appear to be palliative. Status post paracent status 2750 mL of serous fluid removed, follow-up cytology RENAL/LYTES - -- CKD Creatinine 1.3 at baseline. Avoid nephrotoxic medication Diuresis as feasible - Foleystrict I's and O's ENDO - Continue with ICU hypoglycemia protocol HEME - -- Issues with anticoagulation with heparin Working with pharmacy and anticoagulation clinic H&H stable, monitor routine CBC ID - -- Cellulitis with strep pyogenous bacteremia -Procalcitonin within normal limit -Cefepime changed to Ancef on 06/08/2022 -Repeat blood culture 06/09/2022 negative to date --Prophylaxis VTE: Heparin drip GI: Pepcid Lines: Left-sided port, peripheral, Mondragon Diet: Cardiac clear liquid Plan: In/out: +826, urine output 775, +3 L since coming to the hospital Continue with antibiotics Hypokalemia and hypophosphatemia being replaced We will repeat PTT later today. We will plan to do right-sided thoracentesis if there is significant fluid on the right side. We will defer further anticoagulation of the patient to hematology. Patient hemodynamically stable to be downgrade to medical floor. Case was discussed with patient's son, Lake at bedside Please note the above document was generated using voice recognition software. It may contain grammatical, syntax or spelling errors.Any formal questions or concerns about the content, text or information contained within the body of this dictation should be directly addressed to the provider for clarification. Admission and Anticipated Discharge Date Admission Date: June 07, 2022 Subjective Patient seen and examined at bedside. No acute distress, no adverse events overnight Patient's map was in the 70s at the time of examination She has been off of vasopressors for more than 24 hours Denies any chest pain, no shortness of breath Breathing has improved Appetite is poor. No headache or blurry vision Review of Systems Review of Systems: All systems reviewed & are unremarkable except as noted in Subjective Physical Exam Physical Exam: Constitutional: No acute distress, frail-appearing HEENT: EOMI, PERRLA Respiratory system: Decreased air entry bilaterally, no wheeze, no rhonchi, positive crackles bilateral lower lobes CVS: S1-S2 positive, positive 3 out of 6 systolic murmur appreciated best at the apex Abdomen: Soft, nontender, distended, positive bowel sounds x4 Extremities: +2 pulses bilaterally radialis/ dorsalis pedis, no cyanosis, +3 pitting edema bilateral lower extremity, left medial melgar and ankle redness, positive calor Neuro: Awake alert oriented x3 Psych: Normal mood and affect G/U: Positive Mondragon Skin: no rashes, warm and dry Lymphatic: no cervical or axillary lymphadenopathy Results & Data Results & Data Vital Signs (Past 12 Hours) Vital Signs Temp Pulse Resp BP Pulse Ox O2 Del Method O2 Flow Rate 06/10/22 06:00 90 22 99/72 L 94 06/10/22 00:00 36.5 C 06/10/22 05:00 80 28 H 92/57 L 94 06/10/22 04:00 88 18 119/65 95 06/10/22 05:00 36.5 C 06/10/22 00:00 Nasal Cannula 2 06/10/22 03:00 78 18 108/59 L 95 06/10/22 02:00 80 23 113/67 95 06/10/22 01:00 84 24 112/66 81 L 06/10/22 00:00 82 18 111/65 90 06/09/22 23:45 81 06/09/22 22:00 84 24 96 06/09/22 22:00 114/66 06/09/22 21:30 82 16 98 06/09/22 21:30 90/58 L Laboratory Results 06/09/22 04:26 06/10/22 06:28 Coding Level of Care Code 72628 SUB INP/OBS CARE 3/50MIN Diagnoses Cardiogenic shock R57.0 Pulmonary embolism I26.99 Cellulitis L03.90 LV dysfunction I51.9 [address]79[address]9 ST elevation on ECG R94.31 STEMI (ST elevation myocardial infarction) I21.3 Bilateral pleural effusion J90 Renal mass N28.89 LVH (left ventricular hypertrophy) I51.7 Colon cancer metastasized to multiple sites C18.9 Anxiety F41.9
--- NOTE | 2022-06-10 09:43 | Hospitalist Progress Note ---
Date of Service June 10, 2022 Assessment & Plan (1) Goals of care, counseling/discussion: Plan: After discussing with palliative care and oncology, patient will determine next course of action based on thoracentesis resultsand cytology. If malignant probably would go a palliative/comfort route, if nonmalignant, rehab and reconditioning prior to follow-up with oncology/further chemotherapy. (2) ST elevation on ECG: Plan: -Cardiology feels ST elevation is not likely to be STEMI but could be stress- induced. -Not much benefit to going to [facility] as much better be medically managed, agree with cardiology recs. Fortunately stabilizing/improving. (3) Cardiogenic shock: Plan: Off of pressors, this is effectively resolved (4) Bilateral pleural effusion: Plan: Presumably malignant vs. third spacing +/- cardiogenic - surprisingly currently maintaining saturation on room air, thoracentesis initially did not show cytology, opposite side done today (5) Pulmonary embolism: Plan: Heparin IV drip and bolus Suspect not contributing as much as pathology above given size, very sensitive to heparin drip, having to follow closelyPTTs every 6 hours for now (6) Cellulitis: Plan: RLE. Improving nicely. (7) Colon cancer metastasized to multiple sites: Plan: See above. Cytology on thoracentesis pending. (8) Generalized weakness: (9) Osteoporosis: (10) STEMI (ST elevation myocardial infarction): (11) Hypervolemia: Plan VTE Prophyalxis - IV heparin Diet - Heart Healthy, minced and moist Disposition -able to move to PCU. Admission and Anticipated Discharge Date Admission Date: June 07, 2022 Subjective Discussed with ICU, patient seen at the bedside, discussed with son. For thoracentesis again later today. ICU notes that son would like cytology to be able to know what is going on with cancer, and discuss further treatment options with Dr. Caballero. Physical Exam Physical Exam: In general she is awake and alert pleasant no distress. HEENT normocephalic atraumatic mucous membranes moist. Breathing unlabored no accessory muscle use good effort. Skin shows no rashes no pallor or icterus. Neuro without focal deficits. Results & Data Results & Data Vital Signs (Past 12 Hours) Vital Signs Temp Pulse Resp BP Pulse Ox O2 Del Method O2 Flow Rate 06/10/22 06:00 90 22 99/72 L 94 06/10/22 00:00 36.5 C 06/10/22 05:00 80 28 H 92/57 L 94 06/10/22 04:00 88 18 119/65 95 06/10/22 05:00 36.5 C 06/10/22 00:00 Nasal Cannula 2 06/10/22 03:00 78 18 108/59 L 95 06/10/22 02:00 80 23 113/67 95 06/10/22 01:00 84 24 112/66 81 L 06/10/22 00:00 82 18 111/65 90 06/09/22 23:45 81 06/09/22 22:00 84 24 96 06/09/22 22:00 114/66 Resident Activity Tracking Resident Involvement: Resident Care Provided Care Provided: Adult Hospital Medicine
[2022-06-10] MEDS: ALBUMIN 5% 250 ML IV SCH ×2 (12:14→14:02)
[2022-06-10 12:56] LABS: INR 1.1 (0.9-1.1); Partial Thromboplastin Ratio 1.8; Prothrombin Time 11.9 Seconds (9.0-12.0)
[2022-06-10 13:11] LABS: Partial Thromboplastin Time 49.2 Seconds (21.0-31.0)
--- NOTE | 2022-06-10 14:39 | Cardiology Progress Note ---
Date of Service June 10, 2022 Assessment & Plan (1) ST elevation on ECG: Plan 2. New LV dysfunction -- EF 45-50%. anteroseptal, apical septal wall motion. 3. Metastatic cancer with large pelvic mass 4. Hypoalbuminemia/Anasarca/large pleural effusions 5. Subsegmental PEs 6. WILMER 7. Cellulitis 8. Anemia 9. Severe LVOT obstruction 10. Paroxysmal SVT Hemodynamically stable off pressors. No additional chest pain. Brief runs of SVT on telemetry -- No need for additional cardiac testing currently. With LVOT obstruction agree with additional albumin Low-dose beta-jim when BP allows Admission and Anticipated Discharge Date Admission Date: June 07, 2022 Subjective Reports feeling better today. No chest pain. Breathing easier. No appetitie. Post thoracentesis/paracentesis. Tele reviewed -- brief episodes of SVT 10-15 beats. Review of Systems Review of Systems: All systems reviewed & are unremarkable except as noted in HPI & below Physical Exam Physical Exam: General: Comfortable HEENT: Sclerae anicteric Lungs: Decreased breath sounds at RT base Cardiac: Regular distant heart sounds, 2/6 [place] Abdomen: Soft, nontender Extremities: Distal extremities warm, 3+ edema extending to thighs, erythema along right posterior/medial lower leg Psych: Alert oriented Results & Data Vital Signs (Past 12 Hours) Vital Signs Temp Pulse Resp BP Pulse Ox O2 Del Method 06/10/22 07:30 Room Air 06/10/22 12:30 113/68 06/10/22 12:30 88 25 H 90 06/10/22 12:18 87 21 91 06/10/22 12:18 104/69 06/10/22 12:00 85 24 94 06/10/22 11:30 109/68 06/10/22 11:30 79 22 95 06/10/22 11:00 77 19 97 06/10/22 11:00 105/68 06/10/22 10:30 102/63 06/10/22 10:30 78 14 96 06/10/22 10:35 98.8 F 06/10/22 10:15 79 17 94 06/10/22 10:00 82 26 H 94 06/10/22 10:00 109/70 06/10/22 09:45 86 26 H 95 06/10/22 09:30 81 21 94 06/10/22 09:30 96/60 L 06/10/22 09:00 82 18 92 06/10/22 09:00 98/56 L 06/10/22 08:45 83 17 95 06/10/22 08:30 83 27 H 95 06/10/22 08:30 101/65 06/10/22 08:15 84 19 98 06/10/22 08:00 84 21 98 06/10/22 08:00 101/61 06/10/22 07:45 83 16 96 06/10/22 07:30 86 25 H 93 06/10/22 07:30 103/68 06/10/22 07:15 83 18 94 06/10/22 07:00 80 23 92 06/10/22 07:00 91/57 L 06/10/22 06:00 90 22 99/72 L 94 06/10/22 05:00 80 28 H 92/57 L 94 06/10/22 04:00 88 18 119/65 95 06/10/22 05:00 97.7 F 06/10/22 03:00 78 18 108/59 L 95 PG Care Time/CCT Total # of Minutes Spent Total Time Spent with Patient: Total time spent is greater than 50% in coordination of care (as documented) at patient's floor/unit and/or counseling patient: Coding Level of Care Code 20889 SUB INP/OBS CARE 2/35MIN Diagnoses ST elevation on ECG R94.31
[2022-06-10 15:41] LABS: BUN Creatinine Ratio 24.8 (10-20); Calcium 7.5 mg/dl (8.6-10.3); Creatinine Clr Calc Pharmacy 33.6 ml/min; Est GFR (African American) 50.3 ml/min; Est GFR (Non-African American) 43.4 ml/min; Potassium 4.1 mmol/L (3.5-5.1)
--- NOTE | 2022-06-10 16:10 | Procedure Note ---
Procedure Note Date of Service June 10, 2022 Note Procedure: Diagnostic therapeutic ultrasound-guided catheter thoracentesis Training Professional: Dr. Scott Frias Indication: Right-sided pleural effusion Consent: Signed by patient and verified with timeout prior to procedure Anesthesia: 1% lidocaine without epinephrine local. Procedure: Consent was verified and timeout performed. Appropriate imaging studies were reviewed prior to the procedure. Patient was placed in a seated position and limited thoracic ultrasound was performed of the right chest. See separate imaging. Appropriate site above the diaphragm for thoracentesis was selected. The skin was prepped and draped in normal sterile fashion. Lidocaine was used for local analgesia. Fluid was aspirated via the finder needle. A small skin kobe was made with the scalpel and the catheter over the needle apparatus was advanced over the rib into the pleural space. Using the syringe one-way valve system, a total of 700 mL's of serous fluid was removed. The catheter was removed and observed to be intact. A sterile dressing was applied. Post procedure chest x-ray was ordered. Good lung sliding was appreciated postprocedure on the ultrasound Fluid was sent for labs, culture and cytology. Complications: None Blood loss: None Coding CPT Codes Pulmonary/Thoracic - Pulmonary and Thoracic: 91269 Thoracentesis w imaging ([id number]) [facility] Procedure Codes (Charges) Pulmonary/Thoracic Procedure 1: Pulmonary and Thoracic: 08997 Thoracentesis w imaging
--- NOTE | 2022-06-10 16:30 | XRay Report ---
SINGLE VIEW CHEST CLINICAL HISTORY: Status post thoracentesis. FINDINGS: An AP, portable, upright chest radiograph is compared to study dated 06/09/2022 and correlat ed with chest CT dated 06/07/2022. The examination is degraded by portable technique and patient rotat ion. A left subclavian central medicine infusion port is unchanged in position. The heart is enlarge d. Mild pulmonary vascular congestion persists. There are trace residual pleural effusions with depen dent consolidation. No pneumothorax is seen. The skeletal structures are osteopenic. There is chronic deformity of the right-sided ribs. IMPRESSION: 1. No pneumothorax is identified post procedure. 2. Cardiomegaly with mild persistent pulmonary vascular congestion. 3. Trace residual pleural effusions with dependent consolidation. ACT 112: Negative or not required by law. Electronically signed by: Zeeshan Reid M.D. 06/10/2022 4:28 PM
[2022-06-10 16:31] LABS: Bilirubin,Total 0.3 mg/dl (0.2-1.0)
[2022-06-10 16:37] LABS: Total Protein 4.1 gm/dl (6.0-8.3)
[2022-06-10 17:46] LABS: Amylase Pleural Fluid < 10 U/L
[2022-06-10 17:52] LABS: Glucose Pleural Fluid 139 mg/dl; LDH Pleural Fluid 102 U/L; Total Protein Pleural Fluid < 3.0 gm/dl
--- NOTE | 2022-06-10 18:29 | Billing Data ---
Date of Service June 10, 2022 Coding Level of Care Code 01080 SUB INP/OBS CARE
[2022-06-10 18:57] LABS: Appearance Pleural Fluid Slightly Hazy; Color Pleural Fluid Straw; Lymphocytes, Fluid 38 %; Mono,Macrophage,Mesothelial 46 %; Neutrophils, Fluid 16 %; RBC Pleural Fluid Auto < 2000 /uL; Source Pleural Fluid Right Lung; WBC Pleural Fluid Auto 151 /uL
[2022-06-10] MEDS: MIRTAZAPINE TAB 15 MG TAB PO SCH (20:54)
[2022-06-10] MEDS: LATANOPROST 0.005% OP SOLN 2.5 ML BTL OPL SCH (21:03)
--- NOTE | 2022-06-10 21:23 | Electrocardiogram Report ---
Test Reason : Blood Pressure : / mmHG Vent. Rate : 095 BPM Atrial Rate : 095 BPM P-R Int : 156 ms QRS Dur : 094 ms QT Int : 388 ms P-R-T Axes : 037 -11 053 degrees QTc Int : 487 ms Poor data quality, interpretation may be adversely affected Normal sinus rhythm Anteroseptal infarct (cited on or before 28-APR-2022) Abnormal ECG When compared with ECG of 08-JUN-2022 05:20, T wave inversion less evident in Anterior leads Confirmed by Rich Moore ([id number]) on 06/10/2022 9:23:22 PM Referred By: REFERRED SELF Confirmed By:Rich Moore
[2022-06-10 23:51] LABS: Partial Thromboplastin Ratio 1.9
[2022-06-11] MEDS: HEPARIN SODIUM/DEXTROSE 25,000 UNITS/500 ML BAG IV SCH (00:23)
[2022-06-11] MEDS: ceFAZolin 1000MG 1,000 MG/7.5 ML SYR IV SCH (03:11)
[2022-06-11 07:09] LABS: Partial Thromboplastin Ratio 1.8
[2022-06-11 07:11] LABS: Alanine Aminotransferase < 3 U/L (7-52); Albumin Globulin Ratio 1.9 (0.9-2); Albumin Level 2.7 gm/dl (3.4-5.0); Alkaline Phosphatase 53 U/L (34-104); Anion Gap 5 (3-11); Aspartate Aminotransferase 8 U/L (13-39); BUN Creatinine Ratio 25.3 (10-20); Bilirubin,Total 0.4 mg/dl (0.2-1.0); Blood Urea Nitrogen 25 mg/dl (6-23); Calcium 7.6 mg/dl (8.6-10.3); Carbon Dioxide 26 mmol/L (21-32); Chloride 109 mmol/L (98-107); Creatinine Clr Calc Pharmacy 38.4 ml/min; Est GFR (Non-African American) 50.9 ml/min; Globulin 1.4 gm/dl (2.5-4.0); Glucose 98 mg/dl (70-99(Fasting)); Magnesium 2.1 mg/dl (1.7-2.4); Phosphorus 1.9 mg/dl (2.5-4.9); Potassium 3.7 mmol/L (3.5-5.1); Sodium 140 mmol/L (136-145); Total Protein 4.1 gm/dl (6.0-8.3)
[2022-06-11 07:18] LABS: Partial Thromboplastin Time 50.7 Seconds (21.0-31.0)
[2022-06-11] MEDS: FAMOTIDINE 20 MG TAB PO SCH ×2 (09:17→20:36)
[2022-06-11] MEDS ORDERED: CALCIUM CARBONATE 500 MG CHEWABLE TAB PO PRN (10:12)
[2022-06-11 10:54] LABS: Hematocrit (blood only) 30.6 % (37.0-47.0); Hemoglobin 10.5 g/dl (12.0-16.0); Mean Corpuscular Hemoglobin 32.7 pg (25.0-34.0); Mean Corpuscular Hgb Conc 34.3 g/dL (32.0-36.0); Mean Corpuscular Volume 95.3 fL (80.0-100.0); Mean Platelet Volume 10.8 fL (9.4-12.4); Platelet Count 169 K/uL (130-400); RDW Coefficient of Variation 15.5 % (11.5-14.5); RDW Standard Deviation 54.1 fL (36.4-46.3); Red Blood Count 3.21 M/uL (4.20-5.40); White Blood Count 6.59 K/ul (4.8-10.8)
[2022-06-11 10:55] LABS: Basophils # (auto) 0.02 K/uL (0-0.2); Basophils % (auto) 0.3 %; Eosinophils # (auto) 0.01 K/uL (0-0.50); Eosinophils % (auto) 0.2 %; Immature Granulocytes # (auto) 0.12 K/uL (0.01-0.20); Immature Granulocytes % (auto) 1.8 %; Lymphocytes # (auto) 0.47 K/uL (1.2-3.4); Lymphocytes % (auto) 7.1 %; Monocytes # (auto) 0.52 K/uL (0.11-0.59); Monocytes % (auto) 7.9 %; Neutrophils # (auto) 5.45 K/uL (1.40-6.50); Neutrophils % (auto) 82.7 %
[2022-06-11 11:05] LABS: BUN Creatinine Ratio 27.1 (10-20); Calcium 7.7 mg/dl (8.6-10.3); Creatinine Clr Calc Pharmacy 39.6 ml/min; Est GFR (African American) 61.2 ml/min; Est GFR (Non-African American) 52.8 ml/min; Potassium 3.8 mmol/L (3.5-5.1)
[2022-06-11 11:14] LABS: Partial Thromboplastin Ratio 1.5; Partial Thromboplastin Time 42.4 Seconds (21.0-31.0)
[2022-06-11] MEDS: ASPIRIN 81 MG ECTAB PO SCH (11:34)
[2022-06-11] MEDS: PHENYLEPHRINE/NSS 25 MG/250 ML BAG IV SCH (15:02)
[2022-06-11] MEDS: ceFAZolin 2000MG 2,000 MG/15 ML SYR IV SCH (15:26)
[2022-06-11 17:29] LABS: Partial Thromboplastin Ratio 1.5; Partial Thromboplastin Time 39.9 Seconds (21.0-31.0)
--- NOTE | 2022-06-11 19:45 | Hospitalist Progress Note ---
Date of Service June 11, 2022 Assessment & Plan (1) Goals of care, counseling/discussion: Plan: After discussing with palliative care and oncology, patient will determine next course of action based on thoracentesis resultsand cytology. If malignant probably would go a palliative/comfort route, if nonmalignant, rehab and reconditioning prior to follow-up with oncology/further chemotherapy. (2) ST elevation on ECG: Plan: -Cardiology feels ST elevation is not likely to be STEMI but could be stress- induced. -Not much benefit to going to [facility] as much better be medically managed, agree with cardiology recs. --- Fortunately the situation has stabilized (3) Cardiogenic shock: Plan: Off of pressors, this is effectively resolved (4) Bilateral pleural effusion: Plan: Presumably malignant vs. third spacing +/- cardiogenic - surprisingly currently maintaining saturation on room air, thoracentesis initially did not show cytology, opposite side done on 06/11cytology pending (5) Pulmonary embolism: Plan: After review, appears to be a good candidate for Eliquisswitching from heparin to this tonight (6) Cellulitis: Plan: RLE. Improving nicely. Continue Ancef (7) Colon cancer metastasized to multiple sites: Plan: See above. Cytology on thoracentesis pending. With her poor appetiteson notes that the mirtazapine was helping a good bit, we discussed adding Marinol and after discussion of risk/benefit, we both thought it was reasonable to proceed. Start at 2.5 mg twice daily. (8) Generalized weakness: Plan: PT/OT eval and treat (9) Osteoporosis: (10) STEMI (ST elevation myocardial infarction): (11) Hypervolemia: Plan VTE Prophyalxis - IV heparintransition to Eliquis Diet - Heart Healthy, minced and moist Disposition -stable in PCU, anticipate dispo to SNF next week Admission and Anticipated Discharge Date Admission Date: June 07, 2022 Subjective No specific complaints, not eating very much. Breathing feels okay. Denies abdominal pain. Ongoing swelling. Son updated at the bedside to the best my ability and his satisfaction. Review of Systems Review of Systems: All systems reviewed & are unremarkable except as noted in HPI & below Physical Exam Physical Exam: In general she is awake and alert pleasant fatigued appearing but otherwise in no distress. HEENT normocephalic atraumatic mucous membranes moist. Breathing unlabored no accessory muscle use good effort. Skin shows resolving erythema right medial lower extremity. Diffuse edema bilateral lower extremities and left upper extremity. Abdomen soft nondistended nontender no masses organomegaly. CBC, CMP, mag, Phos reviewed. CBC, basic metabolic panel set for tomorrow. Results & Data Results & Data Vital Signs (Past 12 Hours) Vital Signs Temp Pulse Pulse Resp BP Pulse Ox O2 Del Method 06/11/22 16:54 98.1 F 97 H 18 104/71 98 Room Air 06/11/22 15:50 99 H 06/11/22 11:46 97.5 F L 95 H 20 112/79 96 Room Air 06/11/22 07:58 97.7 F 93 H 18 110/74 97 Room Air PG Care Time/CCT Total # of Minutes Spent Total Time Spent with Patient: Total time spent is greater than 50% in coordination of care (as documented) at patient's floor/unit and/or counseling patient: Coding Level of Care Code 69076 SUB INP/OBS CARE 3/50MIN Diagnoses Goals of care, counseling/discussion Z71.89 ST elevation on ECG R94.31 Cardiogenic shock R57.0 Bilateral pleural effusion J90 Pulmonary embolism I26.99 Cellulitis L03.90 Colon cancer metastasized to multiple sites C18.9 Generalized weakness R53.1 Osteoporosis M81.0 STEMI (ST elevation myocardial infarction) I21.3 Hypervolemia E87.70
[2022-06-11] MEDS: droNABinol 2.5 MG CAP PO SCH (20:36)
[2022-06-11] MEDS: MIRTAZAPINE TAB 15 MG TAB PO SCH (20:36)
[2022-06-11] MEDS: APIXABAN 5 MG TABLET PO SCH (20:37)
[2022-06-11] MEDS: LATANOPROST 0.005% OP SOLN 2.5 ML BTL OPL SCH (20:38)
[2022-06-11] MEDS ORDERED: ACETAMINOPHEN 500 MG TAB PO STA (21:07)
[2022-06-12] MEDS: HEPARIN SODIUM/DEXTROSE 25,000 UNITS/500 ML BAG IV SCH (00:29)
[2022-06-12] MEDS: ceFAZolin 2000MG 2,000 MG/15 ML SYR IV SCH ×2 (03:43→17:09)
[2022-06-12 06:26] LABS: Calcium 7.6 mg/dl (8.6-10.3); Creatinine Clr Calc Pharmacy 37.9 ml/min; Est GFR (African American) 55.6 ml/min; Est GFR (Non-African American) 47.9 ml/min; Phosphorus 1.8 mg/dl (2.5-4.9)
[2022-06-12] MEDS: ASPIRIN 81 MG ECTAB PO SCH (08:39)
[2022-06-12] MEDS: APIXABAN 5 MG TABLET PO SCH ×2 (08:39→20:30)
[2022-06-12] MEDS: FAMOTIDINE 20 MG TAB PO SCH ×2 (08:39→20:31)
[2022-06-12] MEDS ORDERED: ACETAMINOPHEN 500 MG TAB PO PRN (08:42)
[2022-06-12] MEDS: droNABinol 2.5 MG CAP PO SCH ×2 (08:54→20:35)
[2022-06-12] MEDS ORDERED: ONDANSETRON INJ 2 MG/ML 2 ML VIAL IV PRN (11:16)
--- NOTE | 2022-06-12 17:42 | Hospitalist Progress Note ---
Date of Service June 12, 2022 Assessment & Plan (1) Colon cancer metastasized to multiple sites: Plan: Cytology on thoracentesis pending. With her poor appetiteson notes that the mirtazapine was helping a good bit, we discussed adding Marinol and after discussion of risk/benefit, we both thought it was reasonable to proceed. Started at 2.5 mg twice daily. Still nauseatedwe will try scheduled Zofran as they were doing at home (follow EKG to follow QTc) and given that she is not having any sedationraise the Marinol 5 mg twice daily. Urine becoming quite darkBMP showing prerenal numberswhile I will go quite low, so as to not worsen her anasarca as best as possible, will start gentle sub maintenance fluids Ongoing PT/OT eval and treat, anticipate transition to SNF once it can be set up Close outpatient follow-up with oncology (2) Bilateral pleural effusion: Plan: Presumably malignant vs. third spacing +/- cardiogenic - surprisingly currently maintaining saturation on room air, thoracentesis initially did not show cytology, opposite side done on 06/11cytology pending (3) Pulmonary embolism: Plan: Was on heparinswitched to Eliquis. I opted to go straight to 5 mg twice daily rather than 10 twice daily at first for several reasons: 1) she was quite sensitive to heparin, and had to be run at very delicate rates 2) her PEs were minimally symptomatic at worst, so moving to 5 mg rather than 10 mg seem to be safer given that the PEs themselves did not seem to require much intervention/treatment, but rather more using anticoagulation in the context of a woman at high risk for progressive VTE (4) Cellulitis: Plan: RLE. Improving nicely. Continue Ancef for now, probably can treat for about 7 days total (5) Goals of care, counseling/discussion: Plan: After discussing with palliative care and oncology, patient will determine next course of action based on thoracentesis resultsand cytology. If malignant probably would go a palliative/comfort route, if nonmalignant, rehab and reconditioning prior to follow-up with oncology/further chemotherapy. (6) ST elevation on ECG: Plan: -Cardiology feels ST elevation is not likely to be STEMI but could be stress- induced. -Not much benefit to going to [facility] as much better be medically managed, agree with cardiology recs. --- Fortunately the situation has stabilized (7) Cardiogenic shock: Plan: Off of pressors, this is effectively resolved (8) Generalized weakness: Plan: PT/OT eval and treat (9) Osteoporosis: (10) STEMI (ST elevation myocardial infarction): (11) Hypervolemia: Plan VTE Prophyalxis -Eliquis Diet - Heart Healthy, minced and moist Disposition -stable in PCU, probably can downgrade to med/surge soon anticipate dispo to SNF next week Admission and Anticipated Discharge Date Admission Date: June 07, 2022 Subjective Notes to me that she is feeling okay. No abdominal pain did have some vomiting earlier. No shortness of breath. Son notes that her nausea and abdominal pain are probably worse than she is letting onand she has had very poor p.o. intake. Later nursing informs me that her urine output has been low. Review of Systems Review of Systems: All systems reviewed & are unremarkable except as noted in HPI & below Physical Exam Physical Exam: In general she is awake and alert pleasant no distress. HEENT normocephalic atraumatic mucous membranes moist. Cardio is distant, lungs are clear but diminished bibasilar no rales rhonchi or wheezes. Abdomen is soft mild distention at worst, nontender no masses or organomegaly. Diffuse edema bilateral lower extremities and left upper extremity as before. Patchy area of erythema right medial ankle skin is now fading to scattered patch of petechiae, far less tender. Results & Data Results & Data Vital Signs (Past 12 Hours) Vital Signs Temp Pulse Pulse Resp BP Pulse Ox Pulse Ox 06/12/22 17:32 109 H 06/12/22 15:44 98.2 F 103 H 20 133/85 95 06/12/22 13:54 96 H 06/12/22 12:42 94 06/12/22 11:48 97.7 F 111 H 19 116/85 96 06/12/22 07:47 97.5 F L 98 H 16 118/80 92 Pulse Ox O2 Del Method 06/12/22 17:32 06/12/22 15:44 Room Air 06/12/22 13:54 06/12/22 12:42 95 06/12/22 11:48 Room Air 06/12/22 07:47 Room Air PG Care Time/CCT Total # of Minutes Spent Total Time Spent with Patient: Total time spent is greater than 50% in coordination of care (as documented) at patient's floor/unit and/or counseling patient: Coding Level of Care Code 49809 SUB INP/OBS CARE 3/50MIN Diagnoses Colon cancer metastasized to multiple sites C18.9 Bilateral pleural effusion J90 Pulmonary embolism I26.99 Cellulitis L03.90 Goals of care, counseling/discussion Z71.89 ST elevation on ECG R94.31 Cardiogenic shock R57.0 Generalized weakness R53.1 Osteoporosis M81.0 STEMI (ST elevation myocardial infarction) I21.3 Hypervolemia E87.70
[2022-06-12] MEDS: LACTATED RINGER'S 1,000 ML IV SCH (18:04)
[2022-06-12] MEDS: ONDANSETRON INJ 2 MG/ML 2 ML VIAL IV SCH (20:28)
[2022-06-12] MEDS: LATANOPROST 0.005% OP SOLN 2.5 ML BTL OPL SCH (20:30)
[2022-06-12] MEDS: MIRTAZAPINE TAB 15 MG TAB PO SCH (20:31)
[2022-06-13] MEDS: ceFAZolin 2000MG 2,000 MG/15 ML SYR IV SCH ×2 (03:15→16:26)
[2022-06-13 05:48] LABS: Hematocrit (blood only) 32.3 % (37.0-47.0); Hemoglobin 10.9 g/dl (12.0-16.0); Mean Corpuscular Hemoglobin 32.7 pg (25.0-34.0); Mean Corpuscular Hgb Conc 33.7 g/dL (32.0-36.0); Mean Platelet Volume 10.4 fL (9.4-12.4); Platelet Count 227 K/uL (130-400); RDW Coefficient of Variation 15.5 % (11.5-14.5); RDW Standard Deviation 54.4 fL (36.4-46.3); Red Blood Count 3.33 M/uL (4.20-5.40); White Blood Count 9.35 K/ul (4.8-10.8)
[2022-06-13 05:56] LABS: BUN Creatinine Ratio 23.7 (10-20); Calcium 7.8 mg/dl (8.6-10.3); Creatinine Clr Calc Pharmacy 30.1 ml/min; Est GFR (Non-African American) 36.3 ml/min; Potassium 4.3 mmol/L (3.5-5.1)
[2022-06-13 06:37] LABS: Basophils # (auto) 0.07 K/uL (0-0.2); Basophils % (auto) 0.7 %; Eosinophils # (auto) 0.02 K/uL (0-0.50); Eosinophils % (auto) 0.2 %; Immature Granulocytes # (auto) 0.67 K/uL (0.01-0.20); Immature Granulocytes % (auto) 7.2 %; Lymphocytes # (auto) 0.98 K/uL (1.2-3.4); Lymphocytes % (auto) 10.5 %; Monocytes # (auto) 1.04 K/uL (0.11-0.59); Monocytes % (auto) 11.1 %; Neutrophils # (auto) 6.57 K/uL (1.40-6.50); Neutrophils % (auto) 70.3 %; Ovalocytes 1+
[2022-06-13] MEDS: APIXABAN 5 MG TABLET PO SCH ×2 (08:49→21:22)
[2022-06-13] MEDS: ASPIRIN 81 MG ECTAB PO SCH (08:49)
[2022-06-13] MEDS: FAMOTIDINE 20 MG TAB PO SCH ×2 (08:50→21:24)
[2022-06-13] MEDS: droNABinol 2.5 MG CAP PO SCH ×2 (08:58→21:23)
[2022-06-13] MEDS: ONDANSETRON INJ 2 MG/ML 2 ML VIAL IV SCH ×3 (09:00→21:23)
[2022-06-13] MEDS: LACTATED RINGER'S 1,000 ML IV SCH ×2 (10:34→21:24)
--- NOTE | 2022-06-13 17:30 | Hospitalist Progress Note ---
Date of Service June 13, 2022 Assessment & Plan (1) Goals of care, counseling/discussion: Plan: -After discussing with palliative care and oncology, patient to determine next course of action in regards to goals of care based off of thoracentesis results. -If thoracentesis shows pleural effusion is secondary to malignant etiology, shows poor prognosis and patient will likely go a palliative/comfort route. -If nonmalignant etiology would need rehab and reconditioning prior to receiving next round of chemotherapy per oncology. -Pleural effusion cytology back showing atypical cells, discussed case with pathologist and not indicative of malignancy because of limited cell count, however, pathology is suspicious this could be malignant. Feels chemotherapy may be suppressing the true cell count. Discussed this with Dr. Caballero and he will discuss case with the patient's son tomorrow at 6 PM. -Appreciate recommendations (2) ST elevation on ECG: Plan: -Cardiology feels ST elevation is not likely to be STEMI but could be stress- induced. -Not much benefit to going to [facility] as much better be medically managed, agree with cardiology recs (3) Bilateral pleural effusion: Plan: -Presumably malignant vs. third spacing +/- cardiogenic -Thoracentesis done by pulmonology today, sending for analysis (4) Pulmonary embolism: Plan: -Heparin IV drip transition to Eliquis. -Suspect not contributing as much as pathology above given size (5) Cellulitis: Plan: -RLE. Possible diagnosis - monitor erythema. Continue cefepime. Follow up blood cultures. --> positive for strep pyogenes -MRSA Nares negative (6) Colon cancer metastasized to multiple sites: Plan: -Discussed with Dr Carvalho. Chemotherapy regimen dictated by [facility] out of [place]. Currently on FOLFORI chemotherapy regimen shich she last had on May 25. -Oncology discussion as above (7) Generalized weakness: (8) Cardiogenic shock: Plan: -Resolved (9) Osteoporosis: Plan VTE Prophyalxis - Eliquis Diet - Heart Healthy, minced and moist Disposition - PCU Code Status: Full Code Admission and Anticipated Discharge Date Admission Date: June 07, 2022 Supervising Physician Co-Signing Physician Notes ATTESTATION I also saw the patient and confirmed chase portions of the history and exam. I agree with the impression and plan in the resident documentation, and as summarized below. When we saw the patient this morning, no new complaints. Son at bedside and plan of care review and questions answered. Pending pathology results at the time discussed with son; he will review with oncology once received, later today or tomorrow. Subjective Patient seen at bedside this morning. No acute events reported overnight. Patient resting comfortably. Does not seem confused this morning is thankful for the care that she is receiving. No other complaints at this time. Review of Systems Review of Systems: Per HPI Physical Exam Constitutional: + cachectic, + frail appearing, comfortable and + malnourished Eyes: + anicteric sclerae Neck: normal visual inspection Respiratory: no respiratory distress Auscultation: + diminished lung sounds (at the bases b/l) Cardiovascular: Rate/Rhythm: regular rate and regular rhythm Heart Sounds: + murmur Gastrointestinal (Abdomen): Percussion/Palpation: abdomen soft Musculoskeletal: Head/Neck/Chest: normocephalic and head atraumatic Skin: no rashes, warm and dry Results & Data Results & Data Vital Signs (Past 12 Hours) Vital Signs Temp Pulse Pulse Resp BP Pulse Ox O2 Del Method 06/13/22 15:48 36.6 C 105 H 16 113/75 94 Room Air 06/13/22 14:26 106 H 06/13/22 14:26 Room Air 06/13/22 11:33 36.5 C 109 H 19 117/81 94 Room Air 06/13/22 08:09 36.4 C L 111 H 18 141/92 H 93 Room Air
--- NOTE | 2022-06-13 17:39 | Electrocardiogram Report ---
Test Reason : Blood Pressure : / mmHG Vent. Rate : 100 BPM Atrial Rate : 100 BPM P-R Int : 146 ms QRS Dur : 088 ms QT Int : 310 ms P-R-T Axes : -60 -13 148 degrees QTc Int : 399 ms Unusual P axis, possible ectopic atrial rhythm Minimal voltage criteria for LVH, may be normal variant Poor R wave progression, consider anterior FL vs. lead placement vs. LVH Abnormal ECG When compared with ECG of 09-JUN-2022 04:33, Ectopic atrial rhythm has replaced Sinus rhythm Confirmed by Shahzad Rogers ([id number]) on 06/13/2022 5:39:16 PM Referred By: REFERRED SELF Confirmed By:Davie Rogers
[2022-06-13] MEDS: LATANOPROST 0.005% OP SOLN 2.5 ML BTL OPL SCH (21:23)
[2022-06-13] MEDS: MELATONIN 3 MG TAB PO PRN (21:23)
[2022-06-13] MEDS: MIRTAZAPINE TAB 15 MG TAB PO SCH (21:23)
[2022-06-14] MEDS: ceFAZolin 2000MG 2,000 MG/15 ML SYR IV SCH ×2 (03:06→14:59)
[2022-06-14 06:39] LABS: Hematocrit (blood only) 32.1 % (37.0-47.0); Hemoglobin 10.8 g/dl (12.0-16.0); Mean Corpuscular Hemoglobin 32.4 pg (25.0-34.0); Mean Corpuscular Hgb Conc 33.6 g/dL (32.0-36.0); Mean Corpuscular Volume 96.4 fL (80.0-100.0); Nucleated RBC # (auto) 0.03 K/uL (0-0.12); Nucleated RBC % (auto) 0.2 %; Platelet Count 273 K/uL (130-400); RDW Coefficient of Variation 15.5 % (11.5-14.5); RDW Standard Deviation 54.2 fL (36.4-46.3); Red Blood Count 3.33 M/uL (4.20-5.40); White Blood Count 12.14 K/ul (4.8-10.8)
[2022-06-14 07:07] LABS: BUN Creatinine Ratio 26.6 (10-20); Calcium 7.9 mg/dl (8.6-10.3); Creatinine Clr Calc Pharmacy 31.6 ml/min; Est GFR (African American) 44.9 ml/min; Est GFR (Non-African American) 38.8 ml/min; Magnesium 1.9 mg/dl (1.7-2.4); Potassium 4.2 mmol/L (3.5-5.1)
[2022-06-14] MEDS: droNABinol 2.5 MG CAP PO SCH ×2 (08:44→20:31)
[2022-06-14] MEDS: FAMOTIDINE 20 MG TAB PO SCH ×2 (08:44→20:32)
[2022-06-14] MEDS: ONDANSETRON INJ 2 MG/ML 2 ML VIAL IV SCH ×3 (08:44→20:32)
[2022-06-14] MEDS: ASPIRIN 81 MG ECTAB PO SCH (08:44)
[2022-06-14] MEDS: APIXABAN 5 MG TABLET PO SCH (08:44)
[2022-06-14] MEDS: LACTATED RINGER'S 1,000 ML IV SCH ×2 (09:57→22:29)
[2022-06-14] MEDS ORDERED: PROMETHAZINE HCL 25 MG/20 ML UDP PO PRN (10:39)
[2022-06-14] MEDS ORDERED: PROCHLORPERAZINE 5 MG in SYRINGE 4 ML IV PRN (11:37)
[2022-06-14] MEDS ORDERED: PANTOprazole 40 MG in SYRINGE 0 ML IV SCH (11:40)
--- NOTE | 2022-06-14 12:33 | Hospitalist Progress Note ---
Date of Service June 14, 2022 Assessment & Plan (1) Goals of care, counseling/discussion: Plan: -After discussing with palliative care and oncology, patient to determine next course of action in regards to goals of care based off of thoracentesis results. -If thoracentesis shows pleural effusion is secondary to malignant etiology, shows poor prognosis and patient will likely go a palliative/comfort route. -If nonmalignant etiology would need rehab and reconditioning prior to receiving next round of chemotherapy per oncology. -Pleural effusion cytology back showing atypical cells, discussed case with pathologist and not indicative of malignancy because of limited cell count, however, pathology is suspicious this could be malignant. Feels chemotherapy may be suppressing the true cell count. Discussed this with Dr. Caballero and he will discuss case with the patient's son today at 6 PM. -Appreciate recommendations (2) ST elevation on ECG: Plan: -Cardiology feels ST elevation is not likely to be STEMI but could be stress- induced. -Not much benefit to going to [facility] as much better be medically managed, agree with cardiology recs (3) Bilateral pleural effusion: Plan: -Presumably malignant vs. third spacing +/- cardiogenic (4) Pulmonary embolism: Plan: -Heparin IV drip transition to Eliquis. -Suspect not contributing as much as pathology above given size -Evaluating reddish urine for blood and if hematuria is present change Eliquis 5 mg twice daily to 2.5 mg twice daily. (5) Cellulitis: Plan: -RLE. Possible diagnosis - monitor erythema. Cefepime was changed to Ancef on 06/11. Follow up blood cultures. --> positive for strep pyogenes -MRSA Nares negative (6) Colon cancer metastasized to multiple sites: Plan: -Discussed with Dr Carvalho. Chemotherapy regimen dictated by [facility] out of [place]. Currently on FOLFORI chemotherapy regimen shich she last had on May 25. -Oncology discussion as above (7) Generalized weakness: (8) Cardiogenic shock: Plan: -Resolved (9) Osteoporosis: Plan VTE Prophyalxis - Eliquis Diet - Heart Healthy, minced and moist Disposition - PCU Code Status: Full Code Admission and Anticipated Discharge Date Admission Date: June 07, 2022 Supervising Physician Co-Signing Physician Notes ATTESTATION I also saw the patient and confirmed chase portions of the history and exam. I agree with the impression and plan in the resident documentation, and as summarized below. Upon our exam, the patient complains of nausea; she is coughing quite a bit, and what she spits out seems to be more like mucus than emesis. Son is in the room, at bedside, and interpreting. EXAM 127/89, 107, 19, 36.3, 90% room air Awake alert. Mild to moderate distress secondary to cough and nausea Heart slightly tacky but regular Respirations nonlabored DATA Labs WBC 12.14, hemoglobin 10.8 Sodium 137, potassium 4.2, BUN 33, creatinine 1.24 Imaging Chest x-ray done late morning shows small bilateral pleural effusions with bibasilar opacities, possibly consolidation versus atelectasis. There is stable cardiomegaly, improved pulmonary vascular congestion. IMPRESSION & PLAN Metastatic colon cancer Bilateral pleural effusion, presumably malignant Pulmonary embolism, on Eliquis Failure to thrive Appreciate palliative care input Son to discuss case with oncology this evening Trial of Compazine for patient's nausea IV fluids given decreased p.o. intake today Additional per resident documentation Subjective Patient seen at bedside this morning. No acute events reported overnight. Unfortunately patient having a lot of coughing and gagging at today's visit. Depressed affect. Limited oral intake. Son is requesting additional nausea medication. No other complaints verbalized by patient at this time Review of Systems Review of Systems: Per HPI Physical Exam Constitutional: + cachectic, + frail appearing, comfortable and + malnourished Eyes: + anicteric sclerae Neck: normal visual inspection Respiratory: no respiratory distress Auscultation: + diminished lung sounds (at the bases b/l) Cardiovascular: Rate/Rhythm: regular rate and regular rhythm Heart Sounds: + murmur Gastrointestinal (Abdomen): Percussion/Palpation: abdomen soft Musculoskeletal: Head/Neck/Chest: normocephalic and head atraumatic Skin: no rashes, warm and dry Genitourinary: Urine is dark and has a reddish hue Results & Data Results & Data Vital Signs (Past 12 Hours) Vital Signs Temp Pulse Resp BP Pulse Ox O2 Del Method 06/14/22 12:07 36.4 C L 114 H 18 125/89 94 Room Air 06/14/22 08:08 36.5 C 103 H 18 147/93 H 93 Room Air 06/14/22 03:56 36.5 C 98 H 20 116/80 97 Room Air
--- NOTE | 2022-06-14 13:15 | XRay Report ---
XR chest 1V portable CLINICAL HISTORY: Cough, dyspnea. COMPARISON STUDY: Chest CT June 07, 2022. Chest radiograph June 10, 2022. FINDINGS: A left subclavian Xheatj-a-[id number] is in place. Small bilateral pleural effusions with bibasil ar opacities are noted. Cardiomegaly is unchanged. There is a hiatal hernia. Pulmonary vascular conge stion has slightly improved. There is no pneumothorax. Old right-sided rib fractures are incidentally noted. IMPRESSION: 1. Small bilateral pleural effusions with bibasilar opacities which could reflect consolidation or at electasis. 2. Stable cardiomegaly. Interval improvement in pulmonary vascular congestion. ACT 112: Negative or not required by law. Electronically signed by: Darryl Villanueva M.D. 06/14/2022 1:13 PM
--- NOTE | 2022-06-14 14:44 | Palliative Care Progress Note ---
Date of Service June 14, 2022 Assessment & Plan (1) Palliative care by specialist: Plan: Dr Caballero and son are meeting later today. (2) Colon cancer metastasized to multiple sites: (3) Dynamic left ventricular outflow obstruction: (4) Pulmonary embolism: (5) Metastatic cancer: Plan Son does not want to make any decisions as far as goals of care without more input from oncology. Patient has, on my initial eval, noted she is 87yo and has lived a good life, now it may be time for her to go and that is ok. This is documented in my consult note. patient has been unable to follow long, lengthy or overall detailed conversations but a pointed, directed questions WITHOUT interruption from family and with a professor of physical education present might be worth considering. Thank you for allowing us to participate in the ongoing care of this patient. Please don't hesitate to call or page with any additional concerns. Dr. Catherine Guillermo DNP Director, Palliative Care Admission and Anticipated Discharge Date Admission Date: June 07, 2022 Subjective downgraded to med surg tele MS about the same awaiting discussion with Dr Caballero re thoracentesis cytology results Results & Data Vital Signs (Past 12 Hours) Vital Signs Temp Pulse Resp BP Pulse Ox O2 Del Method 06/14/22 12:07 36.4 C L 114 H 18 125/89 94 Room Air 06/14/22 08:08 36.5 C 103 H 18 147/93 H 93 Room Air 06/14/22 03:56 36.5 C 98 H 20 116/80 97 Room Air PG Care Time/CCT Total # of Minutes Spent Total Time Spent: 32 Total Time Spent with Patient: Total time spent is greater than 50% in coordination of care (as documented) at patient's floor/unit and/or counseling patient: Coding [place] [address] SUB INP/OBS CARE 1/25MIN Patient Type Established Medical Decision Making Moderate Complexity Diagnoses Palliative care by specialist Z51.5 Colon cancer metastasized to multiple sites C18.9 Dynamic left ventricular outflow obstruction I51.89 Pulmonary embolism I26.99 Metastatic cancer C79.9
[2022-06-14 15:20] LABS: Appearance Urine Turbid (Clear); Bilirubin Urine Negative (Negative); Blood Urine 3+ (Negative); Color Urine Brown; Glucose Urine UA Negative (Negative); Ketones Urine Trace (Negative); Leukocyte Esterase Urine Negative (Negative); Nitrite Urine Negative (Negative); Protein Urine 3+ (Negative); Specific Gravity Urine >= 1.030 (1.000-1.030); Urobilinogen Urine Negative (Negative); pH Urine 5.5 (4.5-7.5)
[2022-06-14 15:26] LABS: Epithelial Cell Urine 0-5 /lpf (0-5); RBC Urine >30 /hpf (0-4)
[2022-06-14 15:27] LABS: Bacteria Urine Negative (Negative)
[2022-06-14] MEDS: MELATONIN 3 MG TAB PO PRN (20:31)
[2022-06-14] MEDS: MIRTAZAPINE TAB 15 MG TAB PO SCH (20:32)
[2022-06-14] MEDS: LATANOPROST 0.005% OP SOLN 2.5 ML BTL OPL SCH (20:32)
[2022-06-14] MEDS: APIXABAN 2.5 MG TAB PO SCH (21:00)
[2022-06-15] MEDS: ceFAZolin 2000MG 2,000 MG/15 ML SYR IV SCH (04:05)
--- NOTE | 2022-06-15 06:46 | Hospitalist Progress Note ---
Date of Service June 15, 2022 Assessment & Plan (1) Colon cancer metastasized to multiple sites: Plan: Sigmoid carcinoma persistent/progressive at the local site with at least a significant abdominal wall metastasis. While those sites have remained stable compared to previous imaging, she certainly is showing no dramatic response in terms of cytoreduction to her most recent chemotherapy. Now admitted with overall decline in performance status specifically in the context of newly diagnosed pulmonary emboli and both significant pleural and abdominal fluid accumulations. Cytologies from the asciotes and pleural effusions have shown atypical epithelial cells but are not frankly diagnostic of malignancy Spoke at length primarily with her son Lake. He had ongoing questions as to whether she could technically receive additional chemotherapy or biological tr eatment. We have discussed that her molecular profile indicates that she will not respond well to immune checkpoint therapy. Bevacizumab has been a part of her treatment program, suspended briefly because of concerns over proteinuria though 24-hour collection shows total 24-hour urine excretion less than 600 mg. While technically we can consider resumption of a regimen that included bevacizumab, that agent itself is now even more potentially problematic given its both thrombosis and potential bleeding risks in the context of a new PE currently on anticoagulation. I made the point that enedina Skaggs's current performance status in and of itself represents a significant contraindication to any aggressive oncologic therapy where the potential for significant morbidity and even mortality outweighs the benefit especially where her disease has been relatively resistant to treatment thus far. Furthermore, while the pleural effusion and ascites do not technically show malignancy, one has to conclude that there is at least an indirect connection with her disease leading to that manifestation. While I stated that if she could show a significant performance status improvement we could certainly readdress systemic treatment options, I expressed skepticism that she will be able to mount such an improvement with what is an increasingly significant constellation of organ dysfunction and overall physical exhaustion. We did explicitly discuss the potential role for hospice in optimizing care framework for her to allow her to be home and maximize what quality of life can be gained in the near term. I expressed that chemotherapy does not offer prospects of dramatic survival extension and certainly would undermine that quality of life if reinitiated. I tried to leave the overall impression that she actually will benefit not just in terms of quality of life but very possibly in terms of quantity of life by taking a simpler supportive care only approach. I have encouraged exploration of hospice as a particular help in dealing with the challenges both physically and logistically/emotionally with her advancing disease. I will touch base with Lake again tomorrow. Plan No role for chemotherapy now nor in the foreseeable future, Lake is still struggling with his proceed responsibility to explore every potential treatment option but at least is spontaneously initiating conversations regarding the role for hospice and her care Admission and Anticipated Discharge Date Admission Date: June 07, 2022 Subjective I met last evening with the patient and her son to discuss prognosis and treatment options. Physical Exam Physical Exam: Patient was awake and participated occasionally in the conversation seeming in no acute distress but both fatigued and perhaps mildly confused Results & Data Results & Data Vital Signs (Past 12 Hours) Vital Signs Temp Pulse Pulse Resp BP Pulse Ox O2 Del Method 06/15/22 02:49 36.4 C L 106 H 18 135/83 95 Room Air 06/14/22 23:27 36.4 C L 100 H 18 126/85 96 Room Air 06/14/22 22:52 102 H 06/14/22 22:05 Room Air 06/14/22 19:21 36.5 C 104 H 18 119/83 93 Room Air PG Care Time/CCT Total # of Minutes Spent Total Time Spent with Patient: Total time spent is greater than 50% in coordination of care (as documented) at patient's floor/unit and/or counseling patient: Coding Level of Care Code None Diagnoses Colon cancer metastasized to multiple sites C18.9
[2022-06-15 07:00] LABS: Creatinine Clr Calc Pharmacy 29.6 ml/min; Est GFR (African American) 41.3 ml/min; Est GFR (Non-African American) 35.6 ml/min
[2022-06-15] MEDS: FAMOTIDINE 20 MG TAB PO SCH ×2 (09:24→20:07)
[2022-06-15] MEDS: APIXABAN 2.5 MG TAB PO SCH ×2 (09:24→20:07)
[2022-06-15] MEDS: ASPIRIN 81 MG ECTAB PO SCH (09:24)
[2022-06-15] MEDS: droNABinol 2.5 MG CAP PO SCH ×2 (09:28→20:07)
[2022-06-15] MEDS: ONDANSETRON INJ 2 MG/ML 2 ML VIAL IV SCH ×3 (09:28→20:06)
[2022-06-15] MEDS: LACTATED RINGER'S 1,000 ML IV SCH (11:33)
[2022-06-15] MEDS: PANTOprazole 40 MG TAB PO SCH (12:19)
--- NOTE | 2022-06-15 15:44 | Hospitalist Progress Note ---
Date of Service June 15, 2022 Assessment & Plan (1) Goals of care, counseling/discussion: Plan: -After discussing with palliative care and oncology, patient to determine next course of action in regards to goals of care based off of thoracentesis results. -Given that thoracentesis shows pleural effusion is likely secondary to malignant etiology (cannot be confirmed, but is suspicious, see below), shows poor prognosis -Son would like to have his mother go to alf facility and possibly go on hospice after gaining some muscle back to have better quality of life. -Son and patient agreeable to DNR/DNI status as discussed today as risks outweigh benefit. -Pleural effusion cytology back showing atypical cells, discussed case with pathologist and not indicative of malignancy because of limited cell count, however, pathology is suspicious this could be malignant. Feels chemotherapy may be suppressing the true cell count. -Dr. Caballero feels that chemotherapy is not a good option given the patient's poor prognosis and effusion likely caused by malignancy. -Compazine added to help with nausea which seems to be improving (2) ST elevation on ECG: Plan: -Cardiology feels ST elevation is not likely to be STEMI but could be stress- induced. -Not much benefit to going to [facility] as much better be medically managed, agree with cardiology recs -As this was not a STEMI, discontinued aspirin given on Eliquis for PE treatment (3) Bilateral pleural effusion: Plan: -Presumably malignant vs. third spacing +/- cardiogenic (4) Pulmonary embolism: Plan: -Eliquis switched from 5 mg twice daily to 2.5 mg twice daily. -Suspect not contributing as much as pathology above given size (5) Cellulitis: Plan: -RLE. Possible diagnosis - monitor erythema. Cefepime was changed to Ancef on 06/11. Follow up blood cultures. --> positive for strep pyogenes -MRSA Nares negative (6) Colon cancer metastasized to multiple sites: Plan: -Discussed with Dr Carvalho. Chemotherapy regimen dictated by [facility] out of [place]. Currently on FOLFORI chemotherapy regimen shich she last had on May 25. -Oncology discussion as above (7) Generalized weakness: (8) Cardiogenic shock: Plan: -Resolved (9) Osteoporosis: Plan VTE Prophyalxis - Eliquis Diet - Heart Healthy, minced and moist Disposition -downgrade to MedSurg Code Status: Now DNR/DNI Admission and Anticipated Discharge Date Admission Date: June 07, 2022 Supervising Physician Co-Signing Physician Notes ATTESTATION I also saw the patient and confirmed chase portions of the history and exam. I agree with the impression and plan in the resident documentation, and as summa rized below. Upon our exam, the patient appears much more comfortable today compared to yesterday. No nausea or vomiting. She is tolerated some beef broth, and small amounts, which is an improvement compared to yesterday. Son has had conversations with oncology last evening. Patient now wishes to be a DO NOT RESUSCITATE/DO NOT INTUBATE. This was confirmed with the patient this afternoon. EXAM 123/92, 121, 20, 36.6, 93% on room air Awake alert. She appears frail/weak. No distress appreciated at present. Heart slightly tacky but regular Respirations nonlabored DATA Labs Creatinine 1.33 IMPRESSION & PLAN Metastatic colon cancer Bilateral pleural effusion, presumably malignant Pulmonary embolism, on Eliquis Failure to thrive Seems like patient/family are leaning towards SNF with hopes of getting some physical therapy, then transitioning to either hospice at SNF or hospice at home -seems this would depend on what progress she makes. Patient's CODE STATUS changed to DNR/DNI Overall prognosis is poor; transitioning to a more of a palliative approach Additional per resident documentation Subjective Patient seen at bedside this morning no acute events reported overnight. Discussed case with son after hearing results from thoracentesis and Dr. Caballero's recommendations. After [id number] discussion with patient and son, agreeable to change CODE STATUS to DNR DNI. Son would like patient to go to alf facility and received some physical therapy prior to possibly being discharged on home hospice. He would like to continue to hear her options from both case management and palliative. Otherwise patient's nausea seems to have improved from yesterday and she is drinking boost as well as some water. Otherwise she does not want to push and become nauseous again but she does feel the Compazine is helping. Otherwise no other new complaints at this time. Review of Systems Review of Systems: Per HPI Physical Exam Constitutional: + cachectic, + frail appearing, comfortable and + malnourished Eyes: + anicteric sclerae Neck: normal visual inspection Respiratory: no respiratory distress Auscultation: + diminished lung sounds (at the bases b/l) Cardiovascular: Rate/Rhythm: regular rate and regular rhythm Heart Sounds: + murmur Extremities: + edema Gastrointestinal (Abdomen): Percussion/Palpation: abdomen soft Musculoskeletal: Head/Neck/Chest: normocephalic and head atraumatic Skin: no rashes, warm and dry Results & Data Results & Data Vital Signs (Past 12 Hours) Vital Signs Temp Pulse Pulse Resp BP Pulse Ox O2 Del Method 06/15/22 15:25 117 H 06/15/22 12:17 36.5 C 111 H 18 122/86 93 Room Air 06/15/22 10:23 Room Air 06/15/22 08:11 36.8 C 107 H 17 141/85 H 95 Room Air 06/15/22 07:10 104 H
[2022-06-15] MEDS: HEPARIN 100 UNIT/ML 5ML FLUSH FLUSH PRN (20:07)
[2022-06-15] MEDS: MIRTAZAPINE TAB 15 MG TAB PO SCH (20:07)
[2022-06-15] MEDS: LATANOPROST 0.005% OP SOLN 2.5 ML BTL OPL SCH (20:08)
[2022-06-16] MEDS ORDERED: LACTATED RINGER'S 1,000 ML IV SCH (07:00)
[2022-06-16] MEDS: droNABinol 2.5 MG CAP PO SCH ×2 (08:19→20:07)
[2022-06-16] MEDS: ONDANSETRON INJ 2 MG/ML 2 ML VIAL IV SCH ×3 (08:20→20:08)
[2022-06-16] MEDS: FAMOTIDINE 20 MG TAB PO SCH ×2 (08:20→20:14)
[2022-06-16] MEDS: PANTOprazole 40 MG TAB PO SCH (08:20)
[2022-06-16] MEDS: APIXABAN 2.5 MG TAB PO SCH ×2 (08:20→20:07)
[2022-06-16 09:02] LABS: Anion Gap 9 (3-11); BUN Creatinine Ratio 26.4 (10-20); Blood Urea Nitrogen 39 mg/dl (6-23); Calcium 8.4 mg/dl (8.6-10.3); Carbon Dioxide 23 mmol/L (21-32); Chloride 103 mmol/L (98-107); Creatinine Clr Calc Pharmacy 26.6 ml/min; Est GFR (African American) 36.3 ml/min; Est GFR (Non-African American) 31.3 ml/min; Glucose 126 mg/dl (70-99(Fasting)); Potassium 4.6 mmol/L (3.5-5.1); Sodium 135 mmol/L (136-145)
[2022-06-16 09:50] LABS: Alanine Aminotransferase < 3 U/L (7-52); Albumin Level 2.6 gm/dl (3.4-5.0); Alkaline Phosphatase 65 U/L (34-104); Aspartate Aminotransferase 14 U/L (13-39); Bilirubin Direct 0.1 mg/dl (0-0.2); Bilirubin,Total 0.5 mg/dl (0.2-1.0); Magnesium 1.9 mg/dl (1.7-2.4); Total Protein 4.6 gm/dl (6.0-8.3)
[2022-06-16] MEDS: CYPROHEPTADINE HCL 4 MG TAB PO SCH ×2 (13:46→17:38)
[2022-06-16] MEDS ORDERED: ALBUMIN 5% 250 ML IV ONE (17:45)
--- NOTE | 2022-06-16 18:11 | Hospitalist Progress Note ---
Date of Service June 16, 2022 Assessment & Plan (1) Goals of care, counseling/discussion: Plan: -After discussing with palliative care and oncology, patient to determine next course of action in regards to goals of care based off of thoracentesis results. -Given that thoracentesis shows pleural effusion is likely secondary to malignant etiology (cannot be confirmed, but is suspicious, see below), shows poor prognosis -Son would like to have his mother go to longterm facility and possibly go on hospice after gaining some muscle back to have better quality of life. -Son and patient agreeable to DNR/DNI status as discussed today as risks outweigh benefit. -Pleural effusion cytology back showing atypical cells, discussed case with pathologist and not indicative of malignancy because of limited cell count, however, pathology is suspicious this could be malignant. Feels chemotherapy may be suppressing the true cell count. -Dr. Caballero feels that chemotherapy is not a good option given the patient's poor prognosis and effusion likely caused by malignancy. -Compazine added to help with nausea which seems to be improving -Added cyproheptadine on top of Marinol for appetite stimulation. Continue to recheck in encourage oral intake. -Medically stable to D/C to SNF and we are recommending hospice care thereafter. (2) ST elevation on ECG: Plan: -Cardiology feels ST elevation is not likely to be STEMI but could be stress- induced. -Not much benefit to going to [facility] as much better be medically managed, agree with cardiology recs -As this was not a STEMI, discontinued aspirin given on Eliquis for PE treatment (3) Edema due to hypoalbuminemia: Plan: - Patient is clearly edematous while also being clinically dry. -Switched maintenance IV fluid from lactated Ringer's to 5% albumin overnight to reduce third spacing (4) Bilateral pleural effusion: Plan: -Presumably malignant vs. third spacing +/- cardiogenic (5) Pulmonary embolism: Plan: -Eliquis switched from 5 mg twice daily to 2.5 mg twice daily on 06/15/2022 -Suspect not contributing as much as pathology above given size (6) Cellulitis: Plan: -RLE. Possible diagnosis - monitor erythema. Cefepime was changed to Ancef on 06/11. Follow up blood cultures. --> positive for strep pyogenes -MRSA Nares negative (7) Colon cancer metastasized to multiple sites: Plan: -Discussed with Dr Carvalho. Chemotherapy regimen dictated by [facility] out of [place]. Currently on FOLFORI chemotherapy regimen yoli she last had on May 25. -Oncology discussion as above (8) Generalized weakness: (9) Cardiogenic shock: Plan: -Resolved (10) Osteoporosis: Plan VTE Prophyalxis - Eliquis Diet - Heart Healthy, minced and moist Disposition -MedSurg, medically stable to DC to SNF followed by hospice services. Code Status: DNR/DNI-confirmed with patient and son. Admission and Anticipated Discharge Date Admission Date: June 07, 2022 Supervising Physician Co-Signing Physician Notes ATTESTATION I also saw the patient and confirmed chase portions of the history and exam. I agree with the impression and plan in the resident documentation, and as summarized below. Again, seems more comfortable today as compared to earlier in the week. Son still concerned with patient's decreased appetite -pharmacological measures discussed with son; again emphasized okay to encourage patient to eat, but ca nnot force as this would likely only increased nausea. EXAM 112/83, 107, 16, 36.4, 97% room air Awake alert. She appears frail/weak. No distress appreciated at present. Heart slightly tacky but regular Respirations nonlabored DATA Labs Sodium 135, potassium 4.6, BUN 39, creatinine 1.48 IMPRESSION & PLAN Metastatic colon cancer Bilateral pleural effusion, presumably malignant Pulmonary embolism, on Eliquis Failure to thrive Overall prognosis is poor; transitioning to a more of a palliative approach Current plan is SNF with PT, most likely transitioning to hospice thereafter Appreciate palliative care consultation and work of case management team Additional per resident documentation Subjective Patient seen at bedside this morning. No acute events reported overnight. Patient seems to be comfortable at this time. Sipping on coffee. Son continues to press for interventional treatment for decreased appetite and swelling. Reinforce that in terms of intervention, there is not much we can do and continually remind him that this is likely end-of-life features given her metastatic colon cancer. Keep reassuring him that we are doing everything we can to pharmacologically increase her appetite as well as reduce swelling with least amount of risk for kidney injury. Patient's son reports understanding. Otherwise no new complaints today. Review of Systems Review of Systems: Per HPI Physical Exam Constitutional: + cachectic, + frail appearing, comfortable and + malnourished Eyes: + anicteric sclerae Neck: normal visual inspection Respiratory: no respiratory distress Auscultation: + diminished lung sounds (at the bases b/l) Cardiovascular: Rate/Rhythm: regular rate and regular rhythm Heart Sounds: + murmur Extremities: + edema Gastrointestinal (Abdomen): Percussion/Palpation: abdomen soft Musculoskeletal: Head/Neck/Chest: normocephalic and head atraumatic Skin: no rashes, warm and dry Psychiatric: Mood: + depressed mood Results & Data Results & Data Vital Signs (Past 12 Hours) Vital Signs Temp Pulse Resp BP Pulse Ox O2 Del Method 06/16/22 15:09 36.4 C L 107 H 16 112/83 97 Room Air 06/16/22 11:00 36.5 C 106 H 18 128/74 93 Room Air 06/16/22 08:00 36.7 C 107 H 18 152/102 H 94 Room Air
[2022-06-16] MEDS: MIRTAZAPINE TAB 15 MG TAB PO SCH (20:08)
[2022-06-16] MEDS: LATANOPROST 0.005% OP SOLN 2.5 ML BTL OPL SCH (20:08)
[2022-06-16] MEDS: MELATONIN 3 MG TAB PO PRN (21:05)
[2022-06-17] MEDS: HEPARIN 100 UNIT/ML 5ML FLUSH FLUSH PRN (00:22)
[2022-06-17] MEDS: CYPROHEPTADINE HCL 4 MG TAB PO SCH ×3 (01:54→17:57)
[2022-06-17] MEDS: ONDANSETRON INJ 2 MG/ML 2 ML VIAL IV SCH ×3 (08:13→20:04)
[2022-06-17] MEDS: droNABinol 2.5 MG CAP PO SCH ×2 (08:13→20:04)
[2022-06-17] MEDS: PANTOprazole 40 MG TAB PO SCH (08:14)
[2022-06-17] MEDS: APIXABAN 2.5 MG TAB PO SCH ×2 (08:14→20:04)
[2022-06-17 08:30] LABS: Hematocrit (blood only) 27.9 % (37.0-47.0); Hemoglobin 9.4 g/dl (12.0-16.0); Mean Corpuscular Hemoglobin 32.6 pg (25.0-34.0); Mean Corpuscular Hgb Conc 33.7 g/dL (32.0-36.0); Mean Corpuscular Volume 96.9 fL (80.0-100.0); Mean Platelet Volume 10.8 fL (9.4-12.4); Nucleated RBC # (auto) 0.02 K/uL (0-0.12); Nucleated RBC % (auto) 0.1 %; Platelet Count 342 K/uL (130-400); RDW Standard Deviation 54.8 fL (36.4-46.3); Red Blood Count 2.88 M/uL (4.20-5.40); White Blood Count 17.42 K/ul (4.8-10.8)
[2022-06-17 08:51] LABS: Anion Gap 3 (3-11); BUN Creatinine Ratio 27.9 (10-20); Blood Urea Nitrogen 39 mg/dl (6-23); Calcium 8.2 mg/dl (8.6-10.3); Carbon Dioxide 27 mmol/L (21-32); Chloride 105 mmol/L (98-107); Creatinine Clr Calc Pharmacy 28.9 ml/min; Est GFR (African American) 38.8 ml/min; Est GFR (Non-African American) 33.5 ml/min; Glucose 103 mg/dl (70-99(Fasting)); Potassium 4.1 mmol/L (3.5-5.1); Sodium 135 mmol/L (136-145)
[2022-06-17 09:42] LABS: Alanine Aminotransferase < 3 U/L (7-52); Albumin Globulin Ratio 1.5 (0.9-2); Albumin Level 2.6 gm/dl (3.4-5.0); Alkaline Phosphatase 55 U/L (34-104); Aspartate Aminotransferase 12 U/L (13-39); Bilirubin,Total 0.5 mg/dl (0.2-1.0); Globulin 1.7 gm/dl (2.5-4.0); Magnesium 1.8 mg/dl (1.7-2.4); Total Protein 4.3 gm/dl (6.0-8.3)
[2022-06-17] MEDS: FAMOTIDINE 20 MG TAB PO SCH ×2 (13:03→20:04)
--- NOTE | 2022-06-17 13:50 | XRay Report ---
XR chest 1V portable HISTORY: 86 years-old Female coughing acute cough COMPARISON: 06/14/2022 TECHNIQUE: AP view of the chest FINDINGS: Cardiac silhouette is enlarged. Left subclavian [id number]-[id number] catheter. No pneumothorax. Pulmonary va scular congestion with interstitial coarsening. Layering pleural effusions with bibasilar predominant consolidation. Bones appear grossly intact. IMPRESSION: 1. Cardiomegaly with progressively worsened pulmonary edema. 2. Increased size of the layering pleural effusions with progressive bibasilar consolidation. ACT 112: Negative or not required by law. The above report was generated using voice recognition software. It may contain grammatical, syntax o r spelling errors. Electronically signed by: Jaspal Victor M.D. 06/17/2022 1:49 PM
[2022-06-17 16:07] LABS: Appearance Urine Turbid (Clear); Bacteria Urine Automated Negative (Negative); Blood Urine 3+ (Negative); Color Urine Red; Glucose Urine UA Negative (Negative); Ketones Urine Negative (Negative); Leukocyte Esterase Urine 2+ (Negative); Nitrite Urine Positive (Negative); Protein Urine 2+ (Negative); Specific Gravity Urine 1.027 (1.000-1.030); Urobilinogen Urine Negative (Negative); WBC Urine Automated >30 /hpf (0-5)
[2022-06-17 16:13] LABS: Bilirubin Urine 1+ (Negative)
[2022-06-17 16:40] LABS: Cast Urine Automated 0 /lpf (0-5); RBC Urine Automated >30 /hpf (0-4)
--- NOTE | 2022-06-17 17:44 | Hospitalist Progress Note ---
Date of Service June 17, 2022 Assessment & Plan (1) Goals of care, counseling/discussion: Plan: Goals of Care -Ongoing discussions including discussion w/ palliative care and oncology -Pt w/ diagnostic thoracentesis performed 06/09/22. Given that thoracentesis shows pleural effusion w/ atypical cells is likely secondary to malignant etiology (cannot be confirmed, but is suspicious), shows poor prognosis. Discussed case with pathologist and not indicative of malignancy because of limited cell count, however, pathology is suspicious this could be malignant. Feels chemotherapy may be suppressing the true cell count. -Son would like to have his mother go to long term facility for rehabilitation and possibly go on hospice after gaining some muscle back to have better quality of life. -Son and patient agreeable to DNR/DNI status -Dr. Caballero feels that chemotherapy is not a good option given the patient's poor prognosis and effusion likely caused by malignancy. -Compazine added to help with nausea which seems to be improving -Added cyproheptadine on top of Marinol for appetite stimulation. Continue to recheck in encourage oral intake. Leukocytosis -Pt with recurrent leukocytosis, worsening -WBC now 17.42 -?reactive vs. infectious -- she is afebrile and HD stable -Per nurse, pt also w/ recurrent hematuria. Will get UA, urine cx, and CXR Nausea/Vomiting -Nausea has reportedly been better controlled w/ compazine -However, per son, patient continues to have difficulty with po intake with food and she has worsening n/v after food intake (tolerates boost w/o difficulty) -Consult ST Bilateral pleural effusions -Presumably malignant vs. third spacing +/- cardiogenic -Thoracentesis performed by pulm/crit care on 06/09 for left pleural effusion w/ 1100 mL of serous fluid removed -Thoracentesis performed by pulm/crit care on for right pleural effusion w/ 700 mL of serous fluid removed Ascites -Paracentesis performed by pulm/crit care on 06/09 with 2750 mL of serous fluid removed Edema due to hypoalbuminemia -Patient is clearly edematous while also being clinically dry. -Switched maintenance IV fluid from lactated Ringer's to 5% albumin overnight to reduce third spacing Colon cancer metastasized to multiple sites -Discussed with Dr Carvalho. Chemotherapy regimen dictated by [facility] out of [place]. Currently on FOLFORI chemotherapy regimen yoli she last had on May 25. -Oncology discussion as above Pulmonary Embolism -Chest CTA 06/07: Subsegmental pulmonary emboli are seen bilaterally. Large bilateral pleural effusions with associated atelectasis. These are significantly enlarged from prior exam. Previously noted pulmonary nodules cannot be correlated. -Initially started on heparin drip but patient w/ issues with anticoagulation and difficult to manage on heparin. Switched to Eliquis 5mg po BID on 06/11 -Eliquis switched from 5 mg twice daily to 2.5 mg twice daily on 06/14/2022 due to hematuria -Suspect not contributing as much as pathology above given size Cellulitis -RLE. Possible diagnosis - monitor erythema. Cefepime was changed to Ancef on 06/11. Follow up blood cultures. --> positive for strep pyogenes -MRSA Nares negative ST elevation on ECG -On admission, pt w/ ST elevation on EKG -Cardiology feels ST elevation is not likely to be STEMI but could be stress- induced. -Not much benefit to going to [facility] as much better be medically managed, agree with cardiology recs -As this was not a STEMI, discontinued aspirin given on Eliquis for PE treatment Cardiogenic Shock, resolved VTE Prophyalxis - Eliquis Diet - Heart Healthy, minced and moist Disposition -[facility], plan to DC to SNF (when medically stable) followed by hospice services. Code Status: DNR/DNI-confirmed with patient and son. (2) ST elevation on ECG: (3) Edema due to hypoalbuminemia: (4) Bilateral pleural effusion: (5) Pulmonary embolism: (6) Cellulitis: (7) Colon cancer metastasized to multiple sites: (8) Generalized weakness: (9) Cardiogenic shock: (10) Osteoporosis: Admission and Anticipated Discharge Date Admission Date: June 07, 2022 Supervising Physician Co-Signing Physician Notes I personally examined the patient and verified all chase points of history and exam, discussed case, and agree with decision making and plan documented by Dr. Henley. Bilateral pleural effusions, presumably malignant in setting of metastatic colon cancer, worsening and will discuss options with pulmonary for next steps, last pleurocentesis left 06/09/22 and right 06/10/22, rapidly reaccumulating. Family would like to attempt rehabilitation, hospice has been discussed at length. Subjective Patient seen and evaluated at bedside this morning. Son is also in the room. No acute events reported overnight. Patient states that she "feels okay." Tolerating boost po well, however, son is still concerned that patient has vomiting after solid food po intake. Review of Systems Review of Systems: Per HPI Physical Exam Physical Exam: GENERAL: Elderly female, frail appearing, cachectic, and malnourished. Comfortable appearing, resting in bed. EYES: Anicteric sclerae. HENT: Moist mucous membranes. RESPIRATORY: Poor air movement bilaterally w/ diminished lung sounds at bilateral bases and + crackles bilaterally. CARDIOVASCULAR: Regular rate and rhythm. + murmurs. ABDOMEN: Soft, non-tender. Normal bowel sounds. EXTREMITIES: + significant edema to BLE and LUE. SKIN: Warm, dry. PSYCHIATRIC: Flat. Results & Data Results & Data Vital Signs (Past 12 Hours) Vital Signs Temp Pulse Resp BP BP Pulse Ox O2 Del Method 06/17/22 15:44 36.3 C L 80 20 120/80 98 Room Air 06/17/22 08:00 Room Air 06/17/22 07:52 36.6 C 87 16 141/91 H 96 Room Air Laboratory Results 06/17/22 06/17/22 06/17/22 Range/Units 14:55 08:02 08:02 WBC 17.42 H (4.8-10.8) K/ul RBC 2.88 L (4.20-5.40) M/uL Hgb 9.4 L (12.0-16.0) g/dl Hct 27.9 L (37.0-47.0) % MCV 96.9 (80.0-100.0) fL MCH 32.6 (25.0-34.0) pg MCHC 33.7 (32.0-36.0) g/dL RDW Std Deviation 54.8 H (36.4-46.3) fL RDW Coeff of Aimee 16.0 H (11.5-14.5) % Plt Count 342 (130-400) K/uL MPV 10.8 (9.4-12.4) fL Absolute Nucleated RBC 0.02 (0-0.12) K/uL Nucleated RBC % (auto) 0.1 % Sodium 135 L (136-145) mmol/L Potassium 4.1 (3.5-5.1) mmol/L Chloride 105 (98-107) mmol/L Carbon Dioxide 27 (21-32) mmol/L Anion Gap 3 (3-11) BUN 39 H (6-23) mg/dl Creatinine 1.40 H (0.6-1.2) mg/dl Est Cr Clr Drug Dosing 28.9 ml/min Est GFR ( Amer) 38.8 ml/min Est GFR (Non-Af Amer) 33.5 ml/min BUN/Creatinine Ratio 27.9 H (10-20) Glucose 103 H (70-99(Fasting)) mg/dl Calcium 8.2 L (8.6-10.3) mg/dl Magnesium 1.8 (1.7-2.4) mg/dl Total Bilirubin 0.5 (0.2-1.0) mg/dl AST 12 L (13-39) U/L ALT < 3 L (7-52) U/L Alkaline Phosphatase 55 (34-104) U/L Total Protein 4.3 L (6.0-8.3) gm/dl Albumin 2.6 L (3.4-5.0) gm/dl Globulin 1.7 L (2.5-4.0) gm/dl Albumin/Globulin Ratio 1.5 (0.9-2) Urine Color Red Urine Appearance Turbid A (Clear) Urine pH 5.0 (4.5-7.5) Ur Specific [place] Leon 1.027 (1.000-1.030) Urine Protein 2+ H (Negative) Urine Glucose (UA) Negative (Negative) Urine Ketones Negative (Negative) Urine Blood 3+ H (Negative) Urine Nitrite Positive A (Negative) Urine Bilirubin 1+ H (Negative) Urine Urobilinogen Negative (Negative) Ur Leukocyte Esterase 2+ H (Negative) Urine WBC (Auto) >30 H (0-5) /hpf Urine RBC (Auto) >30 H (0-4) /hpf U Hyaline Cast (Auto) 0 (0-5) /lpf U Epithel Cells (Auto) 5-10 H (0-5) /lpf Urine Bacteria (Auto) Negative (Negative) Urine Yeast Present A (None Prsent) Diagnostic Findings [facility], [place] [phone] XRay Report Patient:DANA SALAZAR Admit Date:06/07/22 MR#:[id number] Address1:[address] Acct ID:[id number] Address2: Date:[address] [facility] Zip:[place] [address] Age:86 Location:3N Sex:F Room/Bed:[facility] Att Phy:Dee Dee De Souza DO Diagnosis:BILATERAL PULMONARY EMBOLI, LARGE PLEURAL EFFUSION Yumi Phy:RV. Awad MD Service Date:06/17/22 Fam Phy: Interpreting Phy:Jaspal VictorAdmit Phy:Gianni Bartlett MD Ordering Phy:Dee Dee De Souza DO cc: ~ XR chest 1V portable HISTORY: 86 years-old Female coughing acute cough COMPARISON: 06/14/2022 TECHNIQUE: AP view of the chest FINDINGS: Cardiac silhouette is enlarged. Left subclavian [id number] catheter. No pneumothorax. Pulmonary vascular congestion with interstitial coarsening. Layering pleural effusions with bibasilar predominant consolidation. Bones appear grossly intact. IMPRESSION: 1. Cardiomegaly with progressively worsened pulmonary edema. 2. Increased size of the layering pleural effusions with progressive bibasilar consolidation. ACT 112: Negative or not required by law. The above report was generated using voice recognition software. It may contain grammatical, syntax or spelling errors. Electronically signed by: Jaspal Victor M.D. 06/17/2022 1:49 PM Dictated:06/17/22 1343 Transcribed: 06/17/22 1343 Resident Activity Tracking Resident Involvement: Resident Care Provided Care Provided: Adult Hospital Medicine
[2022-06-17] MEDS ORDERED: FUROSEMIDE INJ 20 MG/2 ML VIAL IV ONE (18:30)
[2022-06-17] MEDS: MIRTAZAPINE TAB 15 MG TAB PO SCH (20:04)
[2022-06-17] MEDS: MELATONIN 3 MG TAB PO PRN (20:04)
[2022-06-17] MEDS: LATANOPROST 0.005% OP SOLN 2.5 ML BTL OPL SCH (20:05)
[2022-06-18] MEDS: CYPROHEPTADINE HCL 4 MG TAB PO SCH ×3 (01:51→17:53)
--- NOTE | 2022-06-18 07:02 | Hospitalist Progress Note ---
Date of Service June 18, 2022 Assessment & Plan (1) Goals of care, counseling/discussion: Plan: Goals of Care -- ongoing discussion given metastatic sigmoid carcinoma, worsening functional status, bilateral pleural effusions - Sharifa unfortunately has not demonstrated a significant response to her previous chemotherapy, and per oncology, her molecular profile is unlikely to respond to immunologic/biologic therapies moving forward. Further chemotherapy likely has a risk>benefit profile as it relates to preserving her quality of life. Combined with her diminishing functional status, her overall prognosis over the next weeks-months is very guarded. This has been reiterated to both patient and son throughout admission. At this point, goal is to d/c to SNF for rehabilitation and possibly go on hospice after gaining some muscle back to have better quality of life. - Thoracentesis performed 06/09/22 demonstrated atypical cells. Previous team previously discussed case with pathology and cannot definitively diagnose as malignant because of limited cell count (which may be d/t chemoRX) -- however, highly suspicious for malignancy. - Control n/v, as below - Cyproheptadine, Marinol for appetite stimulation - Palliative and oncology following - Attempt to utilize certified medical legal investigator when feasible to ensure adequate patient involvement (Son, CAPO, normally translates for her -- though notes she has a good understanding of Romanian, but just trouble putting everything together) ----- Update 06/18 PM ----- Spoke w/ son and patient utilizing continuous improvement analyst with Dr. De Souza. Patient is able to grasp small details regarding her diagnosis, but has trouble following logic and responding to questions. We reinforced her overall functional status to both of them as well as her prognosis. [place], son, seems to understand that her chances at participating in meaningful rehab to get her home are low. She is profoundly deconditioned and anasarcic and has significant issues with basic tra nsferring (see PT evaluation; also discussed w/ them at bedside). We discussed recurrent R pleural effusion and introduced various forms of management -- purely palliative with management of symptoms vs. evaluating candidacy for PleurX/repeat drainage. They seem more interested in the latter than the former; at rec of Pul, will repeat CXR on Monday to evaluate progression and can consider former consultation at that time (alongside continued palliative discussions). Of course, will continue discussions in the interim and monitor pulmonary status. Can consider repeat dose of Lasix 20m IV if needed should there be ongoing concerns for new pulmonary edema (low threshold to obtain CXR). Metastatic Sigmoid Carcinoma - Previous team d/w Dr Carvalho. Chemotherapy regimen dictated by [facility] out of [place]. Currently on FOLFORI chemotherapy regimen which she last had on May 25. - Oncology following: noted lack of significant improvement with ongoing chemoRX, worsening functional status -- risk/benefit ratio of continuing aggressive oncologic treatment as it relates to QoL is leaning towards the former. 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 There is also very likely some contribution from osmotic/cardiogenic-third spacing. - Repeat CXR 06/18 as 2-view PA if possible to gauge growth --> If worsening, will speak with family to revisit [id number] and, if indicated, discuss with Pulmonology RE: repeat tapping vs. PleurX placement Leukocytosis -- improving on daily labs - Pt with fluctuating leukocytosis (PMN predominant, also +lymphopenia and monocytosis), initially increasing and now downtrending through 06/18 (14.9) - Work-up as follows: - Afebrile, no tachycardia or HoTN - CXR with worsening vascular congestion/pulmonary edema and pleural effusions - UA demonstrating 3+ hematuria, positive nitrites, 2+ LE, >30 WBCs/RBCs - Initial concern for cellulitis in RLE - no e/o worsening - No GI symptoms, obvious joint/bone concerns - At this time, primarily suspect stress demargination with the various other issues ongoing (pleural effusions, metastatic cancer, n/v, etc.). However, she is at high risk for infection at numerous possible locations. Will monitor closely for infection. Can consider checking PCT/CRP/ESR, though interpretation likely to be skewed given the aforementioned processes Nausea/Vomiting -- improving - Patient continues to have difficulty with PO intake with food and she has worsening n/v after food intake (tolerates boost w/o difficulty) - Nausea has been better controlled w/ Compazine - Continue PPI, consider adding H2 if ongoing concerns for dyspepsia - Speech therapy recommendations reviewed, appreciated Ascites -- s/p paracentesis on 06/09 - Paracentesis performed on 06/09 with 2750 mL of serous fluid removed -- SAAG at 1.6 g/dL (suggestive of portal HTN-related process) - No current concern clinically or diagnostically for SBP - Likely secondary to osmotic and cardiogenic third-spacing, similar to pleural effusions as outlined above Edema due to Hypoalbuminemia - Noted. Secondary to severe PCM and cancer burden. - Careful use of IVF. Consider adjunctive administration of 5% albumin if needed. Subsegmental Pulmonary Emboli - Noted in context of metastatic malignancy - Chest CTA 06/07: Subsegmental PEs appreciated b/l in context of large pleural effusions - Continue Eliquis 2.5mg b.i.d. initiated while here (switched from 5mg b.i.d. given hematuria on 06/14) - Do not suspect major clinical stressor from these given size and location. Monitor. Presumed Cellulitis of RLE -- resolved - Cellulitis vs. venous stasis dermatitis. Clinically stabilized. Previous / BCX of GAS noted on 06/07 -- all repeat cultures have been negative. Suspect contaminant. - Completed course of cefepime -> Ancef ST Elevations on Admission -- stable - On admission, noted to have ST-elevations without significant chest symptamatology - Cardiology consulted -- ST elevation is not likely to be STEMI but more likely stress-induced. Continue medical management, hold on cath lab radiology technician at this time - As this was not a STEMI, discontinued aspirin given on Eliquis for PE treatment Cardiogenic Shock, resolved VTE Prophyalxis - Eliquis Diet - Heart Healthy, minced and moist Disposition - Medr, plan to DC to SNF (when medically stable) followed by hospice services. Code Status: DNR/DNI (2) ST elevation on ECG: (3) Edema due to hypoalbuminemia: (4) Bilateral pleural effusion: (5) Pulmonary embolism: (6) Cellulitis: (7) Colon cancer metastasized to multiple sites: (8) Generalized weakness: (9) Cardiogenic shock: (10) Osteoporosis: Admission and Anticipated Discharge Date Admission Date: June 07, 2022 Supervising Physician Co-Signing Physician Notes I personally examined the patient and verified all chase points of history and exam, discussed case, and agree with decision making and plan documented by Dr. Wing. Family meeting today with the help of continuous improvement analyst Mikey #[id number] (Salvadorean). Dr. Wing and I discussed patient's rapidly accumulating bilateral pleural effusions and concerns about patient requiring IPC. We discussed concerns of patient's third spacing and worsening functional status which will limit her ability to participate in rehabilitation. Son is understanding of this and is making plans for 24-hour home care and eventual need for hospice. Will discuss options with pulmonology and discuss rehabilitation and options wit h patient. We will continue to maintain a patient-centered focus on quality life and support the family. Subjective NAEO. 825cc out overnight. Overall, feeling OK. Not SOB. No chest pain. No belly pain. Left arm feels fine but has become more swollen over the last few days. Legs feeling OK. No appetite. No nausea, vomiting. Wondering if she can drink more. Son at bedside. Mondragon draining yellow urine. Review of Systems Review of Systems: as per HPI Physical Exam Physical Exam: General: Frail appearing 86-year old female who is alert, oriented, and is in NAD. HEENT: NCAT. - Eyes - Sclera are white, anicteric, and without injection. - Mouth - MMM - Neck - supple, +JVD appreciated Cardiac: Normal rate and regular rhythm; S1 and S2 present with grade 1-2/6 systolic murmur detected best near the apex. Pulmonary: Mild tachypnea with diminished respiratory effort. No respiratory distress. No use of accessory muscles. No overt conversational dyspnea. Lungs were coarse with rhonchi appreciated in the bases bilateral, L>R. Abdominal: Abdomen was soft, nondistended, and non-tender to palpation. Extremities: Upper and lower extremities are warm and well perfused. LEFT forearm is swollen with 1+ pitting edema and mildly firm, non-tender. There is 2+ peripheral edema in the lower extremities bilaterally with evidence of scaling. Results & Data Results & Data Vital Signs (Past 12 Hours) Vital Signs Temp Pulse Resp BP Pulse Ox O2 Del Method 06/17/22 20:00 Room Air 06/17/22 20:00 36.3 C L 90 16 111/72 93 Room Air Resident Activity Tracking Resident Involvement: Resident Care Provided Care Provided: Adult Hospital Medicine
[2022-06-18 07:16] LABS: Basophils # (auto) 0.03 K/uL (0-0.2); Basophils % (auto) 0.2 %; Eosinophils # (auto) 0.01 K/uL (0-0.50); Eosinophils % (auto) 0.1 %; Hematocrit (blood only) 27.4 % (37.0-47.0); Hemoglobin 9.3 g/dl (12.0-16.0); Immature Granulocytes # (auto) 0.66 K/uL (0.01-0.20); Immature Granulocytes % (auto) 4.4 %; Lymphocytes # (auto) 0.91 K/uL (1.2-3.4); Lymphocytes % (auto) 6.1 %; Mean Corpuscular Hemoglobin 32.6 pg (25.0-34.0); Mean Corpuscular Hgb Conc 33.9 g/dL (32.0-36.0); Mean Corpuscular Volume 96.1 fL (80.0-100.0); Mean Platelet Volume 10.7 fL (9.4-12.4); Monocytes # (auto) 0.78 K/uL (0.11-0.59); Monocytes % (auto) 5.2 %; Neutrophils # (auto) 12.56 K/uL (1.40-6.50); Platelet Count 349 K/uL (130-400); RDW Coefficient of Variation 16.2 % (11.5-14.5); RDW Standard Deviation 54.2 fL (36.4-46.3); Red Blood Count 2.85 M/uL (4.20-5.40); White Blood Count 14.95 K/ul (4.8-10.8)
[2022-06-18 07:19] LABS: Anion Gap 5 (3-11); BUN Creatinine Ratio 28.3 (10-20); Blood Urea Nitrogen 39 mg/dl (6-23); Carbon Dioxide 26 mmol/L (21-32); Chloride 105 mmol/L (98-107); Creatinine Clr Calc Pharmacy 29.4 ml/min; Est GFR (African American) 39.5 ml/min; Est GFR (Non-African American) 34.1 ml/min; Glucose 90 mg/dl (70-99(Fasting)); Potassium 3.7 mmol/L (3.5-5.1); Sodium 136 mmol/L (136-145)
[2022-06-18 07:23] LABS: Alanine Aminotransferase < 3 U/L (7-52); Albumin Globulin Ratio 1.5 (0.9-2); Albumin Level 2.5 gm/dl (3.4-5.0); Alkaline Phosphatase 57 U/L (34-104); Aspartate Aminotransferase 12 U/L (13-39); Bilirubin,Total 0.5 mg/dl (0.2-1.0); Globulin 1.7 gm/dl (2.5-4.0); Total Protein 4.2 gm/dl (6.0-8.3)
[2022-06-18] MEDS: HEPARIN 100 UNIT/ML 5ML FLUSH FLUSH PRN ×2 (10:14→15:07)
[2022-06-18] MEDS: ONDANSETRON INJ 2 MG/ML 2 ML VIAL IV SCH ×3 (10:14→20:38)
[2022-06-18] MEDS: droNABinol 2.5 MG CAP PO SCH ×2 (10:27→20:38)
[2022-06-18] MEDS: FAMOTIDINE 20 MG TAB PO SCH ×2 (10:27→20:40)
[2022-06-18] MEDS: APIXABAN 2.5 MG TAB PO SCH ×2 (10:27→20:37)
[2022-06-18] MEDS: PANTOprazole 40 MG TAB PO SCH (10:27)
--- NOTE | 2022-06-18 10:28 | XRay Report ---
XR chest 2V PA/lateral HISTORY: 86 years-old Female f/u pulmonary edema, pleural effusions s/p diuresi acute shortness of b reath COMPARISON: 06/17/2022 TECHNIQUE: PA and lateral views of the chest FINDINGS: Unchanged positioning of the left subclavian Xgijri-c-Ttln catheter. The patient is rotated towards t he left. No pneumothorax. Decreased size of the layering pleural effusions with bibasilar consolidati on and moderately improved pulmonary edema. Cardiomegaly. Chronic appearing right-sided anterior rib fractures. Degenerative changes of the shoulders and spine. IMPRESSION: 1. Cardiomegaly with moderately improved pulmonary edema. 2. Persistent layering pleural effusions with decreased bibasilar consolidation. ACT 112: Negative or not required by law. The above report was generated using voice recognition software. It may contain grammatical, syntax o r spelling errors. Electronically signed by: Jaspal Victor M.D. 06/18/2022 10:26 AM
[2022-06-18] MEDS: MELATONIN 3 MG TAB PO PRN (20:38)
[2022-06-18] MEDS: MIRTAZAPINE TAB 15 MG TAB PO SCH (20:38)
[2022-06-18] MEDS: LATANOPROST 0.005% OP SOLN 2.5 ML BTL OPL SCH (20:38)
[2022-06-19] MEDS: CYPROHEPTADINE HCL 4 MG TAB PO SCH ×3 (02:29→17:59)
--- NOTE | 2022-06-19 06:46 | Hospitalist Progress Note ---
Date of Service June 19, 2022 Assessment & Plan (1) Goals of care, counseling/discussion: Plan: Goals of Care -- ongoing discussion given metastatic sigmoid carcinoma, worsening functional status, bilateral pleural effusions - Sharifa unfortunately has not demonstrated a significant response to her previous chemotherapy, and per oncology, her molecular profile is unlikely to respond to immunologic/biologic therapies moving forward. Further chemotherapy likely has a risk>benefit profile as it relates to preserving her quality of life. Combined with her diminishing functional status, her overall prognosis over the next weeks-months is very guarded. This has been reiterated to both patient and son throughout admission. At this point, goal is to d/c to SNF for rehabilitation and possibly go on hospice after gaining some muscle back to have better quality of life. - Thoracentesis performed 06/09/22 demonstrated atypical cells. Previous team previously discussed case with pathology and cannot definitively diagnose as malignant because of limited cell count (which may be d/t chemoRX) -- however, highly suspicious for malignancy. - Control n/v, as below - Cyproheptadine, Marinol for appetite stimulation - Palliative and oncology following - Attempt to utilize certified dental assistant medical assistant when feasible to ensure adequate patient involvement (Son, CAPO, normally translates for her -- though notes she has a good understanding of Bulgarian, but just trouble putting everything together) ----- Update 06/18 PM ----- Spoke w/ son and patient utilizing social and political studies professor with Dr. De Souza. Patient is able to grasp small details regarding her diagnosis, but has trouble following logic and responding to questions. We reinforced her overall functional status to both of them as well as her prognosis. Lake, son, seems to understand that her chances at participating in meaningful rehab to get her home are low. She is profoundly deconditioned and anasarcic and has significant issues with basic tra nsferring (see PT evaluation; also discussed w/ them at bedside). We discussed recurrent R pleural effusion and introduced various forms of management -- purely palliative with management of symptoms vs. evaluating candidacy for PleurX/repeat drainage. They seem more interested in the latter than the former; at rec of Pul, will repeat CXR on Monday to evaluate progression and can consider former consultation at that time (alongside continued palliative discussions). Of course, will continue discussions in the interim and monitor pulmonary status. Can consider repeat dose of Lasix 20m IV if needed should there be ongoing concerns for new pulmonary edema (low threshold to obtain CXR). ----- Update 06/19 AM ----- Spoke with patient independently. See HPI from 06/19. She overall prefers a palliative approach to her care rather than any sort of further aggressive treatment of cancer. She defines a good day as being home with her family and does NOT want to go to a rehab/SNF facility if possible. She understands that taking this approach means the disease will get worse, but we would work aggressively to control her symptoms. She prefers this. She wants to discuss any sort of further pulmonary intervention with her family before making any sort of formal decision. Later in the morning after his arrival, spoke with Lake (CAPO) independently. After sharing the aforementioned, he is concerned that she only states she wants to go home because "of how she feels today" and is unlikely to be truly reflective of her long-term goals. I did share that she communicated clearly with myself and her nurse and seemed to demonstrate capacity. I relayed that being at home with son and family is what she said makes her happy; Lake is concerned that what she envisions won't be the reality. They are in the process of getting a hospital bed, equipment set up at home. We spent an extensive amount of time discussing her functional status and how, at this point with her engagement with PT so far and what has been observed by all her medical teams here, it would take likely months for a person in an optimal condition to make meaningful functional recovery -- and with her ongoing cancer burden and poor nutritional status, I greatly fear that she won't be able to engage with PT/recovery to the degree he imagines. We also spent a lot of time discussing her anasarca and pleural effusions -- that repeatedly repleting albumin via the IV is unlikely to provide any prognostic or symptomatic benefit based on how she's presenting currently. I encouraged PO intake as is comfortable for her, and that we can try adding further acid suppressive therapy alongside scheduled antiemetics if she feels that it helps her w/ PO intake she wants to engage with. I did reflect, however, that ongoing nutritional repletion will not reverse her anasarca within an immediate timeframe. In synthesizing all of this and engaging in reflective listening, I did share that I worry that spending further time in the hospital when her overall prognosis over the next few months is already guarded seems contrary to the goals she had discussed with me this morning. He would like to d/w his mother more. He would like to continue holding off from hospice at this time. We will continue symptom control in the interim. He would like oncology to see her again tomorrow if possible. I think palliative would also be beneficial given the multimodal complexity of this situation. CXR repeat ordered for tomorrow AM as outlined above/recommended by Pulm - consider formal consultation pending these discussions and if worsening. Patient is accepted to go to [facility] tomorrow if that is still the goal from continued discussions. Metastatic Sigmoid Carcinoma - Previous team d/w Dr Carvalho. Chemotherapy regimen dictated by [facility] out of [place]. Currently on FOLFORI chemotherapy regimen which she last had on May 25. - Oncology following: noted lack of significant improvement with ongoing chemoRX, worsening functional status -- risk/benefit ratio of continuing aggressive oncologic treatment as it relates to QoL is leaning towards the former. 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 There is also very likely some contribution from osmotic/cardiogenic-third spacing. - Repeat CXR 06/18 as 2-view PA if possible to gauge growth --> If worsening, will speak with family to revisit [id number] and, if indicated, discuss with Pulmonology RE: repeat tapping vs. PleurX placement Post-prandial Nausea/Vomiting -- improving - Patient continues to have difficulty with PO intake with food and she has worsening n/v after food intake (tolerates boost w/o difficulty) - Nausea has been better controlled w/ Compazine - Continue PPI - Add daily H2 jim to see if we can prevent n/v at mealtime. Can consider adding pre-meal antiemetic or Maalox pending response to achieve comfort - Speech therapy recommendations reviewed, appreciated Leukocytosis -- improving on daily labs - Pt with fluctuating leukocytosis (PMN predominant, also +lymphopenia and monocytosis), initially increasing and now downtrending through 06/18 (14.9) - Work-up as follows: - Afebrile, no tachycardia or HoTN - CXR 06/17 with worsening vascular congestion/pulmonary edema and pleural effusions -- improved s/p diuresis - UA demonstrating 3+ hematuria, positive nitrites, 2+ LE, >30 WBCs/RBCs; asymptomatic - Initial concern for cellulitis in RLE - no e/o worsening - No GI symptoms, obvious joint/bone concerns - At this time, primarily suspect stress demargination with the various other issues ongoing (pleural effusions, metastatic cancer, n/v, etc.). However, she is at high risk for infection at numerous possible locations. Will monitor closely for infection. Can consider checking PCT/CRP/ESR, though interpretation likely to be skewed given the aforementioned processes Ascites -- s/p paracentesis on 06/09 - Paracentesis performed on 06/09 with 2750 mL of serous fluid removed -- SAAG at 1.6 g/dL (suggestive of portal HTN-related process) - No current concern clinically or diagnostically for SBP - Likely secondary to osmotic and cardiogenic third-spacing, similar to pleural effusions as outlined above Edema due to Hypoalbuminemia - Noted. Secondary to severe PCM and cancer burden. - Careful use of IVF. Consider adjunctive administration of 5% albumin if needed. Subsegmental Pulmonary Emboli - Noted in context of metastatic malignancy - Chest CTA 06/07: Subsegmental PEs appreciated b/l in context of large pleural effusions - Continue Eliquis 2.5mg b.i.d. initiated while here (switched from 5mg b.i.d. given hematuria on 06/14) - Do not suspect major clinical stressor from these given size and location. Monitor. Presumed Cellulitis of RLE -- resolved - Cellulitis vs. venous stasis dermatitis. Clinically stabilized. Previous 03/02 BCX of GAS noted on 06/07 -- all repeat cultures have been negative. Suspect contaminant. - Completed course of cefepime -> Ancef ST Elevations on Admission -- stable - On admission, noted to have ST-elevations without significant chest symptamatology - Cardiology consulted -- ST elevation is not likely to be STEMI but more likely stress-induced. Continue medical management, hold on cath lab nurse at this time - As this was not a STEMI, discontinued aspirin given on Eliquis for PE treatment Cardiogenic Shock, resolved VTE Prophyalxis - Eliquis Diet - Heart Healthy, minced and moist Disposition - MedSurg, plan to DC to SNF (when medically stable) followed by hospice services. Code Status: DNR/DNI (2) ST elevation on ECG: (3) Edema due to hypoalbuminemia: (4) Bilateral pleural effusion: (5) Pulmonary embolism: (6) Cellulitis: (7) Colon cancer metastasized to multiple sites: (8) Generalized weakness: (9) Cardiogenic shock: (10) Osteoporosis: Admission and Anticipated Discharge Date Admission Date: June 07, 2022 Supervising Physician Co-Signing Physician Notes I personally examined the patient and verified all chase points of history and exam, discussed case, and agree with decision making and plan documented by Dr. Wing. Patient resting comfortably in bed during exam, we discussed her goals, she expresses desire to go home stating she's had a good life. Patient's son Fredi was on speakerphone during exam today, he expressed concern to put his mother in hospice due to her possible need to return to the hospital and reiterated his desire to proceed with a rehabilitation attempt with preparations ongoing to bring his mother home there after. Family is interested in discussing prognosis with oncology. Discussed with son consideration of additional support from palliative medicine as well. As outlined above by Dr. Wing, multiple family conversations have occurred this weekend, recommend any additional conversations being present of a Chinese mechanical product design engineer to ensure patient is understanding, unfortunately due to her soft spoken nature, the last mechanical product design engineer struggled to understand her responses most of the time. Subjective NAEO. No increased respiratory needs overnight. Seen at the bedside this morning, no family present at the time. She is feeling well. Breathing is comfortable. I gauged her understanding of the situation (given ongoing concerns for confusion / difficulty fully appreciating explanations in previous days), and from what I can tell, she understands the overall seriousness of her cancer and that her weakness and general state of health is getting worse. When asked what is important to her, she says being comfortable is #1. When asked what makes her happy and what defines a good day for her, she said "being at home with my son." I asked if rehab seems realistic to her now and if, she made meaningful recovery, she would want to go - she responded no, and that she would rather be home. At this point, I again introduced various methods of treatment - including aggressive treatment of disease vs. focusing on symptom control and improving QoL/decreasing discomfort while knowing that the disease may get worse. She very much prefers the latter. We briefly again discussed her pleural effusion situation, and she says that she would like to discuss therapies with her family to make a decision, but she has been thinking about it. Nursing informed me that family was really trying to get her to reposition yesterday, but she was much more comfortable in bed rather than in chair -- which is how she remained. There was some argument prior to arriving to this decision between family/patient. Still getting nauseous after eating. Wants to try something to see if that can be prevented. Review of Systems Review of Systems: as per HPI Physical Exam Physical Exam: General: Frail appearing 86-year old female who is alert, oriented, and is in NAD. HEENT: NCAT. - Eyes - Sclera are white, anicteric, and without injection. - Mouth - MMM - Neck - supple, +JVD appreciated Cardiac: Normal rate and regular rhythm; S1 and S2 present with grade 1-2/6 systolic murmur detected best near the apex. Pulmonary: Mild tachypnea with diminished respiratory effort. No respiratory distress. No use of accessory muscles. No overt conversational dyspnea. Lungs were coarse with rhonchi appreciated in the bases bilateral, L>R. Abdominal: Abdomen was soft, nondistended, and non-tender to palpation. Extremities: Upper and lower extremities are warm and well perfused. LEFT forearm is swollen with 1+ pitting edema and mildly firm, non-tender. There is 2+ peripheral edema in the lower extremities bilaterally with evidence of scaling. Results & Data Results & Data Vital Signs (Past 12 Hours) Vital Signs Temp Pulse Resp BP Pulse Ox O2 Del Method 06/18/22 20:45 Room Air 06/18/22 20:56 36.9 C 88 18 100/69 94 Room Air Resident Activity Tracking Resident Involvement: Resident Care Provided Care Provided: Adult Hospital Medicine
[2022-06-19] MEDS: APIXABAN 2.5 MG TAB PO SCH ×2 (10:11→20:27)
[2022-06-19] MEDS: DOCUSATE SODIUM 100 MG CAP PO SCH ×2 (10:11→20:27)
[2022-06-19] MEDS: PANTOprazole 40 MG TAB PO SCH (10:11)
[2022-06-19] MEDS: droNABinol 2.5 MG CAP PO SCH ×2 (10:11→20:27)
[2022-06-19] MEDS: FAMOTIDINE 20 MG in SYRINGE 3 ML IV SCH (10:11)
[2022-06-19] MEDS: HEPARIN 100 UNIT/ML 5ML FLUSH FLUSH PRN ×2 (10:12→14:26)
[2022-06-19] MEDS: FAMOTIDINE 20 MG TAB PO SCH (10:12)
[2022-06-19] MEDS: ONDANSETRON INJ 2 MG/ML 2 ML VIAL IV SCH ×3 (10:12→20:27)
[2022-06-19] MEDS ORDERED: bisacodyL 10 MG SUPP PR STA (16:03)
[2022-06-19] MEDS: MIRTAZAPINE TAB 15 MG TAB PO SCH (20:27)
[2022-06-19] MEDS: LATANOPROST 0.005% OP SOLN 2.5 ML BTL OPL SCH (20:27)
[2022-06-19] MEDS: MELATONIN 3 MG TAB PO PRN (20:27)
[2022-06-20] MEDS: CYPROHEPTADINE HCL 4 MG TAB PO SCH ×2 (01:03→09:16)
[2022-06-20 08:59] LABS: Basophils # (auto) 0.02 K/uL (0-0.2); Basophils % (auto) 0.2 %; Hematocrit (blood only) 27.9 % (37.0-47.0); Hemoglobin 9.2 g/dl (12.0-16.0); Immature Granulocytes # (auto) 0.27 K/uL (0.01-0.20); Immature Granulocytes % (auto) 2.2 %; Lymphocytes # (auto) 0.57 K/uL (1.2-3.4); Lymphocytes % (auto) 4.7 %; Mean Corpuscular Hemoglobin 33.1 pg (25.0-34.0); Mean Corpuscular Volume 100.4 fL (80.0-100.0); Mean Platelet Volume 10.8 fL (9.4-12.4); Monocytes # (auto) 0.64 K/uL (0.11-0.59); Monocytes % (auto) 5.3 %; Neutrophils # (auto) 10.53 K/uL (1.40-6.50); Neutrophils % (auto) 87.6 %; Platelet Count 312 K/uL (130-400); RDW Coefficient of Variation 17.1 % (11.5-14.5); Red Blood Count 2.78 M/uL (4.20-5.40); White Blood Count 12.03 K/ul (4.8-10.8)
[2022-06-20 09:09] LABS: Anion Gap 2 (3-11); BUN Creatinine Ratio 33.3 (10-20); Blood Urea Nitrogen 35 mg/dl (6-23); Carbon Dioxide 29 mmol/L (21-32); Chloride 107 mmol/L (98-107); Creatinine Clr Calc Pharmacy 37.8 ml/min; Est GFR (African American) 54.9 ml/min; Est GFR (Non-African American) 47.4 ml/min; Glucose 88 mg/dl (70-99(Fasting)); Potassium 3.6 mmol/L (3.5-5.1); Sodium 138 mmol/L (136-145)
[2022-06-20 09:11] LABS: Alanine Aminotransferase < 3 U/L (7-52); Albumin Globulin Ratio 1.4 (0.9-2); Albumin Level 2.4 gm/dl (3.4-5.0); Alkaline Phosphatase 55 U/L (34-104); Aspartate Aminotransferase 13 U/L (13-39); Bilirubin,Total 0.5 mg/dl (0.2-1.0); Globulin 1.7 gm/dl (2.5-4.0); Total Protein 4.1 gm/dl (6.0-8.3)
[2022-06-20] MEDS: PANTOprazole 40 MG TAB PO SCH (09:16)
[2022-06-20] MEDS: DOCUSATE SODIUM 100 MG CAP PO SCH (09:16)
[2022-06-20] MEDS: APIXABAN 2.5 MG TAB PO SCH (09:16)
[2022-06-20] MEDS: droNABinol 2.5 MG CAP PO SCH (09:22)
[2022-06-20] MEDS: ONDANSETRON INJ 2 MG/ML 2 ML VIAL IV SCH (09:22)
[2022-06-20] MEDS: FAMOTIDINE 20 MG in SYRINGE 3 ML IV SCH (09:22)
[2022-06-20] MEDS: HEPARIN 100 UNIT/ML 5ML FLUSH FLUSH PRN (09:24)
--- NOTE | 2022-06-20 09:28 | Hospitalist Progress Note ---
Date of Service June 20, 2022 Assessment & Plan (1) Goals of care, counseling/discussion: Plan: Goals of Care -- ongoing discussion given metastatic sigmoid carcinoma, worsening functional status, bilateral pleural effusions - Sharifa unfortunately has not demonstrated a significant response to her previous chemotherapy, and per oncology, her molecular profile is unlikely to respond to immunologic/biologic therapies moving forward. Further chemotherapy likely has a risk>benefit profile as it relates to preserving her quality of life. Combined with her diminishing functional status, her overall prognosis over the next weeks-months is very guarded. This has been reiterated to both patient and son throughout admission. At this point, goal is to d/c to SNF for rehabilitation and possibly go on hospice after gaining some muscle back to have better quality of life. - Thoracentesis performed 06/09/22 demonstrated atypical cells. Previous team previously discussed case with pathology and cannot definitively diagnose as malignant because of limited cell count (which may be d/t chemoRX) -- however, highly suspicious for malignancy. - Control n/v, as below - Cyproheptadine, Marinol for appetite stimulation - Palliative and oncology following - Attempt to utilize certified medical office worker when feasible to ensure adequate patient involvement (Son, CAPO, normally translates for her -- though notes she has a good understanding of [employer], but just trouble putting everything together) ----- Update 06/18 PM ----- Spoke w/ son and patient utilizing subassembly supervisor with Dr. De Souza. Patient is able to grasp small details regarding her diagnosis, but has trouble following logic and responding to questions. We reinforced her overall functional status to both of them as well as her prognosis. Lake, son, seems to understand that her chances at participating in meaningful rehab to get her home are low. She is profoundly deconditioned and anasarcic and has significant issues with basic tra nsferring (see PT evaluation; also discussed w/ them at bedside). We discussed recurrent R pleural effusion and introduced various forms of management -- purely palliative with management of symptoms vs. evaluating candidacy for PleurX/repeat drainage. They seem more interested in the latter than the former; at rec of Pul, will repeat CXR on Monday to evaluate progression and can consider former consultation at that time (alongside continued palliative discussions). Of course, will continue discussions in the interim and monitor pulmonary status. Can consider repeat dose of Lasix 20m IV if needed should there be ongoing concerns for new pulmonary edema (low threshold to obtain CXR). ----- Update 06/19 AM ----- Spoke with patient independently. See HPI from 06/19. She overall prefers a palliative approach to her care rather than any sort of further aggressive treatment of cancer. She defines a good day as being home with her family and does NOT want to go to a rehab/SNF facility if possible. She understands that taking this approach means the disease will get worse, but we would work aggressively to control her symptoms. She prefers this. She wants to discuss any sort of further pulmonary intervention with her family before making any sort of formal decision. Later in the morning after his arrival, spoke with Lake (CAPO) independently. After sharing the aforementioned, he is concerned that she only states she wants to go home because "of how she feels today" and is unlikely to be truly reflective of her long-term goals. I did share that she communicated clearly with myself and her nurse and seemed to demonstrate capacity. I relayed that being at home with son and family is what she said makes her happy; Lake is concerned that what she envisions won't be the reality. They are in the process of getting a hospital bed, equipment set up at home. We spent an extensive amount of time discussing her functional status and how, at this point with her engagement with PT so far and what has been observed by all her medical teams here, it would take likely months for a person in an optimal condition to make meaningful functional recovery -- and with her ongoing cancer burden and poor nutritional status, I greatly fear that she won't be able to engage with PT/recovery to the degree he imagines. We also spent a lot of time discussing her anasarca and pleural effusions -- that repeatedly repleting albumin via the IV is unlikely to provide any prognostic or symptomatic benefit based on how she's presenting currently. I encouraged PO intake as is comfortable for her, and that we can try adding further acid suppressive therapy alongside scheduled antiemetics if she feels that it helps her w/ PO intake she wants to engage with. I did reflect, however, that ongoing nutritional repletion will not reverse her anasarca within an immediate timeframe. In synthesizing all of this and engaging in reflective listening, I did share that I worry that spending further time in the hospital when her overall prognosis over the next few months is already guarded seems contrary to the goals she had discussed with me this morning. He would like to d/w his mother more. He would like to continue holding off from hospice at this time. We will continue symptom control in the interim. He would like oncology to see her again tomorrow if possible. I think palliative would also be beneficial given the multimodal complexity of this situation. CXR repeat ordered for tomorrow AM as outlined above/recommended by Pulm - consider formal consultation pending these discussions and if worsening. Patient is accepted to go to [facility] tomorrow if that is still the goal from continued discussions. Metastatic Sigmoid Carcinoma - Previous team d/w Dr Carvalho. Chemotherapy regimen dictated by [facility] out of [place]. Currently on FOLFORI chemotherapy regimen which she last had on May 25. - Oncology following: noted lack of significant improvement with ongoing chemoRX, worsening functional status -- risk/benefit ratio of continuing aggressive oncologic treatment as it relates to QoL is leaning towards the former. 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 There is also very likely some contribution from osmotic/cardiogenic-third spacing. - Repeat CXR 06/18 as 2-view PA if possible to gauge growth --> If worsening, will speak with family to revisit [id number] and, if indicated, discuss with Pulmonology RE: repeat tapping vs. PleurX placement Post-prandial Nausea/Vomiting -- improving - Patient continues to have difficulty with PO intake with food and she has worsening n/v after food intake (tolerates boost w/o difficulty) - Nausea has been better controlled w/ Compazine - Continue PPI - Add daily H2 jim to see if we can prevent n/v at mealtime. Can consider adding pre-meal antiemetic or Maalox pending response to achieve comfort - Speech therapy recommendations reviewed, appreciated Leukocytosis -- improving on daily labs - Pt with fluctuating leukocytosis (PMN predominant, also +lymphopenia and monocytosis), initially increasing and now downtrending through 06/18 (14.9) - Work-up as follows: - Afebrile, no tachycardia or HoTN - CXR 06/17 with worsening vascular congestion/pulmonary edema and pleural effusions -- improved s/p diuresis - UA demonstrating 3+ hematuria, positive nitrites, 2+ LE, >30 WBCs/RBCs; asymptomatic - Initial concern for cellulitis in RLE - no e/o worsening - No GI symptoms, obvious joint/bone concerns - At this time, primarily suspect stress demargination with the various other issues ongoing (pleural effusions, metastatic cancer, n/v, etc.). However, she is at high risk for infection at numerous possible locations. Will monitor closely for infection. Can consider checking PCT/CRP/ESR, though interpretation likely to be skewed given the aforementioned processes Ascites -- s/p paracentesis on 06/09 - Paracentesis performed on 06/09 with 2750 mL of serous fluid removed -- SAAG at 1.6 g/dL (suggestive of portal HTN-related process) - No current concern clinically or diagnostically for SBP - Likely secondary to osmotic and cardiogenic third-spacing, similar to pleural effusions as outlined above Edema due to Hypoalbuminemia - Noted. Secondary to severe PCM and cancer burden. - Careful use of IVF. Consider adjunctive administration of 5% albumin if needed. Subsegmental Pulmonary Emboli - Noted in context of metastatic malignancy - Chest CTA 06/07: Subsegmental PEs appreciated b/l in context of large pleural effusions - Continue Eliquis 2.5mg b.i.d. initiated while here (switched from 5mg b.i.d. given hematuria on 06/14) - Do not suspect major clinical stressor from these given size and location. Monitor. Presumed Cellulitis of RLE -- resolved - Cellulitis vs. venous stasis dermatitis. Clinically stabilized. Previous 03/02 BCX of GAS noted on 06/07 -- all repeat cultures have been negative. Suspect contaminant. - Completed course of cefepime -> Ancef ST Elevations on Admission -- stable - On admission, noted to have ST-elevations without significant chest symptamatology - Cardiology consulted -- ST elevation is not likely to be STEMI but more likely stress-induced. Continue medical management, hold on rd lab technician at this time - As this was not a STEMI, discontinued aspirin given on Eliquis for PE treatment Cardiogenic Shock, resolved VTE Prophyalxis - Eliquis Diet - Heart Healthy, minced and moist Disposition - [facility], plan to DC to SNF (when medically stable) followed by hospice services. Code Status: DNR/DNI (2) ST elevation on ECG: (3) Edema due to hypoalbuminemia: (4) Bilateral pleural effusion: (5) Pulmonary embolism: (6) Cellulitis: (7) Colon cancer metastasized to multiple sites: (8) Generalized weakness: (9) Cardiogenic shock: (10) Osteoporosis: Admission and Anticipated Discharge Date Admission Date: June 07, 2022 Review of Systems Review of Systems: as per HPI Physical Exam Physical Exam: General: Frail appearing 86-year old female who is alert, oriented, and is in NAD. HEENT: NCAT. - Eyes - Sclera are white, anicteric, and without injection. - Mouth - MMM - Neck - supple, +JVD appreciated Cardiac: Normal rate and regular rhythm; S1 and S2 present with grade 1-2/6 systolic murmur detected best near the apex. Pulmonary: Mild tachypnea with diminished respiratory effort. No respiratory distress. No use of accessory muscles. No overt conversational dyspnea. Lungs were coarse with rhonchi appreciated in the bases bilateral, L>R. Abdominal: Abdomen was soft, nondistended, and non-tender to palpation. Extremities: Upper and lower extremities are warm and well perfused. LEFT forearm is swollen with 1+ pitting edema and mildly firm, non-tender. There is 2+ peripheral edema in the lower extremities bilaterally with evidence of scaling. Results & Data Results & Data Vital Signs (Past 12 Hours) Vital Signs Temp Pulse Resp BP Pulse Ox O2 Del Method 06/20/22 07:35 36.3 C L 84 16 111/73 94 Room Air 06/19/22 21:51 Room Air Resident Activity Tracking Resident Involvement: Resident Care Provided Care Provided: Adult Hospital Medicine
--- NOTE | 2022-06-20 10:10 | Discharge Summary ---
Date of Service June 20, 2022 Admission HPI Per Admitting Provider Hayley Valdes is an 86 year old female with metastatic colorectal cancer who presents to the ER with increased leg swelling, generalized weakness and concern for cellulitis from home physical therapy. She has a significant history of metastatic colorectal cancer diagnosis since January 2020 currently on chemotherapy (FOLFORI last received on May 25). She reports she feels similar to her presentation on April 28 with generalized weakness. No one sided weakness, change in speech, vision or hearing. She is mainly concerned about getting some water. EKG concerning for ST elevation myocardial infarction however she denies any chest pain or shortness of breath. Despite large bilateral pleural effusions she surprisingly reports no shortness of breath or orthopnea. No cough, fever, chills, nasal congestion or sinus pain. She cannot tell me anything about the erythema on her leg but per hand over this is new and one of the things her physical therapist was concerned about. Tried calling son at time of admission but goes through to [employer] multiple times. Reportedly he is on his way from [place]. In the ER she was tachycardic and hypotensive therefore given a 500ml NSS bolus which improved her lactate, heart rate and blood pressure. Admission Exam Per Admitting Provider Constitutional: well developed and + frail appearing; + not well nourished and no acute distress Eyes: PERRL, conjunctivae normal, anicteric sclerae ENMT: Mouth: + dry oral mucous membranes Respiratory: normal respiratory effort; no respiratory distress Auscultation: + breath sounds absent (bibasal); no crackles and no wheezes Cardiovascular: Rate/Rhythm: regular rhythm and + tachycardic Heart Sounds: no murmur Extremities: normal capillary refill and + pedal edema (2+ b/l equal); no calf tenderness Gastrointestinal (Abdomen): normal bowel sounds, soft, nontender, no hepatosplenomegaly Musculoskeletal: no cyanosis or clubbing, extremities motor strength 5/5 Skin: erythema, swelling and warmth from mid melgar to foot on right lower extremity surrounding contusion area Neurologic: moves all extremities and awake; no focal motor deficits and not confused Motor/Sensory: no tremor and no pronator drift Cranial Nerves: PERRL, EOM intact bilaterally, able to elevate shoulders bilaterally and symmetric palate elevation; + abnormal facial strength Coordination: normal [id number] test Psychiatric: Orientation: alert, oriented to person and oriented to place; + not oriented to time Principal Diagnosis Failure to thrive Discharge Exam General: Frail appearing 86-year old female who is alert, oriented, and is in NAD. HEENT: NCAT. - Eyes - Sclera are white, anicteric, and without injection. - Mouth - MMM - Neck - supple, +JVD appreciated Cardiac: Normal rate and regular rhythm; S1 and S2 present with grade 1-2/6 systolic murmur detected best near the apex. Pulmonary: Mild tachypnea with diminished respiratory effort. No respiratory distress. No use of accessory muscles. No overt conversational dyspnea. Lungs were coarse with rhonchi appreciated in the bases bilateral, R>L. Abdominal: Abdomen was soft, nondistended, and non-tender to palpation. Extremities: Upper and lower extremities are warm and well perfused. LEFT forearm is swollen with 1+ pitting edema and mildly firm, non-tender. There is 2+ peripheral edema in the lower extremities bilaterally with evidence of scaling. Discharge Data Allergies Allergy/AdvReac Type Severity Reaction Status Date / Time cinacalcet AdvReac Intermediate SE- Verified 06/07/22 13:17 Urinary frequency, Chills Consultations 06/07/22 15:58 ED Decision to Admit Stat 06/07/22 17:03 Consult Cardiology Stat 06/07/22 17:28 Consult Checker Routine 06/07/22 21:11 Consult Oncology Routine Consult Palliative Care Routine Ordered Studies 06/07/22 13:10 CT abd pelvis IV con only Stat CT angio chest PE protocol Stat 06/08/22 06:39 US venous doppler LE BI Routine 06/08/22 06:49 US point of care ultrasound Urgent 06/09/22 07:50 US point of care ultrasound Urgent 06/10/22 15:06 US point of care ultrasound Urgent Hospital Course (1) Goals of care, counseling/discussion: Goals of Care -- ongoing discussion given metastatic sigmoid carcinoma, worsening functional status, bilateral pleural effusions - Sharifa unfortunately has not demonstrated a significant response to her previous chemotherapy, and per oncology, her molecular profile is unlikely to respond to immunologic/biologic therapies moving forward. Further chemotherapy likely has a risk>benefit profile as it relates to preserving her quality of life. Combined with her diminishing functional status, her overall prognosis over the next weeks-months is very guarded. This has been reiterated to both patient and son throughout admission. At this point, goal is to d/c to SNF for rehabilitation and possibly go on hospice after gaining some muscle back to have better quality of life. Metastatic Sigmoid Carcinoma - Previous team d/w Dr Carvalho. Chemotherapy [place] [facility] [place]. Currently on FOLFORI chemotherapy regimen which she last had on May 25. - Oncology following: noted lack of significant improvement with ongoing chemoRX, worsening functional status -- risk/benefit ratio of continuing aggressive oncologic treatment as it relates to QoL is leaning towards the former. 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 There is also very likely some contribution from osmotic/cardiogenic-third spacing. - Repeat CXR 06/20 with worsening R effusion though possibly compromised by poor film quality- deferred thoracentesis given pt is on RA, stable respiratory status and on anticoagulant Post-prandial Nausea/Vomiting -- improving - Patient continues to have difficulty with PO intake with food and she has worsening n/v after food intake (tolerates boost w/o difficulty) - Nausea has been better controlled w/ Compazine. Continue compazine and zofran on discharge for PRN relief - Continue PPI - Speech therapy recommendations reviewed, appreciated- minced and moist diet Leukocytosis -- improving on daily labs - Pt with fluctuating leukocytosis (PMN predominant, also +lymphopenia and monocytosis), initially increasing and now downtrending - Work-up as follows: - Afebrile, no tachycardia or HoTN - CXR 06/17 with worsening vascular congestion/pulmonary edema and pleural effusions -- improved s/p diuresis - UA demonstrating 3+ hematuria, positive nitrites, 2+ LE, >30 WBCs/RBCs; asymptomatic - Initial concern for cellulitis in RLE - no e/o worsening - No GI symptoms, obvious joint/bone concerns - At this time, primarily suspect stress demargination with the various other issues ongoing (pleural effusions, metastatic cancer, n/v, etc.). However, she is at high risk for infection at numerous possible locations. Monitor closely for infection. Can consider checking PCT/CRP/ESR, though interpretation likely to be skewed given the aforementioned processes Ascites -- s/p paracentesis on 06/09 - Paracentesis performed on 06/09 with 2750 mL of serous fluid removed -- SAAG at 1.6 g/dL (suggestive of portal HTN-related process) - No current concern clinically or diagnostically for SBP - Likely secondary to osmotic and cardiogenic third-spacing, similar to pleural effusions as outlined above Anasarca/generalized edema due to hypoalbuminemia - Noted. Secondary to severe PCM and cancer burden. - Careful use of IVF. Consider adjunctive administration of 5% albumin if needed - Chronic hypervolemia status on discharge Subsegmental Pulmonary Emboli - Noted in context of metastatic malignancy - Chest CTA 06/07: Subsegmental PEs appreciated b/l in context of large pleural effusions - Continue Eliquis 2.5mg b.i.d. initiated while here (switched from 5mg b.i.d. given hematuria on 06/14) - Do not suspect major clinical stressor from these given size and location - Stable respiratory status on RA - Continue Eliquis on discharge Presumed Cellulitis of RLE -- resolved - Cellulitis vs. venous stasis dermatitis. Clinically stabilized. Previous 03/02 BCX of GAS noted on 06/07 -- all repeat cultures have been negative. Suspect contaminant. - Completed course of cefepime -> Ancef ST Elevations on Admission -- stable - On admission, noted to have ST-elevations without significant chest symptomatology - Cardiology consulted -- ST elevation is not likely to be STEMI but more likely stress-induced. Continue medical management - As this was not a STEMI, discontinued aspirin given on Eliquis for PE treatment. Aspirin discontinued on discharge Cardiogenic Shock, resolved VTE Prophyalxis - Eliquis Diet - Heart Healthy, minced and moist Disposition - [facility] to [facility] Code Status: DNR/DNI (2) ST elevation on ECG: (3) Edema due to hypoalbuminemia: (4) Bilateral pleural effusion: (5) Pulmonary embolism: (6) Cellulitis: (7) Colon cancer metastasized to multiple sites: (8) Generalized weakness: (9) Cardiogenic shock: (10) Osteoporosis: Total Time Total Time Spent Total Time Spent (In Minutes): <30 Discharge Plan Discharge Items Patient Disposition: Transfer Long-Term Fac Reason For Visit: BILATERAL PULMONARY EMBOLI, LARGE PLEURAL EFFUSION Discharge Diagnosis: Failure to thrive Activity: Resume your previous activity Non-emergency contact: Primary Care Provider, Oncologist and Laundry Aide Call non-emergency contact if: your symptoms worsen, your pain is worsening and you have a fever Follow-up/Referrals: Cassi Zavala MD [Primary Care Provider] - Diet: Regular Addtl Attending Provider Instructions: Goals of Care -- ongoing discussion given metastatic sigmoid carcinoma, worsening functional status, bilateral pleural effusions - Sharifa unfortunately has not demonstrated a significant response to her previous chemotherapy, and per oncology, her molecular profile is unlikely to respond to immunologic/biologic therapies moving forward. Further chemotherapy likely has a risk>benefit profile as it relates to preserving her quality of life. Combined with her diminishing functional status, her overall prognosis over the next weeks-months is very guarded. This has been reiterated to both patient and son throughout admission. At this point, goal is to d/c to SNF for rehabilitation and possibly go on hospice after gaining some muscle back to have better quality of life. Metastatic Sigmoid Carcinoma - Previous team d/w Dr Carvalho. Chemotherapy regimen dictated by [facility] [place]. Currently on FOLFORI chemotherapy regimen which she last had on May 25. - Oncology following: noted lack of significant improvement with ongoing chemoRX, worsening functional status -- risk/benefit ratio of continuing aggressive oncologic treatment as it relates to QoL is leaning towards the former. 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 There is also very likely some contribution from osmotic/cardiogenic-third spacing. - Repeat CXR 06/20 with worsening R effusion though possibly compromised by poor film quality- deferred thoracentesis given pt is on RA, stable respiratory status and on anticoagulant Post-prandial Nausea/Vomiting -- improving - Patient continues to have difficulty with PO intake with food and she has worsening n/v after food intake (tolerates boost w/o difficulty) - Nausea has been better controlled w/ Compazine. Continue compazine and zofran on discharge for PRN relief - Continue PPI - Speech therapy recommendations reviewed, appreciated- minced and moist diet Leukocytosis -- improving on daily labs - Pt with fluctuating leukocytosis (PMN predominant, also +lymphopenia and monocytosis), initially increasing and now downtrending - Work-up as follows: - Afebrile, no tachycardia or HoTN - CXR 06/17 with worsening vascular congestion/pulmonary edema and pleural effusions -- improved s/p diuresis - UA demonstrating 3+ hematuria, positive nitrites, 2+ LE, >30 WBCs/RBCs; asymptomatic - Initial concern for cellulitis in RLE - no e/o worsening - No GI symptoms, obvious joint/bone concerns - At this time, primarily suspect stress demargination with the various other issues ongoing (pleural effusions, metastatic cancer, n/v, etc.). However, she is at high risk for infection at numerous possible locations. Monitor closely for infection. Can consider checking PCT/CRP/ESR, though interpretation likely to be skewed given the aforementioned processes Ascites -- s/p paracentesis on 06/09 - Paracentesis performed on 06/09 with 2750 mL of serous fluid removed -- SAAG at 1.6 g/dL (suggestive of portal HTN-related process) - No current concern clinically or diagnostically for SBP - Likely secondary to osmotic and cardiogenic third-spacing, similar to pleural effusions as outlined above Anasarca/generalized edema due to hypoalbuminemia - Noted. Secondary to severe PCM and cancer burden. - Careful use of IVF. Consider adjunctive administration of 5% albumin if needed - Chronic hypervolemia status on discharge Subsegmental Pulmonary Emboli - Noted in context of metastatic malignancy - Chest CTA 06/07: Subsegmental PEs appreciated b/l in context of large pleural effusions - Continue Eliquis 2.5mg b.i.d. initiated while here (switched from 5mg b.i.d. given hematuria on 06/14) - Do not suspect major clinical stressor from these given size and location - Stable respiratory status on RA - Continue Eliquis on discharge Presumed Cellulitis of RLE -- resolved - Cellulitis vs. venous stasis dermatitis. Clinically stabilized. Previous 03/02 BCX of GAS noted on 06/07 -- all repeat cultures have been negative. Suspect contaminant. - Completed course of cefepime -> Ancef ST Elevations on Admission -- stable - On admission, noted to have ST-elevations without significant chest symptomatology - Cardiology consulted -- ST elevation is not likely to be STEMI but more likely stress-induced. Continue medical management - As this was not a STEMI, discontinued aspirin given on Eliquis for PE treatment. Aspirin discontinued on discharge Cardiogenic Shock, resolved VTE Prophyalxis - Eliquis Diet - Heart Healthy, minced and moist Disposition - D/c to [facility] today Code Status: DNR/DNI Pending Studies at Discharge: No Stand-Alone Forms: My [facility] Skilled Items Patient informed of condition?: Yes DNR: Yes Discharge Level of Care: Skilled Communicable Disease: No Discharge Prognosis: Improving Lines: Peripheral IV Urinary Catheter: No Medications and DC Order Prescriptions: Continued ondansetron HCl 8 mg tablet 8 mg PO Q8H PRN (Reason: nausea and vomiting) Qty: 30 0RF acetaminophen [Tylenol] 325 mg tablet 325 mg PO TID PRN (Reason: pain or fever) Qty: 30 0RF cholecalciferol (vitamin D3) 50 mcg (2,000 unit) capsule 50 mcg PO DAILY Qty: 90 3RF Rx Instructions: with heaviest meal of the day omeprazole 20 mg capsule,delayed release(DR/EC) 20 mg PO DAILY Qty: 90 3RF Rx Instructions: PER PT "NOT EVERY DAY" mirtazapine 15 mg Tablet 15 mg PO HS Qty: 30 2RF Rx Instructions: PER PT "NOT EVERY HS". famotidine 20 mg Tablet 20 mg PO BID Qty: 60 2RF latanoprost 0.005 % drops 1 drp OPL HS Held valsartan-hydrochlorothiazide 160-25 mg tablet 1 tab PO DAILY Hold Instructions: Per SNF- resume pending BP stable Discontinued aspirin 81 mg tablet,delayed release (DR/EC) 81 mg PO DAILY Qty: 30 Discharge Orders: Discharge Order (Routine); Ordered 06/20/22 Ordered By: Allyn Marx Admission Data Admit Date/Time: 06/07/22 15:59 Attending Provider: Vasquez Dyer Admit Provider: Gianni Bartlett Primary Care Provider: Cassi Zavala V. Other Providers: Mauro Moreland at [facility] ; [place] ; Vasquez Dyer ; Gianni Bartlett ; Rojelio Gomez ; Scott Frias ; Petros Bolivar ; Laxmi Hardin ; Helen Miller Other Interventions: Discharge Summary Assessment (RN) Last Done: 06/20/22 10:37 Supervising Physician Co-Signing Physician Notes I personally examined the patient and verified all chase points of history and exam, discussed case, and agree with decision making with Dr Marx Patient himself voices no complaints. Feels up to going to SNF. Notes no chest pain or shortness of breath and appetite seems to be improving. Updated son as marco antonio notes that she is doing a bit better with p.o. intake, still not great, but is overall comfortable with the idea of her going to skilled as well. We discussed the pleural effusions, and the fact that she is on anticoagulation, on room air, and has a good chance of effusions reaccumulating given that they are probably predominantly there from malnutrition (versus less likely also cancer relatedbut since there was nothing on cytology06/13 did show some atypical cellsbut nothing overtly malignantthis seems less likely)and therefore it would be exceedingly unlikely that pulmonary would drain them, and I do not believe she would really get any significant benefit from this. He expressed good understanding. Discussed tracking her nutritional status as well. Vitals noted, in general she is frail and thin but no distress. HEENT normocephalic atraumatic mucous membranes moist. Breathing unlabored no accessory muscle use good effort. Skin shows no rashes no pallor or icterus. Malnutrition with anasarcawork on nutritional support; metastatic canceroutpatient oncology follow-up; PEanticoagulated on apixaban. Currently SNF with rehab emphasis. Otherwise as above Resident Activity Tracking Resident Involvement: Resident Care Provided Care Provided: Adult Hospital Medicine
--- NOTE | 2022-06-20 11:18 | XRay Report ---
XR chest 2V PA/lateral CLINICAL HISTORY: f/u pleural effusions, pulmonary edema. COMPARISON STUDY: Chest radiograph June 18, 2022. Chest CT June 07, 2022. FINDINGS: Left subclavian [id number] remains in place. Bilateral pleural effusions have increased in size since chest radiograph June 18, 2022. These are at least moderate in size. There is no pneum othorax. Cardiomegaly is noted. Pulmonary edema has slightly increased. Left basilar opacity has incr eased. IMPRESSION: 1. Increase in size of bilateral pleural effusions, at least moderate in size. Increase in associated bibasilar opacities, greater on the left. 2. Mild interstitial pulmonary edema, increased since prior exam. ACT 112: Negative or not required by law. Electronically signed by: Darryl Villanueva M.D. 06/20/2022 11:16 AM
--- NOTE | 2022-06-20 18:20 | Billing Data ---
Date of Service June 20, 2022 Coding Level of Care Code 36217 IN/OBS DISCH 30 MIN/LESS
--- NOTE | 2022-06-25 10:33 | Coding Query ---
CODING QUERY To promote full compliance with coding requirements relating to patient care, provider participation is requested in all cases of driver salesman uncertainty. Please assist us with the question(s) below: Coding Question(s): Please specify below, in your clinical opinion, the diagnosis most responsible for occasioning the inpatient admission: ( ) Cardiogenic Shock. Please specify further below, in your clinical opinion, the most likely cause of Cardiogenic Shock: ( x) most likely from possible Takosubo's Cardiomyopathy - but not totally clear ( ) most likely from Other: Please Specify ( ) Unknown likely cause ( ) Worsening ST elevation in anteroseptal leads ( ) Hypervolemia ( ) Pleural Effusion ( ) Cellulitis RLE ( ) Other: Please Specify Physician's Response(s): Thank you Anabell Masters Principal Diagnosis: "that condition established after study, to be chiefly responsible for occasioning the admission of the patient to the hospital for care." Co-Existing Principal Diagnosis: "when two or more diagnoses equally meet the criteria for principal diagnosis as determined by the circumstances of admission, diagnostic work up, and/or therapy provided, and the Alphabetic Index, Tabular List, or another coding guideline does not provide sequencing direction, any one of the diagnoses may be sequenced first." "When the physician has documented what appears to be a current diagnosis in the body of the record, but has not included the diagnosis in the final diagnostic statement, the physician should be asked whether the diagnosis should be added." (Source Coding Clinic 2 QTR90. p3-4) LAURA
== END 2022-06-20 13:21 | DRG 314 ==
LOC: ED 12:22 → SUATTDRO 15:59 → 2S 15:59 → 1E 19:07 → 2S 06-10 18:52 → 3N 06-15 19:54